=== PATIENT | female | born 1960 | race Caucasian/White ===

== ENCOUNTER 2017-09-03 17:15 | Emergency (ER) | payer MEDICARE, MEDICAID, SELFPAY ==
[2017-09-03 17:19] VITALS: BP 121/80; PULSE 96; RESP 18; TEMP 36.9; O2SAT 95
[2017-09-03 17:44] LABS: Add Manual Diff / Slide Review NO; Basophils Percent Auto 0.2 % (0-2); Eosinophils Percent Auto 3.9 % (2-4); Hematocrit 37.2 % (36-46); Hemoglobin 12.1 g/dL (12.0-16.0); Lymphocytes Percent Auto 27.5 % (25-40); Mean Corpuscular HGB Conc 32.6 % (30-36); Mean Corpuscular Hemoglobin 29.3 PG (26-34); Monocytes Percent Auto 6.1 % (3-14); Neutrophils Absolute Auto 9100 /uL (3000-5900); Neutrophils Percent Auto 62.3 % (50-75); Platelet Count 328 X10^3/uL (150-400); Red Blood Cell Count 4.13 X10^6/uL (4.0-5.2); White Blood Cell Count 14.6 X10^3/uL (4.5-11.0)
[2017-09-03 17:59] LABS: BUN Creatinine Ratio 19.1 (6-22); Bilirubin Total 0.5 mg/dL (0.2-1.3); Blood Urea Nitrogen 21 mg/dL (7-17); Calcium 9.2 mg/dL (8.4-10.2); Carbon Dioxide 27 mmol/L (22-32); Chloride 102 mmol/L (98-107); Estimated Glomerular Filt Rate 50.8 mL/min (>60); Glucose 92 mg/dL (70-100); HEMOLYSIS < 15 (0-50); Potassium 4.2 mmol/L (3.4-5.1); Sodium 138 mmol/L (137-145)
[2017-09-03 18:14] LABS: Procalcitonin < 0.05 ng/mL (<0.5)
--- NOTE | 2017-09-03 19:26 | ED.EXTPRO ---
HPI - Extremity Problem General Chief complaint: Extremity Problem,Nontraumatic Stated complaint: legs are swelling Time Seen by Provider: 09/03/17 19:25 Source: patient Mode of arrival: ambulatory Limitations: no limitations History of Present Illness HPI Narrative: 57-year-old female here for bilateral lower extremity swelling and redness. Patient states that for the past several days/week her lower extremities have become more swollen and more red. She states that is very similar to the past where she was diagnosed with lower extremity cellulitis and was placed on vancomycin and had to have a PICC line placed to receive vancomycin for an extended period of time. She denies any new trauma. Denies any fevers. States that her legs are somewhat tender. She is still able to ambulate although with some tenderness. She states that the swelling does improve when she puts her legs up. Denies any fevers. States that her legs are ?weeping ?she does have Lasix at home but has been told in the past. Because her kidney functions were not very good. Related Data Home Medications Medication Instructions Recorded Confirmed furosemide 40 mg PO QDAY #0 12/19/16 levothyroxine 100 mcg PO QAM #0 12/19/16 Previous Rx's Medication Instructions Recorded potassium chloride [K-Tab] 10 meq PO Q DAY 10 Days #0 09/07/16 ciprofloxacin HCl [Cipro] 500 mg PO BID #20 tab 12/22/16 vancomycin 1 gm IV QDAY #10 ea 12/22/16 hydrocodone-acetaminophen 0 tab PO Q4HP PRN #60 12/23/16 cephalexin 500 mg PO QID 10 Days #40 cap 09/03/17 Allergies Allergy/AdvReac Type Severity Reaction Status Date / Time No Known Drug Allergies Allergy Verified 09/03/17 17:23 Review of Systems Constitutional Denies chills, Denies fever(s) and Denies lethargy Cardiovascular Denies chest pain, Denies irregular heart rhythm, Denies lightheadedness, Denies palpitations, Denies dyspnea, Denies dyspnea on exertion and Denies orthopnea Respiratory Denies cough, Denies dyspnea, Denies dyspnea on exertion and Denies wheezing Gastrointestinal Gastrointestinal: Denies abdominal pain, Denies change in bowel habits, Denies diarrhea, Denies nausea and Denies vomiting Musculoskeletal Comments: Bilateral lower extremity swelling Integumentary/Breasts Comments: Bilateral lower extremity redness and weeping and warmth Neurologic Comments: No tingling to bilateral lower extremities Endocrine Denies palpitations Hematologic/Lymphatic Denies easy bruising Allergic/Immunologic Denies wheezing [facility] Social History Smoking Status: Current every day smoker Exam Initial Vital Signs Initial Vital Signs: Vital Signs Temperature 98.5 F 09/03/17 17:19 Pulse Rate 96 H 09/03/17 17:19 Respiratory Rate 18 09/03/17 17:19 Blood Pressure 121/80 H 09/03/17 17:19 Pulse Oximetry 95 09/03/17 17:19 Const General: cooperative, comfortable and No acute distress Orientation: alert, awake and oriented x3 HENMT Head: normal to inspection and normocephalic Resp Effort & Inspection: normal respiratory effort Cardio Pulses: dorsalis pedis present bilaterally Back/Spine/Pelvis Back: No CVA tenderness Skin Other: Patient with bilateral redness consistent with chronic venous stasis changes from the toes to just distal to the knees. Does have areas of what appear to be ulcerations and weeping of clear fluid. No intact vesicles seen. Skin is warm to the touch. Neuro Other: Sensation intact bilateral lower extremities Extrem Other: Bilateral lower extremities 2+ pitting edema from the toes to the knees. Course Orders Ordered: ED Orders 09/03/17 18:43 Blood Culture Stat Discontinued Medications Cephalexin HCl (Keflex) 500 mg PO NOW ONE Stop: 09/03/17 19:46 Last Admin: 09/03/17 19:53 Dose: 500 mg Vital Signs - 8 hr 09/03/17 17:19 Temperature 98.5 F Pulse Rate 96 H Respiratory Rate 18 Blood Pressure 121/80 H Pulse Oximetry 95 MDM - Extremity (Nontraumatic) Lab Data Result diagrams: 09/03/17 17:34 09/03/17 17:34 Lab Results 09/03/17 09/03/17 09/03/17 Range/Units 17:34 17:34 17:34 WBC 14.6 H (4.5-11.0) X10^3/uL RBC 4.13 (4.0-5.2) X10^6/uL Hgb 12.1 (12.0-16.0) g/dL Hct 37.2 (36-46) % MCV 90.0 (80-100) fL MCH 29.3 (26-34) PG MCHC 32.6 (30-36) % RDW 14.0 (11.6-14.8) % Plt Count 328 (150-400) X10^3/uL Neut % (Auto) 62.3 (50-75) % Lymph % (Auto) 27.5 (25-40) % [place] % (Auto) 6.1 (3-14) % Eos % (Auto) 3.9 (2-4) % Baso % (Auto) 0.2 (0-2) % Neut # (Auto) 9100 H (0094-2214) /uL Sodium 138 (137-145) mmol/L Potassium 4.2 (3.4-5.1) mmol/L Chloride 102 (98-107) mmol/L Carbon Dioxide 27 (22-32) mmol/L BUN 21 H (7-17) mg/dL Creatinine 1.10 H (0.52-1.04) mg/dL Estimated GFR 50.8 L (>60) mL/min BUN/Creatinine Ratio 19.1 (6-22) Glucose 92 (70-100) mg/dL Lactate (0.7-2.1) mmol/L Calcium 9.2 (8.4-10.2) mg/dL Total Bilirubin 0.5 (0.2-1.3) mg/dL Procalcitonin < 0.05 (<0.5) ng/mL 09/03/17 Range/Units 17:34 WBC (4.5-11.0) X10^3/uL RBC (4.0-5.2) X10^6/uL Hgb (12.0-16.0) g/dL Hct (36-46) % MCV (80-100) fL MCH (26-34) PG MCHC (30-36) % RDW (11.6-14.8) % Plt Count (150-400) X10^3/uL Neut % (Auto) (50-75) % Lymph % (Auto) (25-40) % [place] % (Auto) (3-14) % Eos % (Auto) (2-4) % Baso % (Auto) (0-2) % Neut # (Auto) (4205-1474) /uL Sodium (137-145) mmol/L Potassium (3.4-5.1) mmol/L Chloride (98-107) mmol/L Carbon Dioxide (22-32) mmol/L BUN (7-17) mg/dL Creatinine (0.52-1.04) mg/dL Estimated GFR (>60) mL/min BUN/Creatinine Ratio (6-22) Glucose (70-100) mg/dL Lactate 1.0 (0.7-2.1) mmol/L Calcium (8.4-10.2) mg/dL Total Bilirubin (0.2-1.3) mg/dL Procalcitonin (<0.5) ng/mL MDM Narrative Medical decision making narrative: Patient with physical exam that is consistent with bilateral chronic edema. Does have redness and warmth and weeping wounds to bilateral lower extremities. Considered chronic venous stasis changes as the source of her symptoms however with a prior history of bilateral cellulitis regarding long-term treatment with vancomycin through a PICC line in her elevated white blood cell count I felt that it would be prudent to start her on a course of antibiotics. We did discuss other treatments to include elevation and compression stockings. She does have compression stockings at home. She does have a follow up with her primary doctor on Sunday of this week. Her creatinine today is 1.1. We did discuss starting Lasix on a daily basis to help with the swelling. She was given return precautions. Feel that she does not need admitted to the hospital today. She is afebrile. Is nontoxic appearing. Has a normal lactate. She expressed understanding and agreement with plan Discharge Plan Departure Patient Disposition: Home, Self-Care Clinical Impression: Cellulitis, Dependent edema Discharge Date/Time: 09/03/17 20:07 Interventions: ED Discharge Assessment Last Done: 09/03/17 20:06 Instructions: DI for Edema Due to Venous Stasis, DI for Dependent Edema, DI for Peripheral Edema -- Bilateral Activity Restrictions/Additional Instructions: Take all of the medications as directed. I would recommend that you take 1x 20 mg Lasix pill that you have at home a day. Recommend that you keep her legs elevated like we discussed. Recommend that you stay as mobile as possible like we discussed. Keep your follow-up with her primary doctor on Sunday. Return to the emergency department for any new or worsening symptoms Prescriptions: New cephalexin 500 mg capsule 500 mg PO QID 10 Days Qty: 40 RF: 0 No Action potassium chloride [K-Tab] 10 MEQ tablet extended release 10 meq PO Q DAY 10 Days Qty: 0 RF: 0 levothyroxine 100 MCG tablet 100 mcg PO QAM Qty: 0 RF: 0 furosemide 40 MG tablet 40 mg PO QDAY Qty: 0 RF: 0 ciprofloxacin HCl [Cipro] 500 MG tablet 500 mg PO BID Qty: 20 RF: 1 vancomycin 1 GM recon soln 1 gm IV QDAY Qty: 10 RF: 0 hydrocodone-acetaminophen 5 MG/325 MG tablet PO Q4HP PRNQty: 60 RF: 0
[2017-09-03 19:29] VITALS: BP 145/81; PULSE 82; RESP 18; TEMP 36.6; O2SAT 99
[2017-09-03 19:30] VITALS: BP 133/89; PULSE 83; O2SAT 97
[2017-09-03] MEDS: cephALEXin 250 MG CAPSULE 500 MG PO (19:53)
== END 2017-09-03 20:07 | disposition home or self-care (01) ==
PROVIDERS: Emergency Medicine; Emergency Provider Emergency Medicine; PCP Family Medicine
DX: L03.116 Cellulitis of left lower limb (principal); L03.115 Cellulitis of right lower limb
CPT/HCPCS: 36415; 36591; 80048; 82247; 83605; 84145; 85025; 87040; 99282; 99283

== ENCOUNTER 2018-03-22 00:20 | Emergency (ER) | payer MEDICARE, MEDICAID, SELFPAY ==
[2018-03-22 00:29] VITALS: BP 165/87; PULSE 82; RESP 17; TEMP 36.6; O2SAT 100; BMI 38.0
--- NOTE | 2018-03-22 00:42 | ED.EXTPRO ---
HPI - Extremity Problem General Chief complaint: Extremity Problem,Nontraumatic Stated complaint: RIGHT LEG INFECTION Time Seen by Provider: 03/22/18 00:28 Source: patient Mode of arrival: ambulatory Limitations: no limitations History of Present Illness HPI Narrative: Patient is 58-year-old female who presents bilateral leg swelling. She says that she has some erythema and infection on her right thigh. She says the redness has gotten worse over the last 3 days. She says it is warm to touch. She previously had bilateral lower extremity cellulitis thought to be due to our fluid overload at that time she was placed on Lasix. Her doctor took her off Lasix she says. His she feels like her legs are more swollen again. She also says she has put on 60 lb over the last year does not feel like that is right. She feels like she might be retaining water. She does have some shortness of breath no fever no cough no chest pain. She does take thyroid medication MD Complaint: extremity pain and extremity swelling Related Data Home Medications Medication Instructions Recorded Confirmed levothyroxine 100 mcg PO QAM #0 12/19/16 03/22/18 methadone 65 mg PO DAILY 03/22/18 03/22/18 Previous Rx's Medication Instructions Recorded cephalexin [Keflex] 500 mg PO TID #21 cap 03/22/18 furosemide [Lasix] 20 mg PO DAILY #5 tab 03/22/18 Allergies Allergy/AdvReac Type Severity Reaction Status Date / Time No Known Drug Allergies Allergy Verified 03/22/18 00:29 Review of Systems Review of Systems All systems reviewed & are unremarkable except as noted in HPI and below Constitutional Denies chills, Denies fever(s), Denies lethargy and Denies weakness Cardiovascular Denies chest pain, Denies irregular heart rhythm, Reports leg edema, Denies lightheadedness, Denies palpitations, Denies dyspnea, Reports dyspnea on exertion and Denies orthopnea Respiratory Denies pain with cough, Denies dyspnea, Reports dyspnea on exertion and Denies wheezing Gastrointestinal Gastrointestinal: Denies abdominal pain, Denies change in bowel habits, Denies diarrhea, Denies nausea and Denies vomiting Genitourinary Denies hematuria, Denies flank pain, Denies urinary incontinence and Denies urinary urgency Musculoskeletal Denies back pain, Denies muscle weakness, Denies numbness and Denies tingling Integumentary/Breasts Denies pruritus, Denies erythema, Denies rash and Denies wounds Neurologic Denies numbness, Denies tingling and Denies weakness Endocrine Denies palpitations Allergic/Immunologic Denies wheezing PFSH Medical History Kidney stones (Chronic) Social History Smoking Status: Current every day smoker Exam Initial Vital Signs Initial Vital Signs: Vital Signs Temperature 97.8 F 03/22/18 00:29 Pulse Rate 82 03/22/18 00:29 Respiratory Rate 17 03/22/18 00:29 Blood Pressure 165/87 H 03/22/18 00:29 Pulse Oximetry 100 03/22/18 00:29 GENERAL: Overweight female HEENT: Head atraumatic,EOMI, pupils reactive, face symmetric CARDIOVASCULAR: Regular rate and rhythm without murmurs, rubs or gallops. RESPIRATORY: Breath sounds equal bilaterally, no wheezes rales or rhonchi. ABDOMEN: Soft, nontender. Normoactive bowel sounds all 4 quadrants. No guarding or rebound. EXTREMITIES: Normal range of motion, no clubbing or edema. Neurovascularly intact NEUROLOGICAL: Alert and oriented x4.Normal gait and speech. Cranial nerves II through XII grossly intact. SKIN: Chronic venous stasis noted in bilateral lower extremities. She does have an area of the right lateral thigh which is erythematous blanchable Course Orders Ordered: ED Orders 03/22/18 00:44 XR chest 1V Stat 03/22/18 00:45 EKG-12 Lead Stat 03/22/18 01:10 B Type Natriuretic Peptide Stat Complete Blood Count AUTO DIFF Stat Comprehensive Metabolic Panel Stat Procalcitonin Stat Thyroid Stimulating Hormone Stat Troponin & CK Cardiac Panel Stat Discontinued Medications Cefazolin Sodium (Keflex) 1 bottle MISC SEEINSTR ONE Stop: 03/22/18 02:21 Last Admin: 03/22/18 02:24 Dose: 500 mg Cephalexin HCl (Keflex) 1 bottle MISC SEEINSTR ONE Stop: 03/22/18 02:17 Last Admin: 03/22/18 02:25 Dose: Not Given Furosemide (Lasix) 20 mg IV NOW ONE Stop: 03/22/18 02:17 Last Admin: 03/22/18 02:24 Dose: 20 mg Vital Signs - 8 hr 03/22/18 00:29 03/22/18 02:42 Temperature 97.8 F Pulse Rate 82 71 Respiratory Rate 17 16 Blood Pressure 165/87 H 151/64 H Pulse Oximetry 100 97 MDM - Extremity (Nontraumatic) Lab Data Result diagrams: 03/22/18 01:10 03/22/18 01:10 Lab Results 03/22/18 03/22/18 03/22/18 Range/Units 01:10 01:10 01:10 WBC 12.0 H (4.5-11.0) X10^3/uL RBC 3.69 L (4.0-5.2) X10^6/uL Hgb 10.9 L (12.0-16.0) g/dL Hct 33.8 L (36-46) % MCV 91.5 (80-100) fL MCH 29.5 (26-34) PG MCHC 32.2 (30-36) % RDW 14.1 (11.6-14.8) % Plt Count 249 (150-400) X10^3/uL Neut % (Auto) 63.6 (50-75) % Lymph % (Auto) 22.8 L (25-40) % [place] % (Auto) 9.4 (3-14) % Eos % (Auto) 3.2 (2-4) % Baso % (Auto) 1.0 (0-2) % Neut # (Auto) 7700 H (7138-7787) /uL Sodium 140 (137-145) mmol/L Potassium 4.2 (3.4-5.1) mmol/L Chloride 103 (98-107) mmol/L Carbon Dioxide 27 (22-32) mmol/L BUN 22 H (7-17) mg/dL Creatinine 1.70 H (0.52-1.04) mg/dL Estimated GFR 30.7 L (>60) mL/min BUN/Creatinine Ratio 12.9 (6-22) Glucose 111 H (80-110) mg/dL Calcium 8.9 (8.4-10.2) mg/dL Total Bilirubin 0.2 (0.2-1.3) mg/dL AST 16 (14-36) IU/L ALT 16 (9-52) IU/L Alkaline Phosphatase 92 (38-126) U/L Total Creatine Kinase (30-135) U/L CK-MB (CK-2) CK-MB (CK-2) Rel Index Troponin I (0.01-0.034) ng/mL B-Natriuretic Peptide < 100 (<100) Total Protein 7.9 (6.3-8.2) g/dL Albumin 3.8 (3.5-5.0) g/dL Globulin 4.1 (1.7-4.1) g/dL Albumin/Globulin Ratio 0.9 L (1.0-2.8) Procalcitonin < 0.05 (<0.5) ng/mL TSH (0.47-4.68) uIU/mL 03/22/18 03/22/18 Range/Units 01:10 01:10 WBC (4.5-11.0) X10^3/uL RBC (4.0-5.2) X10^6/uL Hgb (12.0-16.0) g/dL Hct (36-46) % MCV (80-100) fL MCH (26-34) PG MCHC (30-36) % RDW (11.6-14.8) % Plt Count (150-400) X10^3/uL Neut % (Auto) (50-75) % Lymph % (Auto) (25-40) % [place] % (Auto) (3-14) % Eos % (Auto) (2-4) % Baso % (Auto) (0-2) % Neut # (Auto) (5229-2141) /uL Sodium (137-145) mmol/L Potassium (3.4-5.1) mmol/L Chloride (98-107) mmol/L Carbon Dioxide (22-32) mmol/L BUN (7-17) mg/dL Creatinine (0.52-1.04) mg/dL Estimated GFR (>60) mL/min BUN/Creatinine Ratio (6-22) Glucose (80-110) mg/dL Calcium (8.4-10.2) mg/dL Total Bilirubin (0.2-1.3) mg/dL AST (14-36) IU/L ALT (9-52) IU/L Alkaline Phosphatase (38-126) U/L Total Creatine Kinase 61 (30-135) U/L CK-MB (CK-2) TNP CK-MB (CK-2) Rel Index TNP Troponin I < 0.012 (0.01-0.034) ng/mL B-Natriuretic Peptide (<100) Total Protein (6.3-8.2) g/dL Albumin (3.5-5.0) g/dL Globulin (1.7-4.1) g/dL Albumin/Globulin Ratio (1.0-2.8) Procalcitonin (<0.5) ng/mL TSH 4.52 (0.47-4.68) uIU/mL Imaging Data Chest x-ray: Attestation: I personally reviewed and interpreted this imaging study as follows: My impression: No acute cardiopulmonary process ECG Data Attestation EKG: I personally reviewed and interpreted this ECG as follows: Prior ECG tracings: available for review Interpretation: Normal sinus rhythm rate 61 appear interval [address] changes or T-wave inversions MDM Narrative Medical decision making narrative: Patient is no sign of sepsis. Slightly elevated leukocytosis. Erythema may be from edema. She was previously on a Lasix. Will give her a few days of Lasix and antibiotics. A TSH is slightly elevated not causing her year long weight gain. I discussed all findings with the patient, Education has been performed regarding treatment plan, diagnosis, warning signs and symptoms and all concerns have been addressed. Verbally agree with and understood all of the above. Discharge Plan Departure Patient Disposition: Home Clinical Impression: Cellulitis Discharge Date/Time: 03/22/18 02:43 Interventions: ED Discharge Assessment Last Done: 03/22/18 02:42 Instructions: DI for Cellulitis -- Adult Activity Restrictions/Additional Instructions: *You have been diagnosed with cellulitis right leg *What to do: Talk to your primary care provider about your thyroid, TSH today is 4.52 *Continue to take medications as directed Keflex 500 mg is 3 times a day for 7 days Lasix 20 mg once a day for 5 days *Follow up with your primary care provider in 2-3 days *Return to ER if you should have increasing redness, difficulty breathing, chest or any new, worsening or concerning symptoms Prescriptions: New cephalexin [Keflex] 500 mg capsule 500 mg PO TID Qty: 21 RF: 0 furosemide [Lasix] 20 mg tablet 20 mg PO DAILY Qty: 5 RF: 0 No Action levothyroxine 100 MCG tablet 100 mcg PO QAM Qty: 0 RF: 0 methadone 40 mg Tablet,Soluble 65 mg PO DAILY RF: 0 Referrals: Alva Bauer MD [Primary Care Provider] -
--- NOTE | 2018-03-22 00:44 | DI.RAD.S_ITS ---
PROCEDURE: XR CHEST 1V INDICATIONS: short of breath TECHNIQUE: One view of the chest was acquired. COMPARISON: [facility], CHEST FOR PICC PLACEMENT, 12/21/2016, 15:48. [facility], CHEST 1 VIEW, 09/07/2016, 15:13. FINDINGS: Surgical changes and devices: None. Lungs and pleura: No pleural effusions or pneumothorax. Lungs are clear except for mild chronic interstitial prominence. Mediastinum: Mediastinal contours appear normal. Heart size is normal. Bones and chest wall: No suspicious bony lesions. Overlying soft tissues appear unremarkable. IMPRESSION: Chronic mild interstitial prominence, no acute disease. Dictated by: Britton Clemente M.D. on 03/22/2018 at 8:58 Approved by: Britton Clemente M.D. on 03/22/2018 at 8:59
[2018-03-22 01:22] LABS: Add Manual Diff / Slide Review NO; Eosinophils Percent Auto 3.2 % (2-4); Hematocrit 33.8 % (36-46); Hemoglobin 10.9 g/dL (12.0-16.0); Lymphocytes Percent Auto 22.8 % (25-40); Mean Corpuscular HGB Conc 32.2 % (30-36); Mean Corpuscular Hemoglobin 29.5 PG (26-34); Mean Corpuscular Volume 91.5 fL (80-100); Monocytes Percent Auto 9.4 % (3-14); Neutrophils Absolute Auto 7700 /uL (1500-7000); Neutrophils Percent Auto 63.6 % (50-75); Platelet Count 249 X10^3/uL (150-400); Red Blood Cell Count 3.69 X10^6/uL (4.0-5.2); Red Cell Distribution Width 14.1 % (11.6-14.8)
[2018-03-22 01:35] LABS: Alanine Aminotransferase 16 IU/L (9-52); Albumin 3.8 g/dL (3.5-5.0); Albumin Globulin Ratio 0.9 (1.0-2.8); Alkaline Phosphatase 92 U/L (38-126); Aspartate Aminotransferase 16 IU/L (14-36); BUN Creatinine Ratio 12.9 (6-22); Bilirubin Total 0.2 mg/dL (0.2-1.3); Blood Urea Nitrogen 22 mg/dL (7-17); Calcium 8.9 mg/dL (8.4-10.2); Carbon Dioxide 27 mmol/L (22-32); Chloride 103 mmol/L (98-107); Estimated Glomerular Filt Rate 30.7 mL/min (>60); Globulin 4.1 g/dL (1.7-4.1); Glucose 111 mg/dL (80-110); HEMOLYSIS < 15 (0-50); Potassium 4.2 mmol/L (3.4-5.1); Sodium 140 mmol/L (137-145); Total Protein 7.9 g/dL (6.3-8.2)
[2018-03-22 01:49] LABS: Creatine Kinase 61 U/L (30-135)
[2018-03-22 01:53] LABS: Procalcitonin < 0.05 ng/mL (<0.5)
[2018-03-22 02:04] LABS: Troponin I < 0.012 ng/mL (0.01-0.034)
[2018-03-22 02:09] LABS: B Type Natriuretic Peptide < 100 (<100)
[2018-03-22 02:11] LABS: Thyroid Stimulating Hormone 4.52 uIU/mL (0.47-4.68)
[2018-03-22] MEDS: FUROSEMIDE 20 MG/2 ML VIAL IV (02:24)
[2018-03-22] MEDS: cephALEXin 250 MG PREPACK 1 BOTTLE MISC (02:24)
[2018-03-22 02:42] VITALS: BP 151/64; PULSE 71; RESP 16; O2SAT 97
== END 2018-03-22 02:43 | disposition home or self-care (01) ==
PROVIDERS: Emergency Provider Emergency Medicine; PCP Family Medicine
DX: L03.115 Cellulitis of right lower limb (principal)
CPT/HCPCS: 36591; 71045; 80053; 82550; 83880; 84145; 84443; 84484; 85025; 93005; 96374; 99282; 99285; J1940

== ENCOUNTER 2018-04-29 01:34 | Emergency (ER) | payer MEDICARE, MEDICAID, SELFPAY ==
[2018-04-29 01:48] VITALS: BP 176/91; PULSE 81; RESP 16; TEMP 36.8; O2SAT 97; BMI 32.8
--- NOTE | 2018-04-29 01:56 | ED.EXTPRO ---
HPI - Extremity Problem General Chief complaint: Extremity Problem,Nontraumatic Stated complaint: LEGS ARE SWELLING Time Seen by Provider: 04/29/18 01:39 Source: patient and family Mode of arrival: ambulatory Limitations: no limitations History of Present Illness HPI Narrative: 58 year old smoker with history of B/L LE and venous stasis presents with B/L LE swelling over the past month or so. Yesterday she developed some redness on the dorsum of her R foot in the absence of pain. She has had no fever or chills. She denies CP, SOB, or other problems. She's been without her meds for the past 6 months or so. She has a vague mild headache MD Complaint: extremity pain and extremity swelling Onset (ago): week(s) Location: left, right and lower extremity Quality: aching Radiation: none Relieving factors: nothing Exacerbating factors: nothing Related Data Home Medications Medication Instructions Recorded Confirmed levothyroxine 100 mcg PO QAM #0 12/19/16 03/22/18 methadone 65 mg PO DAILY 03/22/18 03/22/18 Previous Rx's Medication Instructions Recorded cephalexin [Keflex] 500 mg PO TID #21 cap 03/22/18 furosemide [Lasix] 20 mg PO DAILY #5 tab 03/22/18 doxycycline hyclate 100 mg PO BID #20 tab 04/29/18 furosemide [Lasix] 40 mg PO DAILY #7 tab 04/29/18 levothyroxine 75 mcg PO DAILY #30 tab 04/29/18 Allergies Allergy/AdvReac Type Severity Reaction Status Date / Time No Known Drug Allergies Allergy Verified 04/29/18 01:53 Review of Systems Constitutional Denies chills, Denies fever(s), Denies lethargy and Denies weakness Eyes Denies change in vision, Denies eye discharge, Denies irritation and Denies loss of vision ENT Ears, Nose, Mouth, and Throat: Denies change in voice, Denies neck pain and Denies sore throat Cardiovascular Denies chest pain, Reports pedal edema, Reports edema, Denies irregular heart rhythm, Denies lightheadedness, Denies palpitations, Denies dyspnea, Denies dyspnea on exertion and Denies orthopnea Respiratory Denies cough, Denies dyspnea, Denies dyspnea on exertion and Denies wheezing Gastrointestinal Gastrointestinal: Denies abdominal pain, Denies change in bowel habits, Denies diarrhea, Denies nausea and Denies vomiting Genitourinary Denies hematuria, Denies flank pain, Denies urinary incontinence and Denies urinary urgency Musculoskeletal Denies neck pain Integumentary/Breasts Denies pruritus, Reports erythema, Denies rash and Denies wounds Neurologic Denies confusion, Denies loss of vision and Denies weakness Psychiatric Denies anxiety, Denies confusion, Denies depression, Denies homicidal ideation and Denies suicidal ideation Endocrine Denies palpitations Hematologic/Lymphatic Denies easy bruising Allergic/Immunologic Denies wheezing PFSH Medical History Kidney stones (Chronic) Social History Smoking Status: Current every day smoker Social History Smoking Status: Current every day smoker Exam Narrative Exam Narrative: GENERAL: 58 year old female, appears older than stated age, a bit unkempt HEAD: Atraumatic. Normocephalic. No temporal or scalp tenderness. EYES: Pupils equal round and reactive. Extraocular motions intact. No scleral icterus. No injection or drainage. ENT: Nose without bleeding, purulent drainage or septal hematoma. Throat without erythema, tonsillar hypertrophy or exudate. Uvula midline. Airway patent. NECK: Trachea midline. No JVD or lymphadenopathy. Supple, nontender, no meningeal signs. CARDIOVASCULAR: Regular rate and rhythm without murmurs, gallops, or rubs. RESPIRATORY: decreased breath sounds, expiratory wheeze GASTROINTESTINAL: Abdomen soft, non-tender, nondistended. No hepato-splenomegaly, or palpable masses. No guarding. EXTREMITIES: B/L LE edema, 2+, tense, with chronic venous stasis. Mild erythema on dorsum of R foot from toes to midfoot. No drainage or fluctuance. BACK: Nontender without deformity or crepitance. No flank tenderness. NEURO: AOx3. SKIN: No rash or erythema. Initial Vital Signs Initial Vital Signs: Vital Signs Temperature 98.2 F 04/29/18 01:48 Pulse Rate 81 04/29/18 01:48 Respiratory Rate 16 04/29/18 01:48 Blood Pressure 176/91 H 04/29/18 01:48 Pulse Oximetry 97 02/04/19 01:48 Course Orders Ordered: ED Orders 04/29/18 02:11 Basic Metabolic Panel Stat Complete Blood Count AUTO DIFF Stat Free T4 Free Thyroxine Stat Procalcitonin Stat Thyroid Stimulating Hormone Stat Discontinued Medications Furosemide (Lasix) 40 mg IV NOW ONE Stop: 04/29/18 01:56 Last Admin: 04/29/18 02:13 Dose: 40 mg Ceftriaxone Sodium/Dextrose (Rocephin) 1 gm in 50 mls @ 100 mls/hr IV NOW ONE Stop: 04/29/18 02:24 Last Infusion: 04/29/18 02:49 Dose: 0 mls/hr Admin: 04/29/18 02:13 Dose: 100 mls/hr Vital Signs - 8 hr 04/29/18 01:48 04/29/18 02:40 04/29/18 03:35 Temperature 98.2 F Pulse Rate 81 76 72 Respiratory Rate 16 16 16 Blood Pressure 176/91 H Blood Pressure [Left Arm] 121/66 119/65 Pulse Oximetry 97 94 96 MDM - Extremity (Nontraumatic) Lab Data Result diagrams: 04/29/18 02:11 04/29/18 02:11 Lab Results 04/29/18 04/29/18 04/29/18 Range/Units 02:11 02:11 02:11 WBC 16.2 H (4.5-11.0) X10^3/uL RBC 3.97 L (4.0-5.2) X10^6/uL Hgb 11.7 L (12.0-16.0) g/dL Hct 36.2 (36-46) % MCV 91.2 (80-100) fL MCH 29.4 (26-34) PG MCHC 32.3 (30-36) % RDW 14.7 (11.6-14.8) % Plt Count 221 (150-400) X10^3/uL Neut % (Auto) Not Reportable Lymph % (Auto) Not Reportable [place] % (Auto) Not Reportable Eos % (Auto) Not Reportable Baso % (Auto) Not Reportable Lymph # (Auto) Not Reportable [place] # (Auto) Not Reportable Baso # (Auto) Not Reportable Seg Neutrophils % 72.0 H (38-70) % Lymphocytes % (Manual) 17.0 L (25-45) % Monocytes % (Manual) 8.0 (2-11) % Eosinophils % (Manual) 3.0 (2-4) % Differential Comment Normal morphology RBC Morphology Normal morphology Sodium 137 (137-145) mmol/L Potassium 3.6 (3.4-5.1) mmol/L Chloride 101 (98-107) mmol/L Carbon Dioxide 26 (22-32) mmol/L BUN 28 H (7-17) mg/dL Creatinine 1.40 H (0.52-1.04) mg/dL Estimated GFR 38.4 L (>60) mL/min BUN/Creatinine Ratio 20.0 (6-22) Glucose 110 (80-110) mg/dL Calcium 8.5 (8.4-10.2) mg/dL Procalcitonin 0.25 (<0.5) ng/mL TSH (0.47-4.68) uIU/mL Free T4 (0.78-2.19) ng/dL 04/29/18 Range/Units 02:11 WBC (4.5-11.0) X10^3/uL RBC (4.0-5.2) X10^6/uL Hgb (12.0-16.0) g/dL Hct (36-46) % MCV (80-100) fL MCH (26-34) PG MCHC (30-36) % RDW (11.6-14.8) % Plt Count (150-400) X10^3/uL Neut % (Auto) Lymph % (Auto) [place] % (Auto) Eos % (Auto) Baso % (Auto) Lymph # (Auto) [place] # (Auto) Baso # (Auto) Seg Neutrophils % (38-70) % Lymphocytes % (Manual) (25-45) % Monocytes % (Manual) (2-11) % Eosinophils % (Manual) (2-4) % Differential Comment RBC Morphology Sodium (137-145) mmol/L Potassium (3.4-5.1) mmol/L Chloride (98-107) mmol/L Carbon Dioxide (22-32) mmol/L BUN (7-17) mg/dL Creatinine (0.52-1.04) mg/dL Estimated GFR (>60) mL/min BUN/Creatinine Ratio (6-22) Glucose (80-110) mg/dL Calcium (8.4-10.2) mg/dL Procalcitonin (<0.5) ng/mL TSH 5.95 H (0.47-4.68) uIU/mL Free T4 1.46 (0.78-2.19) ng/dL Discharge Plan Departure Patient Disposition: Home Clinical Impression: Cellulitis, Bilateral leg edema Discharge Date/Time: 04/29/18 03:40 Interventions: ED Discharge Assessment Last Done: 04/29/18 03:36 Instructions: DI for Cellulitis -- Adult Activity Restrictions/Additional Instructions: *You have been diagnosed with [ acute bilateral lower extremity edema, right foot cellulitis ] *What to do: *Take medications as directed *Follow up with your primary care provider in 2-3 days, call for an appointment. Let them know you were seen in the Emergency Department and that we ask that you be seen in follow up *Return to ER if you should have any new, worsening or concerning symptoms, such as [ ] Prescriptions: New doxycycline hyclate 100 mg tablet 100 mg PO BID Qty: 20 RF: 0 furosemide [Lasix] 40 mg tablet 40 mg PO DAILY Qty: 7 RF: 0 levothyroxine 75 mcg tablet 75 mcg PO DAILY Qty: 30 RF: 0 No Action levothyroxine 100 MCG tablet 100 mcg PO QAM Qty: 0 RF: 0 methadone 40 mg Tablet,Soluble 65 mg PO DAILY RF: 0 cephalexin [Keflex] 500 mg capsule 500 mg PO TID Qty: 21 RF: 0 furosemide [Lasix] 20 mg tablet 20 mg PO DAILY Qty: 5 RF: 0 Referrals: Alva Bauer MD [Primary Care Provider] -
[2018-04-29] MEDS: CEFTRIAXONE 1 GM/50 ML FROZ.PIGGY IV (02:13)
[2018-04-29] MEDS: FUROSEMIDE 40 MG/4 ML VIAL IV (02:13)
[2018-04-29 02:27] LABS: Hematocrit 36.2 % (36-46); Hemoglobin 11.7 g/dL (12.0-16.0); Mean Corpuscular HGB Conc 32.3 % (30-36); Mean Corpuscular Hemoglobin 29.4 PG (26-34); Mean Corpuscular Volume 91.2 fL (80-100); Platelet Count 221 X10^3/uL (150-400); Red Blood Cell Count 3.97 X10^6/uL (4.0-5.2); Red Cell Distribution Width 14.7 % (11.6-14.8); White Blood Cell Count 16.2 X10^3/uL (4.5-11.0)
[2018-04-29 02:28] LABS: Add Manual Diff / Slide Review YES
[2018-04-29 02:35] LABS: HEMOLYSIS 40 (0-50); Potassium 3.6 mmol/L (3.4-5.1)
[2018-04-29 02:39] LABS: Blood Urea Nitrogen 28 mg/dL (7-17); Calcium 8.5 mg/dL (8.4-10.2); Carbon Dioxide 26 mmol/L (22-32); Chloride 101 mmol/L (98-107); Estimated Glomerular Filt Rate 38.4 mL/min (>60); Glucose 110 mg/dL (80-110); Sodium 137 mmol/L (137-145)
[2018-04-29 02:40] VITALS: BP 121/66; PULSE 76; RESP 16; O2SAT 94
[2018-04-29 02:46] LABS: Procalcitonin 0.25 ng/mL (<0.5)
[2018-04-29 03:01] LABS: Morphology Comment Normal Morphology
[2018-04-29 03:06] LABS: Free T4, Direct Thyroxine 1.46 ng/dL (0.78-2.19)
[2018-04-29 03:20] LABS: Thyroid Stimulating Hormone 5.95 uIU/mL (0.47-4.68)
[2018-04-29 03:35] VITALS: BP 119/65; PULSE 72; RESP 16; O2SAT 96
[2018-04-29 04:14] LABS: RBC Morphology Normal Morphology
--- NOTE | 2018-05-10 15:36 | PC.NURSE ---
Pt friend called stating that patient did not fill her prescriptions from 2/4 visit and has lost them. Is continuing to have concerns w/ lower extremities. Requesting we re-issue scripts. As it has been 11 days, provider declined. Encouraged to return for further evaluation or f/u w/ pcp. Friend verbalized understanding of those instructions.
== END 2018-04-29 03:40 | disposition home or self-care (01) ==
PROVIDERS: Emergency Provider Emergency Medicine; PCP Family Medicine
DX: R60.0 Localized edema (principal)
CPT/HCPCS: 36591; 80048; 84145; 84439; 84443; 85025; 96365; 96375; 99283; 99284; J1940

== ENCOUNTER 2018-10-09 02:26 | Emergency (ER) | payer MEDICARE, MEDICAID, SELFPAY ==
[2018-10-09 02:30] VITALS: BP 134/72; PULSE 97; RESP 20; TEMP 36.6; O2SAT 96; BMI 42.3
[2018-10-09 02:38] VITALS: PULSE 90; RESP 16; O2SAT 99
--- NOTE | 2018-10-09 02:48 | ED.EXTPRO ---
HPI - Extremity Problem General Chief complaint: Extremity Problem,Nontraumatic Stated complaint: states infection both legs Time Seen by Provider: 10/09/18 02:45 Source: patient Mode of arrival: ambulatory Limitations: no limitations History of Present Illness HPI Narrative: This is a 58-year-old female comes to the emergency department with complaint of swelling in her lower extremities and shortness of breath. Patient states that the swelling has been increasingly moving up her legs she states they are also has been more skin breakdown and weeping from her lower extremities. She states that she increasing redness move well. Patient denies any fevers. She has felt more short of breath. She has of low move cough but no productive. She does smoke about a pack per day. She states she has hypertension, hypothyroidism and does take Lasix daily. Patient states her [place] care [place] Dr[place] Coffey. She states she has had hysterectomy. She has been admitted for cellulitis on her lower extremities in the past. Denies any alcohol or illicit. Related Data Home Medications Medication Instructions Recorded Confirmed levothyroxine 100 mcg PO QAM #0 12/19/16 03/22/18 methadone 65 mg PO DAILY 03/22/18 03/22/18 Previous Rx's Medication Instructions Recorded cephalexin [Keflex] 500 mg PO TID #21 cap 03/22/18 furosemide [Lasix] 20 mg PO DAILY #5 tab 03/22/18 doxycycline hyclate 100 mg PO BID #20 tab 04/29/18 furosemide [Lasix] 40 mg PO DAILY #7 tab 04/29/18 levothyroxine 75 mcg PO DAILY #30 tab 04/29/18 cephalexin [Keflex] 500 mg PO QID #40 cap 10/09/18 furosemide [Lasix] 20 mg PO DAILY #5 tab 10/09/18 Allergies Allergy/AdvReac Type Severity Reaction Status Date / Time No Known Drug Allergies Allergy Verified 04/29/18 01:53 Review of Systems Review of Systems ROS Unobtainable: All systems reviewed & are unremarkable except as noted in HPI and below Constitutional Denies chills, Denies fever(s), Denies lethargy and Denies weakness Cardiovascular Denies chest pain, Denies diaphoresis, Denies syncope, Reports edema, Denies lightheadedness, Reports dyspnea and Reports dyspnea on exertion Respiratory Denies change in phlegm color, Denies chest congestion, Reports cough, Denies hemoptysis, Denies excessive phlegm production, Reports dyspnea, Reports dyspnea on exertion and Reports wheezing Gastrointestinal Gastrointestinal: Denies abdominal pain, Denies change in bowel habits, Denies diarrhea, Denies nausea and Denies vomiting Genitourinary Denies hematuria, Denies dysuria, Denies flank pain and Denies urinary urgency Musculoskeletal Reports as per HPI and Reports other (pain in legs.) Integumentary/Breasts Reports erythema, Reports skin swelling and Reports wounds Neurologic Denies syncope and Denies weakness Allergic/Immunologic Reports wheezing [facility] Medical History (Updated 10/09/18 @ 04:23 by Maria T Duron DO) Hypertension (Chronic) Hypothyroid (Chronic) Kidney stones (Chronic) Social History Smoking Status: Current every day smoker Social History (Updated 10/09/18 @ 03:03 by Maria T Duron DO) Smoking Status: Current every day smoker alcohol intake: never substance use type: does not use Exam Narrative Exam Narrative: GENERAL: Alert and oriented x three, morbidly obese female in mild distress. HEENT: Head normocephalic, atraumatic, EOMI, pupils reactive, face symmetric, moist mucous membranes NECK: Supple, full range of motion CARDIOVASCULAR: Regular rate and rhythm without murmurs, rubs or gallops. RESPIRATORY: Breath sounds equal bilaterally, skin wheeze, no rhonchi. Mild rales bilaterally. Patient does not any tachypnea. Speaks in full sentences. ABDOMEN: Soft, nontender. Normoactive bowel sounds all 4 quadrants. No guarding or rebound, rigidity, no mass : No CVA tenderness EXTREMITIES: Normal range of motion. Patient has 2+ edema bilateral lower extremities, she has some weeping from her lower extremities with several open areas of ulceration. The largest is about 10 cm in size. Patient has erythema from the lower half of the legs is standing into the toes. Neurovascularly intact NEUROLOGICAL: Cranial nerves II through XII grossly intact. Moving all extremities SKIN: Warm, dry, no petechiae, no rashes or lesions. Initial Vital Signs Initial Vital Signs: Vital Signs Temperature 97.8 F 10/09/18 02:30 Pulse Rate 97 H 10/09/18 02:30 Respiratory Rate 20 10/09/18 02:30 Blood Pressure 134/72 10/09/18 02:30 Pulse Oximetry 96 10/09/18 02:30 Course Orders Ordered: ED Orders 10/09/18 02:58 Consult to Respiratory Therapy Evaluate & Treat EKG-12 Lead Stat 10/09/18 02:59 XR chest 1V Stat 10/09/18 03:29 B Type Natriuretic Peptide Stat Complete Blood Count AUTO DIFF Stat Comprehensive Metabolic Panel Stat Partial Thromboplastin Time Stat Procalcitonin Stat Prothrombin Time INR Stat Troponin & CK Cardiac Panel Stat 10/09/18 06:30 Troponin & CK Cardiac Panel Stat Discontinued Medications Furosemide (Lasix) 40 mg IV NOW ONE Stop: 10/09/18 02:59 Last Admin: 10/09/18 03:33 Dose: 40 mg Ceftriaxone Sodium/Dextrose (Rocephin) 1 gm in 50 mls @ 100 mls/hr IV NOW ONE Stop: 10/09/18 04:38 Last Infusion: 10/09/18 05:24 Dose: 0 mls/hr Admin: 10/09/18 04:20 Dose: 100 mls/hr Vital Signs - 8 hr 10/09/18 02:30 10/09/18 02:38 10/09/18 03:50 Temperature 97.8 F Pulse Rate 97 H 90 85 Respiratory Rate 20 16 24 Blood Pressure 134/72 Blood Pressure [Left Arm] 126/74 Pulse Oximetry 96 99 95 10/09/18 05:00 Temperature Pulse Rate 84 Respiratory Rate 20 Blood Pressure Blood Pressure [Left Arm] 142/73 H Pulse Oximetry 98 MDM - Extremity (Nontraumatic) Lab Data Attestation: I reviewed the patient's lab results. Result diagrams: 10/09/18 03:29 10/09/18 03:29 Lab Results 10/09/18 10/09/18 10/09/18 Range/Units 03:29 03:29 03:29 WBC 13.2 H (4.5-11.0) X10^3/uL RBC 4.19 (4.0-5.2) X10^6/uL Hgb 12.2 (12.0-16.0) g/dL Hct 38.9 (36-46) % MCV 92.7 (80-100) fL MCH 29.1 (26-34) PG MCHC 31.4 (30-36) % RDW 14.6 (11.6-14.8) % Plt Count 378 (150-400) X10^3/uL Neut % (Auto) 72.1 (50-75) % Lymph % (Auto) 16.1 L (25-40) % [place] % (Auto) 8.8 (3-14) % Eos % (Auto) 2.7 (2-4) % Baso % (Auto) 0.3 (0-2) % Neut # (Auto) 9500 H (4148-0301) /uL Lymph # (Auto) 2100 (2408-3798) /uL [place] # (Auto) 1200 H (0-900) /uL Eos # (Auto) 400 (0-450) /uL Baso # (Auto) 0 (0-100) /uL PT 11.6 (10.1-12.7) SECONDS INR 1.0 (0.9-1.3) APTT 33 (26.4-36.2) SECONDS Sodium (137-145) mmol/L Potassium (3.4-5.1) mmol/L Chloride (98-107) mmol/L Carbon Dioxide (22-32) mmol/L BUN (7-17) mg/dL Creatinine (0.52-1.04) mg/dL Estimated GFR (>60) mL/min BUN/Creatinine Ratio (6-22) Glucose (80-110) mg/dL Calcium (8.4-10.2) mg/dL Total Bilirubin (0.2-1.3) mg/dL AST (14-36) IU/L ALT (9-52) IU/L Alkaline Phosphatase (38-126) U/L Total Creatine Kinase 49 (30-135) U/L CK-MB (CK-2) TNP CK-MB (CK-2) Rel Index TNP Troponin I < 0.012 (0.01-0.034) ng/mL B-Natriuretic Peptide < 100 (<100) Total Protein (6.3-8.2) g/dL Albumin (3.5-5.0) g/dL Globulin (1.7-4.1) g/dL Albumin/Globulin Ratio (1.0-2.8) Procalcitonin (<0.5) ng/mL 10/09/18 10/09/18 Range/Units 03:29 03:29 WBC (4.5-11.0) X10^3/uL RBC (4.0-5.2) X10^6/uL Hgb (12.0-16.0) g/dL Hct (36-46) % MCV (80-100) fL MCH (26-34) PG MCHC (30-36) % RDW (11.6-14.8) % Plt Count (150-400) X10^3/uL Neut % (Auto) (50-75) % Lymph % (Auto) (25-40) % [place] % (Auto) (3-14) % Eos % (Auto) (2-4) % Baso % (Auto) (0-2) % Neut # (Auto) (4932-9260) /uL Lymph # (Auto) (9140-7331) /uL [place] # (Auto) (0-900) /uL Eos # (Auto) (0-450) /uL Baso # (Auto) (0-100) /uL PT (10.1-12.7) SECONDS INR (0.9-1.3) APTT (26.4-36.2) SECONDS Sodium 140 (137-145) mmol/L Potassium 4.2 (3.4-5.1) mmol/L Chloride 104 (98-107) mmol/L Carbon Dioxide 28 (22-32) mmol/L BUN 19 H (7-17) mg/dL Creatinine 1.40 H (0.52-1.04) mg/dL Estimated GFR 38.4 L (>60) mL/min BUN/Creatinine Ratio 13.6 (6-22) Glucose 138 H (80-110) mg/dL Calcium 9.0 (8.4-10.2) mg/dL Total Bilirubin 0.4 (0.2-1.3) mg/dL AST 17 (14-36) IU/L ALT 11 (9-52) IU/L Alkaline Phosphatase 112 (38-126) U/L Total Creatine Kinase (30-135) U/L CK-MB (CK-2) CK-MB (CK-2) Rel Index Troponin I (0.01-0.034) ng/mL B-Natriuretic Peptide (<100) Total Protein 7.8 (6.3-8.2) g/dL Albumin 3.5 (3.5-5.0) g/dL Globulin 4.3 H (1.7-4.1) g/dL Albumin/Globulin Ratio 0.8 L (1.0-2.8) Procalcitonin < 0.05 (<0.5) ng/mL Imaging Data Chest x-ray: My impression: infiltrate vs opacification, bilateral chest. Cardiomegaly, normal mediastinum. ECG Data Attestation EKG: I personally reviewed and interpreted this ECG as follows: Prior ECG tracings: available for review Interpretation: Sinus rhythm rate 83 P are 135 QRS is 78 QTC of 396. No ST elevation depression appreciated. Similar to prior EKGs. MDM Narrative Medical decision making narrative: Discussed with patient her lab work shows her renal function is stable. No other acute findings. Procalcitonin is negative, trop and bnp are negative. CXR does not show clear changes. Patient does have white count elevated at 13. Patient and I discussed my concern for cellulitis No signs of sepsis. She prefers to return home. Will give a dose of Rocephin, she has responded well to Keflex in the past and will give a short course of furosemide. Patient also give referall to wound care. Discharge Plan Departure Patient Disposition: Home Clinical Impression: Bilateral edema of lower extremity Cellulitis Qualifiers: Site of cellulitis: extremity Site of cellulitis of extremity: lower extremity Laterality: unspecified laterality Qualified Code(s): L03.119 - Cellulitis of unspecified part of limb Instructions: DI for Cellulitis -- Adult Activity Restrictions/Additional Instructions: Follow-up with primary care in the next 24-48 hours for recheck. Also call to set up follow-up with wound care for your lower extremities. Take antibiotics until gone. Take Lasix once daily x5 days. Return to the emergency department with fevers greater than 100.4 F, worsening redness, swelling of her extremities, worsening signs of infection, new shortness of breath, chest pain or pressure, persistent vomiting or other new or concerning symptoms. Prescriptions: New cephalexin [Keflex] 500 mg capsule 500 mg PO QID Qty: 40 RF: 0 furosemide [Lasix] 20 mg tablet 20 mg PO DAILY Qty: 5 RF: 0 No Action levothyroxine 100 MCG tablet 100 mcg PO QAM Qty: 0 RF: 0 doxycycline hyclate 100 mg tablet 100 mg PO BID Qty: 20 RF: 0 furosemide [Lasix] 40 mg tablet 40 mg PO DAILY Qty: 7 RF: 0 levothyroxine 75 mcg tablet 75 mcg PO DAILY Qty: 30 RF: 0 methadone 40 mg Tablet,Soluble 65 mg PO DAILY RF: 0 cephalexin [Keflex] 500 mg capsule 500 mg PO TID Qty: 21 RF: 0 furosemide [Lasix] 20 mg tablet 20 mg PO DAILY Qty: 5 RF: 0 Referrals: Shivam Malone MD [Physician] - Alva Bauer MD [Primary Care Provider] -
--- NOTE | 2018-10-09 02:59 | DI.RAD.S_ITS ---
PROCEDURE: XR CHEST 1V INDICATIONS: Shortness of breath, swelling in legs. TECHNIQUE: One view of the chest was acquired. COMPARISON: [facility], CR, XR CHEST 1V, 03/22/2018, 1:08. FINDINGS: Surgical changes and devices: None. Lungs and pleura: Lungs are clear. No pleural effusions or pneumothorax. Mediastinum: Mediastinal contours appear normal. Heart size is normal. Bones and chest wall: No suspicious bony lesions. Overlying soft tissues appear unremarkable. IMPRESSION: No acute cardiopulmonary findings. Dictated by: Brigitte Hunt M.D. on 10/09/2018 at 8:35 Approved by: Brigitte Hunt M.D. on 10/09/2018 at 8:40
[2018-10-09] MEDS: FUROSEMIDE 40 MG/4 ML VIAL IV (03:33)
[2018-10-09 03:37] LABS: Add Manual Diff / Slide Review NO; Basophils Absolute Auto 0 /uL (0-100); Basophils Percent Auto 0.3 % (0-2); Eosinophils Absolute Auto 400 /uL (0-450); Eosinophils Percent Auto 2.7 % (2-4); Hematocrit 38.9 % (36-46); Hemoglobin 12.2 g/dL (12.0-16.0); Lymphocytes Absolute Auto 2100 /uL (1100-4500); Lymphocytes Percent Auto 16.1 % (25-40); Mean Corpuscular HGB Conc 31.4 % (30-36); Mean Corpuscular Hemoglobin 29.1 PG (26-34); Mean Corpuscular Volume 92.7 fL (80-100); Monocytes Absolute Auto 1200 /uL (0-900); Monocytes Percent Auto 8.8 % (3-14); Neutrophils Absolute Auto 9500 /uL (1500-7000); Neutrophils Percent Auto 72.1 % (50-75); Platelet Count 378 X10^3/uL (150-400); Red Blood Cell Count 4.19 X10^6/uL (4.0-5.2); Red Cell Distribution Width 14.6 % (11.6-14.8); White Blood Cell Count 13.2 X10^3/uL (4.5-11.0)
[2018-10-09 03:43] LABS: Prothrombin Time 11.6 SECONDS (10.1-12.7)
[2018-10-09 03:45] LABS: PTT Partial Thromboplastin Tim 33 SECONDS (26.4-36.2)
[2018-10-09 03:48] LABS: Alanine Aminotransferase 11 IU/L (9-52); Albumin 3.5 g/dL (3.5-5.0); Albumin Globulin Ratio 0.8 (1.0-2.8); Alkaline Phosphatase 112 U/L (38-126); Aspartate Aminotransferase 17 IU/L (14-36); BUN Creatinine Ratio 13.6 (6-22); Bilirubin Total 0.4 mg/dL (0.2-1.3); Blood Urea Nitrogen 19 mg/dL (7-17); Carbon Dioxide 28 mmol/L (22-32); Chloride 104 mmol/L (98-107); Estimated Glomerular Filt Rate 38.4 mL/min (>60); Globulin 4.3 g/dL (1.7-4.1); Glucose 138 mg/dL (80-110); HEMOLYSIS < 15 (0-50); Potassium 4.2 mmol/L (3.4-5.1); Sodium 140 mmol/L (137-145); Total Protein 7.8 g/dL (6.3-8.2)
[2018-10-09 03:49] LABS: Creatine Kinase 49 U/L (30-135)
[2018-10-09 03:50] VITALS: BP 126/74; PULSE 85; RESP 24; O2SAT 95
[2018-10-09 03:58] LABS: B Type Natriuretic Peptide < 100 (<100)
[2018-10-09 04:00] LABS: Troponin I < 0.012 ng/mL (0.01-0.034)
[2018-10-09 04:03] LABS: Procalcitonin < 0.05 ng/mL (<0.5)
[2018-10-09] MEDS: CEFTRIAXONE 1 GM/50 ML FROZ.PIGGY IV (04:20)
[2018-10-09 05:00] VITALS: BP 142/73; PULSE 84; RESP 20; O2SAT 98
== END 2018-10-09 05:30 | disposition home or self-care (01) ==
PROVIDERS: Emergency Provider Emergency Medicine; PCP Family Medicine
DX: R06.00 Dyspnea, unspecified (principal); L03.119 Cellulitis of unspecified part of limb; R06.02 Shortness of breath
CPT/HCPCS: 36591; 71045; 80053; 82550; 83880; 84145; 84484; 85025; 85610; 85730; 93005; 96365; 96375; 99283; 99285; J1940

== ENCOUNTER → 2018-11-12 09:37 | Outpatient (CLI) | payer MEDICARE, MEDICAID, SELFPAY | PROVIDERS: PCP Family Medicine; Visit Provider Family Medicine | DX: I89.0 Lymphedema, not elsewhere classified (principal); I87.313 Chronic venous hypertension (idiopathic) with ulcer of bilateral lower extremity; L97.821 Non-pressure chronic ulcer of other part of left lower leg limited to breakdown of skin; L97.811 Non-pressure chronic ulcer of other part of right lower leg limited to breakdown of skin; M79.661 Pain in right lower leg; M79.662 Pain in left lower leg | CPT/HCPCS: 11042; 87070; 87077; 87186; 87205; 99214 ==

== ENCOUNTER → 2018-12-11 11:17 | Outpatient (CLI) | payer MEDICARE, MEDICAID, SELFPAY | PROVIDERS: PCP Family Medicine; Visit Provider Family Medicine | DX: I87.2 Venous insufficiency (chronic) (peripheral) (principal); L97.828 Non-pressure chronic ulcer of other part of left lower leg with other specified severity; L97.818 Non-pressure chronic ulcer of other part of right lower leg with other specified severity; I89.0 Lymphedema, not elsewhere classified | CPT/HCPCS: 11042; 87070; 87077; 87186; 87205; 99213 ==

== ENCOUNTER → 2018-12-18 11:02 | Outpatient (CLI) | payer MEDICARE, MEDICAID, SELFPAY | PROVIDERS: PCP Family Medicine; Visit Provider Family Medicine | DX: I87.2 Venous insufficiency (chronic) (peripheral) (principal); L97.821 Non-pressure chronic ulcer of other part of left lower leg limited to breakdown of skin; L97.811 Non-pressure chronic ulcer of other part of right lower leg limited to breakdown of skin | CPT/HCPCS: 99215 ==

== ENCOUNTER 2019-01-01 08:43 | Emergency (ER) | payer MEDICARE, MEDICAID, SELFPAY ==
[2019-01-01 09:12] VITALS: BP 127/60; TEMP 36.7
--- NOTE | 2019-01-01 09:28 | ED.RECABL ---
HPI - Recheck/Abnormal Lab/Rx General Chief Complaint: Recheck/Abnormal Lab/Rx Stated Complaint: kidneys/was told to come to er by Dr. Gaytan Time Seen by Provider: 01/01/19 08:45 Source: patient Mode of arrival: Ambulatory Limitations: no limitations History of Present Illness HPI narrative: 58F daily smoker with history of kidney stones and renal colic presents at the request of her primary care provider for ?her kidneys ?. She did have outpatient labs done yesterday but is unaware of the results. In the interim her labs have been faxed to us and her creatinine has bumped from her baseline 1.4-2.6, additionally her potassium is high at 6.5 and sodium low at 126. She went to see her primary care provider because she had been feeling a bit weak. She denies any dizziness or lightheadedness she has had some nausea and vomiting. She denies any fever or chills. She has chronic venous stasis and has been seeing a wound care for quite some time. She takes 3200 mg of Motrin daily and has been for quite some time to help control the pain in her feet Related Data Home Medications Medication Instructions Recorded Confirmed methadone 65 mg PO DAILY 03/22/18 03/22/18 acetaminophen [Tylenol] 325 mg PO TID 01/01/19 01/01/19 clindamycin HCl 300 mg PO QID 01/01/19 01/01/19 furosemide 80 mg PO DAILY 01/01/19 01/01/19 naproxen sodium 220 mg PO BID 01/01/19 01/01/19 ondansetron HCl 4 mg PO TID PRN 01/01/19 01/01/19 potassium chloride 20 meq PO DAILY 01/01/19 01/01/19 silver sulfadiazine [SSD] 1 applic TOPICAL BID 01/01/19 01/01/19 Previous Rx's Medication Instructions Recorded levothyroxine 75 mcg PO DAILY #30 tab 04/29/18 Allergies Allergy/AdvReac Type Severity Reaction Status Date / Time No Known Drug Allergies Allergy Verified 04/29/18 01:53 Review of Systems Review of Systems ROS Unobtainable: All systems reviewed & are unremarkable except as noted in HPI and below PFSH Medical History Hypertension (Chronic) Hypothyroid (Chronic) Kidney stones (Chronic) Social History (Updated 10/09/18 @ 03:03 by Maria T Duron DO) Smoking Status: Current every day smoker alcohol intake: never substance use type: does not use Social History Smoking Status: Current every day smoker alcohol intake: never substance use type: does not use Exam Narrative Exam Narrative: GENERAL: [58] year old patient appears older than stated age. Well-nourished, well-developed patient, in mild distress. HEAD: Atraumatic. Normocephalic. EYES: Pupils equal round and reactive. Extraocular motions intact. No scleral icterus. No injection or drainage. ENT: Poor dentition throughout, moist mucous membranes Nose without bleeding, purulent drainage. Throat without erythema, tonsillar hypertrophy or exudate. Airway patent. NECK: Trachea midline. Non tender CARDIOVASCULAR: Regular rate and rhythm without murmurs, gallops, or rubs. RESPIRATORY: Clear to auscultation. Breath sounds equal bilaterally. No wheezes, rales, or rhonchi. GASTROINTESTINAL: Abdomen soft, non-tender, nondistended. EXTREMITIES: No edema or joint tenderness. BACK: Nontender without deformity or crepitance. No flank tenderness. NEURO: AOx3. SKIN: Chronic venous stasis changes of bilateral lower extremities with poorly healing ulcers, chronic per patient Initial Vital Signs Initial Vital Signs: Vital Signs Temperature 98.1 F 01/01/19 09:12 Blood Pressure 127/60 01/01/19 09:12 Course Orders Ordered: ED Orders 01/01/19 09:15 Urinalysis and Microscopic Stat Discontinued Medications Sodium Chloride (Normal Saline 0.9%) 500 mls @ 1,000 mls/hr IV BOLUS ONE Stop: 01/01/19 09:35 Vital Signs Vital signs: Vital Signs - 8 hr 01/01/19 09:12 Temperature 98.1 F Blood Pressure 127/60 MDM - Recheck/Abnormal Lab/Rx Lab Data Labs: Lab Results 01/01/19 Range/Units 09:15 Urine Color Yellow Urine Appearance Sl cloudy Urine pH 5.5 (4.5-8.0) Ur Specific Golva 1.015 (1.000-1.035) Urine Protein 1+ H (Negative) Urine Glucose (UA) Negative (Negative) g/dL Urine Ketones Negative (NEGATIVE) Urine Occult Blood 1+ H (Negative) Urine Nitrate Negative (Negative) Urine Bilirubin Negative (NEGATIVE) Urine Urobilinogen 0.2 (0.2) E.U./dL Ur Leukocyte Esterase Negative (NEGATIVE) Urine RBC 5-10/hpf H (0-5/HPF) Urine WBC 0-1/hpf (0-5/HPF) Ur Squamous Epith Cells 5-10 /hpf H (0-5/HPF) Urine Bacteria None seen (None) WBC Casts 1-5/lpf H (None) Ur Culture Indicated? Cult not indicated MDM Narrative Medical decision making narrative: Despite extensive discussion with the patient and her as well as nursing staff at the bedside patient refuses to stay and insists upon leaving. Discussion includes concern about severe underlying illness contributing to her acute renal failure and hyperkalemia. Possible outcomes include permanent disability and even . The patient verbalizes her understanding as does her . She has the capacity to make this decision. She is ready and willing to sign Against Medical Advice, she understands she may return immediately she changes her mind and we will gladly continue our workup Discharge Plan Departure Patient Disposition: Left Against Medical Advice Clinical Impression: Left against medical advice Discharge Date/Time: 01/01/19 10:00 Prescriptions: No Action levothyroxine 75 mcg tablet 75 mcg PO DAILY Qty: 30 RF: 0 silver sulfadiazine [SSD] 1 % cream 1 applic TOPICAL BID RF: 0 acetaminophen [Tylenol] 325 mg tablet 325 mg PO TID RF: 0 clindamycin HCl 300 mg capsule 300 mg PO QID RF: 0 ondansetron HCl 4 mg tablet 4 mg PO TID PRN (Reason: Nausea) RF: 0 furosemide 80 mg tablet 80 mg PO DAILY RF: 0 naproxen sodium 220 mg tablet 220 mg PO BID RF: 0 potassium chloride 20 mEq tablet extended release 20 meq PO DAILY RF: 0 methadone 40 mg Tablet,Soluble 65 mg PO DAILY RF: 0 Stand Alone Forms: Against Medical Advice
[2019-01-01 09:29] VITALS: PULSE 67; O2SAT 94
[2019-01-01 09:33] LABS: Bacteria Urine None Seen
[2019-01-01 09:37] LABS: Appearance Urine UA SL CLOUDY; Bilirubin Urine UA NEGATIVE (NEGATIVE); Color Urine UA YELLOW; Glucose Urine UA NEGATIVE (Negative); Ketones Urine UA NEGATIVE (NEGATIVE); Leukocyte Esterase Urine UA NEGATIVE (NEGATIVE); Nitrite Urine UA NEGATIVE (Negative); Occult Blood Urine UA 1+ (Negative); Protein Urine UA 1+ (Negative); Specific Gravity Urine UA 1.015 (1.000-1.035); Urobilinogen Urine UA 0.2 E.U./dL (0.2)
[2019-01-01 09:38] LABS: pH Urine UA 5.5 (4.5-8.0)
[2019-01-01 09:45] VITALS: PULSE 70; O2SAT 98
[2019-01-01 09:46] LABS: Culture Indicated Urine Cult Not Indicated; RBC Urine 5-10/HPF (0-5/HPF); Squamous Epithelial Cell Urine 5-10 /HPF (0-5/HPF); WBC Urine 0-1/HPF (0-5/HPF); White Blood Cell Casts Urine 1-5/LPF
--- NOTE | 2019-01-01 09:55 | PC.NURSE ---
pt requesting to go home. States that she doesnt want to stay and be poked and prodded. She wants to go home and eat food and relax. DR heath at bedside.
== END 2019-01-01 10:00 | disposition left against medical advice (07) ==
PROVIDERS: Emergency Provider Emergency Medicine; PCP Family Medicine
DX: R79.89 Other specified abnormal findings of blood chemistry (principal); Z53.29 Procedure and treatment not carried out because of patient's decision for other reasons
CPT/HCPCS: 81001; 99282

== ENCOUNTER 2019-01-22 11:11 | Inpatient (IN) | payer MEDICARE, MEDICAID, SELFPAY ==
[2019-01-22] VITALS (11 sets, daily range): BP systolic 77–112; BP diastolic 55–74; PULSE 81–94; RESP 17–21; TEMP 34.4–36.7; O2SAT 97–100; BMI 36.3
[2019-01-22 11:43] LABS: Add Manual Diff / Slide Review NO; Basophils Absolute Auto 100 /uL (0-100); Basophils Percent Auto 0.6 % (0-2); Eosinophils Absolute Auto 200 /uL (0-450); Eosinophils Percent Auto 0.9 % (2-4); Hemoglobin 10.2 g/dL (12.0-16.0); Lymphocytes Absolute Auto 1900 /uL (1100-4500); Lymphocytes Percent Auto 10.9 % (25-40); Mean Corpuscular HGB Conc 31.9 % (30-36); Mean Corpuscular Hemoglobin 28.4 PG (26-34); Mean Corpuscular Volume 88.9 fL (80-100); Monocytes Absolute Auto 1300 /uL (0-900); Monocytes Percent Auto 7.4 % (3-14); Neutrophils Absolute Auto 14100 /uL (1500-7000); Neutrophils Percent Auto 80.2 % (50-75); Platelet Count 435 X10^3/uL (150-400); White Blood Cell Count 17.5 X10^3/uL (4.5-11.0)
[2019-01-22] MEDS: SODIUM CHLORIDE 0.9% 1,000 ML 1000 ML IV (11:46)
[2019-01-22 11:56] LABS: Alanine Aminotransferase 24 IU/L (9-52); Albumin 3.2 g/dL (3.5-5.0); Albumin Globulin Ratio 0.8 (1.0-2.8); Alkaline Phosphatase 99 U/L (38-126); Aspartate Aminotransferase 27 IU/L (14-36); BUN Creatinine Ratio 18.2 (6-22); Bilirubin Total 0.3 mg/dL (0.2-1.3); Blood Urea Nitrogen 51 mg/dL (7-17); Calcium 9.2 mg/dL (8.4-10.2); Carbon Dioxide 17 mmol/L (22-32); Chloride 102 mmol/L (98-107); Estimated Glomerular Filt Rate 17.2 mL/min (>60); Globulin 4.1 g/dL (1.7-4.1); Glucose 179 mg/dL (80-110); HEMOLYSIS < 15 (0-50); Potassium 5.1 mmol/L (3.4-5.1); Sodium 131 mmol/L (137-145); Total Protein 7.3 g/dL (6.3-8.2)
[2019-01-22 12:19] LABS: Free T3, Triiodothyronine Free 2.92 pg/mL (2.77-5.27); Free T4, Direct Thyroxine 1.52 ng/dL (0.78-2.19)
--- NOTE | 2019-01-22 12:20 | ED_ITS ---
HPI - Recheck/Abnormal Lab/Rx General Chief Complaint: Recheck/Abnormal Lab/Rx Stated Complaint: sick two days ago not sure whats wrong barely walk Time Seen by Provider: 01/22/19 11:23 Source: patient Mode of arrival: Wheelchair Limitations: no limitations History of Present Illness HPI narrative: Patient comes emergency department stating that her son made her come in to get her labs rechecked. She states that she was seen here about 2 and half weeks ago after being found to have hyperkalemia and worsening renal insufficiency on labs drawn at her doctor's office. Patient states that she opted not to be admitted at that time, and left against medical advice, because she felt that she could take care of herself at home and get things turn around. She states she had been on a potassium supplement, and that her doctor was worried that this had caused her hyperkalemia. Patient states she also ran out of her Synthroid about a week ago, and has not been taking this. Patient states she is actually feeling quite well. She denies nausea vomiting. No abdominal pain or chest pain. No shortness breath or cough. No fevers. Patient denies dysuria. No diarrhea. No blood in stools. She states that she has chronic wounds on her lower legs, which she has been managing at home and seemed to be doing better. The son privately confides that he is concerned about the patient's home situation and feels that the people who were staying with her are most likely using drugs. He is also concerned that the patient lives in [place] but has been driving all the way to [place] for her primary care. He states that the patient has been resistant to any change in her home situation, but that he would like to talk to social work about options for the patient. Related Data Home Medications Medication Instructions Recorded Confirmed methadone 65 mg PO DAILY 03/22/18 01/22/19 acetaminophen [Tylenol] 325 mg PO TID PRN 01/01/19 01/22/19 clindamycin HCl 300 mg PO QID 01/01/19 01/22/19 furosemide 80 mg PO DAILY 01/01/19 01/22/19 naproxen sodium 220 mg PO BID 01/01/19 01/22/19 ondansetron HCl 4 mg PO TID PRN 01/01/19 01/22/19 potassium chloride 20 meq PO DAILY 01/01/19 01/22/19 silver sulfadiazine [SSD] 1 applic TOPICAL BID 01/01/19 01/22/19 Previous Rx's Medication Instructions Recorded levothyroxine 75 mcg PO DAILY #30 tab 04/29/18 Allergies Allergy/AdvReac Type Severity Reaction Status Date / Time No Known Drug Allergies Allergy Verified 04/29/18 01:53 Review of Systems Constitutional Constitutional: Denies chills, Denies fatigue, Denies fever(s), Denies frequent falls, Denies lethargy and Denies weakness Eyes Eyes: Denies change in vision, Denies eye discharge, Denies irritation and Denies loss of vision ENT Ears, Nose, Mouth, and Throat: Denies change in voice, Denies dizziness, Denies neck pain, Denies sore throat and Denies throat swelling Cardiovascular Cardiovascular: Denies chest pain, Denies irregular heart rhythm, Denies lightheadedness, Denies palpitations, Denies dyspnea, Denies dyspnea on exertion and Denies orthopnea Respiratory Respiratory: Denies cough, Denies dyspnea, Denies dyspnea on exertion and Denies wheezing Gastrointestinal Gastrointestinal: Denies abdominal pain, Denies change in bowel habits, Denies diarrhea, Denies nausea and Denies vomiting Genitourinary Genitourinary: Denies hematuria, Denies flank pain, Denies urinary incontinence and Denies urinary urgency Musculoskeletal Musculoskeletal: Denies back pain, Denies muscle weakness, Denies neck pain, Denies numbness and Denies tingling Integumentary/Breasts Skin/Breast: Denies pruritus, Denies erythema, Denies rash and Denies wounds Neurologic Neurologic: Denies behavioral changes, Denies confusion, Denies dizziness, Denies frequent falls, Denies loss of vision, Denies numbness, Denies tingling and Denies weakness Psychiatric Psychiatric: Denies anxiety, Denies behavioral changes, Denies confusion, Denies depression, Denies homicidal ideation and Denies suicidal ideation Endocrine Endocrine: Denies fatigue, Denies flushing and Denies palpitations Hematologic/Lymphatic Hematologic/Lymphatic: Denies easy bruising Allergic/Immunologic Allergic/Immunologic: Denies urticaria, Denies throat swelling and Denies wheezing Patient History Medical History Hypertension (Chronic) Hypothyroid (Chronic) Kidney stones (Chronic) Social History household members: significant other and friend(s) Smoking Status: Current every day smoker alcohol intake: never substance use type: does not use alcohol intake frequency: 0-2 drinks per day Substance Use Type: does not use Exam Initial Vital Signs Initial Vital Signs: Vital Signs Temperature 94 F L 01/22/19 11:23 Pulse Rate 94 H 01/22/19 11:23 Respiratory Rate 18 01/22/19 11:23 Blood Pressure 104/69 01/22/19 11:23 Const General: cooperative and well developed Nutritional Appearance: well nourished Orientation: alert, awake, oriented x3 and not confused HENMT Head: normocephalic and atraumatic Ears: external ears normal Nose: external nose normal and No nasal discharge Face and sinus: face symmetric and No dry mucous membranes Mouth: oral mucosae normal and moist mucous membranes Teeth and gingiva: dentition normal Eyes General: appearance normal, both eyes and all related structures Eyelids: eyelids normal Conjunctivae: conjunctivae normal Sclera: sclerae normal Pupils: PERRL EOM: EOM intact bilaterally Neck Neck: normal visual inspection, trachea midline, No lymphadenopathy, No midline deformity and No JVD Lymphatic: No lymphedema Chest Chest: normal inspection of the chest Resp Effort & Inspection: normal respiratory effort, able to speak in complete sentences, no respiratory distress and no use of accessory muscles Auscultation: clear to auscultation bilaterally, no rales, no rhonchi and no wheezes Cardio Rate: regular rate Rhythm: regular rhythm Heart Sounds: no click, no gallops, no murmurs and no rubs Pulses: normal peripheral pulses GI Inspection: non-distended Palpation: soft, no hepatosplenomegaly, No guarding, No pulsatile mass and No tender Back/Spine/Pelvis Back: No CVA tenderness Cervical Spine: cervical ROM normal and No pain with cervical ROM Thoracic/Lumbar Spine: thoracic and lumbar spine normal to inspection Skin General: No jaundice and No petechiae Other: Patient has chronic skin breakdown and edema in her bilateral lower extremities. Multiple crusted lesions are noted with dressings in place. Neuro General: alert, oriented x3, gait normal and no focal motor deficits Speech: speech normal Extrem General: no calf tenderness Other: Marked edema of bilateral lower extremities. Psych Appearance: well kempt Mental Status: mental status grossly normal Attitude: cooperative Thought Content: normal and suicidality Judgment: judgment good Course Course Course Narrative: Patient was worked up with repeat labs and given IV fluids in the emergency department. Her potassium had normalized and EKG was normal. Patient's GFR was found to be 17 which was significantly worse than her last labs in our system, done in September. Patient's chest x-ray showed a right-sided pneumonia. I discussed with the patient that it is most ideal for her to stay in the hospital for observation and hydration, as well as antibiotics. The patient initially was resistant to the idea but after some discussion, did agree to stay. I spoke with hospitalist Dr. Call, who agreed to admit the patient to his service. Orders Ordered: ED Orders 01/22/19 11:35 CBC Auto Diff [Complete Blood Count AUTO DIFF] Stat Comprehensive Metabolic Panel Stat 01/22/19 11:39 EKG-12 Lead Stat 01/22/19 12:19 Consult to Care Management Stat 01/22/19 12:20 Consult to [employer] - Critical Care Physician Stat 01/22/19 12:27 XR chest 1V Stat 01/22/19 13:46 Lactate (Lactic Acid) Stat 01/22/19 14:00 Urinalysis and Microscopic Stat Urine Drug Screen, Rapid Stat Acetaminophen (Tylenol) 650 mg PO Q6HR PRN PRN Reason: As Needed for Fever/Mild Pain Heparin Sodium (Porcine) (Heparin) 5,000 unit SUBCUT BID [facility] Influenza Virus Vaccine (Flu Vaccine) 0.5 ml IM .ONCE ONE Stop: 01/23/19 09:01 Levothyroxine Sodium (Synthroid) 75 mcg PO DAILY [facility] Nicotine (Nicoderm) 7 mg TOP DAILY [facility] Nf - Herbal Sleep Pm (1 Tab) 1 tab PO BEDTIME [facility] Silver Sulfadiazine (Silvadene) 1 applic TOP BID [facility] Discontinued Medications Hydromorphone HCl (Dilaudid) 2 mg PO Q6HR PRN PRN Reason: Pain, Severe (7-10) Last Admin: 01/22/19 18:08 Dose: 2 mg Documented by: FÉLIX Hydromorphone HCl (Dilaudid) 2 mg PO NOW ONE Stop: 01/22/19 18:54 Hydromorphone HCl (Dilaudid) 0.5 mg IV NOW ONE Stop: 01/22/19 18:56 Sodium Chloride (Normal Saline 0.9%) 1,000 mls @ 1,000 mls/hr IV BOLUS ONE Stop: 01/22/19 12:41 Last Infusion: 01/22/19 13:48 Dose: 0 mls/hr Documented by: Admin: 01/22/19 11:46 Dose: 1,000 mls/hr Documented by: BOONE Azithromycin 500 mg/ Dextrose 250 mls @ 250 mls/hr IV NOW ONE Stop: 01/22/19 13:30 Last Infusion: 01/22/19 15:04 Dose: 0 mls/hr Documented by: Admin: 01/22/19 14:21 Dose: 250 mls/hr Documented by: GREGORIO Ceftriaxone Sodium/Dextrose (Rocephin) 2 gm in 50 mls @ 100 mls/hr IV NOW ONE Stop: 01/22/19 14:14 Last Infusion: 01/22/19 14:22 Dose: 0 mls/hr Documented by: Admin: 01/22/19 13:46 Dose: 100 mls/hr Documented by: GREGORIO Vital Signs Vital signs: Vital Signs - 8 hr 01/22/19 11:23 01/22/19 11:28 01/22/19 11:41 Temperature 94 F L 98.1 F Pulse Rate 94 H 85 Respiratory Rate 18 21 Blood Pressure 104/69 Blood Pressure [Right Arm] 85/56 L Pulse Oximetry 99 01/22/19 11:45 01/22/19 12:15 01/22/19 13:00 Temperature Pulse Rate 91 H 84 86 Respiratory Rate 20 18 18 Blood Pressure Blood Pressure [Right Arm] 87/67 L 112/74 77/58 L Pulse Oximetry 97 01/22/19 13:30 Temperature Pulse Rate 86 Respiratory Rate 18 Blood Pressure Blood Pressure [Right Arm] 88/69 L Pulse Oximetry 98 MDM - Recheck/Abnormal Lab/Rx Medical Records Attestation: I reviewed the patient's medical records. Lab Data Attestation: I reviewed the patient's lab results. Result diagrams: 01/22/19 11:35 01/22/19 11:35 Labs: Lab Results 01/22/19 01/22/19 01/22/19 Range/Units 11:35 11:35 11:35 WBC 17.5 H (4.5-11.0) X10^3/uL RBC 3.60 L (4.0-5.2) X10^6/uL Hgb 10.2 L (12.0-16.0) g/dL Hct 32.0 L (36-46) % MCV 88.9 (80-100) fL MCH 28.4 (26-34) PG MCHC 31.9 (30-36) % RDW 15.0 H (11.6-14.8) % Plt Count 435 H (150-400) X10^3/uL Neut % (Auto) 80.2 H (50-75) % Lymph % (Auto) 10.9 L (25-40) % Kaufman % (Auto) 7.4 (3-14) % Eos % (Auto) 0.9 L (2-4) % Baso % (Auto) 0.6 (0-2) % Neut # (Auto) 73134 H (7806-4804) /uL Lymph # (Auto) 1900 (5930-9138) /uL Kaufman # (Auto) 1300 H (0-900) /uL Eos # (Auto) 200 (0-450) /uL Baso # (Auto) 100 (0-100) /uL Sodium 131 L (137-145) mmol/L Potassium 5.1 (3.4-5.1) mmol/L Chloride 102 (98-107) mmol/L Carbon Dioxide 17 L (22-32) mmol/L BUN 51 H (7-17) mg/dL Creatinine 2.80 H (0.52-1.04) mg/dL Estimated GFR 17.2 L (>60) mL/min BUN/Creatinine Ratio 18.2 (6-22) Glucose 179 H (80-110) mg/dL Lactate (0.7-2.1) mmol/L Calcium 9.2 (8.4-10.2) mg/dL Total Bilirubin 0.3 (0.2-1.3) mg/dL AST 27 (14-36) IU/L ALT 24 (9-52) IU/L Alkaline Phosphatase 99 (38-126) U/L Total Protein 7.3 (6.3-8.2) g/dL Albumin 3.2 L (3.5-5.0) g/dL Globulin 4.1 (1.7-4.1) g/dL Albumin/Globulin Ratio 0.8 L (1.0-2.8) Procalcitonin (<0.5) ng/mL TSH 5.31 H (0.47-4.68) uIU/mL Free T4 1.52 (0.78-2.19) ng/dL Free T3 2.92 (2.77-5.27) pg/mL 01/22/19 01/22/19 Range/Units 11:35 13:46 WBC (4.5-11.0) X10^3/uL RBC (4.0-5.2) X10^6/uL Hgb (12.0-16.0) g/dL Hct (36-46) % MCV (80-100) fL MCH (26-34) PG MCHC (30-36) % RDW (11.6-14.8) % Plt Count (150-400) X10^3/uL Neut % (Auto) (50-75) % Lymph % (Auto) (25-40) % Kaufman % (Auto) (3-14) % Eos % (Auto) (2-4) % Baso % (Auto) (0-2) % Neut # (Auto) (9000-7743) /uL Lymph # (Auto) (1528-8505) /uL Kaufman # (Auto) (0-900) /uL Eos # (Auto) (0-450) /uL Baso # (Auto) (0-100) /uL Sodium (137-145) mmol/L Potassium (3.4-5.1) mmol/L Chloride (98-107) mmol/L Carbon Dioxide (22-32) mmol/L BUN (7-17) mg/dL Creatinine (0.52-1.04) mg/dL Estimated GFR (>60) mL/min BUN/Creatinine Ratio (6-22) Glucose (80-110) mg/dL Lactate 1.1 (0.7-2.1) mmol/L Calcium (8.4-10.2) mg/dL Total Bilirubin (0.2-1.3) mg/dL AST (14-36) IU/L ALT (9-52) IU/L Alkaline Phosphatase (38-126) U/L Total Protein (6.3-8.2) g/dL Albumin (3.5-5.0) g/dL Globulin (1.7-4.1) g/dL Albumin/Globulin Ratio (1.0-2.8) Procalcitonin 0.37 (<0.5) ng/mL TSH (0.47-4.68) uIU/mL Free T4 (0.78-2.19) ng/dL Free T3 (2.77-5.27) pg/mL Imaging Data Chest x-ray: Radiologist's impression: [address] [address] XRay Report Signed Patient: Faustino Valdez LMR#: [id number] : 8Acct:[id number] Age/Sex: 58 / FDate of Service: 01/22/19 Loc: ED Accession Number: [id number] Procedure: XR chest 1V Ordering Provider: Rena Burgos MD PROCEDURE: XR CHEST 1V INDICATIONS: leukocytosis, hypotension TECHNIQUE: One view of the chest was acquired. COMPARISON: [facility], , XR CHEST 1V, 10/09/2018, 3:37. FINDINGS: Surgical changes and devices: None. Lungs and pleura: Some increased density is identified within the right infrahilar region. No large area of pulmonary consolidation is evident. There is no pneumothorax. No pleural effusion. Mediastinum: Mediastinal contours appear normal. Heart size is normal. Bones and chest wall: No suspicious bony lesions. Overlying soft tissues appear unremarkable. IMPRESSION: Right infrahilar airspace disease may represent atelectasis, pneumonia, or aspiration. Dictated by: Gary Yang M.D. on 01/22/2019 at 11:52 Approved by: Gary Yang M.D. on 01/22/2019 at 11:56 ECG Data Attestation: I personally reviewed and interpreted this ECG as follows: (See below) Interpretation: Twelve lead EKG performed January 22, 2019 at 11:48 a.m. as follows: Regular ventricular rhythm with a rate of 84 beats per minute KS interval 136 millisecond QRS duration 77 millisecond QTC is 377 millisecond No ectopy No significant ST T wave changes Interpretation: Normal sinus rhythm; no signs acute ischemia; normal EKG as interpreted by ED MD. Discharge Plan Departure Patient Disposition: Admitted as Observation Clinical Impression: Pneumonia Qualifiers: Pneumonia type: due to unspecified organism Laterality: right Lung location: lower lobe of lung Qualified Code(s): J18.1 - Lobar pneumonia, unspecified organism Renal failure (ARF), acute on chronic Qualifiers: Acute renal failure type: unspecified Chronic kidney disease stage: unspecified stage Qualified Code(s): N17.9 - Acute kidney failure, unspecified Discharge Date/Time: 01/22/19 15:06 Admit Date/Time: 01/22/19 13:58 Admit Provider: Mason Call
--- NOTE | 2019-01-22 12:27 | DI.RAD.S_ITS ---
PROCEDURE: XR CHEST 1V INDICATIONS: leukocytosis, hypotension TECHNIQUE: One view of the chest was acquired. COMPARISON: [facility], CR, XR CHEST 1V, 10/09/2018, 3:37. FINDINGS: Surgical changes and devices: None. Lungs and pleura: Some increased density is identified within the right infrahilar region. No large area of pulmonary consolidation is evident. There is no pneumothorax. No pleural effusion. Mediastinum: Mediastinal contours appear normal. Heart size is normal. Bones and chest wall: No suspicious bony lesions. Overlying soft tissues appear unremarkable. IMPRESSION: Right infrahilar airspace disease may represent atelectasis, pneumonia, or aspiration. Dictated by: Gary Yang M.D. on 01/22/2019 at 11:52 Approved by: Gary Yang M.D. on 01/22/2019 at 11:56
[2019-01-22 12:33] LABS: Thyroid Stimulating Hormone 5.31 uIU/mL (0.47-4.68)
[2019-01-22] MEDS: CEFTRIAXONE 2 GM/50 ML FROZ.PIGGY IV (13:46)
--- NOTE | 2019-01-22 13:47 | PC.NURSE ---
Pt states she is refusing to be admitted. Will not sign consent form for admin.
[2019-01-22 14:08] LABS: Lactate (Lactic Acid) 1.1 mmol/L (0.7-2.1)
[2019-01-22 14:15] LABS: WBC Urine None Seen (0-5/HPF)
[2019-01-22 14:20] LABS: Appearance Urine UA CLEAR; Bilirubin Urine UA NEGATIVE (NEGATIVE); Color Urine UA YELLOW; Glucose Urine UA NEGATIVE (Negative); Ketones Urine UA NEGATIVE (NEGATIVE); Leukocyte Esterase Urine UA NEGATIVE (NEGATIVE); Nitrite Urine UA NEGATIVE (Negative); Occult Blood Urine UA TRACE-LYSED (Negative); Protein Urine UA NEGATIVE (Negative); Specific Gravity Urine UA <=1.005 (1.000-1.035); Urobilinogen Urine UA 0.2 E.U./dL (0.2)
[2019-01-22] MEDS: AZITHROMYCIN 500 MG in DEXTROSE 5% IN WATER 250 ML IV (14:21)
[2019-01-22 14:22] LABS: pH Urine UA 5.5 (4.5-8.0)
[2019-01-22 14:23] LABS: UR Morphine/Opiate cutoff 300 Positive (Negative); Ur Creatinine Normal (Normal); Ur Specific Gravity Normal (Normal); Urine Amphetamines Negative (Negative); Urine Barbiturates Negative (Negative); Urine Benzodiazepines Negative (Negative); Urine Cocaine Negative (Negative); Urine MDMA Negative (Negative); Urine Methadone Negative (Negative); Urine Methamphetamines Positive (Negative); Urine Oxycodone Negative (Negative); Urine Phencyclidine Negative (Negative); Urine Tetrahydrocannabinol Negative (Negative); Urine Tricyclic Antidepressant Negative (Negative); Urine pH Normal (Normal)
[2019-01-22 14:27] LABS: Bacteria Urine Moderate (10-30); Culture Indicated Urine Cult Not Indicated; RBC Urine 1-5/HPF (0-5/HPF); Squamous Epithelial Cell Urine 5-10 /HPF (0-5/HPF)
[2019-01-22 15:07] LABS: Creatinine Urine Random 47.2 mg/dL; Protein (Total) Urine Random 37 mg/dL (0-12); Protein Creatinine Ratio Urine 0.78 GRAM/24H
--- NOTE | 2019-01-22 16:37 | DI.US.S_ITS ---
PROCEDURE: US RENAL COMPLETE INDICATIONS: RIZWAN TECHNIQUE: Real-time scanning was performed of the kidneys and bladder, with image documentation. COMPARISON: [facility], US, RENAL COMPLETE, 01/24/2017, 13:29. FINDINGS: Kidneys: Kidneys are normal in size. Right kidney measures 10.6 cm long; left kidney measures 10.4 cm long. Right renal cortical thickness is 2.1 cm; left renal cortical thickness is 1.4 cm. Renal cortical echotexture is normal. No hydronephrosis or nephrolithiasis. No suspicious solid mass lesions. At the inferior pole of the left kidney, there is a 2.2 cm simple cyst is seen. Bladder: Only a small amount of urine can be seen within the bladder. Evaluation of the bladder is highly limited. Miscellaneous: No free pelvic fluid. IMPRESSION: No significant abnormality is seen. No hydronephrosis. Dictated by: Emory Morrison M.D. on 01/23/2019 at 10:41 Approved by: Emory Morrison M.D. on 01/23/2019 at 10:42
[2019-01-22 17:21] LABS: Procalcitonin 0.37 ng/mL (<0.5)
--- NOTE | 2019-01-22 18:03 | P.HP_ITS ---
History of Present Illness History of Present Illness Date Patient Seen: 01/22/19 Time Patient Seen: 18:03 Chief complaint: sick two days ago not sure whats wrong barely walk Narrative: Ms. 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 She was seen here about 2 and half weeks ago after her primary care provider noted worsening renal insufficiency and hyperkalemia. At that time her potassium was 6 and her creatinine was 2.6 according to the ED provider note at that time. Her baseline creatinine is about 1.4. The son recommended that she come in today because she feels her situation is unsafe at home and she has not been getting adequate medical care for her lower extremity wounds. She admits to feeling slightly worse with productive cough over the past 5 days. The cough is productive of green sputum and she has some new dyspnea on exertion. She admits to intermittent fevers and chills, but these have not changed recently over the past 5 days. She denies any nausea, vomiting, abdominal pain, dysuria, urinary frequency, chest pain, palpitations. Her lower extremity wounds she states are actually somewhat improved. She usually does the dressing changes at home every few days. She has been taking about 3600 mg of ibuprofen daily to cope with the pain of her lower extremities. She has not used any other pain medications and she has tried Tylenol but has been ineffective. She has also been using Lasix as an outpatient likely for the edema. In the ED her vitals were notable for mild hypotension, but otherwise unremarkable. She was given a fluid bolus. Her x-ray showed a possible right- sided infiltrate and she was given ceftriaxone and azithromycin. Her labs were notable for a WBC count of 17.5 (this appears to be chronically elevated), hemoglobin of 10.2, platelet count of 435. Her sodium is 131, potassium 5.1 and creatinine 2.8. Her BUN is 51. She has a mildly elevated globulin gap at 4.1. Her procalcitonin was 0.37. TSH was 5.31 but she has not taken her medications in the past week. UA was negative for infection, urine drug screen was positive for methamphetamines, UPC was 0.78. Patient History Medical History Hypertension (Chronic) Hypothyroid (Chronic) Kidney stones (Chronic) Family & Social History Social History: household members significant other,friend(s) Prior Living Arrangements Mobile home Safety & Behavioral: Feels Safe in Current Yes Environment Been Physically Hurt or No Threatened By a Person Suicidal Ideation Description None Suicide Plan Description No Plan Tobacco & Substance use: Tobacco type cigarettes Smoking Status Current every day smoker Smoking packs per day 0.5 alcohol intake never alcohol intake frequency 0-2 drinks per day Substance Use Type does not use Meds Home Medications and Allergies Home Medications Medication Instructions Recorded Confirmed Type methadone 65 mg PO DAILY 03/22/18 01/22/19 History levothyroxine 75 mcg PO DAILY #30 tab 04/29/18 01/22/19 Rx acetaminophen [Tylenol] 325 mg PO TID PRN 01/01/19 01/22/19 History clindamycin HCl 300 mg PO QID 01/01/19 01/22/19 History furosemide 80 mg PO DAILY 01/01/19 01/22/19 History naproxen sodium 220 mg PO BID 01/01/19 01/22/19 History ondansetron HCl 4 mg PO TID PRN 01/01/19 01/22/19 History potassium chloride 20 meq PO DAILY 01/01/19 01/22/19 History silver sulfadiazine [SSD] 1 applic TOPICAL BID 01/01/19 01/22/19 History Allergies Allergy/AdvReac Type Severity Reaction Status Date / Time No Known Drug Allergies Allergy Verified 04/29/18 01:53 Review of Systems Review of Systems Narrative: All other systems reviewed with the patient and are negative unless otherwise stated. Exam Vital Signs (past 8 hours): - 01/22/19 11:23 01/22/19 11:28 01/22/19 11:41 Temperature 94 F L 98.1 F Pulse Rate 94 H 85 Respiratory Rate 18 21 Blood Pressure 104/69 Blood Pressure [Right Arm] 85/56 L Pulse Oximetry 99 01/22/19 11:45 01/22/19 12:15 01/22/19 13:00 Temperature Pulse Rate 91 H 84 86 Respiratory Rate 20 18 18 Blood Pressure Blood Pressure [Right Arm] 87/67 L 112/74 77/58 L Pulse Oximetry 97 01/22/19 13:30 01/22/19 14:00 01/22/19 14:59 Temperature Pulse Rate 86 94 H 87 Respiratory Rate 18 19 17 Blood Pressure Blood Pressure [Right Arm] 88/69 L 103/69 91/62 Pulse Oximetry 98 100 97 01/22/19 15:10 Temperature 98.1 F Pulse Rate 81 Respiratory Rate 18 Blood Pressure 82/57 L Blood Pressure [Right Arm] Pulse Oximetry 99 Oxygen Delivery Method Room Air Oxygen Flow Rate 0 Narrative Exam Narrative: GENERAL APPEARANCE: Obese female, resting in bed appears mildly uncomfortable. SKIN: Inspection of the skin reveals no rashes, ulcerations or petechiae. HEENT: The sclerae were anicteric and conjunctivae were pink and moist. Extraocular movements were intact and pupils were equal, round with normal accommodation. External inspection of the ears and nose showed no scars, lesions, or masses. Lips, teeth, and gums showed normal mucosa. The oral mucosa, hard and soft palate, tongue and posterior pharynx were unremarkable. NECK: Supple and symmetric. There was no thyroid enlargement, and no tenderness, or masses were felt. CHEST: Normal AP diameter and normal contour without any kyphoscoliosis. LUNGS: Auscultation of the lungs revealed no wheezes, rhonchi, or rales. CARDIOVASCULAR: There was a regular rate and rhythm without any murmurs, gallops, rubs. Peripheral pulses were 2+ and symmetric. ABDOMEN: Soft and nontender with normal bowel sounds. No ascites was noted. MUSCULOSKELETAL: There was tenderness of her bilateral lower extremities which is chronic. No skeletal deformities. EXTREMITIES: Extensive bilateral venous stasis disease with circumferential erythema and skin thickening. This appears chronic. She has some open wounds bilaterally which are covered and Silvadene ointment. This area is tender, but not warm. NEUROLOGIC: Alert and oriented x 3. Normal affect. Strength is +5/5 in the Upper Extremities and Lower Extremities Bilaterally. Sensation to touch was normal. Objective Labs Result Diagrams: 01/22/19 11:35 01/22/19 11:35 Labs: Laboratory Results - last 24 hr 01/22/19 01/22/19 01/22/19 11:35 11:35 11:35 WBC 17.5 H RBC 3.60 L Hgb 10.2 L Hct 32.0 L MCV 88.9 MCH 28.4 MCHC 31.9 RDW 15.0 H Plt Count 435 H Neut % (Auto) 80.2 H Lymph % (Auto) 10.9 L [place] % (Auto) 7.4 Eos % (Auto) 0.9 L Baso % (Auto) 0.6 Neut # (Auto) 89271 H Lymph # (Auto) 1900 [place] # (Auto) 1300 H Eos # (Auto) 200 Baso # (Auto) 100 Sodium 131 L Potassium 5.1 Chloride 102 Carbon Dioxide 17 L BUN 51 H Creatinine 2.80 H Estimated GFR 17.2 L BUN/Creatinine Ratio 18.2 Glucose 179 H Lactate Calcium 9.2 Total Bilirubin 0.3 AST 27 ALT 24 Alkaline Phosphatase 99 Total Protein 7.3 Albumin 3.2 L Globulin 4.1 Albumin/Globulin Ratio 0.8 L Procalcitonin TSH 5.31 H Free T4 1.52 Free T3 2.92 Urine Color Urine Appearance Urine pH Ur Specific [place] Urine Protein Urine Glucose (UA) Urine Ketones Urine Occult Blood Urine Nitrate Urine Bilirubin Urine Urobilinogen Ur Leukocyte Esterase Urine RBC Urine WBC Ur Squamous Epith Cells Urine Bacteria Ur Culture Indicated? U Random Total Protein Urine Creatinine Protein/Creatinin Ratio U Morph 300 ng/mL cutoff Ur Oxycodone Screen Urine Methadone Screen Ur Barbiturates Screen U Tricyclic Antidepress Ur Phencyclidine Scrn Ur Amphetamines Screen U Methamphetamines Scrn Ur MDMA Scrn (Ecstasy) U Benzodiazepines Scrn Urine Cocaine Screen U Marijuana (THC) Screen 01/22/19 01/22/19 01/22/19 11:35 13:46 14:00 WBC RBC Hgb Hct MCV MCH MCHC RDW Plt Count Neut % (Auto) Lymph % (Auto) [place] % (Auto) Eos % (Auto) Baso % (Auto) Neut # (Auto) Lymph # (Auto) [place] # (Auto) Eos # (Auto) Baso # (Auto) Sodium Potassium Chloride Carbon Dioxide BUN Creatinine Estimated GFR BUN/Creatinine Ratio Glucose Lactate 1.1 Calcium Total Bilirubin AST ALT Alkaline Phosphatase Total Protein Albumin Globulin Albumin/Globulin Ratio Procalcitonin 0.37 TSH Free T4 Free T3 Urine Color Urine Appearance Urine pH Ur Specific [place] Urine Protein Urine Glucose (UA) Urine Ketones Urine Occult Blood Urine Nitrate Urine Bilirubin Urine Urobilinogen Ur Leukocyte Esterase Urine RBC Urine WBC Ur Squamous Epith Cells Urine Bacteria Ur Culture Indicated? U Random Total Protein Urine Creatinine Protein/Creatinin Ratio U Morph 300 ng/mL cutoff Positive H Ur Oxycodone Screen Negative Urine Methadone Screen Negative Ur Barbiturates Screen Negative U Tricyclic Antidepress Negative Ur Phencyclidine Scrn Negative Ur Amphetamines Screen Negative U Methamphetamines Scrn Positive H Ur MDMA Scrn (Ecstasy) Negative U Benzodiazepines Scrn Negative Urine Cocaine Screen Negative U Marijuana (THC) Screen Negative 01/22/19 01/22/19 14:00 14:00 WBC RBC Hgb Hct MCV MCH MCHC RDW Plt Count Neut % (Auto) Lymph % (Auto) [place] % (Auto) Eos % (Auto) Baso % (Auto) Neut # (Auto) Lymph # (Auto) [place] # (Auto) Eos # (Auto) Baso # (Auto) Sodium Potassium Chloride Carbon Dioxide BUN Creatinine Estimated GFR BUN/Creatinine Ratio Glucose Lactate Calcium Total Bilirubin AST ALT Alkaline Phosphatase Total Protein Albumin Globulin Albumin/Globulin Ratio Procalcitonin TSH Free T4 Free T3 Urine Color Yellow Urine Appearance Clear Urine pH 5.5 Ur Specific [place] <=1.005 Urine Protein Negative Urine Glucose (UA) Negative Urine Ketones Negative Urine Occult Blood Trace-lysed Urine Nitrate Negative Urine Bilirubin Negative Urine Urobilinogen 0.2 Ur Leukocyte Esterase Negative Urine RBC 1-5/hpf Urine WBC None seen Ur Squamous Epith Cells 5-10 /hpf H Urine Bacteria Moderate (10-30) H Ur Culture Indicated? Cult not indicated U Random Total Protein 37 H Urine Creatinine 47.2 Protein/Creatinin Ratio 0.78 U Morph 300 ng/mL cutoff Ur Oxycodone Screen Urine Methadone Screen Ur Barbiturates Screen U Tricyclic Antidepress Ur Phencyclidine Scrn Ur Amphetamines Screen U Methamphetamines Scrn Ur MDMA Scrn (Ecstasy) U Benzodiazepines Scrn Urine Cocaine Screen U Marijuana (THC) Screen Assessment & Plan Assessment & Plan narrative: Ms. 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 She was previously noted to have a similar creatinine 2 and half weeks ago and at that point she had hyperkalemia which is now improved. She is admitted under observation status for acute renal failure. 1. Acute on chronic renal failure, baseline creatinine around 1.4 per prior documentation by the ED provider on her visit approximately 2 weeks ago. Two weeks ago her creatinine was 2.6 and today it is 2.8. She has been taking a lot of ibuprofen, however for the past week that she has held off on this. Suspect this is related to NSAID use, and appears stable over the past 2 weeks. Her UPC is 0.78 which is not consistent with nephrotic proteinuria. She does have an elevated globulin gap which may be indicative of underlying malignancy. Per the son, she also has not been taking good care of herself so there may be an element of dehydration as well and she has been on Lasix for her lower extremity wounds. - continue IVF, continue to follow cr. - likely outpatient follow up - SPEP/UPEP ordered, UPC 0.78, UA 1-5 RBC, no WBC. - abdominal US limited ( renal) ordered -avoid nephrotoxic medications, will hold Lasix as well. -patient reports she has been tested for hepatitis and HIV recently which were negative. 2. Community-acquired pneumonia, acute, present on admission -patient presented with new shortness of breath and new right infiltrate compared to prior imaging. She also has productive cough and mild leukocytosis however this appears more chronic based on prior lab results. Procalcitonin 0.37. She reports fevers but no documented fever here. Her BUN is elevated but this is likely chronic. -continue ceftriaxone and azithromycin -follow-up respiratory panel -follow-up urine Legionella -continue to follow procalcitonin -CURB65 of 1 (BUN) 3. Hyponatremia, mild, present on admission - improved from previous documentation in ED provider note where Na was 126. This is likely secondary to renal disease as noted above. - continue to follow BMP. 4. Chronic lower extremity wounds, present on admission -there is mild erythema but this appears chronic in nature. She has open wounds on her legs which are chronic as well. She follows with Dr. Malone in [facility] here. She was last seen a couple of weeks ago per the patient. -would obtain collateral information from Dr. Malone regarding antibiotics. For now she is being adequately covered with CAP treatment as noted above. - continue Silvadene dressing changes -consider wound care consult, however more likely outpatient follow-up -will hold Lasix given renal failure - dressing change tonight, dilaudid 1x dose tonight prior to dressing change. Continue PO dilaudid given renal failure for future dressing changes while inpatient. Avoid narcotic use as much as possible given patient's drug abuse history and her UDS was positive for methamphetamines. 5. Hypothyroidism, chronic, present on admission -patient has not been taking her levothyroxine for the past week. TSH is mildly elevated with normal thyroid hormones. -resume prior dose of levothyroxine Code: Full Dispo: Patient is currently admitted under observation status. She has complex social issues and social work will need to be involved. DVT: HSQ Quality VTE Deep Vein Thrombosis/Pulmonary Embolism Present on Admission: No
[2019-01-22] MEDS: HYDROMORPHONE 2 MG TABLET PO ×2 (18:08→20:37)
--- NOTE | 2019-01-22 18:41 | PC.NURSE ---
Addendum entered by Hilaria Marquez R.N. 01/22/19 22:32: Med w/dilaudid prior to applying dsg. Silvidine, telfa and kerlix., Pt resting the remainer of evening. Call light w/in reach, bed alarm on for pt safety. Continue w/plan of care. Addendum entered by Hilaria Marquez R.N. 01/22/19 19:06: Tele shows NSR per ICU staff. Original Note: Pt awake, watching TV. Med at 1810 w/ po dilaudid w/fair relief. Bilateral lower legs present w/various wounds. Both red, swollen and very tender to air and touch. Some areas around knee appear to be sloughing off, Pt is seen by the wound clinic. Some residual silvadine cream in place. Pulses ++ Pt able to ambulate to BR w/1PA. HL RAC intact/patent. Call light w/in reach, pt calls appropriately for needs.
[2019-01-22] MEDS: HYDROMORPHONE 0.5 MG INJ IV (19:42)
[2019-01-22] MEDS: SILVER SULFADIAZINE 1% CREAM 25 GM 1 APPLIC TOP (20:37)
[2019-01-23] VITALS (9 sets, daily range): BP systolic 75–93; BP diastolic 48–55; PULSE 80–87; RESP 15–18; TEMP 36.4–37.2; O2SAT 92–97
--- NOTE | 2019-01-23 01:25 | PC.NURSE ---
Addendum entered by Haley Mcgee R.N. 01/23/19 05:18: During pericare after incontinent void, CLIENT DEVELOPMENT CONSULTANT turned pt and found multiple areas of skin ulceration, all with erythema and slough, estimated to be stage 2-3. Updated nursing assessment to reflect these findings. Original Note: Shift note: Received pt from evening shift. Pt very drowsy during assessment, fell asleep quickly during questions, difficult to assess neurological status. Will reassess when pt more awake. Took respiratory panel swab, attempted to educate pt on need for swab, pt was minimally cooperative, pulled swab out of nose during sampling. Pt denied having pain but would cry out when sheets were moved to assess lower extremity dressings which were CDI. Various wounds and erythema to feet. Lung sounds were coarse with expiratory wheezing in upper and lower lobes, pt has an intermittent wet cough. Pt is on tele with NSR, pt hypotensive with BP 81/53, pt has consistently been low. Notified EXTRACTOR LOADER AND UNLOADER of low bp, new orders to be placed. Pt is a high fall risk at this time d/t mentation, pain in legs. Bed alarm on and functioning, call light in reach, education given to son who is rooming in, he acknowledges. Will continue to monitor.
[2019-01-23] MEDS: SODIUM CHLORIDE 0.9% 250 ML 500 ML IV (02:04)
[2019-01-23 02:09] LABS: Adenovirus Not Detected (Not Detect); Bordetella pertussis Not Detected (Not Detect); Chlamydophila pneumoniae Not Detected (Not Detect); Coronavirus 229E Not Detected (Not Detect); Coronavirus HKU1 Not Detected (Not Detect); Coronavirus NL 63 Not Detected (Not Detect); Coronavirus OC43 Not Detected (Not Detect); Human Metapneumovirus Not Detected (Not Detect); Human Rhinovirus/Enterovirus Not Detected (Not Detect); Influenza A Not Detected (Not Detect); Influenza B Not Detected (Not Detect); Mycoplasma pneumoniae Not Detected (Not Detect); Parainfluenza Virus 1 Not Detected (Not Detect); Parainfluenza Virus 2 Not Detected (Not Detect); Parainfluenza Virus 3 Not Detected (Not Detect); Parainfluenza Virus 4 Not Detected (Not Detect); Respiratory Syncytial Virus Not Detected (Not Detect)
[2019-01-23 06:06] LABS: Add Manual Diff / Slide Review NO; Basophils Absolute Auto 100 /uL (0-100); Basophils Percent Auto 1.1 % (0-2); Eosinophils Absolute Auto 300 /uL (0-450); Eosinophils Percent Auto 2.3 % (2-4); Hematocrit 28.8 % (36-46); Hemoglobin 9.1 g/dL (12.0-16.0); Lymphocytes Absolute Auto 2100 /uL (1100-4500); Lymphocytes Percent Auto 15.7 % (25-40); Mean Corpuscular HGB Conc 31.7 % (30-36); Mean Corpuscular Hemoglobin 28.5 PG (26-34); Mean Corpuscular Volume 89.7 fL (80-100); Monocytes Absolute Auto 1200 /uL (0-900); Monocytes Percent Auto 8.9 % (3-14); Neutrophils Absolute Auto 9500 /uL (1500-7000); Platelet Count 382 X10^3/uL (150-400); Red Blood Cell Count 3.22 X10^6/uL (4.0-5.2); Red Cell Distribution Width 15.3 % (11.6-14.8); White Blood Cell Count 13.2 X10^3/uL (4.5-11.0)
[2019-01-23 06:18] LABS: Blood Urea Nitrogen 42 mg/dL (7-17); Calcium 8.5 mg/dL (8.4-10.2); Carbon Dioxide 18 mmol/L (22-32); Chloride 111 mmol/L (98-107); Glucose 93 mg/dL (80-110); HEMOLYSIS < 15 (0-50); Magnesium 1.9 mg/dL (1.6-2.3); Phosphorous 4.8 mg/dL (2.8-4.1); Potassium 4.3 mmol/L (3.4-5.1); Sodium 135 mmol/L (137-145)
[2019-01-23 06:21] LABS: Hemoglobin A1C% w Est Avg Glu 6.7 % (4.0-6.0)
[2019-01-23 06:34] LABS: Procalcitonin 0.23 ng/mL (<0.5)
[2019-01-23] MEDS: HEPARIN 5,000 UNIT/ML VIAL 5000 UNIT SUBCUT ×2 (08:26→22:01)
[2019-01-23] MEDS: NICOTINE 7 MG PATCH TOP (08:26)
[2019-01-23] MEDS: LEVOTHYROXINE 75 MCG TABLET PO (08:27)
[2019-01-23] MEDS: ACETAMINOPHEN 325 MG TABLET 650 MG PO (08:28)
--- NOTE | 2019-01-23 12:10 | PM.PN.1 ---
Subjective Subjective Date Patient Seen: 01/23/19 Interval history: Faustino Valdez is a 58-year-old female with a past medical history significant for hypertension, hypothyroidism, nephrolithiasis, chronic lower extremity wounds, history of polysubstance use previously on methadone who returned to the ED for concern for her previously diagnosed renal disease. The patient is resting in bed comfortably. She is very resistant to care and reports that she is going to leave Against Medical Advice by this evening. Discussed the patient's care in detail with her and her boyfriend and son. Her son became very upset due to the patient's noncompliance with overall care and care plan and he left. The patient endorses pain in her lower extremities. She reports her cough has improved significantly. She has no other complaints and denies headache, shortness of breath, chest pain, abdominal pain, nausea, vomiting, fever, chills, dysuria, diarrhea or constipation. She is voiding and eliminating without difficulty. She is up minimally ambulating with assistance. Exam Vital Signs (past 8 hours): - 01/23/19 12:00 01/23/19 16:20 Temperature 99 F 98.1 F Pulse Rate 86 82 Respiratory Rate 16 17 Blood Pressure 90/54 L 86/54 L Pulse Oximetry 96 97 Oxygen Delivery Method Room Air Oxygen Flow Rate 0 Narrative Exam Narrative: General: Older female lying in bed in no acute distress, appears chronically ill, well-developed, well-nourished, very resistant to care plan and anxious to leave the hospital but otherwise appropriately interactive. HEENT: Normocephalic, atraumatic. External ears without defect. Pupils equal, round, and reactive to light. Anicteric sclerae, moist conjunctivae, and no lid lag. Poor dentition. Neck: Supple with full range of motion. No jugular venous distension. No bruits. No lymphadenopathy or thyromegaly. Cardiovascular: Regular rate and rhythm without murmurs, rubs, or gallops appreciated Pulmonary: Clear to auscultation bilaterally without occasional scattered rhonchi. No crackles or wheezes. Normal respiratory effort with no use of accessory muscles. Abdomen: Soft, bowel sounds present, nontender, nondistended. No hepatosplenomegaly or masses appreciated. Extremities: No clubbing or cyanosis. Chronic lower extremity venous stasis with lymphedema and numerous wounds which appear to be infected. Skin: Normal temperature, turgor, and texture; no rash or subcutaneous nodules appreciated. Neurological: Cranial nerves grossly intact. Psychiatric: Anxious mood and normal affect. Alert and oriented to person, place, and time. Objective Labs Result Diagrams: 01/24/19 05:25 01/24/19 05:25 Labs: Laboratory Results - last 24 hr 01/22/19 01/23/19 01/23/19 13:09 00:44 05:35 WBC 13.2 H RBC 3.22 L Hgb 9.1 L Hct 28.8 L MCV 89.7 MCH 28.5 MCHC 31.7 RDW 15.3 H Plt Count 382 Neut % (Auto) 72.0 Lymph % (Auto) 15.7 L [place] % (Auto) 8.9 Eos % (Auto) 2.3 Baso % (Auto) 1.1 Neut # (Auto) 9500 H Lymph # (Auto) 2100 [place] # (Auto) 1200 H Eos # (Auto) 300 Baso # (Auto) 100 Sodium Potassium Chloride Carbon Dioxide BUN Creatinine Estimated GFR BUN/Creatinine Ratio Glucose Hemoglobin A1c Calcium Phosphorus Magnesium Procalcitonin Chlamy pneumoniae PCR Not detected Adenovirus (PCR) Not detected B.parapertussis DNA PCR Not detected Coronavirus OC43 (PCR) Not detected Coronavirus HKU1 (PCR) Not detected Coronavirus 229E (PCR) Not detected Coronavirus NL63 (PCR) Not detected HIV 1&2 Ab/P24 Ag 4thGn Negative Human Metapneumovir PCR Not detected Influenza Type A (PCR) Not detected Influenza Type B (PCR) Not detected M. pneumoniae (PCR) Not detected Parainfluenza 1 (PCR) Not detected Parainfluenza 2 (PCR) Not detected Parainfluenza 3 (PCR) Not detected Parainfluenza 4 (PCR) Not detected RSV (PCR) Not detected Entero/Rhino (PCR) Not detected 01/23/19 01/23/19 01/23/19 05:35 05:35 05:35 WBC RBC Hgb Hct MCV MCH MCHC RDW Plt Count Neut % (Auto) Lymph % (Auto) [place] % (Auto) Eos % (Auto) Baso % (Auto) Neut # (Auto) Lymph # (Auto) [place] # (Auto) Eos # (Auto) Baso # (Auto) Sodium 135 L Potassium 4.3 Chloride 111 H Carbon Dioxide 18 L BUN 42 H Creatinine 2.10 H Estimated GFR 24.0 L BUN/Creatinine Ratio 20.0 Glucose 93 Hemoglobin A1c 6.7 H Calcium 8.5 Phosphorus 4.8 H Magnesium 1.9 Procalcitonin 0.23 Chlamy pneumoniae PCR Adenovirus (PCR) B.parapertussis DNA PCR Coronavirus OC43 (PCR) Coronavirus HKU1 (PCR) Coronavirus 229E (PCR) Coronavirus NL63 (PCR) HIV 1&2 Ab/P24 Ag 4thGn Human Metapneumovir PCR Influenza Type A (PCR) Influenza Type B (PCR) M. pneumoniae (PCR) Parainfluenza 1 (PCR) Parainfluenza 2 (PCR) Parainfluenza 3 (PCR) Parainfluenza 4 (PCR) RSV (PCR) Entero/Rhino (PCR) Assessment & Plan Assessment & Plan narrative: Faustino Valdez is a 58-year-old female with a past medical history significant for hypertension, hypothyroidism, nephrolithiasis, chronic lower extremity wounds, history of polysubstance use previously on methadone who returned to the ED for concern for her previously diagnosed renal disease. 1. Acute kidney injury on chronic kidney disease, present on admission. Active. -likely multifactorial secondary to overuse of NSAIDs, furosemide, and methamphetamine use. Patient is taking upward of 3 g of ibuprofen daily but reports for the last week she has discontinued use. -Baseline creatinine around 1.4. Initial creatinine 2.8. Patient previously seen in ED 2 weeks ago and found to have RIZWAN but left AMA without further work-up or treatment. -UPC is 0.78 which is not consistent with nephrotic range proteinuria. -Patient has an elevated globulin gap which may be indicative of underlying malignancy. Ordered SPEP and UPEP, pending. -Renal ultrasound demonstrated Renal cortical echotexture is normal. No hydronephrosis or nephrolithiasis. No suspicious solid mass lesions. No significant abnormality. -Avoid nephrotoxic medications. Held furosemide. -Received 1 L NS in ED and another 500 cc bolus on arrival to floor. Continue normal saline at 125 mL/hr x 1 bag today. -Patient reports she has been tested for hepatitis and HIV recently which were negative. Ordered repeat HIV and hep C Ab, pending. 2. Acute bacterial community-acquired pneumonia, present on admission. Resolving. -Patient presented with new shortness of breath, productive cough, mild leukocytosis and new right infiltrate compared to prior imaging. Patient does appear to have chronic mild elevation of WBC. -Initial WBC 17.5 and procalcitonin 0.37. Continue to trend both WBC and procalcitonin daily. -Ordered complete pneumonia workup including: Respiratory viral PCR negative. Strep pneumoniae and legionella urine antigens, pending. Blood cultures x2 have no growth to date. -Received ceftriaxone and azithromycin in ED. Antibiotics were inadvertently not continued by previous provider. Discussed antibiotic coverage with wound Care Clinic physician, Dr. Malone, and collaboratively decided to start patient on clindamycin 600 mg IV every 8 hours and levofloxacin renally dosed 500 mg IV daily which will cover typical and atypical organisms for pneumonia. 3. Acute on chronic infected lower extremity wounds, present on admission. Active. -Patient has open wounds on her legs which are chronic but do appear infected. -Previously grew Serratia marcescens sensitive to fluoroquinolones per Dr. Malone in the Wound Care Clinic. The patient is rather noncompliant with care, does not follow up at wound Care Clinic as instructed, and has threatened to leave Against Medical Advice several times since admission. -Consulted wound care, Dr. Malone, and we appreciate his time and care of the patient. Continue wound management and dressing changes as recommended/performed by Wound Care Clinic with Silvadene, Telfa and gauze wrap. Received one time dilaudid dose for dressing change. Plan to avoid narcotic use if possible given patient's drug abuse history and her UDS was positive for methamphetamines. -Discussed antibiotic regimen with Dr. Malone and collaboratively decided to start patient on clindamycin 600 mg IV every 8 hours and levofloxacin renally dosed 500 mg IV daily (which will cover community-acquired pneumonia as above). 4. Acute hyponatremia, present on admission. Resolving. -Likely due to pneumonia and dehydration with furosemide use. -Initial sodium 131. Trending up and now 135 with IV fluid hydration. -Continue to monitor sodium level. 5. Hypothyroidism, chronic, present on admission. Stable. -Patient has not been taking her levothyroxine for the past week. TSH is mildly elevated at 5.31. Free T4 normal at 1.52. -Continue levothyroxine 75 mcg daily. Code: Full DVT: HSQ Disposition: Patient likely to discharge home tomorrow with close follow-up with wound care for lower extremity wound infections and nephrology consultation. Quality VTE Deep Vein Thrombosis/Pulmonary Embolism Present on Admission: No
--- NOTE | 2019-01-23 12:19 | CM.DANOTE ---
Addendum entered by FAINA Benito 01/23/19 15:30: ADD: SW received a msg from pt's [employer]a ([phone]) to f/u on d/c plans for the pt and SW called back and left detailed msg about the medical concerns and recommendations and pt's statements of likely leaving AMA and declining SNF. BF Addendum entered by FAINA Benito 01/23/19 14:33: ADD: Per , met bedside with pt and son and pt refusing SNF and son became upset and left the room. discussed medical concerns with lack of SNF level of care and pt states she plans to leave AMA today. MD able to encourage pt to stay for more IV fluids and for Dr. Nassar bedside consult with wounds to confirm no I&D needed and pt so far agreeable to stay until Dr. Nassar rounds on her. Plan: SW to follow after Dr. Nassar Consult to determine if pt plans to leave AMA and go home or willing to stay at least overnight and consider SNF recommendation. FAINA Benito Original Note: Patient is a 58 year old female who was admitted on 01/22/19 for Renal Failure and Pneumonia. Pt has [facility] and [facility] for insurance and her PCP is Dr. Alberto Gaytan. EMR was reviewed. Per MD, pt has wound care at baseline and sees Dr. Nassar outpt with a hx of drug abuse and currently prescribed Methadone. Pt's UDS positive for methamphetamine. SATISH met with pt's son Remington ([phone]) and explained role and son states pt lives in a mobile home on her boyfriend Juan's property near his house and has another female friend that stays with her that is using drugs. Son states that pt is historically very stubborn and is now at the point that she is not caring appropriately for herself and wounds and that she needs a higher level of senior living care. SATISH provided the Senior Resource Guidebook and earmarked pages for caregivers in the home and LTC of Adult family homes and assisted living. Pt receives about $700 a month for social security and does not currently have in home support but states she feels that it's time for her to get assistance. SATISH discussed the need to call places to determine if they have an opening for Medicaid bed and the typical process of assessing pt bedside. Son states he plans to call the places on the list and will be available bedside all day. SW discussed APS report due to son's concerns and pictures that he took from pt's living situation and encouraged him to make a report and he is very amenable to calling APS. SW discussed the need to confirm pt's status of OBS vs Inpt to determine Medicare coverage for SNF rehab. Pt has historically declined SNF but in 2017 discharged home with [facility] for completion of IV-Abx. SW confirmed that pt is now Inpt Status as of time of admit and went to meet bedside with pt and son but pt having bedside procedure currently. Plan: SW to follow closely for bedside discussion with pt and son regarding d/c planning options and concerns. FAINA Benito Discharge Planning/Care Management CM Discharge Assessment Start: 01/23/19 12:05 Freq: Status: Active Protocol: Document 01/23/19 12:05 (Rec: 01/23/19 12:19 [id number]) Discharge Planning Assessment Assigned Jde Developer FAINA Bhagat DPOA/Assigned Designee Name alexandro Martinez Advance Directives? No Advance Directives on File No History Provided By Patient,Family Member,Medical Record Has Patient been admitted in last 30 No days? Prior Living Arrangements Mobile home Household Members significant other,friend(s) Type of transporation used prior to Relies on Others admit Independent with ADL's No Is patient alert and oriented? Yes: mostly Needs Assistance With Grooming,Managing Medications, Home Chores / Shopping Caregiver for Another No Community Services used prior to Wound Care admission: Patient/Family Preference Jail Facility Barriers to Discharge Yes Comment Patient has been historically wanting to be independent and has declined resources and care in the past. Discharge Plan Jail Facility Community Services Physical Therapy Transportation Arrangement pending d/c needs and plan. Son vs SNF for transport Additional Comment Waiting for PT eval and further discussion with pt and son Whiteboard Updated in Patient Room with Yes name and ext. # of Jde Developer Review Status In Process Please Provide Date Initial DC 01/23/19 Assessment Was Performed Next Review Type Continued Stay Review
--- NOTE | 2019-01-23 13:53 | DIET.PN ---
Dietary Note Assessment: Ms. Valdez is a 58 yoF referred for weight loss and low appetite. In assessing Ms. Valdez she was unable to report any recent weight loss, however through EMR she has lost a significant amount. She reports decreased appetite greater than 1 week, but is improving. She indicates she does not follow any dietary restrictions. Son is at bedside during assessment. He states she lives with a friend who is her caregiver and provides meals in a mildly sarcastic tone. Records indicate drug use in the home. Pt reports she is on minimal income and rely's on foodstamps for grocery needs. She has a hx of HTN and hypothyroid with worsening renal insufficiency, hyperkalemia and hyponatremia. She has LE edema w/ wounds. There is a HX of substance abuse. She is currently taking 3600 mg Ibuprofen for pain management. DX: Acute on Chronic Renal Failure; Pneumonia HT: 160 cm WT: 92.3 UBW: 108 (10/11) BMI: 36 (obese class 3) percent change: 14.5 Labs: Na: 135 BUN: 42 Cr: 2.1 eGFR: 24 Phosp: 4.8 A1c: 6.7 MNA: 6 (malnourished) Babak: 20 Nutrition Diagnosis: Acute severe PCM r/t lack of or limited access to food and physiological causes increasing nutrient needs due to illness aeb energy intake <50% EER > 5 days, weight loss > 7.5% in 3 mo, skin ulceration stage 2-3 per nurse. Interventions: 1. Discussed Renal + Diabetes MNT with patient. Discussed limiting sodium, protein, and amount of Carbohydrates needed. Provided handouts to son on exact protein, dairy, potassium containing fruits/veg/grains, and sodium amounts needed. 2. Discussed the importance of good hydration for kidney fxn with patient. 3. Provided information/resources on how to get fresh produce at reduced costs. Diet Order: Renal EER: Kcal: 1600 @30 reyna/kg IBW Pro: 68g @ 1.3 g/kg IBW Monitoring/Evaluations: weight, PO's, labs
[2019-01-23] MEDS: SODIUM CHLORIDE 0.9% 1,000 ML 1000 ML IV (14:21)
--- NOTE | 2019-01-23 15:30 | PC.NURSE ---
Skin: Pt requesting pain meds, made aware. Pt wouldn't allow dressing change due to pain. MD aware of this as well. Decreased bp this am and pt reports she always runs low. At times pt is animated, moves fast and talks fast, other times she wants to be left alone, is sleepy acting, will refuse care or won't turn. Reviewed off loading pressure with her. Still wanted to be left alone. Later seen by Dr. charles and Wound care. Hopefully will begin to feel better. Cont w/poc.
[2019-01-23 16:35] LABS: HIV 1 & 2 Ab/Ag 4th Gen Combo NEGATIVE (NEGATIVE)
[2019-01-23] MEDS: levoFLOXacin 500 MG/100 ML PIGGYBACK 100 MG IV (19:14)
[2019-01-23 19:37] LABS: Hep C Virus Ab w/Reflex Quant NEGATIVE s/c (NEGATIVE)
[2019-01-23] MEDS: CLINDAMYCIN 600 MG/50 ML PIGGYBACK 50 MG IV (21:55)
[2019-01-23] MEDS: LACTOBACILLUS ACIDOPHILUS TABLET 1 EACH PO (21:57)
[2019-01-23] MEDS: SILVER SULFADIAZINE 1% CREAM 25 GM 1 APPLIC TOP (22:04)
[2019-01-24 00:10] VITALS: BP 94/54; PULSE 86; RESP 18; TEMP 36.8; O2SAT 94
[2019-01-24] MEDS: CLINDAMYCIN 600 MG/50 ML PIGGYBACK 50 MG IV ×2 (00:55→09:11)
[2019-01-24 04:49] VITALS: BP 115/70; PULSE 82; RESP 18; TEMP 37.3; O2SAT 94
[2019-01-24 05:54] LABS: Add Manual Diff / Slide Review NO; Basophils Absolute Auto 200 /uL (0-100); Basophils Percent Auto 1.3 % (0-2); Eosinophils Absolute Auto 300 /uL (0-450); Eosinophils Percent Auto 2.6 % (2-4); Hematocrit 26.8 % (36-46); Hemoglobin 8.5 g/dL (12.0-16.0); Lymphocytes Absolute Auto 2200 /uL (1100-4500); Mean Corpuscular HGB Conc 31.6 % (30-36); Mean Corpuscular Hemoglobin 28.4 PG (26-34); Monocytes Absolute Auto 1200 /uL (0-900); Neutrophils Absolute Auto 7800 /uL (1500-7000); Neutrophils Percent Auto 67.1 % (50-75); Platelet Count 414 X10^3/uL (150-400); Red Blood Cell Count 2.98 X10^6/uL (4.0-5.2); White Blood Cell Count 11.6 X10^3/uL (4.5-11.0)
[2019-01-24 06:07] LABS: Blood Urea Nitrogen 34 mg/dL (7-17); Calcium 8.3 mg/dL (8.4-10.2); Carbon Dioxide 19 mmol/L (22-32); Chloride 112 mmol/L (98-107); Estimated Glomerular Filt Rate 30.7 mL/min (>60); Glucose 96 mg/dL (80-110); HEMOLYSIS < 15 (0-50); Magnesium 1.7 mg/dL (1.6-2.3); Potassium 4.2 mmol/L (3.4-5.1); Sodium 138 mmol/L (137-145)
[2019-01-24 07:40] VITALS: O2SAT 95
[2019-01-24 08:05] VITALS: BP 115/62; PULSE 80; RESP 17; TEMP 36.5; O2SAT 96
--- NOTE | 2019-01-24 08:44 | P.DS_ITS ---
History of Present Illness History of Present Illness Date Patient Seen: 01/22/19 Chief complaint: sick two days ago not sure whats wrong barely walk Narrative: Written by Dr. Call: Ms. 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 She was seen here about 2 and half weeks ago after her primary care provider noted worsening renal insufficiency and hyperkalemia. At that time her potassium was 6 and her creatinine was 2.6 according to the ED provider note at that time. Her baseline creatinine is about 1.4. The son recommended that she come in today because she feels her situation is unsafe at home and she has not been getting adequate medical care for her lower extremity wounds. She admits to feeling slightly worse with productive cough over the past 5 days. The cough is productive of green sputum and she has some new dyspnea on exertion. She admits to intermittent fevers and chills, but these have not changed recently over the past 5 days. She denies any nausea, vomiting, abdominal pain, dysuria, urinary frequency, chest pain, palpitations. Her lower extremity wounds she states are actually somewhat improved. She usually does the dressing changes at home every few days. She has been taking about 3600 mg of ibuprofen daily to cope with the pain of her lower extremities. She has not used any other pain medications and she has tried Tylenol but has been ineffective. She has also been using Lasix as an outpatient likely for the edema. In the ED her vitals were notable for mild hypotension, but otherwise unremarkable. She was given a fluid bolus. Her x-ray showed a possible right- sided infiltrate and she was given ceftriaxone and azithromycin. Her labs were notable for a WBC count of 17.5 (this appears to be chronically elevated), hemoglobin of 10.2, platelet count of 435. Her sodium is 131, potassium 5.1 and creatinine 2.8. Her BUN is 51. She has a mildly elevated globulin gap at 4.1. Her procalcitonin was 0.37. TSH was 5.31 but she has not taken her medications in the past week. UA was negative for infection, urine drug screen was positive for methamphetamines, UPC was 0.78. Discharge Providers Provider Date of admission: 01/22/19 13:58 Discharge Date: 01/24/19 Primary care physician: Alberto Gaytan MD Consults: 01/22/19 12:19 Consult to Care Management Stat Comment: 01/22/19 12:20 Consult to AUTO POLISHER - Credit Risk Manager Stat Comment: 01/22/19 16:57 Consult to Dietitian, Adult Routine Comment: Reason For Exam: recent wt loss and decreased appetite Discharge provider: Ciarra Longoria DO Summary Hospital Course Discharge Diagnosis: 1. Acute kidney injury on chronic kidney disease, present on admission. Resolving. 2. Acute bacterial community-acquired pneumonia, present on admission. Resolved. 3. Acute on chronic infected lower extremity wounds, present on admission. Improving. 4. Newly diagnosed diabetes mellitus type 2, present on admission. Active. 5. Acute hyponatremia, present on admission. Resolved. 6. Hypothyroidism, chronic, present on admission. Stable. Hospital Course: Faustino Valdez is a 58-year-old female with a past medical history significant f or hypertension, hypothyroidism, nephrolithiasis, chronic lower extremity wounds, history of polysubstance use previously on methadone who returned to the ED for concern for her previously diagnosed renal disease. 1. Acute kidney injury on chronic kidney disease, present on admission. Resolving. -Likely multifactorial secondary to overuse of NSAIDs, furosemide, and methamphetamine use. Patient is taking upward of 3 g of ibuprofen daily but reports for the last week she has discontinued use. -Baseline creatinine around 1.4. Initial creatinine 2.8. Patient previously seen in ED 2 weeks ago and found to have RIZWAN but left AMA without further work- up or treatment. Creatinine down to 1.7. -UPC is 0.78 which is not consistent with nephrotic range proteinuria. -Patient has an elevated globulin gap which may be indicative of underlying malignancy. Ordered SPEP and UPEP, pending and will need to be followed up by patient's PCP. -Renal ultrasound demonstrated renal cortical echotexture is normal, no hydronephrosis or nephrolithiasis, no suspicious solid mass lesions, and no significant abnormality. -Avoided nephrotoxic medications. Discontinued furosemide. -Received 1 L NS in ED. Continue IV fluids until adequately hydrated then discontinued. Received approximately 3.5 L total. -Patient reports she has been tested for hepatitis and HIV recently which were negative. Repeat HIV and hep C Ab both negative. -Recommended outpatient referral to Nephrology. 2. Acute bacterial community-acquired pneumonia, present on admission. Resolved. -Patient presented with new shortness of breath, productive cough, mild leukocytosis and new right infiltrate compared to prior imaging. Patient does appear to have chronic mild elevation of WBC. -Initial WBC 17.5 and procalcitonin 0.37. Continued to trend both WBC and procalcitonin daily. -Ordered complete pneumonia workup including: Respiratory viral PCR negative. Strep pneumoniae and legionella urine antigens, pending. Blood cultures x2 have no growth to date. -Received ceftriaxone and azithromycin in ED. Antibiotics were inadvertently not continued by previous provider. Discussed antibiotic coverage with [facility] Care [facility] physician, Dr. Malone, and collaboratively decided to start and continue clindamycin 600 mg IV every 8 hours and levofloxacin renally dosed 500 mg IV daily which will cover typical and atypical organisms for pneumonia and leg wounds as below. Discharged on clindamycin 300 mg 4 times daily and lev ofloxacin 500 mg daily for 9 additional days to complete 10 day course of antibiotics. 3. Acute on chronic infected lower extremity wounds, present on admission. Improving. -Patient has open wounds on her legs which are chronic but do appear infected. -Previously grew Serratia marcescens sensitive to fluoroquinolones per Dr. Malone in the [facility]. The patient is rather noncompliant with care, does not follow up at [facility] Care Clinic as instructed, and has threatened to leave Against Medical Advice several times since admission. -Consulted wound care, Dr. Malone, and we appreciate his time and care of the patient. Continue wound management and dressing changes as recommended/perfo rmed by [facility] Care [facility] with Silvadene, Telfa and gauze wrap. Received one time dilaudid dose for dressing change. Plan to avoid narcotic use if possible given patient's drug abuse history and her UDS was positive for methamphetamines. -Discussed antibiotic regimen with Dr. Malone and collaboratively decided to start patient on clindamycin 600 mg IV every 8 hours and levofloxacin renally dosed 500 mg IV daily (which will cover community-acquired pneumonia as above). Discharged on clindamycin 300 mg 4 times daily and levofloxacin 500 mg daily for 9 additional days to complete 10 day course of antibiotics. 4. Newly diagnosed diabetes mellitus type 2, present on admission. Active. -Hemoglobin A1c 6.7%. -Discussed diabetes with patient and recommended diet control and discuss oral antihyperglycemics with PCP. 5. Acute hyponatremia, present on admission. Resolved. -Likely due to pneumonia and dehydration with furosemide use. -Initial sodium 131. Trended up and normalized at 138 with IV fluid hydration. -Continued to monitor sodium level. 6. Hypothyroidism, chronic, present on admission. Stable. -Patient has not been taking her levothyroxine for the past week. TSH is mildly elevated at 5.31. Free T4 normal at 1.52. -Continued levothyroxine 75 mcg daily. Exam Vital Signs (past 8 hours): - 01/24/19 04:49 Temperature 99.1 F Pulse Rate 82 Respiratory Rate 18 Blood Pressure 115/70 Pulse Oximetry 94 Oxygen Delivery Method Room Air Oxygen Flow Rate 0 Narrative Exam Narrative: General: Older female lying in bed in no acute distress, appears chronically ill, well-developed, well-nourished, very resistant to care plan and anxious to leave the hospital but otherwise appropriately interactive. HEENT: Normocephalic, atraumatic. External ears without defect. Pupils equal, round, and reactive to light. Anicteric sclerae, moist conjunctivae, and no lid lag. Poor dentition. Neck: Supple with full range of motion. No jugular venous distension. No lymphadenopathy or thyromegaly. Cardiovascular: Regular rate and rhythm without murmurs, rubs, or gallops appreciated. Pulmonary: Clear to auscultation bilaterally without occasional scattered rhonchi. No crackles or wheezes. Normal respiratory effort with no use of accessory muscles. Abdomen: Soft, bowel sounds present, nontender, nondistended. No hepatosplenomegaly or masses appreciated. Extremities: No clubbing or cyanosis. Chronic lower extremity venous stasis with lymphedema and numerous wounds which appear to be infected and covered with dressing but appear to be improving. Skin: Normal temperature, turgor, and texture; no rash or subcutaneous nodules appreciated. Neurological: Cranial nerves grossly intact. Psychiatric: Poor insight. Anxious mood and normal affect. Alert and oriented to person, place, and time. Objective Labs Result Diagrams: 01/24/19 05:25 01/24/19 05:25 Labs: Laboratory Results - last 24 hr 01/22/19 01/23/19 01/24/19 13:09 13:09 05:25 WBC 11.6 H RBC 2.98 L Hgb 8.5 L Hct 26.8 L MCV 90.0 MCH 28.4 MCHC 31.6 RDW 15.0 H Plt Count 414 H Neut % (Auto) 67.1 Lymph % (Auto) 19.0 L [place]uther[place] % (Auto) 10.0 Eos % (Auto) 2.6 Baso % (Auto) 1.3 Neut # (Auto) 7800 H Lymph # (Auto) 2200 [place] # (Auto) 1200 H Eos # (Auto) 300 Baso # (Auto) 200 H Sodium Potassium Chloride Carbon Dioxide BUN Creatinine Estimated GFR BUN/Creatinine Ratio Glucose Calcium Magnesium Hepatitis C Antibody Negative HIV 1&2 Ab/P24 Ag 4thGn Negative 01/24/19 05:25 WBC RBC Hgb Hct MCV MCH MCHC RDW Plt Count Neut % (Auto) Lymph % (Auto) [place] % (Auto) Eos % (Auto) Baso % (Auto) Neut # (Auto) Lymph # (Auto) [place] # (Auto) Eos # (Auto) Baso # (Auto) Sodium 138 Potassium 4.2 Chloride 112 H Carbon Dioxide 19 L BUN 34 H Creatinine 1.70 H Estimated GFR 30.7 L BUN/Creatinine Ratio 20.0 Glucose 96 Calcium 8.3 L Magnesium 1.7 Hepatitis C Antibody HIV 1&2 Ab/P24 Ag 4thGn Discharge Plan Discharge Plan Patient Disposition: Home Discharge comment: You're being discharged home. You have been prescribed levofloxacin 500 mg daily and clindamycin 300 mg every 4 times a day for 9 more days. Please take these medications as prescribed and finish them completely. Please continue to follow up at wound Care Clinic weekly at your scheduled appointment. Please follow-up with your primary care provider, Dr. Gaytan, regarding your hospitalization, your new diagnosis of diabetes and further treatment and recommend he refer you to a kidney specialist. You are diabetic and recommend a low-carbohydrate diet and discuss medications to help control your diabetes with your PCP. Your furosemide and potassium have been discontinued for now and you may discuss whether not these may be restarted in the future with your primary care physician and/or kidney specialist. Please avoid NSAIDs including ibuprofen (Motrin or Advil), naproxen (Aleve), indomethacin, meloxicam, ect. as these are harmful to your kidneys. Discharge Med Rec/Prescriptions Prescriptions: New Bacid 1 billion cell- 250 mg Tablet 1 ea PO TIDWM Qty: 30 RF: 0 clindamycin HCl 300 mg capsule 300 mg PO QID Qty: 36 RF: 0 levofloxacin 500 mg tablet 500 mg PO DAILY Qty: 9 RF: 0 Continued levothyroxine 75 mcg tablet 75 mcg PO DAILY Qty: 30 RF: 0 silver sulfadiazine [SSD] 1 % cream 1 applic TOPICAL BID RF: 0 acetaminophen [Tylenol] 325 mg tablet 325 mg PO TID PRN (Reason: pain) RF: 0 ondansetron HCl 4 mg tablet 4 mg PO TID PRN (Reason: Nausea) RF: 0 Discontinued clindamycin HCl 300 mg capsule 300 mg PO QID RF: 0 furosemide 80 mg tablet 80 mg PO DAILY RF: 0 naproxen sodium 220 mg tablet 220 mg PO BID RF: 0 potassium chloride 20 mEq tablet extended release 20 meq PO DAILY RF: 0 methadone 40 mg Tablet,Soluble 65 mg PO DAILY RF: 0 Follow up/Referrals: Alberto Gaytan MD [Primary Care Provider] - 01/27/19 10:00 am Shivam Malone MD [Physician] - 01/30/19 9:30 am Provider Discharge Instructions Diet: Carb-consistent/Diabetic, Low-fat, Low-sodium, Low-cholesterol and Low- protein/Renal Skin/Wound/Dressing Care Other wound treatment: Clean affected areas of bilateral lower extremities and feet with normal saline and pat dry. Apply Silvadene cream (1%) to both legs and feet to 1 to 2 mm thick. Cover open areas with non-adherent pads such as Telfa. Gently wrap bilateral feet and legs with rolled gauze. Secure with tape. Repeat daily and as needed. Visit Report/Discharge Packet Instructions: DI for Kidney Failure, DI for Pneumonia -- Adult, DI for Diabetes Type 2, How To Perform RICE (Rest, Ice, Compress, Elevate), How to Prevent Falls, DI for Wound Infection, How to Avoid Taking NSAID-Containing Products Discharge Data Primary Care Provider: Alberto Gaytan Discharges patient from system. Discharge Date/Time: 01/24/19 15:40 Quality VTE Deep Vein Thrombosis/Pulmonary Embolism Present on Admission: No
[2019-01-24] MEDS: HEPARIN 5,000 UNIT/ML VIAL 5000 UNIT SUBCUT (09:06)
[2019-01-24] MEDS: NICOTINE 7 MG PATCH TOP (09:07)
[2019-01-24] MEDS: ACETAMINOPHEN 325 MG TABLET 650 MG PO (09:07)
[2019-01-24] MEDS: LEVOTHYROXINE 75 MCG TABLET PO (09:08)
[2019-01-24] MEDS: SODIUM CHLORIDE 0.9% 1,000 ML 1000 ML IV (09:30)
[2019-01-24] MEDS: LACTOBACILLUS ACIDOPHILUS TABLET 1 EACH PO ×2 (09:36→13:15)
[2019-01-24 11:57] VITALS: BP 154/70; PULSE 63; RESP 16; TEMP 37.1; O2SAT 97
[2019-01-24] MEDS: levoFLOXacin 500 MG/100 ML PIGGYBACK 100 MG IV (13:15)
--- NOTE | 2019-01-24 14:20 | PT.IIE ---
Current Diagnoses Acute kidney failure, unspecified (01/22/19) Medical History (Last Reviewed 01/22/19 @ 12:23 by Rena Burgos MD) Hypertension (Chronic) Hypothyroid (Chronic) Kidney stones (Chronic) Physical Therapy Inpatient Evaluation/Re-Eval M1 PT/OT-IP Prior Functional Status Start: 01/24/19 16:34 Freq: NEEDED Status: Active Protocol: Document 01/24/19 14:20 AB (Rec: 01/24/19 16:41 AB [email or web address]) Medical Review Prior Functional Status Medical History Reviewed Yes Communication able to make needs known Mobility and Gait pt stated that she is modified independent with all mobilities and ambulation using FWW Social History Household Members significant other,friend(s) Living Arrangements Mobile home Number of Floors (Floors) One Floor Number of Stairs To Enter/Railing? ramp to enter Home Environment Standard Height Toilet,Tub/ Shower,Ramp Home Equipment Front Wheel Walker,Shower Seat without Backrest,Hand Held Shower,Grab Bars In Shower M2 PT-IP Current Condition Start: 01/24/19 16:34 Freq: NEEDED Status: Active Protocol: Document 01/24/19 14:20 AB (Rec: 01/24/19 16:41 AB [email or web address]) Physical Therapy Current Condition Current Condition Evaluation Date 01/24/19 Treatment Diagnosis PNA; acute renal failure; difficulty in walking Onset Date 01/22/19 M3 PT-IP Subjective Start: 01/24/19 16:34 Freq: NEEDED Status: Active Protocol: Document 01/24/19 14:20 AB (Rec: 01/24/19 16:41 AB [email or web address]) Subjective Physical Therapy Visit Type Type Initial Evaluation Visit Start Time 14:20 Visit Stop Time 14:38 Total Visit Minutes 18 Number of ACCOUNTANT AUDITOR Visits 0 Physical Therapy Visit Comments Patient Comments pt agreeable to do PT Therapy Pain Assessment Pain Present Pain Present Denied Pain M4 PT-IP Mobility and Gait Start: 01/24/19 16:34 Freq: NEEDED Status: Active Protocol: Document 01/24/19 14:20 AB (Rec: 01/24/19 16:41 AB [email or web address]) PT-Bed Mobility Assessment Supine to Sit Supine to Sit Standby Assistance Sit to Supine Sit to Supine Standby Assistance Scooting Scooting to Edge of Bed Standby Assistance PT-Transfer Assessment Sit to and From Stand Sit to and from Stand Standby Assistance Equipment Transfer Assistive Device Gait Belt,Front Wheeled Walker Orthotic/Prosthetic Devices or Brace: No Transfers Transfer Destination Toilet Transfer Technique pt ambulated using FWW Transfer Ability Level of Assist Standby Assistance,1 Person Assistance Comments Mobility Comments pt requested to go to the toilet and completed supine to sit SBA. ambulated using FWW to the toilet SBA and cues. pt can be impulsive and cued to slow down for safety. pt completed toileting SBA and ambulated towards the sink using FWW SBA. pt was able to maintain standing leaning against the counter SBA while completing handwashing. pt agreed to do further PT but requested to sit and rest first. O2 sat checked : 97% Gait Assessment Gait Gait Assistance Required: Standby Assistance Distance (Feet) 75 Able to Maintain Weight Bearing Status Yes During Gait Assistive Devices Assistive Device Gait Belt,Front Wheeled Walker Orthotic/Prosthetic Devices or Brace: No Gait Deviations General Gait Pattern Decreased Stride Length, Decreased Feet Clearance Factors Limiting Gait Function Factors Limiting Gait Function Decreased Activity Tolerance, Decreased Strength,Poor Balance,Poor Safety Awareness, Respiratory Distress PT-Balance Assessment Sitting Balance and Reactions Static Sitting Balance Ability Good Dynamic Sitting Balance Ability Good Standing Balance and Reactions Static Standing Balance Ability Fair Dynamic Standing Balance Ability Fair Device Used FWW M5 PT-IP Objective Assessments Start: 01/24/19 16:34 Freq: NEEDED Status: Active Protocol: Document 01/24/19 14:20 AB (Rec: 01/24/19 16:41 AB [email or web address]) Orientation Orientation/Cognition Level of Alertness Alert Orientation Name,Place,Situation Language Function Ability No Deficits Noted Safety Awareness Decreased Safety Awareness Gross Range of Motion Lower Extremity ROM Assessment Within Functional Limits Strength Lower Extremity Strength Assessment Within Functional Limits Coordination Assessment Gross Coordination Gross Coordination WNL Sensation Assessment Sensation Gross Sensation WNL Muscle Tone Muscle Tone WNL Yes M6 PT-IP Treatment Start: 01/24/19 16:34 Freq: NEEDED Status: Active Protocol: Document 01/24/19 14:20 AB (Rec: 01/24/19 16:41 AB [email or web address]) Physical Therapy Treatment Education Education Provided Safety M7 PT-IP Assessment and Plan Start: 01/24/19 16:34 Freq: NEEDED Status: Active Protocol: Document 11/01/19 14:20 AB (Rec: 01/24/19 16:41 AB [email or web address]) PT Summary Assessment and Plan Potential Rehabilitation Potential Good Status of Condition at Evaluation Stable Summary Impairments Pain,ROM,Strength,Balance, Coordination,Sensation,Tone, Cognition,Bed Mobility, Transfers,Gait,Activity Tolerance Assessment Summary pt requiring SBA with mobility and will have her friend and significant other to assist her at home. pt may go home when medically stable. Goals Bed Mobility Goal Independent Transfer Goal Independent,Front Wheeled Walker Gait Goal Independent,Front Wheel Walker Gait Distance 150 Days to Meet Goals 3 Frequency of Treatment Frequency Of Treatment Once a Day Treatment Plan Physical Therapy Treatment Plan Bed Mobility Training,Transfer Training,Gait Training, Therapeutic Exercise,Balance Retraining,Discharge Planning, Hot or Cold Pack,Neuromuscular Re-ed,Coordination Retraining ,Manual Therapy Recommendations To Nursing Amount of Assist Needed 1 Person Assist Discharge Recommendations PT Discharge Recommendations Home with Assistance
--- NOTE | 2019-01-24 15:03 | PC.NURSE ---
Pt willing to stay for antibiotics and more IVF, will be d/c home after same. Levo is infusing at this time. Has a friend here to take her home.
[2019-01-24 16:35] LABS: Thyroid Peroxidase Antibodies 1 IU/mL (< 9)
[2019-01-25 18:08] LABS: Triiodothyronine T3 Total 71 ng/dL (76-181)
[2019-01-27 14:25] LABS: Abnormal Protein Band 1 4 mg/dL (NONE DETECTED); Albumin 4 %; Protein/ Creatinine Ratio 842 mg/g creat (21-161); Total Urine Protein 41 mg/dL (5-24); Urine Creatinine, Random 49 mg/dL (20-275)
[2019-01-28 22:21] LABS: Albumin 1.6 g/dL (3.8-4.8); Alpha 1 Globulin 0.6 g/dL (0.2-0.3); Beta 1 Globulin 0.4 g/dL (0.4-0.6); Gamma Globulin 1.2 g/dL (0.8-1.7); Protein, Total 5.4 g/dL (6.1-8.1)
== END 2019-01-24 15:40 | disposition home or self-care (01) | DRG 193 ==
LOC: ED 13:32 → AC 14:05
PROVIDERS: Internal Medicine; Admitting Provider Internal Medicine; Emergency Provider Emergency Medicine; PCP Family Medicine; Visit Provider Internal Medicine
DX: J15.9 Unspecified bacterial pneumonia (principal); E43 Unspecified severe protein-calorie malnutrition; N17.9 Acute kidney failure, unspecified; E87.1 Hypo-osmolality and hyponatremia; L97.921 Non-pressure chronic ulcer of unspecified part of left lower leg limited to breakdown of skin; L97.911 Non-pressure chronic ulcer of unspecified part of right lower leg limited to breakdown of skin; I12.9 Hypertensive chronic kidney disease with stage 1 through stage 4 chronic kidney disease, or unspecified chronic kidney disease; I87.2 Venous insufficiency (chronic) (peripheral); E11.22 Type 2 diabetes mellitus with diabetic chronic kidney disease; N18.9 Chronic kidney disease, unspecified; E66.9 Obesity, unspecified; Z68.36 Body mass index [BMI] 36.0-36.9, adult; E87.5 Hyperkalemia; I87.8 Other specified disorders of veins; F15.90 Other stimulant use, unspecified, uncomplicated; E03.9 Hypothyroidism, unspecified; Z91.19 Patient's noncompliance with other medical treatment and regimen
CPT/HCPCS: 36415; 71045; 76770; 80048; 80053; 80305; 81001; 82570; 83036; 83605; 83735; 84100; 84145; 84155; 84156; 84165; 84166; 84439; 84443; 84480; 84481; 85025; 86376; 86803; 87389; 87449; 87633; 90471; 90656; 93005; 93010; 96361; 96365; 96367; 97161; 99284; 99285; 99406; J0696; J1170; J1644; J1956; Q2038

== ENCOUNTER → 2019-02-06 15:02 | Outpatient (CLI) | payer MEDICARE, MEDICAID, SELFPAY ==
[2019-01-22 14:47] VITALS: BMI 36.3
== END ==
PROVIDERS: PCP Family Medicine; Visit Provider Family Medicine
DX: I89.0 Lymphedema, not elsewhere classified (principal); L97.521 Non-pressure chronic ulcer of other part of left foot limited to breakdown of skin; L03.116 Cellulitis of left lower limb; E43 Unspecified severe protein-calorie malnutrition; F15.20 Other stimulant dependence, uncomplicated; Z91.19 Patient's noncompliance with other medical treatment and regimen
CPT/HCPCS: 11042; 99213; 99214

== ENCOUNTER → 2019-02-13 13:37 | Outpatient (CLI) | payer MEDICARE, MEDICAID, SELFPAY ==
[2019-01-22 14:47] VITALS: BMI 36.3
== END ==
PROVIDERS: PCP Family Medicine; Visit Provider Family Medicine
DX: I87.2 Venous insufficiency (chronic) (peripheral) (principal); E11.621 Type 2 diabetes mellitus with foot ulcer; I89.0 Lymphedema, not elsewhere classified; L97.521 Non-pressure chronic ulcer of other part of left foot limited to breakdown of skin; I10 Essential (primary) hypertension
CPT/HCPCS: 11042

== ENCOUNTER 2019-12-31 02:39 | Emergency (ER) | payer MEDICARE, MEDICAID, SELFPAY ==
[2019-01-22 14:47] VITALS: BMI 36.3
[2019-12-31 02:45] VITALS: BP 153/69; PULSE 89; RESP 22; TEMP 36.8; O2SAT 96; BMI 32.8
--- NOTE | 2019-12-31 03:02 | DI.RAD.S_ITS ---
PROCEDURE: XR FINGER LT MIN 2V INDICATIONS: pain/swelling/injury TECHNIQUE: AP hand, 2 views of the left 3rd finger(s) acquired. COMPARISON: None. FINDINGS: Bones: Comminuted fracture of the 3rd middle phalanges. Erosive changes noted in the 3rd middle and distal phalanges which could be secondary to infection, inflammatory arthritis or less likely neoplastic process.. Soft tissues: No suspicious soft tissue calcifications. IMPRESSION: 1. 3rd middle phalangeal fracture. 2. Nonspecific erosive changes involving 3rd middle and 3rd distal phalanges. Osteomyelitis cannot be excluded. Dictated by: Tanvi Morrissey MD, PhD on 12/31/2019 at 8:45 Approved by: Tanvi Morrissey MD, PhD on 12/31/2019 at 8:48
--- NOTE | 2019-12-31 03:03 | ED_ITS ---
HPI - Extremity Injury (Upper) General Chief Complaint: Extremity Injury, Upper Stated Complaint: left middle finger swollen and purple Time Seen by Provider: 12/31/19 02:44 Source: patient Mode of arrival: Ambulatory Limitations: no limitations History of Present Illness HPI narrative: Patient complains of left middle finger pain and injury and swelling. No fever chills. Patient states had chronic small lesions/cyst at the the DIP joint that popped about 3 weeks ago without any complications. However 2 weeks ago she had trip and fall into a stove and injured the same finger. Since then has had swelling and resolved discharge from the joint area. Pain is improved. No fever chills. No longer has drainage. Now has swelling at the PIP joint. Able to flex and extend finger. Related Data Home Medications Medication Instructions Recorded Confirmed acetaminophen [Tylenol] 325 mg PO TID PRN 01/01/19 01/22/19 ondansetron HCl 4 mg PO TID PRN 01/01/19 01/22/19 silver sulfadiazine [SSD] 1 applic TOPICAL BID 01/01/19 01/22/19 Previous Rx's Medication Instructions Recorded levothyroxine 75 mcg PO DAILY #30 tab 04/29/18 L.acidoph-L.bulg-B.bif-S.therm 1 ea PO TIDWM #30 tab 01/24/19 [Bacid] clindamycin HCl 300 mg PO QID #36 cap 01/24/19 levofloxacin 500 mg PO DAILY #9 tab 01/24/19 cephalexin 500 mg PO QID #20 cap 12/31/19 Allergies Allergy/AdvReac Type Severity Reaction Status Date / Time No Known Drug Allergies Allergy Verified 04/29/18 01:53 Review of Systems Review of Systems Narrative: GENERAL: Denies chills, fatigue, malaise, fever, sweats. HEENT: Denies sinus pain, ear pain, sore throat, difficulty swallowing, dizziness. RESPIRATORY: Denies dyspnea, cough, wheezing, hemoptysis, sputum. CARDIOVASCULAR: Denies chest pain, palpitations, orthopnea, edema, GASTROINTESTINAL: Denies nausea, vomiting, abdominal pain, diarrhea, constipation, melena. : Denies dysuria, frequency, incontinence, hematuria, urinary retention. MUSCULOSKELETAL: denies weakness, complains of joint pain, or bony pain SKIN: Denies rash, skin lesions NEUROLOGIC: Denies weakness, headache, numbness, change in speech, confusion, seizures, incoordination. PSYCHIATRIC: No concerning psychosocial issues. ROS Unobtainable: All systems reviewed & are unremarkable except as noted in HPI and below Patient History Medical History Hypertension (Chronic) Hypothyroid (Chronic) Kidney stones (Chronic) Social History household members: significant other and friend(s) Smoking Status: Current every day smoker alcohol intake: never substance use type: does not use Smoking Status: Current every day smoker alcohol intake frequency: 0-2 drinks per day Substance Use Type: does not use Exam Narrative Exam Narrative: GENERAL: patient appears stated age. Well-nourished, well- developed patient, in no distress, not toxic HEAD: Atraumatic. Normocephalic. EXTREMITIES: Examination left hand. At the 3rd/middle finger there is erythema edema at the PIP joint. Limited range of motion at this joint due to swelling. Nontender on palpation. No fluctuance. No active drainage. No necrotic tissue. Ecchymotic at the joint area. Light touch intact to finger and finger tip. No finger nail injury. No lymphangitis or red streaking NEURO: AOx4. SKIN: No rash or erythema of visible areas PSYCH: Not anxious, is cooperative Initial Vital Signs Initial Vital Signs: Vital Signs Temperature 98.2 F 12/31/19 02:45 Pulse Rate 89 12/31/19 02:45 Respiratory Rate 22 12/31/19 02:45 Blood Pressure 153/69 H 12/31/19 02:45 Pulse Oximetry 96 12/31/19 02:45 Procedures Orthopedic Splinting/Casting Injury #1: Side: left Upper Extremity Injury Location: finger Upper Extremity Immobilizer: aluminum form splint Post splinting neuro exam: intact Post splinting vascular exam: intact Placed by: Nursing Course Orders Ordered: ED Orders 12/31/19 03:02 XR finger LT min 2V Stat Discontinued Medications Cefazolin Sodium (Keflex 250 Mg Prepack) 1 bottle MISC SEEINSTR ONE Stop: 12/31/19 03:39 Last Admin: 12/31/19 03:45 Dose: 500 mg Documented by: ANGELO Cephalexin HCl (Keflex) 500 mg PO NOW ONE Stop: 12/31/19 03:33 Last Admin: 12/31/19 03:48 Dose: Not Given Documented by: ANGELO Trimethoprim/Sulfamethoxazole (Bactrim Ds) 1 tab PO NOW ONE Stop: 12/31/19 03:30 Last Admin: 12/31/19 03:36 Dose: Not Given Documented by: GINO Reevaluation(s) Reevaluation #1: Reviewed images with patient. She agrees with follow-up with Orthopedics. Time: 03:37 Vital Signs Vital signs: Vital Signs - 8 hr 12/31/19 02:45 12/31/19 03:50 Temperature 98.2 F Pulse Rate 89 85 Respiratory Rate 22 20 Blood Pressure 153/69 H 103/56 L Pulse Oximetry 96 95 MDM - Extremity Injury (Upper) Differential Diagnosis Differential diagnosis: Likely dislocation of finger and other (Finger fracture/ruptured ganglion cyst) Imaging Data Extremity x-ray #1: Attestation: I personally reviewed and interpreted this imaging study as follows: My Impression: X-ray left middle finger, intra-articular fracture at the D IP joint [facility] Narrative Medical decision making narrative: No labs indicated this time. Onset 3 weeks ago. No fever chills. Skin intact. However will treat for possible early cellulitis. Appropriate for discharge home and follow-up with orthopedics. Discharge Plan Departure Patient Disposition: Home Clinical Impression: Fracture of finger of left hand Qualifiers: Encounter type: initial encounter Finger: middle finger Fracture type: closed Phalanx: distal Fracture alignment: nondisplaced Qualified Code(s): S62.663A - Nondisplaced fracture of distal phalanx of left middle finger, initial encounter for closed fracture Discharge Date/Time: 12/31/19 03:51 Instructions: DI for Finger Fracture Activity Restrictions/Additional Instructions: Remove finger splint twice day to clean skin with warm soap and water. Prescription has been sent to your pharmacy. Call provided orthopedic office in the morning for office recheck this week. Return if worse or if any questions or concerns. Prescriptions: New cephalexin 500 mg capsule 500 mg PO QID Qty: 20 RF: 0 No Action levothyroxine 75 mcg tablet 75 mcg PO DAILY Qty: 30 RF: 0 silver sulfadiazine [SSD] 1 % cream 1 applic TOPICAL BID RF: 0 acetaminophen [Tylenol] 325 mg tablet 325 mg PO TID PRN (Reason: pain) RF: 0 ondansetron HCl 4 mg tablet 4 mg PO TID PRN (Reason: Nausea) RF: 0 Bacid 1 billion cell- 250 mg Tablet 1 ea PO TIDWM Qty: 30 RF: 0 clindamycin HCl 300 mg capsule 300 mg PO QID Qty: 36 RF: 0 levofloxacin 500 mg tablet 500 mg PO DAILY Qty: 9 RF: 0 Referrals: Alberto Gaytan MD [Primary Care Provider] - Ilir Oleary MD [Physician] -
--- NOTE | 2019-12-31 03:37 | PC.NURSE ---
Elissaafoam splint applied to L 3rd finger. approved splint. Pt educated how to care for and adjust splint
[2019-12-31] MEDS: cephALEXin 250 MG PREPACK 1 BOTTLE MISC (03:45)
[2019-12-31 03:50] VITALS: BP 103/56; PULSE 85; RESP 20; O2SAT 95
== END 2019-12-31 03:51 | disposition home or self-care (01) ==
PROVIDERS: Emergency Provider Emergency Medicine; PCP Family Medicine
DX: S62.663A Nondisplaced fracture of distal phalanx of left middle finger, initial encounter for closed fracture (principal); W19.XXXA Unspecified fall, initial encounter
CPT/HCPCS: 73140; 99281; 99283

== ENCOUNTER 2021-08-16 12:04 | Emergency (ER) | payer OTHER, MEDICAID, SELFPAY ==
[2019-01-22 14:47] VITALS: BMI 36.3
[2021-08-16] VITALS (103 sets, daily range): BP systolic 75–179; BP diastolic 42–98; PULSE 68–91; RESP 18–35; TEMP 35.7–36.2; O2SAT 84–100
--- NOTE | 2021-08-16 12:15 | DI.RAD.S_ITS ---
5PROCEDURE: XR CHEST 1V INDICATIONS: suspected sepsis TECHNIQUE: One view of the chest was acquired. COMPARISON: [facility], CR, XR CHEST 1V, 01/22/2019, 12:33. FINDINGS: Surgical changes and devices: An endotracheal tube is seen, with the tip 3 cm above the amy. The tip of the gastric tube can be seen overlying the mid stomach. The side hole is clearly seen below the level of the diaphragm. There is a right-sided central line seen, with the tip overlying the inferior aspect of the superior vena cava, 1 cm above the cavoatrial junction. Lungs and pleura: Right mid lung consolidation is seen. On this supine examination, no large pneumothorax or large pleural effusions are seen. Low lung volumes are noted. This causes a crowded appearance to the lung markings and limits evaluation. Mediastinum: Mediastinal contours appear normal. Heart size is normal. Bones and chest wall: No suspicious bony lesions. Overlying soft tissues appear unremarkable. IMPRESSION: Right mid lung consolidation can be seen. Low lung volumes. Tip of the endotracheal tube is seen 3 cm above the amy. The tip of the right-sided central line is seen overlying the inferior aspect of the superior vena cava. Tip the gastric tube is seen overlying the mid stomach. Dictated by: Emory Morrison M.D. on 08/16/2021 at 12:30 Approved by: Emory Morrison M.D. on 08/16/2021 at 12:31
--- NOTE | 2021-08-16 12:28 | ED.GENADULT ---
HPI - General Adult <Danielle Arriaza MD - Last Filed: 08/23/21 06:29> General Chief complaint: Shortness of Breath/Dyspnea Stated complaint: Hallucination & SOB Time Seen by Provider: 08/16/21 12:22 History of Present Illness HPI narrative: 61-year-old woman presents in via medics in acute respiratory distress able to answer limited questions with yes or no, unable to speak, significantly mottled.? Unable to obtain additional review of systems.? She is intubated shortly after arrival in the emergency department because of her acute respiratory failure. Initially able to answer yes or no questions.? Yes I do want to be intubated.? Yes I do want to be fully resuscitated.? Yes I do use heroin.? Yes I will go into narcotic withdrawal you.? Yes I do use methamphetamine.? Yes I have had a productive cough (unable to tell how long).? She was hospitalized in 2019 and when asked if she seen a doctor since then she replied no.?? Related Data Home Medications Medication Instructions Recorded Confirmed acetaminophen 325 mg tablet 325 mg PO TID PRN 01/01/19 01/22/19 (Tylenol) ondansetron HCl 4 mg tablet 4 mg PO TID PRN 01/01/19 01/22/19 silver sulfadiazine 1 % topical 1 applic TOPICAL BID 01/01/19 01/22/19 cream (SSD) Previous Rx's Medication Instructions Recorded levothyroxine 75 mcg tablet 75 mcg PO DAILY #30 tab 04/29/18 L.acidophilus-L.bulgar-B.bifid-S.thermoph 1 ea PO TIDWM #30 tab 01/24/19 1 billion cell-250 mg tablet (Bacid) clindamycin HCl 300 mg capsule 300 mg PO QID #36 cap 01/24/19 levofloxacin 500 mg tablet 500 mg PO DAILY #9 tab 01/24/19 cephalexin 500 mg capsule 500 mg PO QID #20 cap 12/31/19 Allergies Allergy/AdvReac Type Severity Reaction Status Date / Time No Known Drug Allergies Allergy Verified 04/29/18 01:53 Review of Systems <Danielle Arriaza MD - Last Filed: 08/23/21 06:29> Review of Systems ROS Unobtainable: Unobtainable due to medical condition Patient History <Danielle Arriaza MD - Last Filed: 08/23/21 06:29> Medical History (Updated 08/16/21 @ 16:46 by Danielle Arriaza MD) Hypertension Hypothyroid Kidney stones Social History household members: significant other and friend(s) Smoking Status: Current every day smoker alcohol intake: never substance use type: does not use Smoking Status: Current every day smoker alcohol intake frequency: 0-2 drinks per day Substance Use Type: does not use Exam <Danielle Arriaza MD - Last Filed: 08/23/21 06:29> Initial Vital Signs Initial Vital Signs: Vital Signs Pulse Rate 79 08/16/21 12:34 Respiratory Rate 35 H 08/16/21 12:34 Blood Pressure 135/86 08/16/21 12:34 Pulse Oximetry 97 08/16/21 12:34 General: Chronically ill-appearing, in significant respiratory distress, unable to speak in full sentences, significant mottling from mid thighs down with poor perfusion to hands and bluish discolored lips. Slightly confused HEENT: Dry mucous membranes, normal sclera with reactive pupils, Neck: No JVD, Respiratory: Lungs with significant rhonchi right greater than left, diffuse wheeze wheezing, no accessory muscle use moderate air movement bilaterally only. Cardiac: Tachycardic, unable to hear murmurs due to overriding pulmonary no is Abdomen: Soft, diffusely tender to palpation Skin: Chronic venous stasis changes with chronic lymphedema and significant chronic skin breakdown but no obvious cellulitis abscess or drainage in the lower extremities. Developing decubitus over the buttock with mild skin breakdown but not into the muscle no drainage. Neurologic: Confused, moving all extremities but globally weak Extremities: For perfusion with mottling to mid thighs. Chronic lymphedema with skin breakdown from mid calves through the feet. Second toes bilaterally with increasing violaceous coloration. Significant onychomycosis. Nonpalpable pulses. Psych: Intubated <Michael Escobedo DO - Last Filed: 08/17/21 17:08> Initial Vital Signs Initial Vital Signs: Vital Signs Pulse Rate 79 08/16/21 12:34 Respiratory Rate 35 H 08/16/21 12:34 Blood Pressure 135/86 08/16/21 12:34 Pulse Oximetry 97 08/16/21 12:34 Procedures <Danielle Arriaza MD - Last Filed: 08/23/21 06:29> Central Line Placement Right IJ: Time of procedure: 13:14 Time Out Performed: Yes Patient Placed on Monitor/Pulse Ox: Yes Prep: mask, gown and gloves Central Line Prep: Chlorhexidine scrub Ultrasound Used for Placement: Yes Central Line Lumen Inserted: triple Post Procedure: sutured in place, good blood return, all ports aspirated, flushed, capped and sterile dressing applied Post Procedure X-Ray: tip of catheter in good position and no pneumothorax seen Patient Tolerated Procedure: Well Complications: none Intubation Time of Intubation: 13:14 Time out performed: Yes sedative: Ketamine Mg Given: 100 paralytic: Rocuronium Mg Given: 100 Laryngoscope: fiber optic video scope ET Tube Size: 7.5 Tube Secured Depth (cm): 24 Tube Secured Location: lips Tube Placement Confirmation: Visualized tube passing through cords and Chest Xray Patient Tolerated Procedure: Well Intubation Complications: other Additional Comments: Post intubation with placement of the OG tube patient's sats dropped. Re-evaluation bagging started. Decreased breath sounds on the left. Presumed mainstem intubation. Tube was pulled back 2 cm chest x-ray taking confirms 1 cm above amy breath sounds equal and oxygen saturations coming up nicely Course <Danielle Arriaza MD - Last Filed: 08/23/21 06:29> Orders Ordered: Discontinued Medications Albuterol (Albuterol 2.5 Mg/3 Ml Neb (Adult)) 2.5 mg INH NOW ONE Stop: 08/16/21 16:25 Last Admin: 08/16/21 16:31 Dose: 2.5 mg Documented by: FATIMAH Sodium Chloride (Normal Saline 0.9%) 1,000 mls @ 1,000 mls/hr IV BOLUS ONE Stop: 08/16/21 13:14 Last Infusion: 08/16/21 16:09 Dose: 0 mls/hr Documented by: Admin: 08/16/21 12:58 Dose: 1,000 mls/hr Documented by: REGAN Propofol (Propofol) 1,000 mg in 100 mls @ 2.585 mls/hr IV TITRATE [facility]IA; Protocol Last Titration: 08/16/21 20:45 Dose: 0 mcg/kg/min, 0 mls/hr Documented by: Titration: 08/16/21 19:11 Dose: 10 mcg/kg/min, 5.171 mls/hr Documented by: Titration: 08/16/21 17:37 Dose: 15 mcg/kg/min, 7.756 mls/hr Documented by: Titration: 08/16/21 16:39 Dose: 10 mcg/kg/min, 5.171 mls/hr Documented by: Admin: 08/16/21 13:24 Dose: 5 mcg/kg/min, 2.585 mls/hr Documented by: REGAN NOREPINEPHRINE BITARTRATE/D5W (Levophed) 4 mg in 250 mls @ 30 mls/hr IV TITRATE [facility]; Protocol Last Titration: 08/16/21 20:54 Dose: 0 mcg/min, 0 mls/hr Documented by: Titration: 08/16/21 15:15 Dose: 0 mcg/min, 0 mls/hr Documented by: Titration: 08/16/21 15:00 Dose: 2 mcg/min, 7.5 mls/hr Documented by: Titration: 08/16/21 14:58 Dose: 3 mcg/min, 11.25 mls/hr Documented by: Titration: 08/16/21 14:45 Dose: 4 mcg/min, 15 mls/hr Documented by: Titration: 08/16/21 14:38 Dose: 0 mcg/min, 0 mls/hr Documented by: Titration: 08/16/21 13:43 Dose: 4 mcg/min, 15 mls/hr Documented by: Titration: 08/16/21 13:05 Dose: 5 mcg/min, 18.75 mls/hr Documented by: Admin: 08/16/21 12:56 Dose: 8 mcg/min, 30 mls/hr Documented by: REGAN Piperacillin Sod/Tazobactam (Sod 4.5 gm/ Sodium Chloride) 100 mls @ 200 mls/hr IV NOW ONE Stop: 08/16/21 13:14 Last Infusion: 08/16/21 15:15 Dose: 0 mls/hr Documented by: Admin: 08/16/21 14:38 Dose: 200 mls/hr Documented by: REGAN Fentanyl 1,000 mcg/ Dextrose 250 mls @ 15.082 mls/hr IV TITRATE [place]; Protocol Last Titration: 08/16/21 20:45 Dose: 0 mcg/kg/hr, 0 mls/hr Documented by: Admin: 08/16/21 14:44 Dose: 0.7 mcg/kg/hr, 15.082 mls/hr Documented by: REGAN Vancomycin HCl/Dextrose (Vancomycin) 1,500 mg in 300 mls @ 200 mls/hr IV NOW ONE Stop: 08/16/21 15:19 Last Infusion: 08/16/21 16:50 Dose: 0 mls/hr Documented by: Admin: 08/16/21 15:14 Dose: 200 mls/hr Documented by: REGAN Sodium Chloride (Normal Saline 0.9%) 1,000 mls @ 2,000 mls/hr IV BOLUS ONE Stop: 08/16/21 16:01 Last Infusion: 08/16/21 17:29 Dose: 0 mls/hr Documented by: Admin: 08/16/21 16:02 Dose: 2,000 mls/hr Documented by: JACKSON Sodium Chloride (Normal Saline 0.9%) 1,000 mls @ 150 mls/hr IV CONT ESTEPHANIA Last Infusion: 08/16/21 20:45 Dose: 0 mls/hr Documented by: Infusion: 08/16/21 17:29 Dose: 150 mls/hr Documented by: Infusion: 08/16/21 17:00 Dose: 0 mls/hr Documented by: Admin: 08/16/21 16:59 Dose: 150 mls/hr Documented by: REGAN Rocuronium Arden (Rocuronium 100 Mg/10 Ml Vial) 100 mg IV NOW ONE Stop: 08/16/21 12:46 Last Admin: 08/16/21 12:45 Dose: 100 mg Documented by: REGAN Vancomycin HCl (Vancomycin Per Pharmacy) 1 request MISC NOW ONE Stop: 08/16/21 13:14 Last Admin: 08/16/21 16:01 Dose: Not Given Documented by: JACKSON Vital Signs Vital signs: Vital Signs - 8 hr 08/16/21 13:06 08/16/21 13:08 08/16/21 13:10 Temperature Pulse Rate 89 89 86 Respiratory Rate 18 18 18 Blood Pressure 144/72 H 140/67 134/66 Pulse Oximetry 97 97 95 08/16/21 13:12 08/16/21 13:14 08/16/21 13:16 Temperature Pulse Rate 86 86 83 Respiratory Rate 18 18 18 Blood Pressure 134/66 134/62 130/63 Pulse Oximetry 92 93 84 L 08/16/21 13:18 08/16/21 13:20 08/16/21 15:22 Temperature 96.4 F L Pulse Rate 86 85 71 Respiratory Rate 18 19 18 Blood Pressure 153/79 H 142/68 H 133/66 Pulse Oximetry 96 99 97 08/16/21 15:24 08/16/21 15:26 08/16/21 15:29 Temperature 96.4 F L 96.4 F L 96.4 F L Pulse Rate 71 73 78 Respiratory Rate 18 18 18 Blood Pressure 130/69 123/67 128/84 Pulse Oximetry 97 97 93 08/16/21 15:30 08/16/21 15:32 08/16/21 15:34 Temperature 96.4 F L 96.4 F L 96.4 F L Pulse Rate 79 81 82 Respiratory Rate 18 18 30 H Blood Pressure 131/70 144/72 H 134/65 Pulse Oximetry 94 95 97 08/16/21 15:36 08/16/21 15:39 08/16/21 15:40 Temperature 96.4 F L 96.4 F L 96.4 F L Pulse Rate 83 81 83 Respiratory Rate 34 H 19 18 Blood Pressure 147/71 H 179/98 H 166/77 H Pulse Oximetry 96 88 L 90 L 08/16/21 15:44 08/16/21 15:46 08/16/21 15:48 Temperature 96.4 F L 96.4 F L 96.4 F L Pulse Rate 82 79 79 Respiratory Rate 18 18 Blood Pressure 124/59 L 127/60 136/62 Pulse Oximetry 97 90 L 90 L 08/16/21 15:50 08/16/21 15:52 08/16/21 15:54 Temperature 96.4 F L 96.4 F L 96.4 F L Pulse Rate 78 75 72 Respiratory Rate 19 18 18 Blood Pressure 125/61 116/57 L 122/59 L Pulse Oximetry 92 91 91 08/16/21 15:56 08/16/21 15:58 08/16/21 16:00 Temperature 96.4 F L 96.4 F L 96.4 F L Pulse Rate 73 71 71 Respiratory Rate 18 18 18 Blood Pressure 108/53 L 115/58 L 115/59 L Pulse Oximetry 91 91 91 08/16/21 16:02 08/16/21 16:04 08/16/21 16:06 Temperature 96.3 F L 96.3 F L 96.3 F L Pulse Rate 70 75 75 Respiratory Rate 18 18 18 Blood Pressure 117/55 L 120/60 128/60 Pulse Oximetry 91 92 91 08/16/21 16:08 08/16/21 16:10 08/16/21 16:12 Temperature 96.3 F L 96.3 F L 96.3 F L Pulse Rate 75 76 78 Respiratory Rate 18 18 18 Blood Pressure 125/60 128/63 125/61 Pulse Oximetry 91 91 92 08/16/21 16:26 08/16/21 16:28 08/16/21 16:30 Temperature 96.3 F L 96.3 F L 96.3 F L Pulse Rate 69 70 68 Respiratory Rate 21 18 18 Blood Pressure 136/66 141/69 H 139/69 Pulse Oximetry 92 93 94 08/16/21 16:32 08/16/21 16:34 08/16/21 16:36 Temperature 96.3 F L 96.3 F L 96.3 F L Pulse Rate 77 73 74 Respiratory Rate 19 19 18 Blood Pressure 146/70 H 141/70 H 136/63 Pulse Oximetry 94 94 96 08/16/21 16:38 08/16/21 16:40 08/16/21 16:42 Temperature 96.3 F L 96.3 F L 96.3 F L Pulse Rate 76 78 76 Respiratory Rate 18 18 18 Blood Pressure 163/77 H 149/66 H 155/71 H Pulse Oximetry 98 98 97 08/16/21 16:44 08/16/21 16:46 08/16/21 16:48 Temperature 96.3 F L 96.3 F L 96.3 F L Pulse Rate 75 73 72 Respiratory Rate 18 19 18 Blood Pressure 159/72 H 153/60 H 155/67 H Pulse Oximetry 97 97 96 08/16/21 16:50 08/16/21 16:52 08/16/21 16:54 Temperature 96.3 F L 96.3 F L 96.3 F L Pulse Rate 71 70 70 Respiratory Rate 18 20 18 Blood Pressure 143/65 H 144/65 H 150/69 H Pulse Oximetry 96 96 97 08/16/21 16:56 08/16/21 16:58 08/16/21 17:00 Temperature 96.3 F L 96.3 F L 96.3 F L Pulse Rate 70 69 70 Respiratory Rate 18 18 20 Blood Pressure 144/66 H 143/66 H 154/72 H Pulse Oximetry 97 97 97 08/16/21 17:02 08/16/21 17:04 08/16/21 17:05 Temperature 96.3 F L 96.3 F L 96.3 F L Pulse Rate 70 69 71 Respiratory Rate 18 18 18 Blood Pressure 147/66 H 143/67 H 140/69 Pulse Oximetry 96 97 96 08/16/21 17:10 08/16/21 17:15 08/16/21 17:20 Temperature 96.3 F L 96.3 F L 96.3 F L Pulse Rate 70 69 70 Respiratory Rate 18 18 20 Blood Pressure 152/72 H 148/70 H 140/68 Pulse Oximetry 96 96 96 08/16/21 17:25 08/16/21 17:30 08/16/21 17:35 Temperature 96.3 F L 96.3 F L 96.3 F L Pulse Rate 69 69 68 Respiratory Rate 19 19 19 Blood Pressure 150/71 H 150/69 H 144/67 H Pulse Oximetry 95 95 96 08/16/21 17:40 08/16/21 17:50 08/16/21 17:55 Temperature 96.4 F L 96.4 F L 96.4 F L Pulse Rate 70 68 69 Respiratory Rate 20 18 20 Blood Pressure 131/63 135/63 138/66 Pulse Oximetry 98 97 96 08/16/21 18:00 08/16/21 18:05 08/16/21 18:10 Temperature 96.4 F L 96.4 F L 96.6 F L Pulse Rate 69 70 69 Respiratory Rate 18 19 18 Blood Pressure 137/67 137/66 131/59 L Pulse Oximetry 95 95 94 08/16/21 18:16 08/16/21 18:20 08/16/21 18:25 Temperature 96.6 F L 96.6 F L 96.6 F L Pulse Rate 70 70 71 Respiratory Rate 18 18 19 Blood Pressure 126/83 135/66 132/65 Pulse Oximetry 95 94 94 08/16/21 18:30 08/16/21 18:35 08/16/21 18:40 Temperature 96.6 F L 96.8 F L 96.8 F L Pulse Rate 71 71 71 Respiratory Rate 18 18 18 Blood Pressure 129/65 122/61 129/62 Pulse Oximetry 94 94 92 08/16/21 18:45 08/16/21 18:50 08/16/21 18:55 Temperature 96.8 F L 97.0 F L 97.0 F L Pulse Rate 73 71 73 Respiratory Rate 19 18 18 Blood Pressure 121/59 L 116/55 L 123/59 L Pulse Oximetry 91 89 L 88 L 08/16/21 19:00 08/16/21 19:05 08/16/21 19:10 Temperature 97.0 F L 97.0 F L 97.0 F L Pulse Rate 73 69 73 Respiratory Rate 20 18 19 Blood Pressure 105/53 L 97/50 L 103/53 L Pulse Oximetry 93 89 L 91 08/16/21 19:15 08/16/21 19:20 08/16/21 19:25 Temperature 97.2 F L 97.2 F L 97.2 F L Pulse Rate 71 72 71 Respiratory Rate 18 19 18 Blood Pressure 109/58 L 116/55 L 115/57 L Pulse Oximetry 96 96 97 08/16/21 19:30 08/16/21 19:35 08/16/21 19:40 Temperature 97.2 F L 97.2 F L 97.2 F L Pulse Rate 71 72 72 Respiratory Rate 19 18 18 Blood Pressure 115/58 L 118/55 L 115/56 L Pulse Oximetry 97 97 97 08/16/21 19:45 08/16/21 19:50 08/16/21 19:55 Temperature 97.2 F L 97.2 F L 97.2 F L Pulse Rate 72 73 73 Respiratory Rate 18 18 18 Blood Pressure 115/55 L 112/58 L 116/59 L Pulse Oximetry 97 96 96 08/16/21 20:00 08/16/21 20:05 08/16/21 20:10 Temperature 97.2 F L 97.2 F L 97.2 F L Pulse Rate 72 72 72 Respiratory Rate 18 19 19 Blood Pressure 109/53 L 106/52 L 105/54 L Pulse Oximetry 96 95 94 08/16/21 20:15 Temperature 97.2 F L Pulse Rate 72 Respiratory Rate 20 Blood Pressure 101/52 L Pulse Oximetry 94 <Michael Escobedo, - Last Filed: 08/17/21 17:08> Orders Ordered: Discontinued Medications Albuterol (Albuterol 2.5 Mg/3 Ml Neb (Adult)) 2.5 mg INH NOW ONE Stop: 08/16/21 16:25 Last Admin: 08/16/21 16:31 Dose: 2.5 mg Documented by: FATIMAH Sodium Chloride (Normal Saline 0.9%) 1,000 mls @ 1,000 mls/hr IV BOLUS ONE Stop: 08/16/21 13:14 Last Infusion: 08/16/21 16:09 Dose: 0 mls/hr Documented by: Admin: 08/16/21 12:58 Dose: 1,000 mls/hr Documented by: REGAN Propofol (Propofol) 1,000 mg in 100 mls @ 2.585 mls/hr IV TITRATE [facility]; Protocol Last Titration: 08/16/21 20:45 Dose: 0 mcg/kg/min, 0 mls/hr Documented by: Titration: 08/16/21 19:11 Dose: 10 mcg/kg/min, 5.171 mls/hr Documented by: Titration: 08/16/21 17:37 Dose: 15 mcg/kg/min, 7.756 mls/hr Documented by: Titration: 08/16/21 16:39 Dose: 10 mcg/kg/min, 5.171 mls/hr Documented by: Admin: 08/16/21 13:24 Dose: 5 mcg/kg/min, 2.585 mls/hr Documented by: REGAN NOREPINEPHRINE BITARTRATE/D5W (Levophed) 4 mg in 250 mls @ 30 mls/hr IV TITRATE [place]; Protocol Last Titration: 08/16/21 20:54 Dose: 0 mcg/min, 0 mls/hr Documented by: Titration: 08/16/21 15:15 Dose: 0 mcg/min, 0 mls/hr Documented by: Titration: 08/16/21 15:00 Dose: 2 mcg/min, 7.5 mls/hr Documented by: Titration: 08/16/21 14:58 Dose: 3 mcg/min, 11.25 mls/hr Documented by: Titration: 08/16/21 14:45 Dose: 4 mcg/min, 15 mls/hr Documented by: Titration: 08/16/21 14:38 Dose: 0 mcg/min, 0 mls/hr Documented by: Titration: 08/16/21 13:43 Dose: 4 mcg/min, 15 mls/hr Documented by: Titration: 08/16/21 13:05 Dose: 5 mcg/min, 18.75 mls/hr Documented by: Admin: 08/16/21 12:56 Dose: 8 mcg/min, 30 mls/hr Documented by: REGAN Piperacillin Sod/Tazobactam (Sod 4.5 gm/ Sodium Chloride) 100 mls @ 200 mls/hr IV NOW ONE Stop: 08/16/21 13:14 Last Infusion: 08/16/21 15:15 Dose: 0 mls/hr Documented by: Admin: 08/16/21 14:38 Dose: 200 mls/hr Documented by: REGAN Fentanyl 1,000 mcg/ Dextrose 250 mls @ 15.082 mls/hr IV TITRATE [facility]; Protocol Last Titration: 08/16/21 20:45 Dose: 0 mcg/kg/hr, 0 mls/hr Documented by: Admin: 08/16/21 14:44 Dose: 0.7 mcg/kg/hr, 15.082 mls/hr Documented by: REGAN Vancomycin HCl/Dextrose (Vancomycin) 1,500 mg in 300 mls @ 200 mls/hr IV NOW ONE Stop: 08/16/21 15:19 Last Infusion: 08/16/21 16:50 Dose: 0 mls/hr Documented by: Admin: 08/16/21 15:14 Dose: 200 mls/hr Documented by: REGAN Sodium Chloride (Normal Saline 0.9%) 1,000 mls @ 2,000 mls/hr IV BOLUS ONE Stop: 08/16/21 16:01 Last Infusion: 08/16/21 17:29 Dose: 0 mls/hr Documented by: Admin: 08/16/21 16:02 Dose: 2,000 mls/hr Documented by: JACKSON Sodium Chloride (Normal Saline 0.9%) 1,000 mls @ 150 mls/hr IV CONT ESTEPHANIA Last Infusion: 08/16/21 20:45 Dose: 0 mls/hr Documented by: Infusion: 08/16/21 17:29 Dose: 150 mls/hr Documented by: Infusion: 08/16/21 17:00 Dose: 0 mls/hr Documented by: Admin: 08/16/21 16:59 Dose: 150 mls/hr Documented by: REGAN Rocuronium Arden (Rocuronium 100 Mg/10 Ml Vial) 100 mg IV NOW ONE Stop: 08/16/21 12:46 Last Admin: 08/16/21 12:45 Dose: 100 mg Documented by: REGAN Vancomycin HCl (Vancomycin Per Pharmacy) 1 request MISC NOW ONE Stop: 08/16/21 13:14 Last Admin: 08/16/21 16:01 Dose: Not Given Documented by: JACKSON Vital Signs Vital signs: Vital Signs - 8 hr 08/16/21 13:06 08/16/21 13:08 08/16/21 13:10 Temperature Pulse Rate 89 89 86 Respiratory Rate 18 18 18 Blood Pressure 144/72 H 140/67 134/66 Pulse Oximetry 97 97 95 08/16/21 13:12 08/16/21 13:14 08/16/21 13:16 Temperature Pulse Rate 86 86 83 Respiratory Rate 18 18 18 Blood Pressure 134/66 134/62 130/63 Pulse Oximetry 92 93 84 L 08/16/21 13:18 08/16/21 13:20 08/16/21 15:22 Temperature 96.4 F L Pulse Rate 86 85 71 Respiratory Rate 18 19 18 Blood Pressure 153/79 H 142/68 H 133/66 Pulse Oximetry 96 99 97 08/16/21 15:24 08/16/21 15:26 08/16/21 15:29 Temperature 96.4 F L 96.4 F L 96.4 F L Pulse Rate 71 73 78 Respiratory Rate 18 18 18 Blood Pressure 130/69 123/67 128/84 Pulse Oximetry 97 97 93 08/16/21 15:30 08/16/21 15:32 08/16/21 15:34 Temperature 96.4 F L 96.4 F L 96.4 F L Pulse Rate 79 81 82 Respiratory Rate 18 18 30 H Blood Pressure 131/70 144/72 H 134/65 Pulse Oximetry 94 95 97 08/16/21 15:36 08/16/21 15:39 08/16/21 15:40 Temperature 96.4 F L 96.4 F L 96.4 F L Pulse Rate 83 81 83 Respiratory Rate 34 H 19 18 Blood Pressure 147/71 H 179/98 H 166/77 H Pulse Oximetry 96 88 L 90 L 08/16/21 15:44 08/16/21 15:46 08/16/21 15:48 Temperature 96.4 F L 96.4 F L 96.4 F L Pulse Rate 82 79 79 Respiratory Rate 18 18 Blood Pressure 124/59 L 127/60 136/62 Pulse Oximetry 97 90 L 90 L 08/16/21 15:50 08/16/21 15:52 08/16/21 15:54 Temperature 96.4 F L 96.4 F L 96.4 F L Pulse Rate 78 75 72 Respiratory Rate 19 18 18 Blood Pressure 125/61 116/57 L 122/59 L Pulse Oximetry 92 91 91 08/16/21 15:56 08/16/21 15:58 08/16/21 16:00 Temperature 96.4 F L 96.4 F L 96.4 F L Pulse Rate 73 71 71 Respiratory Rate 18 18 18 Blood Pressure 108/53 L 115/58 L 115/59 L Pulse Oximetry 91 91 91 08/16/21 16:02 08/16/21 16:04 08/16/21 16:06 Temperature 96.3 F L 96.3 F L 96.3 F L Pulse Rate 70 75 75 Respiratory Rate 18 18 18 Blood Pressure 117/55 L 120/60 128/60 Pulse Oximetry 91 92 91 08/16/21 16:08 08/16/21 16:10 08/16/21 16:12 Temperature 96.3 F L 96.3 F L 96.3 F L Pulse Rate 75 76 78 Respiratory Rate 18 18 18 Blood Pressure 125/60 128/63 125/61 Pulse Oximetry 91 91 92 08/16/21 16:26 08/16/21 16:28 08/16/21 16:30 Temperature 96.3 F L 96.3 F L 96.3 F L Pulse Rate 69 70 68 Respiratory Rate 21 18 18 Blood Pressure 136/66 141/69 H 139/69 Pulse Oximetry 92 93 94 08/16/21 16:32 08/16/21 16:34 08/16/21 16:36 Temperature 96.3 F L 96.3 F L 96.3 F L Pulse Rate 77 73 74 Respiratory Rate 19 19 18 Blood Pressure 146/70 H 141/70 H 136/63 Pulse Oximetry 94 94 96 08/16/21 16:38 08/16/21 16:40 08/16/21 16:42 Temperature 96.3 F L 96.3 F L 96.3 F L Pulse Rate 76 78 76 Respiratory Rate 18 18 18 Blood Pressure 163/77 H 149/66 H 155/71 H Pulse Oximetry 98 98 97 08/16/21 16:44 08/16/21 16:46 08/16/21 16:48 Temperature 96.3 F L 96.3 F L 96.3 F L Pulse Rate 75 73 72 Respiratory Rate 18 19 18 Blood Pressure 159/72 H 153/60 H 155/67 H Pulse Oximetry 97 97 96 08/16/21 16:50 08/16/21 16:52 08/16/21 16:54 Temperature 96.3 F L 96.3 F L 96.3 F L Pulse Rate 71 70 70 Respiratory Rate 18 20 18 Blood Pressure 143/65 H 144/65 H 150/69 H Pulse Oximetry 96 96 97 08/16/21 16:56 08/16/21 16:58 08/16/21 17:00 Temperature 96.3 F L 96.3 F L 96.3 F L Pulse Rate 70 69 70 Respiratory Rate 18 18 20 Blood Pressure 144/66 H 143/66 H 154/72 H Pulse Oximetry 97 97 97 08/16/21 17:02 08/16/21 17:04 08/16/21 17:05 Temperature 96.3 F L 96.3 F L 96.3 F L Pulse Rate 70 69 71 Respiratory Rate 18 18 18 Blood Pressure 147/66 H 143/67 H 140/69 Pulse Oximetry 96 97 96 08/16/21 17:10 08/16/21 17:15 08/16/21 17:20 Temperature 96.3 F L 96.3 F L 96.3 F L Pulse Rate 70 69 70 Respiratory Rate 18 18 20 Blood Pressure 152/72 H 148/70 H 140/68 Pulse Oximetry 96 96 96 08/16/21 17:25 08/16/21 17:30 08/16/21 17:35 Temperature 96.3 F L 96.3 F L 96.3 F L Pulse Rate 69 69 68 Respiratory Rate 19 19 19 Blood Pressure 150/71 H 150/69 H 144/67 H Pulse Oximetry 95 95 96 08/16/21 17:40 08/16/21 17:50 08/16/21 17:55 Temperature 96.4 F L 96.4 F L 96.4 F L Pulse Rate 70 68 69 Respiratory Rate 20 18 20 Blood Pressure 131/63 135/63 138/66 Pulse Oximetry 98 97 96 08/16/21 18:00 08/16/21 18:05 08/16/21 18:10 Temperature 96.4 F L 96.4 F L 96.6 F L Pulse Rate 69 70 69 Respiratory Rate 18 19 18 Blood Pressure 137/67 137/66 131/59 L Pulse Oximetry 95 95 94 08/16/21 18:16 08/16/21 18:20 08/16/21 18:25 Temperature 96.6 F L 96.6 F L 96.6 F L Pulse Rate 70 70 71 Respiratory Rate 18 18 19 Blood Pressure 126/83 135/66 132/65 Pulse Oximetry 95 94 94 08/16/21 18:30 08/16/21 18:35 08/16/21 18:40 Temperature 96.6 F L 96.8 F L 96.8 F L Pulse Rate 71 71 71 Respiratory Rate 18 18 18 Blood Pressure 129/65 122/61 129/62 Pulse Oximetry 94 94 92 08/16/21 18:45 08/16/21 18:50 08/16/21 18:55 Temperature 96.8 F L 97.0 F L 97.0 F L Pulse Rate 73 71 73 Respiratory Rate 19 18 18 Blood Pressure 121/59 L 116/55 L 123/59 L Pulse Oximetry 91 89 L 88 L 08/16/21 19:00 08/16/21 19:05 08/16/21 19:10 Temperature 97.0 F L 97.0 F L 97.0 F L Pulse Rate 73 69 73 Respiratory Rate 20 18 19 Blood Pressure 105/53 L 97/50 L 103/53 L Pulse Oximetry 93 89 L 91 08/16/21 19:15 08/16/21 19:20 08/16/21 19:25 Temperature 97.2 F L 97.2 F L 97.2 F L Pulse Rate 71 72 71 Respiratory Rate 18 19 18 Blood Pressure 109/58 L 116/55 L 115/57 L Pulse Oximetry 96 96 97 08/16/21 19:30 08/16/21 19:35 08/16/21 19:40 Temperature 97.2 F L 97.2 F L 97.2 F L Pulse Rate 71 72 72 Respiratory Rate 19 18 18 Blood Pressure 115/58 L 118/55 L 115/56 L Pulse Oximetry 97 97 97 08/16/21 19:45 08/16/21 19:50 08/16/21 19:55 Temperature 97.2 F L 97.2 F L 97.2 F L Pulse Rate 72 73 73 Respiratory Rate 18 18 18 Blood Pressure 115/55 L 112/58 L 116/59 L Pulse Oximetry 97 96 96 08/16/21 20:00 08/16/21 20:05 08/16/21 20:10 Temperature 97.2 F L 97.2 F L 97.2 F L Pulse Rate 72 72 72 Respiratory Rate 18 19 19 Blood Pressure 109/53 L 106/52 L 105/54 L Pulse Oximetry 96 95 94 08/16/21 20:15 Temperature 97.2 F L Pulse Rate 72 Respiratory Rate 20 Blood Pressure 101/52 L Pulse Oximetry 94 Medical Decision Making <Danielle Arriaza MD - Last Filed: 08/23/21 06:29> Lab Data Result diagrams: 08/16/21 19:42 08/16/21 19:42 Labs: Lab Results 08/16/21 08/16/21 08/16/21 Range/Units 12:09 12:15 12:30 WBC 46.7 H* (4.5-11.0) X10^3/uL RBC 4.47 (4.0-5.2) X10^6/uL Hgb 12.3 (12.0-16.0) g/dL Hct 38.9 (36-46) % MCV 86.9 (80-100) fL MCH 27.5 (26-34) PG MCHC 31.6 (30-36) % RDW 15.9 H (11.6-14.8) % Plt Count 382 (150-400) X10^3/uL Neut % (Auto) Not Reportable Lymph % (Auto) Not Reportable [place] % (Auto) Not Reportable Eos % (Auto) Not Reportable Baso % (Auto) Not Reportable Lymph # (Auto) Not Reportable [place] # (Auto) Not Reportable Baso # (Auto) Not Reportable Total Counted 100 Seg Neutrophils % 80.0 H (38-70) % Band Neutrophils % (3-7) % Lymphocytes % (Manual) 4.0 L (25-45) % Monocytes % (Manual) 15.0 H (2-11) % Eosinophils % (Manual) 1.0 L (2-4) % Metamyelocytes % (-0) % Myelocytes % (-0) % Neutrophils # (Manual) 12440 H (0903-1434) /uL Smudge Cells 1+ H RBC Morphology See below Hypochromasia 1+ H Anisocytosis 1+ H PT (10.1-12.7) SECONDS INR (0.9-1.3) ABG pH (7.35-7.45) ABG pCO2 (35-45) mmHg ABG pO2 (80-100) mmHg ABG HCO3 (22-26) mmol/L ABG Total CO2 (21-31) mmol/L ABG O2 Saturation (95-100) % ABG Base Excess (-2-2) mmol/L FiO2 Sodium (137-145) mmol/L Potassium (3.4-5.1) mmol/L Chloride (98-107) mmol/L Carbon Dioxide (22-32) mmol/L BUN (7-17) mg/dL Creatinine (0.52-1.04) mg/dL Estimated GFR (>60) mL/min BUN/Creatinine Ratio (6-22) Glucose (80-110) mg/dL Serum Osmolality (280-301) mOsmol/kg Lactate (0.7-2.1) mmol/L Calcium (8.4-10.2) mg/dL Total Bilirubin (0.2-1.3) mg/dL AST (14-36) IU/L ALT (<35) IU/L Alkaline Phosphatase (38-126) U/L Total Creatine Kinase (30-135) U/L CK-MB (CK-2) (<2.37) ng/mL CK-MB (CK-2) Rel Index (1.5-5.0) % Troponin I (0.01-0.034) ng/mL NT-Pro-B Natriuret Pep (<125) pg/mL Total Protein (6.3-8.2) g/dL Albumin (3.5-5.0) g/dL Globulin (1.7-4.1) g/dL Albumin/Globulin Ratio (1.0-2.8) Lipase (23-300) U/L Procalcitonin (<0.5) ng/mL TSH (0.47-4.68) uIU/mL Urine Color Urine Appearance Urine pH (4.5-8.0) Ur Specific Noble (1.000-1.035) Urine Protein (Negative) Urine Glucose (UA) (Negative) g/dL Urine Ketones (NEGATIVE) Urine Occult Blood (Negative) Urine Nitrate (Negative) Urine Bilirubin (NEGATIVE) Ur Bilirubin Confirm (Negative) Urine Urobilinogen (0.2) E.U./dL Ur Leukocyte Esterase (NEGATIVE) Urine RBC (0-5/HPF) Urine WBC (0-5/HPF) Ur Renal Epithelial Cell (0-1/HPF) Amorphous Sediment Urine Bacteria (None) Ur Culture Indicated? Ur Random Sodium (30-90) mmol/L Urine Creatinine mg/dL Salicylates (<20) mg/dL Acetaminophen (10-30) ug/mL Ethyl Alcohol ( - 10) mg/dL A. baumannii (PCR) (Not Detect) Chlamy pneumoniae PCR Not detected (Not Detect) Adenovirus (PCR) Not detected (Not Detect) B. pertussis DNA (PCR) Not detected (Not Detecte) B.parapertussis DNA PCR Not detected (Not Detecte) Jeannie albicans (PCR) (Not Detect) C. glabrata (PCR) (Not Detect) C. krusei (PCR) (Not Detect) C. parapsilosis (PCR) (Not Detect) C. tropicalis (PCR) (Not Detect) Coronavirus OC43 (PCR) Detected H (Not Detect) Coronavirus HKU1 (PCR) Not detected (Not Detect) Coronavirus 229E (PCR) Not detected (Not Detect) SARS-CoV-2 (PCR) Cancelled Not detected Coronavirus NL63 (PCR) Not detected (Not Detect) Enterobacteriac sp PCR (Not Detect) E. cloacae complex PCR (Not Detect) Enterococcus sp PCR (Not Detect) E. coli (PCR) (Not Detect) H. influenzae (PCR) (Not Detect) Human Metapneumovir PCR Not detected (Not Detect) Influenza Type A (PCR) Not detected (Not Detect) Influenza Type B (PCR) Not detected (Not Detect) Klebsiella oxytoca PCR (Not Detect) Klebsiella pneumoniae (Not Detect) List. monocytogenes PCR (Not Detect) M. pneumoniae (PCR) Not detected (Not Detect) N. meningitidis (PCR) (Not Detect) Parainfluenza 1 (PCR) Not detected (Not Detect) Parainfluenza 2 (PCR) Not detected (Not Detect) Parainfluenza 3 (PCR) Not detected (Not Detect) Parainfluenza 4 (PCR) Not detected (Not Detect) Proteus species (PCR) (Not Detect) RSV (PCR) Not detected (Not Detect) Entero/Rhino (PCR) Not detected (Not Detect) Serratia marcescens PCR (Not Detect) Staphylococcus sp PCR (Not Detect) Staph aureus (PCR) (Not Detect) mecA-Methicil Res Gene Streptococcus sp PCR (Not Detect) Group A Strep (PCR) (Not Detect) Strep agalactiae (PCR) (Not Detect) Strep pneumoniae (PCR) (Not Detect) P. aeruginosa (PCR) (Not Detect) Alexis/B-Vanco Res Genes KPC-Carbap Res Gene PCR (Not Detect) Blood Type Antibody Screen 08/16/21 08/16/21 08/16/21 Range/Units 12:30 12:30 12:30 WBC (4.5-11.0) X10^3/uL RBC (4.0-5.2) X10^6/uL Hgb (12.0-16.0) g/dL Hct (36-46) % MCV (80-100) fL MCH (26-34) PG MCHC (30-36) % RDW (11.6-14.8) % Plt Count (150-400) X10^3/uL Neut % (Auto) Lymph % (Auto) [place] % (Auto) Eos % (Auto) Baso % (Auto) Lymph # (Auto) [place] # (Auto) Baso # (Auto) Total Counted Seg Neutrophils % (38-70) % Band Neutrophils % (3-7) % Lymphocytes % (Manual) (25-45) % Monocytes % (Manual) (2-11) % Eosinophils % (Manual) (2-4) % Metamyelocytes % (-0) % Myelocytes % (-0) % Neutrophils # (Manual) (8616-5711) /uL Smudge Cells RBC Morphology Hypochromasia Anisocytosis PT 19.5 H (10.1-12.7) SECONDS INR 1.7 H (0.9-1.3) ABG pH (7.35-7.45) ABG pCO2 (35-45) mmHg ABG pO2 (80-100) mmHg ABG HCO3 (22-26) mmol/L ABG Total CO2 (21-31) mmol/L ABG O2 Saturation (95-100) % ABG Base Excess (-2-2) mmol/L FiO2 Sodium 126 L (137-145) mmol/L Potassium 5.1 (3.4-5.1) mmol/L Chloride 91 L (98-107) mmol/L Carbon Dioxide 15 L (22-32) mmol/L BUN 130 H* (7-17) mg/dL Creatinine 7.10 H (0.52-1.04) mg/dL Estimated GFR 6 L (>60) mL/min BUN/Creatinine Ratio 18.3 (6-22) Glucose 160 H (80-110) mg/dL Serum Osmolality (280-301) mOsmol/kg Lactate 2.5 H (0.7-2.1) mmol/L Calcium 6.6 L (8.4-10.2) mg/dL Total Bilirubin 2.2 H (0.2-1.3) mg/dL AST 1456 H (14-36) IU/L ALT 715 H (<35) IU/L Alkaline Phosphatase 236 H (38-126) U/L Total Creatine Kinase (30-135) U/L CK-MB (CK-2) (<2.37) ng/mL CK-MB (CK-2) Rel Index (1.5-5.0) % Troponin I (0.01-0.034) ng/mL NT-Pro-B Natriuret Pep (<125) pg/mL Total Protein 8.3 H (6.3-8.2) g/dL Albumin 3.4 L (3.5-5.0) g/dL Globulin 4.9 H (1.7-4.1) g/dL Albumin/Globulin Ratio 0.7 L (1.0-2.8) Lipase 704 H (23-300) U/L Procalcitonin 39.7 H (<0.5) ng/mL TSH (0.47-4.68) uIU/mL Urine Color Urine Appearance Urine pH (4.5-8.0) Ur Specific Noble (1.000-1.035) Urine Protein (Negative) Urine Glucose (UA) (Negative) g/dL Urine Ketones (NEGATIVE) Urine Occult Blood (Negative) Urine Nitrate (Negative) Urine Bilirubin (NEGATIVE) Ur Bilirubin Confirm (Negative) Urine Urobilinogen (0.2) E.U./dL Ur Leukocyte Esterase (NEGATIVE) Urine RBC (0-5/HPF) Urine WBC (0-5/HPF) Ur Renal Epithelial Cell (0-1/HPF) Amorphous Sediment Urine Bacteria (None) Ur Culture Indicated? Ur Random Sodium (30-90) mmol/L Urine Creatinine mg/dL Salicylates (<20) mg/dL Acetaminophen (10-30) ug/mL Ethyl Alcohol ( - 10) mg/dL A. baumannii (PCR) (Not Detect) Chlamy pneumoniae PCR (Not Detect) Adenovirus (PCR) (Not Detect) B. pertussis DNA (PCR) (Not Detecte) B.parapertussis DNA PCR (Not Detecte) Jeannie albicans (PCR) (Not Detect) C. glabrata (PCR) (Not Detect) C. krusei (PCR) (Not Detect) C. parapsilosis (PCR) (Not Detect) C. tropicalis (PCR) (Not Detect) Coronavirus OC43 (PCR) (Not Detect) Coronavirus HKU1 (PCR) (Not Detect) Coronavirus 229E (PCR) (Not Detect) SARS-CoV-2 (PCR) Coronavirus NL63 (PCR) (Not Detect) Enterobacteriac sp PCR (Not Detect) E. cloacae complex PCR (Not Detect) Enterococcus sp PCR (Not Detect) E. coli (PCR) (Not Detect) H. influenzae (PCR) (Not Detect) Human Metapneumovir PCR (Not Detect) Influenza Type A (PCR) (Not Detect) Influenza Type B (PCR) (Not Detect) Klebsiella oxytoca PCR (Not Detect) Klebsiella pneumoniae (Not Detect) List. monocytogenes PCR (Not Detect) M. pneumoniae (PCR) (Not Detect) N. meningitidis (PCR) (Not Detect) Parainfluenza 1 (PCR) (Not Detect) Parainfluenza 2 (PCR) (Not Detect) Parainfluenza 3 (PCR) (Not Detect) Parainfluenza 4 (PCR) (Not Detect) Proteus species (PCR) (Not Detect) RSV (PCR) (Not Detect) Entero/Rhino (PCR) (Not Detect) Serratia marcescens PCR (Not Detect) Staphylococcus sp PCR (Not Detect) Staph aureus (PCR) (Not Detect) mecA-Methicil Res Gene Streptococcus sp PCR (Not Detect) Group A Strep (PCR) (Not Detect) Strep agalactiae (PCR) (Not Detect) Strep pneumoniae (PCR) (Not Detect) P. aeruginosa (PCR) (Not Detect) Alexis/B-Vanco Res Genes KPC-Carbap Res Gene PCR (Not Detect) Blood Type Antibody Screen 08/16/21 08/16/21 08/16/21 Range/Units 12:30 12:30 12:30 WBC (4.5-11.0) X10^3/uL RBC (4.0-5.2) X10^6/uL Hgb (12.0-16.0) g/dL Hct (36-46) % MCV (80-100) fL MCH (26-34) PG MCHC (30-36) % RDW (11.6-14.8) % Plt Count (150-400) X10^3/uL Neut % (Auto) Lymph % (Auto) [place] % (Auto) Eos % (Auto) Baso % (Auto) Lymph # (Auto) [place] # (Auto) Baso # (Auto) Total Counted Seg Neutrophils % (38-70) % Band Neutrophils % (3-7) % Lymphocytes % (Manual) (25-45) % Monocytes % (Manual) (2-11) % Eosinophils % (Manual) (2-4) % Metamyelocytes % (-0) % Myelocytes % (-0) % Neutrophils # (Manual) (5948-5708) /uL Smudge Cells RBC Morphology Hypochromasia Anisocytosis PT (10.1-12.7) SECONDS INR (0.9-1.3) ABG pH (7.35-7.45) ABG pCO2 (35-45) mmHg ABG pO2 (80-100) mmHg ABG HCO3 (22-26) mmol/L ABG Total CO2 (21-31) mmol/L ABG O2 Saturation (95-100) % ABG Base Excess (-2-2) mmol/L FiO2 Sodium (137-145) mmol/L Potassium (3.4-5.1) mmol/L Chloride (98-107) mmol/L Carbon Dioxide (22-32) mmol/L BUN (7-17) mg/dL Creatinine (0.52-1.04) mg/dL Estimated GFR (>60) mL/min BUN/Creatinine Ratio (6-22) Glucose (80-110) mg/dL Serum Osmolality (280-301) mOsmol/kg Lactate (0.7-2.1) mmol/L Calcium (8.4-10.2) mg/dL Total Bilirubin (0.2-1.3) mg/dL AST (14-36) IU/L ALT (<35) IU/L Alkaline Phosphatase (38-126) U/L Total Creatine Kinase 3030 H (30-135) U/L CK-MB (CK-2) 24.60 H (<2.37) ng/mL CK-MB (CK-2) Rel Index 0.8 L (1.5-5.0) % Troponin I 0.094 H (0.01-0.034) ng/mL NT-Pro-B Natriuret Pep 04654 H (<125) pg/mL Total Protein (6.3-8.2) g/dL Albumin (3.5-5.0) g/dL Globulin (1.7-4.1) g/dL Albumin/Globulin Ratio (1.0-2.8) Lipase (23-300) U/L Procalcitonin (<0.5) ng/mL TSH (0.47-4.68) uIU/mL Urine Color Urine Appearance Urine pH (4.5-8.0) Ur Specific [place] (1.000-1.035) Urine Protein (Negative) Urine Glucose (UA) (Negative) g/dL Urine Ketones (NEGATIVE) Urine Occult Blood (Negative) Urine Nitrate (Negative) Urine Bilirubin (NEGATIVE) Ur Bilirubin Confirm (Negative) Urine Urobilinogen (0.2) E.U./dL Ur Leukocyte Esterase (NEGATIVE) Urine RBC (0-5/HPF) Urine WBC (0-5/HPF) Ur Renal Epithelial Cell (0-1/HPF) Amorphous Sediment Urine Bacteria (None) Ur Culture Indicated? Ur Random Sodium (30-90) mmol/L Urine Creatinine mg/dL Salicylates (<20) mg/dL Acetaminophen (10-30) ug/mL Ethyl Alcohol ( - 10) mg/dL A. baumannii (PCR) Not detected (Not Detect) Chlamy pneumoniae PCR (Not Detect) Adenovirus (PCR) (Not Detect) B. pertussis DNA (PCR) (Not Detecte) B.parapertussis DNA PCR (Not Detecte) Jeannie albicans (PCR) Not detected (Not Detect) C. glabrata (PCR) Not detected (Not Detect) C. krusei (PCR) Not detected (Not Detect) C. parapsilosis (PCR) Not detected (Not Detect) C. tropicalis (PCR) Not detected (Not Detect) Coronavirus OC43 (PCR) (Not Detect) Coronavirus HKU1 (PCR) (Not Detect) Coronavirus 229E (PCR) (Not Detect) SARS-CoV-2 (PCR) Coronavirus NL63 (PCR) (Not Detect) Enterobacteriac sp PCR Detected H (Not Detect) E. cloacae complex PCR Not detected (Not Detect) Enterococcus sp PCR Not detected (Not Detect) E. coli (PCR) Not detected (Not Detect) H. influenzae (PCR) Not detected (Not Detect) Human Metapneumovir PCR (Not Detect) Influenza Type A (PCR) (Not Detect) Influenza Type B (PCR) (Not Detect) Klebsiella oxytoca PCR Not detected (Not Detect) Klebsiella pneumoniae Not detected (Not Detect) List. monocytogenes PCR Not detected (Not Detect) M. pneumoniae (PCR) (Not Detect) N. meningitidis (PCR) Not detected (Not Detect) Parainfluenza 1 (PCR) (Not Detect) Parainfluenza 2 (PCR) (Not Detect) Parainfluenza 3 (PCR) (Not Detect) Parainfluenza 4 (PCR) (Not Detect) Proteus species (PCR) Detected H (Not Detect) RSV (PCR) (Not Detect) Entero/Rhino (PCR) (Not Detect) Serratia marcescens PCR Not detected (Not Detect) Staphylococcus sp PCR Not detected (Not Detect) Staph aureus (PCR) Not detected (Not Detect) mecA-Methicil Res Gene Not Reportable Streptococcus sp PCR Not detected (Not Detect) Group A Strep (PCR) Not detected (Not Detect) Strep agalactiae (PCR) Not detected (Not Detect) Strep pneumoniae (PCR) Not detected (Not Detect) P. aeruginosa (PCR) Not detected (Not Detect) Alexis/B-Vanco Res Genes Not Reportable KPC-Carbap Res Gene PCR Not detected (Not Detect) Blood Type Antibody Screen 08/16/21 08/16/21 08/16/21 Range/Units 13:36 13:36 13:53 WBC (4.5-11.0) X10^3/uL RBC (4.0-5.2) X10^6/uL Hgb (12.0-16.0) g/dL Hct (36-46) % MCV (80-100) fL MCH (26-34) PG MCHC (30-36) % RDW (11.6-14.8) % Plt Count (150-400) X10^3/uL Neut % (Auto) Lymph % (Auto) [place] % (Auto) Eos % (Auto) Baso % (Auto) Lymph # (Auto) [place] # (Auto) Baso # (Auto) Total Counted Seg Neutrophils % (38-70) % Band Neutrophils % (3-7) % Lymphocytes % (Manual) (25-45) % Monocytes % (Manual) (2-11) % Eosinophils % (Manual) (2-4) % Metamyelocytes % (-0) % Myelocytes % (-0) % Neutrophils # (Manual) (7601-2720) /uL Smudge Cells RBC Morphology Hypochromasia Anisocytosis PT (10.1-12.7) SECONDS INR (0.9-1.3) ABG pH 7.20 L* (7.35-7.45) ABG pCO2 44.6 (35-45) mmHg ABG pO2 177 H (80-100) mmHg ABG HCO3 18 L (22-26) mmol/L ABG Total CO2 19 L (21-31) mmol/L ABG O2 Saturation 99 (95-100) % ABG Base Excess -10.0 L (-2-2) mmol/L FiO2 100 Sodium (137-145) mmol/L Potassium (3.4-5.1) mmol/L Chloride (98-107) mmol/L Carbon Dioxide (22-32) mmol/L BUN (7-17) mg/dL Creatinine (0.52-1.04) mg/dL Estimated GFR (>60) mL/min BUN/Creatinine Ratio (6-22) Glucose (80-110) mg/dL Serum Osmolality (280-301) mOsmol/kg Lactate (0.7-2.1) mmol/L Calcium (8.4-10.2) mg/dL Total Bilirubin (0.2-1.3) mg/dL AST (14-36) IU/L ALT (<35) IU/L Alkaline Phosphatase (38-126) U/L Total Creatine Kinase (30-135) U/L CK-MB (CK-2) (<2.37) ng/mL CK-MB (CK-2) Rel Index (1.5-5.0) % Troponin I (0.01-0.034) ng/mL NT-Pro-B Natriuret Pep (<125) pg/mL Total Protein (6.3-8.2) g/dL Albumin (3.5-5.0) g/dL Globulin (1.7-4.1) g/dL Albumin/Globulin Ratio (1.0-2.8) Lipase (23-300) U/L Procalcitonin (<0.5) ng/mL TSH (0.47-4.68) uIU/mL Urine Color Brown Urine Appearance Sl cloudy Urine pH 5.0 (4.5-8.0) Ur Specific [place] >=1.030 H (1.000-1.035) Urine Protein 2+ H (Negative) Urine Glucose (UA) Trace H (Negative) g/dL Urine Ketones Trace H (NEGATIVE) Urine Occult Blood 2+ H (Negative) Urine Nitrate Negative (Negative) Urine Bilirubin 1+ H (NEGATIVE) Ur Bilirubin Confirm Positive H (Negative) Urine Urobilinogen 1.0 (0.2) E.U./dL Ur Leukocyte Esterase Trace H (NEGATIVE) Urine RBC 1-5/hpf (0-5/HPF) Urine WBC 5-10/hpf H (0-5/HPF) Ur Renal Epithelial Cell 1-5/hpf H (0-1/HPF) Amorphous Sediment 3+ Urine Bacteria Many (>30) H (None) Ur Culture Indicated? Specimen cultured Ur Random Sodium 9 L (30-90) mmol/L Urine Creatinine 251.5 mg/dL Salicylates (<20) mg/dL Acetaminophen (10-30) ug/mL Ethyl Alcohol ( - 10) mg/dL A. baumannii (PCR) (Not Detect) Chlamy pneumoniae PCR (Not Detect) Adenovirus (PCR) (Not Detect) B. pertussis DNA (PCR) (Not Detecte) B.parapertussis DNA PCR (Not Detecte) Jeannie albicans (PCR) (Not Detect) C. glabrata (PCR) (Not Detect) C. krusei (PCR) (Not Detect) C. parapsilosis (PCR) (Not Detect) C. tropicalis (PCR) (Not Detect) Coronavirus OC43 (PCR) (Not Detect) Coronavirus HKU1 (PCR) (Not Detect) Coronavirus 229E (PCR) (Not Detect) SARS-CoV-2 (PCR) Coronavirus NL63 (PCR) (Not Detect) Enterobacteriac sp PCR (Not Detect) E. cloacae complex PCR (Not Detect) Enterococcus sp PCR (Not Detect) E. coli (PCR) (Not Detect) H. influenzae (PCR) (Not Detect) Human Metapneumovir PCR (Not Detect) Influenza Type A (PCR) (Not Detect) Influenza Type B (PCR) (Not Detect) Klebsiella oxytoca PCR (Not Detect) Klebsiella pneumoniae (Not Detect) List. monocytogenes PCR (Not Detect) M. pneumoniae (PCR) (Not Detect) N. meningitidis (PCR) (Not Detect) Parainfluenza 1 (PCR) (Not Detect) Parainfluenza 2 (PCR) (Not Detect) Parainfluenza 3 (PCR) (Not Detect) Parainfluenza 4 (PCR) (Not Detect) Proteus species (PCR) (Not Detect) RSV (PCR) (Not Detect) Entero/Rhino (PCR) (Not Detect) Serratia marcescens PCR (Not Detect) Staphylococcus sp PCR (Not Detect) Staph aureus (PCR) (Not Detect) mecA-Methicil Res Gene Streptococcus sp PCR (Not Detect) Group A Strep (PCR) (Not Detect) Strep agalactiae (PCR) (Not Detect) Strep pneumoniae (PCR) (Not Detect) P. aeruginosa (PCR) (Not Detect) Alexis/B-Vanco Res Genes KPC-Carbap Res Gene PCR (Not Detect) Blood Type Antibody Screen 08/16/21 08/16/21 08/16/21 Range/Units 14:06 14:52 14:52 WBC (4.5-11.0) X10^3/uL RBC (4.0-5.2) X10^6/uL Hgb (12.0-16.0) g/dL Hct (36-46) % MCV (80-100) fL MCH (26-34) PG MCHC (30-36) % RDW (11.6-14.8) % Plt Count (150-400) X10^3/uL Neut % (Auto) Lymph % (Auto) [place] % (Auto) Eos % (Auto) Baso % (Auto) Lymph # (Auto) [place] # (Auto) Baso # (Auto) Total Counted Seg Neutrophils % (38-70) % Band Neutrophils % (3-7) % Lymphocytes % (Manual) (25-45) % Monocytes % (Manual) (2-11) % Eosinophils % (Manual) (2-4) % Metamyelocytes % (-0) % Myelocytes % (-0) % Neutrophils # (Manual) (2779-5508) /uL Smudge Cells RBC Morphology Hypochromasia Anisocytosis PT (10.1-12.7) SECONDS INR (0.9-1.3) ABG pH (7.35-7.45) ABG pCO2 (35-45) mmHg ABG pO2 (80-100) mmHg ABG HCO3 (22-26) mmol/L ABG Total CO2 (21-31) mmol/L ABG O2 Saturation (95-100) % ABG Base Excess (-2-2) mmol/L FiO2 Sodium (137-145) mmol/L Potassium (3.4-5.1) mmol/L Chloride (98-107) mmol/L Carbon Dioxide (22-32) mmol/L BUN (7-17) mg/dL Creatinine (0.52-1.04) mg/dL Estimated GFR (>60) mL/min BUN/Creatinine Ratio (6-22) Glucose (80-110) mg/dL Serum Osmolality 317 H (280-301) mOsmol/kg Lactate (0.7-2.1) mmol/L Calcium (8.4-10.2) mg/dL Total Bilirubin (0.2-1.3) mg/dL AST (14-36) IU/L ALT (<35) IU/L Alkaline Phosphatase (38-126) U/L Total Creatine Kinase (30-135) U/L CK-MB (CK-2) (<2.37) ng/mL CK-MB (CK-2) Rel Index (1.5-5.0) % Troponin I (0.01-0.034) ng/mL NT-Pro-B Natriuret Pep (<125) pg/mL Total Protein (6.3-8.2) g/dL Albumin (3.5-5.0) g/dL Globulin (1.7-4.1) g/dL Albumin/Globulin Ratio (1.0-2.8) Lipase (23-300) U/L Procalcitonin (<0.5) ng/mL TSH (0.47-4.68) uIU/mL Urine Color Urine Appearance Urine pH (4.5-8.0) Ur Specific Noble (1.000-1.035) Urine Protein (Negative) Urine Glucose (UA) (Negative) g/dL Urine Ketones (NEGATIVE) Urine Occult Blood (Negative) Urine Nitrate (Negative) Urine Bilirubin (NEGATIVE) Ur Bilirubin Confirm (Negative) Urine Urobilinogen (0.2) E.U./dL Ur Leukocyte Esterase (NEGATIVE) Urine RBC (0-5/HPF) Urine WBC (0-5/HPF) Ur Renal Epithelial Cell (0-1/HPF) Amorphous Sediment Urine Bacteria (None) Ur Culture Indicated? Ur Random Sodium (30-90) mmol/L Urine Creatinine mg/dL Salicylates < 1.0 (<20) mg/dL Acetaminophen < 10 (10-30) ug/mL Ethyl Alcohol < 10 ( - 10) mg/dL A. baumannii (PCR) (Not Detect) Chlamy pneumoniae PCR (Not Detect) Adenovirus (PCR) (Not Detect) B. pertussis DNA (PCR) (Not Detecte) B.parapertussis DNA PCR (Not Detecte) Jeannie albicans (PCR) (Not Detect) C. glabrata (PCR) (Not Detect) C. krusei (PCR) (Not Detect) C. parapsilosis (PCR) (Not Detect) C. tropicalis (PCR) (Not Detect) Coronavirus OC43 (PCR) (Not Detect) Coronavirus HKU1 (PCR) (Not Detect) Coronavirus 229E (PCR) (Not Detect) SARS-CoV-2 (PCR) Coronavirus NL63 (PCR) (Not Detect) Enterobacteriac sp PCR (Not Detect) E. cloacae complex PCR (Not Detect) Enterococcus sp PCR (Not Detect) E. coli (PCR) (Not Detect) H. influenzae (PCR) (Not Detect) Human Metapneumovir PCR (Not Detect) Influenza Type A (PCR) (Not Detect) Influenza Type B (PCR) (Not Detect) Klebsiella oxytoca PCR (Not Detect) Klebsiella pneumoniae (Not Detect) List. monocytogenes PCR (Not Detect) M. pneumoniae (PCR) (Not Detect) N. meningitidis (PCR) (Not Detect) Parainfluenza 1 (PCR) (Not Detect) Parainfluenza 2 (PCR) (Not Detect) Parainfluenza 3 (PCR) (Not Detect) Parainfluenza 4 (PCR) (Not Detect) Proteus species (PCR) (Not Detect) RSV (PCR) (Not Detect) Entero/Rhino (PCR) (Not Detect) Serratia marcescens PCR (Not Detect) Staphylococcus sp PCR (Not Detect) Staph aureus (PCR) (Not Detect) mecA-Methicil Res Gene Streptococcus sp PCR (Not Detect) Group A Strep (PCR) (Not Detect) Strep agalactiae (PCR) (Not Detect) Strep pneumoniae (PCR) (Not Detect) P. aeruginosa (PCR) (Not Detect) Alexis/B-Vanco Res Genes KPC-Carbap Res Gene PCR (Not Detect) Blood Type A Positive Antibody Screen Negative 08/16/21 08/16/21 08/16/21 Range/Units 14:52 14:52 16:11 WBC (4.5-11.0) X10^3/uL RBC (4.0-5.2) X10^6/uL Hgb (12.0-16.0) g/dL Hct (36-46) % MCV (80-100) fL MCH (26-34) PG MCHC (30-36) % RDW (11.6-14.8) % Plt Count (150-400) X10^3/uL Neut % (Auto) Lymph % (Auto) [place] % (Auto) Eos % (Auto) Baso % (Auto) Lymph # (Auto) [place] # (Auto) Baso # (Auto) Total Counted Seg Neutrophils % (38-70) % Band Neutrophils % (3-7) % Lymphocytes % (Manual) (25-45) % Monocytes % (Manual) (2-11) % Eosinophils % (Manual) (2-4) % Metamyelocytes % (-0) % Myelocytes % (-0) % Neutrophils # (Manual) (4226-5446) /uL Smudge Cells RBC Morphology Hypochromasia Anisocytosis PT (10.1-12.7) SECONDS INR (0.9-1.3) ABG pH 7.22 L* (7.35-7.45) ABG pCO2 40.2 (35-45) mmHg ABG pO2 104 H (80-100) mmHg ABG HCO3 16 L (22-26) mmol/L ABG Total CO2 18 L (21-31) mmol/L ABG O2 Saturation 97 (95-100) % ABG Base Excess -11.0 L (-2-2) mmol/L FiO2 75 Sodium (137-145) mmol/L Potassium (3.4-5.1) mmol/L Chloride (98-107) mmol/L Carbon Dioxide (22-32) mmol/L BUN (7-17) mg/dL Creatinine (0.52-1.04) mg/dL Estimated GFR (>60) mL/min BUN/Creatinine Ratio (6-22) Glucose (80-110) mg/dL Serum Osmolality (280-301) mOsmol/kg Lactate 1.4 (0.7-2.1) mmol/L Calcium (8.4-10.2) mg/dL Total Bilirubin (0.2-1.3) mg/dL AST (14-36) IU/L ALT (<35) IU/L Alkaline Phosphatase (38-126) U/L Total Creatine Kinase (30-135) U/L CK-MB (CK-2) (<2.37) ng/mL CK-MB (CK-2) Rel Index (1.5-5.0) % Troponin I (0.01-0.034) ng/mL NT-Pro-B Natriuret Pep (<125) pg/mL Total Protein (6.3-8.2) g/dL Albumin (3.5-5.0) g/dL Globulin (1.7-4.1) g/dL Albumin/Globulin Ratio (1.0-2.8) Lipase (23-300) U/L Procalcitonin (<0.5) ng/mL TSH 2.69 (0.47-4.68) uIU/mL Urine Color Urine Appearance Urine pH (4.5-8.0) Ur Specific Noble (1.000-1.035) Urine Protein (Negative) Urine Glucose (UA) (Negative) g/dL Urine Ketones (NEGATIVE) Urine Occult Blood (Negative) Urine Nitrate (Negative) Urine Bilirubin (NEGATIVE) Ur Bilirubin Confirm (Negative) Urine Urobilinogen (0.2) E.U./dL Ur Leukocyte Esterase (NEGATIVE) Urine RBC (0-5/HPF) Urine WBC (0-5/HPF) Ur Renal Epithelial Cell (0-1/HPF) Amorphous Sediment Urine Bacteria (None) Ur Culture Indicated? Ur Random Sodium (30-90) mmol/L Urine Creatinine mg/dL Salicylates (<20) mg/dL Acetaminophen (10-30) ug/mL Ethyl Alcohol ( - 10) mg/dL A. baumannii (PCR) (Not Detect) Chlamy pneumoniae PCR (Not Detect) Adenovirus (PCR) (Not Detect) B. pertussis DNA (PCR) (Not Detecte) B.parapertussis DNA PCR (Not Detecte) Jeannie albicans (PCR) (Not Detect) C. glabrata (PCR) (Not Detect) C. krusei (PCR) (Not Detect) C. parapsilosis (PCR) (Not Detect) C. tropicalis (PCR) (Not Detect) Coronavirus OC43 (PCR) (Not Detect) Coronavirus HKU1 (PCR) (Not Detect) Coronavirus 229E (PCR) (Not Detect) SARS-CoV-2 (PCR) Coronavirus NL63 (PCR) (Not Detect) Enterobacteriac sp PCR (Not Detect) E. cloacae complex PCR (Not Detect) Enterococcus sp PCR (Not Detect) E. coli (PCR) (Not Detect) H. influenzae (PCR) (Not Detect) Human Metapneumovir PCR (Not Detect) Influenza Type A (PCR) (Not Detect) Influenza Type B (PCR) (Not Detect) Klebsiella oxytoca PCR (Not Detect) Klebsiella pneumoniae (Not Detect) List. monocytogenes PCR (Not Detect) M. pneumoniae (PCR) (Not Detect) N. meningitidis (PCR) (Not Detect) Parainfluenza 1 (PCR) (Not Detect) Parainfluenza 2 (PCR) (Not Detect) Parainfluenza 3 (PCR) (Not Detect) Parainfluenza 4 (PCR) (Not Detect) Proteus species (PCR) (Not Detect) RSV (PCR) (Not Detect) Entero/Rhino (PCR) (Not Detect) Serratia marcescens PCR (Not Detect) Staphylococcus sp PCR (Not Detect) Staph aureus (PCR) (Not Detect) mecA-Methicil Res Gene Streptococcus sp PCR (Not Detect) Group A Strep (PCR) (Not Detect) Strep agalactiae (PCR) (Not Detect) Strep pneumoniae (PCR) (Not Detect) P. aeruginosa (PCR) (Not Detect) Alexis/B-Vanco Res Genes KPC-Carbap Res Gene PCR (Not Detect) Blood Type Antibody Screen 08/16/21 08/16/21 Range/Units 19:42 19:42 WBC 40.8 H* (4.5-11.0) X10^3/uL RBC 3.90 L (4.0-5.2) X10^6/uL Hgb 10.7 L (12.0-16.0) g/dL Hct 33.8 L (36-46) % MCV 86.6 (80-100) fL MCH 27.4 (26-34) PG MCHC 31.7 (30-36) % RDW 16.1 H (11.6-14.8) % Plt Count 301 (150-400) X10^3/uL Neut % (Auto) Not Reportable Lymph % (Auto) Not Reportable [place] % (Auto) Not Reportable Eos % (Auto) Not Reportable Baso % (Auto) Not Reportable Lymph # (Auto) Not Reportable [place] # (Auto) Not Reportable Baso # (Auto) Not Reportable Total Counted 100 Seg Neutrophils % 80.0 H (38-70) % Band Neutrophils % 9.0 H (3-7) % Lymphocytes % (Manual) 3.0 L (25-45) % Monocytes % (Manual) 4.0 (2-11) % Eosinophils % (Manual) (2-4) % Metamyelocytes % 3.0 H (-0) % Myelocytes % 1.0 H (-0) % Neutrophils # (Manual) 56581 H (0751-0464) /uL Smudge Cells RBC Morphology Normal morphology Hypochromasia Anisocytosis PT (10.1-12.7) SECONDS INR (0.9-1.3) ABG pH (7.35-7.45) ABG pCO2 (35-45) mmHg ABG pO2 (80-100) mmHg ABG HCO3 (22-26) mmol/L ABG Total CO2 (21-31) mmol/L ABG O2 Saturation (95-100) % ABG Base Excess (-2-2) mmol/L FiO2 Sodium 128 L (137-145) mmol/L Potassium 4.4 (3.4-5.1) mmol/L Chloride 96 L (98-107) mmol/L Carbon Dioxide 13 L (22-32) mmol/L BUN 129 H* (7-17) mg/dL Creatinine 6.27 H (0.52-1.04) mg/dL Estimated GFR 7 L (>60) mL/min BUN/Creatinine Ratio 20.6 (6-22) Glucose 148 H (80-110) mg/dL Serum Osmolality (280-301) mOsmol/kg Lactate (0.7-2.1) mmol/L Calcium 6.2 L* (8.4-10.2) mg/dL Total Bilirubin (0.2-1.3) mg/dL AST (14-36) IU/L ALT (<35) IU/L Alkaline Phosphatase (38-126) U/L Total Creatine Kinase 5359 H D (30-135) U/L CK-MB (CK-2) 23.20 H (<2.37) ng/mL CK-MB (CK-2) Rel Index 0.4 L (1.5-5.0) % Troponin I 0.084 H (0.01-0.034) ng/mL NT-Pro-B Natriuret Pep (<125) pg/mL Total Protein (6.3-8.2) g/dL Albumin (3.5-5.0) g/dL Globulin (1.7-4.1) g/dL Albumin/Globulin Ratio (1.0-2.8) Lipase (23-300) U/L Procalcitonin (<0.5) ng/mL TSH (0.47-4.68) uIU/mL Urine Color Urine Appearance Urine pH (4.5-8.0) Ur Specific Noble (1.000-1.035) Urine Protein (Negative) Urine Glucose (UA) (Negative) g/dL Urine Ketones (NEGATIVE) Urine Occult Blood (Negative) Urine Nitrate (Negative) Urine Bilirubin (NEGATIVE) Ur Bilirubin Confirm (Negative) Urine Urobilinogen (0.2) E.U./dL Ur Leukocyte Esterase (NEGATIVE) Urine RBC (0-5/HPF) Urine WBC (0-5/HPF) Ur Renal Epithelial Cell (0-1/HPF) Amorphous Sediment Urine Bacteria (None) Ur Culture Indicated? Ur Random Sodium (30-90) mmol/L Urine Creatinine mg/dL Salicylates (<20) mg/dL Acetaminophen (10-30) ug/mL Ethyl Alcohol ( - 10) mg/dL A. baumannii (PCR) (Not Detect) Chlamy pneumoniae PCR (Not Detect) Adenovirus (PCR) (Not Detect) B. pertussis DNA (PCR) (Not Detecte) B.parapertussis DNA PCR (Not Detecte) Jeannie albicans (PCR) (Not Detect) C. glabrata (PCR) (Not Detect) C. krusei (PCR) (Not Detect) C. parapsilosis (PCR) (Not Detect) C. tropicalis (PCR) (Not Detect) Coronavirus OC43 (PCR) (Not Detect) Coronavirus HKU1 (PCR) (Not Detect) Coronavirus 229E (PCR) (Not Detect) SARS-CoV-2 (PCR) Coronavirus NL63 (PCR) (Not Detect) Enterobacteriac sp PCR (Not Detect) E. cloacae complex PCR (Not Detect) Enterococcus sp PCR (Not Detect) E. coli (PCR) (Not Detect) H. influenzae (PCR) (Not Detect) Human Metapneumovir PCR (Not Detect) Influenza Type A (PCR) (Not Detect) Influenza Type B (PCR) (Not Detect) Klebsiella oxytoca PCR (Not Detect) Klebsiella pneumoniae (Not Detect) List. monocytogenes PCR (Not Detect) M. pneumoniae (PCR) (Not Detect) N. meningitidis (PCR) (Not Detect) Parainfluenza 1 (PCR) (Not Detect) Parainfluenza 2 (PCR) (Not Detect) Parainfluenza 3 (PCR) (Not Detect) Parainfluenza 4 (PCR) (Not Detect) Proteus species (PCR) (Not Detect) RSV (PCR) (Not Detect) Entero/Rhino (PCR) (Not Detect) Serratia marcescens PCR (Not Detect) Staphylococcus sp PCR (Not Detect) Staph aureus (PCR) (Not Detect) mecA-Methicil Res Gene Streptococcus sp PCR (Not Detect) Group A Strep (PCR) (Not Detect) Strep agalactiae (PCR) (Not Detect) Strep pneumoniae (PCR) (Not Detect) P. aeruginosa (PCR) (Not Detect) Alexis/B-Vanco Res Genes KPC-Carbap Res Gene PCR (Not Detect) Blood Type Antibody Screen Imaging Data Chest x-ray: Radiologist's Impression: FINDINGS:? ? Surgical changes and devices:? An endotracheal tube is seen, with the tip 3 cm above the amy.? The tip of the gastric tube can be seen overlying the mid stomach.? The side hole is clearly seen below the level of the diaphragm. There is a right-sided central line seen, with the tip overlying the inferior aspect of the superior vena cava, 1 cm above the cavoatrial junction.? ? ? Lungs and pleura:? Right mid lung consolidation is seen.? On this supine examination, no large pneumothorax or large pleural effusions are seen. Low lung volumes are noted. This causes a crowded appearance to the lung markings and limits evaluation.? ? Mediastinum:? Mediastinal contours appear normal.? Heart size is normal.? ? Bones and chest wall:? No suspicious bony lesions.? Overlying soft tissues appear unremarkable.? ? ? IMPRESSION:? Right mid lung consolidation can be seen.? Low lung volumes. ? Tip of the endotracheal tube is seen 3 cm above the amy.? ? The tip of the right-sided central line is seen overlying the inferior aspect of the superior vena cava. ? Tip the gastric tube is seen overlying the mid stomach. ? ? Dictated by: Emory Morrison M.D. on 08/16/2021 at 12:30? ?? CT chest abd pelvis: Radiologist's Impression: FINDINGS:? Image quality:? Excellent.? ? CHEST:? Lungs and pleura:? There is superior segment right lower lobe consolidation.? Nodules or nodular infiltrates are seen in the right upper lobe.? The largest nodule measures 2 cm in diameter.? Mild nodular infiltrates in the left lower lobe.? No pleural effusions or pneumothorax.? Central and peripheral airways are patent are normal in caliber.? ? Mediastinum:? There is an endotracheal tube above amy.? A nasogastric tube is in the esophagus with the tip within the stomach.? Right IJ central line is seen with the tip at the atrial caval junction. ? There is a 2.1 x 2.7 cm mass in the prevascular space, likely an enlarged lymph node. ? Heart size is normal.? No pericardial effusion.? No mediastinal adenopathy by CT size criteria.? Thoracic aorta and central pulmonary arteries are normal in size.? Esophagus is normal in caliber.? No hiatal hernia.? ? Chest wall:? No axillary or supraclavicular adenopathy by size criteria.? Thyroid gland is unremarkable.? ? ? ABDOMEN:? Solid organs:? Liver is normal in size.? Nodular contour liver suggesting cirrhosis.? Gallbladder is distended.? There may be gallbladder sludge or small gallstones.? Pancreas is normal in contours.? Spleen is normal in size.? Bilateral adrenal thickening and nodularity.? The left kidney is moderately decreased in size.? No hydronephrosis.? ? Peritoneum and bowel:? Small and large bowel loops are normal in caliber and wall thickness.? No free fluid or air.? ? Nodes and vessels:? No retroperitoneal or mesenteric adenopathy by size criteria.? Aorta and inferior vena cava are normal in size.? Moderate atherosclerotic calcifications. ? Miscellaneous:? No ventral hernias.? ? ? PELVIS:? Genitourinary:? There is a Carter catheter within the bladder.? Bladder lumen appears thickened.? Uterus is absent.? Ovaries are not visualized.? ? Miscellaneous:? No inguinal adenopathy.? There is a small fat containing left inguinal hernia ? Bones:? No suspicious bony lesions.? No vertebral body compression fractures.? ? IMPRESSION:? ? 1. There is consolidation in the superior segment of the right lower lobe.? Nodules or nodular infiltrates are seen in the right upper lobe.? There is mild infiltrate in the left lower lobe.? The findings are most likely infectious or inflammatory etiology.? Recommend clinical correlation and follow-up to resolution. 2. A 2.1 x 2.7 cm mass in the prevascular space, most likely an enlarged lymph node.? Etiology is indeterminate. 3. Endotracheal tube, nasogastric tube and right IJ central line as described. 4. Moderate left renal atrophy. 5. Hydropic gallbladder with possible gallbladder sludge or small gallstones.? If clinically indicated, ultrasound may be helpful. 6. Nodular contour of liver suggesting cirrhosis. 7. Bladder wall thickening suggesting cystitis.? A Carter catheter is seen within the bladder.? ? ? Dictated by: Kristina Cummings M.D. on 08/16/2021 at 14:56? ?? ECG Data Interpretation: Sinus rhythm at a rate of 76 Nonspecific T-wave abnormality Normal interval, normal axis No acute ischemic changes MDM Narrative Medical decision making narrative: Problems by system Acute respiratory failure with mottling, altered mental status and appearing acutely ill. Initially able to answer yes or no questions.? Yes I do want to be intubated.? Yes I do want to be fully resuscitated.? Yes I do use heroin.? Yes I will go into narcotic withdrawal you.? Yes I do use methamphetamine.? Yes I have had a productive cough (unable to tell how long).? She was hospitalized in 2019 and when asked if she seen a doctor since then she replied no.? Resp: ?Acute hypoxic respiratory failure.? Intubated with ketamine.? Responded nicely to initial neb prior to arrival.? sHe will need another as she is becoming increasingly wheezy.? Initial AB.2/44.6/177/18 on 100% Sedation currently with low doses of propofol and low doses of fentanyl. Vent settings: AC TV 470, Rate 18, Peep 5, 75% ? Cardiac:? EKG shows no acute ischemic changes however she does have nonspecific ST T wave changes.? Possibility of endocarditis in the global setting of her overall illness is entertained.? To complete that the blood cultures are ordered.? Still unable to completely auscultate cardiac sounds due to overeating pulmonary noise Elevated troponin at 0.094 presumed secondary to decreased clearance secondary to acute renal failure rather than and STEMI.? Significant elevated BNP at 25,000.? Unclear how to fully interpret this in light of the acute renal failure Renal: ?Acute renal failure with creatinine at 7.1 BUN 130 and potassium at 5.1.? Comparison creatinine is from 2019 and is 1.7.? She has had minimal urine output since Carter catheter has been placed.? She does appear to have a concurrent urinary tract infection Electrolyte: ?Hyponatremia at 126.? Serum Osm are ordered and a send out for this hospital. Skin: ?Lymphedema with chronic wounds that do not appear to be dramatically super infected or have any developed abscesses.? Developing decubitus ulcer over her sacrum and buttocks. GI: ?NG tube is in place with black fluid returning that does appear to be bloody.? H&H currently is stable with hemoglobin at 12.3 and hematocrit 38.9.? Cirrhosis with significantly elevated bili, AST, ALT and alkaline phosphatase. ?Elevated lipase without concurrent pancreatitis appreciated on CT scan. Infectious disease: ?White blood cell count of 46.7, 80% neutrophils and procalcitonin significantly elevated at 39.7.? Presumed right middle lobe consolidation and antibiotics in the form of Zosyn and vancomycin are initiated.? Respiratory panel shows coronavirus that is not COVID-19.? Urine appears to be infected as well and will be covered by Zosyn.? CT scan notes hydropic gallbladder possibility of acute cholecystitis is entertained. ?Initial lactate level was 2.5 and with initial resuscitation is down 1.4.? Acute UTI noted Endocrine: TSH 2.69? Toxicology:? Alcohol, salicylic acid and Tylenol levels are all normal.?? + Morphine and Methamphetamine in urine Call to multiple facilities.? [facility] off may have ICU bed available.? Talked with Dr. Gifford, ICU attending.?? 2:25pm 5pm bed available, Dr Gifford is updated and transport arranged. Hospital discharge from 2019 (only available medical records), as well as all imaging studies will be included with transfer records 5:15 apparently there was a code blue called and the ICU bed at [facility] is no longer available. Transportation plans are canceled. Will try [facility] and see if they still have an ICU bed available. Care is turned over to Dr Escobedo at change of shift <Michael Escobedo, DO - Last Filed: 08/17/21 17:08> Lab Data Labs: Lab Results 08/16/21 08/16/21 08/16/21 Range/Units 12:09 12:15 12:30 WBC 46.7 H* (4.5-11.0) X10^3/uL RBC 4.47 (4.0-5.2) X10^6/uL Hgb 12.3 (12.0-16.0) g/dL Hct 38.9 (36-46) % MCV 86.9 (80-100) fL MCH 27.5 (26-34) PG MCHC 31.6 (30-36) % RDW 15.9 H (11.6-14.8) % Plt Count 382 (150-400) X10^3/uL Neut % (Auto) Not Reportable Lymph % (Auto) Not Reportable [place] % (Auto) Not Reportable Eos % (Auto) Not Reportable Baso % (Auto) Not Reportable Lymph # (Auto) Not Reportable [place] # (Auto) Not Reportable Baso # (Auto) Not Reportable Total Counted 100 Seg Neutrophils % 80.0 H (38-70) % Band Neutrophils % (3-7) % Lymphocytes % (Manual) 4.0 L (25-45) % Monocytes % (Manual) 15.0 H (2-11) % Eosinophils % (Manual) 1.0 L (2-4) % Metamyelocytes % (-0) % Myelocytes % (-0) % Neutrophils # (Manual) 37459 H (1629-7558) /uL Smudge Cells 1+ H RBC Morphology See below Hypochromasia 1+ H Anisocytosis 1+ H PT (10.1-12.7) SECONDS INR (0.9-1.3) ABG pH (7.35-7.45) ABG pCO2 (35-45) mmHg ABG pO2 (80-100) mmHg ABG HCO3 (22-26) mmol/L ABG Total CO2 (21-31) mmol/L ABG O2 Saturation (95-100) % ABG Base Excess (-2-2) mmol/L FiO2 Sodium (137-145) mmol/L Potassium (3.4-5.1) mmol/L Chloride (98-107) mmol/L Carbon Dioxide (22-32) mmol/L BUN (7-17) mg/dL Creatinine (0.52-1.04) mg/dL Estimated GFR (>60) mL/min BUN/Creatinine Ratio (6-22) Glucose (80-110) mg/dL Serum Osmolality (280-301) mOsmol/kg Lactate (0.7-2.1) mmol/L Calcium (8.4-10.2) mg/dL Total Bilirubin (0.2-1.3) mg/dL AST (14-36) IU/L ALT (<35) IU/L Alkaline Phosphatase (38-126) U/L Total Creatine Kinase (30-135) U/L CK-MB (CK-2) (<2.37) ng/mL CK-MB (CK-2) Rel Index (1.5-5.0) % Troponin I (0.01-0.034) ng/mL NT-Pro-B Natriuret Pep (<125) pg/mL Total Protein (6.3-8.2) g/dL Albumin (3.5-5.0) g/dL Globulin (1.7-4.1) g/dL Albumin/Globulin Ratio (1.0-2.8) Lipase (23-300) U/L Procalcitonin (<0.5) ng/mL TSH (0.47-4.68) uIU/mL Urine Color Urine Appearance Urine pH (4.5-8.0) Ur Specific Noble (1.000-1.035) Urine Protein (Negative) Urine Glucose (UA) (Negative) g/dL Urine Ketones (NEGATIVE) Urine Occult Blood (Negative) Urine Nitrate (Negative) Urine Bilirubin (NEGATIVE) Ur Bilirubin Confirm (Negative) Urine Urobilinogen (0.2) E.U./dL Ur Leukocyte Esterase (NEGATIVE) Urine RBC (0-5/HPF) Urine WBC (0-5/HPF) Ur Renal Epithelial Cell (0-1/HPF) Amorphous Sediment Urine Bacteria (None) Ur Culture Indicated? Ur Random Sodium (30-90) mmol/L Urine Creatinine mg/dL Salicylates (<20) mg/dL Acetaminophen (10-30) ug/mL Ethyl Alcohol ( - 10) mg/dL A. baumannii (PCR) (Not Detect) Chlamy pneumoniae PCR Not detected (Not Detect) Adenovirus (PCR) Not detected (Not Detect) B. pertussis DNA (PCR) Not detected (Not Detecte) B.parapertussis DNA PCR Not detected (Not Detecte) Jeannie albicans (PCR) (Not Detect) C. glabrata (PCR) (Not Detect) C. krusei (PCR) (Not Detect) C. parapsilosis (PCR) (Not Detect) C. tropicalis (PCR) (Not Detect) Coronavirus OC43 (PCR) Detected H (Not Detect) Coronavirus HKU1 (PCR) Not detected (Not Detect) Coronavirus 229E (PCR) Not detected (Not Detect) SARS-CoV-2 (PCR) Cancelled Not detected Coronavirus NL63 (PCR) Not detected (Not Detect) Enterobacteriac sp PCR (Not Detect) E. cloacae complex PCR (Not Detect) Enterococcus sp PCR (Not Detect) E. coli (PCR) (Not Detect) H. influenzae (PCR) (Not Detect) Human Metapneumovir PCR Not detected (Not Detect) Influenza Type A (PCR) Not detected (Not Detect) Influenza Type B (PCR) Not detected (Not Detect) Klebsiella oxytoca PCR (Not Detect) Klebsiella pneumoniae (Not Detect) List. monocytogenes PCR (Not Detect) M. pneumoniae (PCR) Not detected (Not Detect) N. meningitidis (PCR) (Not Detect) Parainfluenza 1 (PCR) Not detected (Not Detect) Parainfluenza 2 (PCR) Not detected (Not Detect) Parainfluenza 3 (PCR) Not detected (Not Detect) Parainfluenza 4 (PCR) Not detected (Not Detect) Proteus species (PCR) (Not Detect) RSV (PCR) Not detected (Not Detect) Entero/Rhino (PCR) Not detected (Not Detect) Serratia marcescens PCR (Not Detect) Staphylococcus sp PCR (Not Detect) Staph aureus (PCR) (Not Detect) mecA-Methicil Res Gene Streptococcus sp PCR (Not Detect) Group A Strep (PCR) (Not Detect) Strep agalactiae (PCR) (Not Detect) Strep pneumoniae (PCR) (Not Detect) P. aeruginosa (PCR) (Not Detect) Alexis/B-Vanco Res Genes KPC-Carbap Res Gene PCR (Not Detect) Blood Type Antibody Screen 08/16/21 08/16/21 08/16/21 Range/Units 12:30 12:30 12:30 WBC (4.5-11.0) X10^3/uL RBC (4.0-5.2) X10^6/uL Hgb (12.0-16.0) g/dL Hct (36-46) % MCV (80-100) fL MCH (26-34) PG MCHC (30-36) % RDW (11.6-14.8) % Plt Count (150-400) X10^3/uL Neut % (Auto) Lymph % (Auto) [place] % (Auto) Eos % (Auto) Baso % (Auto) Lymph # (Auto) [place] # (Auto) Baso # (Auto) Total Counted Seg Neutrophils % (38-70) % Band Neutrophils % (3-7) % Lymphocytes % (Manual) (25-45) % Monocytes % (Manual) (2-11) % Eosinophils % (Manual) (2-4) % Metamyelocytes % (-0) % Myelocytes % (-0) % Neutrophils # (Manual) (0348-5278) /uL Smudge Cells RBC Morphology Hypochromasia Anisocytosis PT 19.5 H (10.1-12.7) SECONDS INR 1.7 H (0.9-1.3) ABG pH (7.35-7.45) ABG pCO2 (35-45) mmHg ABG pO2 (80-100) mmHg ABG HCO3 (22-26) mmol/L ABG Total CO2 (21-31) mmol/L ABG O2 Saturation (95-100) % ABG Base Excess (-2-2) mmol/L FiO2 Sodium 126 L (137-145) mmol/L Potassium 5.1 (3.4-5.1) mmol/L Chloride 91 L (98-107) mmol/L Carbon Dioxide 15 L (22-32) mmol/L BUN 130 H* (7-17) mg/dL Creatinine 7.10 H (0.52-1.04) mg/dL Estimated GFR 6 L (>60) mL/min BUN/Creatinine Ratio 18.3 (6-22) Glucose 160 H (80-110) mg/dL Serum Osmolality (280-301) mOsmol/kg Lactate 2.5 H (0.7-2.1) mmol/L Calcium 6.6 L (8.4-10.2) mg/dL Total Bilirubin 2.2 H (0.2-1.3) mg/dL AST 1456 H (14-36) IU/L ALT 715 H (<35) IU/L Alkaline Phosphatase 236 H (38-126) U/L Total Creatine Kinase (30-135) U/L CK-MB (CK-2) (<2.37) ng/mL CK-MB (CK-2) Rel Index (1.5-5.0) % Troponin I (0.01-0.034) ng/mL NT-Pro-B Natriuret Pep (<125) pg/mL Total Protein 8.3 H (6.3-8.2) g/dL Albumin 3.4 L (3.5-5.0) g/dL Globulin 4.9 H (1.7-4.1) g/dL Albumin/Globulin Ratio 0.7 L (1.0-2.8) Lipase 704 H (23-300) U/L Procalcitonin 39.7 H (<0.5) ng/mL TSH (0.47-4.68) uIU/mL Urine Color Urine Appearance Urine pH (4.5-8.0) Ur Specific Noble (1.000-1.035) Urine Protein (Negative) Urine Glucose (UA) (Negative) g/dL Urine Ketones (NEGATIVE) Urine Occult Blood (Negative) Urine Nitrate (Negative) Urine Bilirubin (NEGATIVE) Ur Bilirubin Confirm (Negative) Urine Urobilinogen (0.2) E.U./dL Ur Leukocyte Esterase (NEGATIVE) Urine RBC (0-5/HPF) Urine WBC (0-5/HPF) Ur Renal Epithelial Cell (0-1/HPF) Amorphous Sediment Urine Bacteria (None) Ur Culture Indicated? Ur Random Sodium (30-90) mmol/L Urine Creatinine mg/dL Salicylates (<20) mg/dL Acetaminophen (10-30) ug/mL Ethyl Alcohol ( - 10) mg/dL A. baumannii (PCR) (Not Detect) Chlamy pneumoniae PCR (Not Detect) Adenovirus (PCR) (Not Detect) B. pertussis DNA (PCR) (Not Detecte) B.parapertussis DNA PCR (Not Detecte) Jeannie albicans (PCR) (Not Detect) C. glabrata (PCR) (Not Detect) C. krusei (PCR) (Not Detect) C. parapsilosis (PCR) (Not Detect) C. tropicalis (PCR) (Not Detect) Coronavirus OC43 (PCR) (Not Detect) Coronavirus HKU1 (PCR) (Not Detect) Coronavirus 229E (PCR) (Not Detect) SARS-CoV-2 (PCR) Coronavirus NL63 (PCR) (Not Detect) Enterobacteriac sp PCR (Not Detect) E. cloacae complex PCR (Not Detect) Enterococcus sp PCR (Not Detect) E. coli (PCR) (Not Detect) H. influenzae (PCR) (Not Detect) Human Metapneumovir PCR (Not Detect) Influenza Type A (PCR) (Not Detect) Influenza Type B (PCR) (Not Detect) Klebsiella oxytoca PCR (Not Detect) Klebsiella pneumoniae (Not Detect) List. monocytogenes PCR (Not Detect) M. pneumoniae (PCR) (Not Detect) N. meningitidis (PCR) (Not Detect) Parainfluenza 1 (PCR) (Not Detect) Parainfluenza 2 (PCR) (Not Detect) Parainfluenza 3 (PCR) (Not Detect) Parainfluenza 4 (PCR) (Not Detect) Proteus species (PCR) (Not Detect) RSV (PCR) (Not Detect) Entero/Rhino (PCR) (Not Detect) Serratia marcescens PCR (Not Detect) Staphylococcus sp PCR (Not Detect) Staph aureus (PCR) (Not Detect) mecA-Methicil Res Gene Streptococcus sp PCR (Not Detect) Group A Strep (PCR) (Not Detect) Strep agalactiae (PCR) (Not Detect) Strep pneumoniae (PCR) (Not Detect) P. aeruginosa (PCR) (Not Detect) Alexis/B-Vanco Res Genes KPC-Carbap Res Gene PCR (Not Detect) Blood Type Antibody Screen 08/16/21 08/16/21 08/16/21 Range/Units 12:30 12:30 12:30 WBC (4.5-11.0) X10^3/uL RBC (4.0-5.2) X10^6/uL Hgb (12.0-16.0) g/dL Hct (36-46) % MCV (80-100) fL MCH (26-34) PG MCHC (30-36) % RDW (11.6-14.8) % Plt Count (150-400) X10^3/uL Neut % (Auto) Lymph % (Auto) [place] % (Auto) Eos % (Auto) Baso % (Auto) Lymph # (Auto) [place] # (Auto) Baso # (Auto) Total Counted Seg Neutrophils % (38-70) % Band Neutrophils % (3-7) % Lymphocytes % (Manual) (25-45) % Monocytes % (Manual) (2-11) % Eosinophils % (Manual) (2-4) % Metamyelocytes % (-0) % Myelocytes % (-0) % Neutrophils # (Manual) (5420-7808) /uL Smudge Cells RBC Morphology Hypochromasia Anisocytosis PT (10.1-12.7) SECONDS INR (0.9-1.3) ABG pH (7.35-7.45) ABG pCO2 (35-45) mmHg ABG pO2 (80-100) mmHg ABG HCO3 (22-26) mmol/L ABG Total CO2 (21-31) mmol/L ABG O2 Saturation (95-100) % ABG Base Excess (-2-2) mmol/L FiO2 Sodium (137-145) mmol/L Potassium (3.4-5.1) mmol/L Chloride (98-107) mmol/L Carbon Dioxide (22-32) mmol/L BUN (7-17) mg/dL Creatinine (0.52-1.04) mg/dL Estimated GFR (>60) mL/min BUN/Creatinine Ratio (6-22) Glucose (80-110) mg/dL Serum Osmolality (280-301) mOsmol/kg Lactate (0.7-2.1) mmol/L Calcium (8.4-10.2) mg/dL Total Bilirubin (0.2-1.3) mg/dL AST (14-36) IU/L ALT (<35) IU/L Alkaline Phosphatase (38-126) U/L Total Creatine Kinase 3030 H (30-135) U/L CK-MB (CK-2) 24.60 H (<2.37) ng/mL CK-MB (CK-2) Rel Index 0.8 L (1.5-5.0) % Troponin I 0.094 H (0.01-0.034) ng/mL NT-Pro-B Natriuret Pep 10971 H (<125) pg/mL Total Protein (6.3-8.2) g/dL Albumin (3.5-5.0) g/dL Globulin (1.7-4.1) g/dL Albumin/Globulin Ratio (1.0-2.8) Lipase (23-300) U/L Procalcitonin (<0.5) ng/mL TSH (0.47-4.68) uIU/mL Urine Color Urine Appearance Urine pH (4.5-8.0) Ur Specific Noble (1.000-1.035) Urine Protein (Negative) Urine Glucose (UA) (Negative) g/dL Urine Ketones (NEGATIVE) Urine Occult Blood (Negative) Urine Nitrate (Negative) Urine Bilirubin (NEGATIVE) Ur Bilirubin Confirm (Negative) Urine Urobilinogen (0.2) E.U./dL Ur Leukocyte Esterase (NEGATIVE) Urine RBC (0-5/HPF) Urine WBC (0-5/HPF) Ur Renal Epithelial Cell (0-1/HPF) Amorphous Sediment Urine Bacteria (None) Ur Culture Indicated? Ur Random Sodium (30-90) mmol/L Urine Creatinine mg/dL Salicylates (<20) mg/dL Acetaminophen (10-30) ug/mL Ethyl Alcohol ( - 10) mg/dL A. baumannii (PCR) Not detected (Not Detect) Chlamy pneumoniae PCR (Not Detect) Adenovirus (PCR) (Not Detect) B. pertussis DNA (PCR) (Not Detecte) B.parapertussis DNA PCR (Not Detecte) Jeannie albicans (PCR) Not detected (Not Detect) C. glabrata (PCR) Not detected (Not Detect) C. krusei (PCR) Not detected (Not Detect) C. parapsilosis (PCR) Not detected (Not Detect) C. tropicalis (PCR) Not detected (Not Detect) Coronavirus OC43 (PCR) (Not Detect) Coronavirus HKU1 (PCR) (Not Detect) Coronavirus 229E (PCR) (Not Detect) SARS-CoV-2 (PCR) Coronavirus NL63 (PCR) (Not Detect) Enterobacteriac sp PCR Detected H (Not Detect) E. cloacae complex PCR Not detected (Not Detect) Enterococcus sp PCR Not detected (Not Detect) E. coli (PCR) Not detected (Not Detect) H. influenzae (PCR) Not detected (Not Detect) Human Metapneumovir PCR (Not Detect) Influenza Type A (PCR) (Not Detect) Influenza Type B (PCR) (Not Detect) Klebsiella oxytoca PCR Not detected (Not Detect) Klebsiella pneumoniae Not detected (Not Detect) List. monocytogenes PCR Not detected (Not Detect) M. pneumoniae (PCR) (Not Detect) N. meningitidis (PCR) Not detected (Not Detect) Parainfluenza 1 (PCR) (Not Detect) Parainfluenza 2 (PCR) (Not Detect) Parainfluenza 3 (PCR) (Not Detect) Parainfluenza 4 (PCR) (Not Detect) Proteus species (PCR) Detected H (Not Detect) RSV (PCR) (Not Detect) Entero/Rhino (PCR) (Not Detect) Serratia marcescens PCR Not detected (Not Detect) Staphylococcus sp PCR Not detected (Not Detect) Staph aureus (PCR) Not detected (Not Detect) mecA-Methicil Res Gene Not Reportable Streptococcus sp PCR Not detected (Not Detect) Group A Strep (PCR) Not detected (Not Detect) Strep agalactiae (PCR) Not detected (Not Detect) Strep pneumoniae (PCR) Not detected (Not Detect) P. aeruginosa (PCR) Not detected (Not Detect) Alexis/B-Vanco Res Genes Not Reportable KPC-Carbap Res Gene PCR Not detected (Not Detect) Blood Type Antibody Screen 08/16/21 08/16/21 08/16/21 Range/Units 13:36 13:36 13:53 WBC (4.5-11.0) X10^3/uL RBC (4.0-5.2) X10^6/uL Hgb (12.0-16.0) g/dL Hct (36-46) % MCV (80-100) fL MCH (26-34) PG MCHC (30-36) % RDW (11.6-14.8) % Plt Count (150-400) X10^3/uL Neut % (Auto) Lymph % (Auto) [place] % (Auto) Eos % (Auto) Baso % (Auto) Lymph # (Auto) [place] # (Auto) Baso # (Auto) Total Counted Seg Neutrophils % (38-70) % Band Neutrophils % (3-7) % Lymphocytes % (Manual) (25-45) % Monocytes % (Manual) (2-11) % Eosinophils % (Manual) (2-4) % Metamyelocytes % (-0) % Myelocytes % (-0) % Neutrophils # (Manual) (7671-1639) /uL Smudge Cells RBC Morphology Hypochromasia Anisocytosis PT (10.1-12.7) SECONDS INR (0.9-1.3) ABG pH 7.20 L* (7.35-7.45) ABG pCO2 44.6 (35-45) mmHg ABG pO2 177 H (80-100) mmHg ABG HCO3 18 L (22-26) mmol/L ABG Total CO2 19 L (21-31) mmol/L ABG O2 Saturation 99 (95-100) % ABG Base Excess -10.0 L (-2-2) mmol/L FiO2 100 Sodium (137-145) mmol/L Potassium (3.4-5.1) mmol/L Chloride (98-107) mmol/L Carbon Dioxide (22-32) mmol/L BUN (7-17) mg/dL Creatinine (0.52-1.04) mg/dL Estimated GFR (>60) mL/min BUN/Creatinine Ratio (6-22) Glucose (80-110) mg/dL Serum Osmolality (280-301) mOsmol/kg Lactate (0.7-2.1) mmol/L Calcium (8.4-10.2) mg/dL Total Bilirubin (0.2-1.3) mg/dL AST (14-36) IU/L ALT (<35) IU/L Alkaline Phosphatase (38-126) U/L Total Creatine Kinase (30-135) U/L CK-MB (CK-2) (<2.37) ng/mL CK-MB (CK-2) Rel Index (1.5-5.0) % Troponin I (0.01-0.034) ng/mL NT-Pro-B Natriuret Pep (<125) pg/mL Total Protein (6.3-8.2) g/dL Albumin (3.5-5.0) g/dL Globulin (1.7-4.1) g/dL Albumin/Globulin Ratio (1.0-2.8) Lipase (23-300) U/L Procalcitonin (<0.5) ng/mL TSH (0.47-4.68) uIU/mL Urine Color Brown Urine Appearance Sl cloudy Urine pH 5.0 (4.5-8.0) Ur Specific Noble >=1.030 H (1.000-1.035) Urine Protein 2+ H (Negative) Urine Glucose (UA) Trace H (Negative) g/dL Urine Ketones Trace H (NEGATIVE) Urine Occult Blood 2+ H (Negative) Urine Nitrate Negative (Negative) Urine Bilirubin 1+ H (NEGATIVE) Ur Bilirubin Confirm Positive H (Negative) Urine Urobilinogen 1.0 (0.2) E.U./dL Ur Leukocyte Esterase Trace H (NEGATIVE) Urine RBC 1-5/hpf (0-5/HPF) Urine WBC 5-10/hpf H (0-5/HPF) Ur Renal Epithelial Cell 1-5/hpf H (0-1/HPF) Amorphous Sediment 3+ Urine Bacteria Many (>30) H (None) Ur Culture Indicated? Specimen cultured Ur Random Sodium 9 L (30-90) mmol/L Urine Creatinine 251.5 mg/dL Salicylates (<20) mg/dL Acetaminophen (10-30) ug/mL Ethyl Alcohol ( - 10) mg/dL A. baumannii (PCR) (Not Detect) Chlamy pneumoniae PCR (Not Detect) Adenovirus (PCR) (Not Detect) B. pertussis DNA (PCR) (Not Detecte) B.parapertussis DNA PCR (Not Detecte) Jeannie albicans (PCR) (Not Detect) C. glabrata (PCR) (Not Detect) C. krusei (PCR) (Not Detect) C. parapsilosis (PCR) (Not Detect) C. tropicalis (PCR) (Not Detect) Coronavirus OC43 (PCR) (Not Detect) Coronavirus HKU1 (PCR) (Not Detect) Coronavirus 229E (PCR) (Not Detect) SARS-CoV-2 (PCR) Coronavirus NL63 (PCR) (Not Detect) Enterobacteriac sp PCR (Not Detect) E. cloacae complex PCR (Not Detect) Enterococcus sp PCR (Not Detect) E. coli (PCR) (Not Detect) H. influenzae (PCR) (Not Detect) Human Metapneumovir PCR (Not Detect) Influenza Type A (PCR) (Not Detect) Influenza Type B (PCR) (Not Detect) Klebsiella oxytoca PCR (Not Detect) Klebsiella pneumoniae (Not Detect) List. monocytogenes PCR (Not Detect) M. pneumoniae (PCR) (Not Detect) N. meningitidis (PCR) (Not Detect) Parainfluenza 1 (PCR) (Not Detect) Parainfluenza 2 (PCR) (Not Detect) Parainfluenza 3 (PCR) (Not Detect) Parainfluenza 4 (PCR) (Not Detect) Proteus species (PCR) (Not Detect) RSV (PCR) (Not Detect) Entero/Rhino (PCR) (Not Detect) Serratia marcescens PCR (Not Detect) Staphylococcus sp PCR (Not Detect) Staph aureus (PCR) (Not Detect) mecA-Methicil Res Gene Streptococcus sp PCR (Not Detect) Group A Strep (PCR) (Not Detect) Strep agalactiae (PCR) (Not Detect) Strep pneumoniae (PCR) (Not Detect) P. aeruginosa (PCR) (Not Detect) Alexis/B-Vanco Res Genes KPC-Carbap Res Gene PCR (Not Detect) Blood Type Antibody Screen 08/16/21 08/16/21 08/16/21 Range/Units 14:06 14:52 14:52 WBC (4.5-11.0) X10^3/uL RBC (4.0-5.2) X10^6/uL Hgb (12.0-16.0) g/dL Hct (36-46) % MCV (80-100) fL MCH (26-34) PG MCHC (30-36) % RDW (11.6-14.8) % Plt Count (150-400) X10^3/uL Neut % (Auto) Lymph % (Auto) [place] % (Auto) Eos % (Auto) Baso % (Auto) Lymph # (Auto) [place] # (Auto) Baso # (Auto) Total Counted Seg Neutrophils % (38-70) % Band Neutrophils % (3-7) % Lymphocytes % (Manual) (25-45) % Monocytes % (Manual) (2-11) % Eosinophils % (Manual) (2-4) % Metamyelocytes % (-0) % Myelocytes % (-0) % Neutrophils # (Manual) (1846-4907) /uL Smudge Cells RBC Morphology Hypochromasia Anisocytosis PT (10.1-12.7) SECONDS INR (0.9-1.3) ABG pH (7.35-7.45) ABG pCO2 (35-45) mmHg ABG pO2 (80-100) mmHg ABG HCO3 (22-26) mmol/L ABG Total CO2 (21-31) mmol/L ABG O2 Saturation (95-100) % ABG Base Excess (-2-2) mmol/L FiO2 Sodium (137-145) mmol/L Potassium (3.4-5.1) mmol/L Chloride (98-107) mmol/L Carbon Dioxide (22-32) mmol/L BUN (7-17) mg/dL Creatinine (0.52-1.04) mg/dL Estimated GFR (>60) mL/min BUN/Creatinine Ratio (6-22) Glucose (80-110) mg/dL Serum Osmolality 317 H (280-301) mOsmol/kg Lactate (0.7-2.1) mmol/L Calcium (8.4-10.2) mg/dL Total Bilirubin (0.2-1.3) mg/dL AST (14-36) IU/L ALT (<35) IU/L Alkaline Phosphatase (38-126) U/L Total Creatine Kinase (30-135) U/L CK-MB (CK-2) (<2.37) ng/mL CK-MB (CK-2) Rel Index (1.5-5.0) % Troponin I (0.01-0.034) ng/mL NT-Pro-B Natriuret Pep (<125) pg/mL Total Protein (6.3-8.2) g/dL Albumin (3.5-5.0) g/dL Globulin (1.7-4.1) g/dL Albumin/Globulin Ratio (1.0-2.8) Lipase (23-300) U/L Procalcitonin (<0.5) ng/mL TSH (0.47-4.68) uIU/mL Urine Color Urine Appearance Urine pH (4.5-8.0) Ur Specific Noble (1.000-1.035) Urine Protein (Negative) Urine Glucose (UA) (Negative) g/dL Urine Ketones (NEGATIVE) Urine Occult Blood (Negative) Urine Nitrate (Negative) Urine Bilirubin (NEGATIVE) Ur Bilirubin Confirm (Negative) Urine Urobilinogen (0.2) E.U./dL Ur Leukocyte Esterase (NEGATIVE) Urine RBC (0-5/HPF) Urine WBC (0-5/HPF) Ur Renal Epithelial Cell (0-1/HPF) Amorphous Sediment Urine Bacteria (None) Ur Culture Indicated? Ur Random Sodium (30-90) mmol/L Urine Creatinine mg/dL Salicylates < 1.0 (<20) mg/dL Acetaminophen < 10 (10-30) ug/mL Ethyl Alcohol < 10 ( - 10) mg/dL A. baumannii (PCR) (Not Detect) Chlamy pneumoniae PCR (Not Detect) Adenovirus (PCR) (Not Detect) B. pertussis DNA (PCR) (Not Detecte) B.parapertussis DNA PCR (Not Detecte) Jeannie albicans (PCR) (Not Detect) C. glabrata (PCR) (Not Detect) C. krusei (PCR) (Not Detect) C. parapsilosis (PCR) (Not Detect) C. tropicalis (PCR) (Not Detect) Coronavirus OC43 (PCR) (Not Detect) Coronavirus HKU1 (PCR) (Not Detect) Coronavirus 229E (PCR) (Not Detect) SARS-CoV-2 (PCR) Coronavirus NL63 (PCR) (Not Detect) Enterobacteriac sp PCR (Not Detect) E. cloacae complex PCR (Not Detect) Enterococcus sp PCR (Not Detect) E. coli (PCR) (Not Detect) H. influenzae (PCR) (Not Detect) Human Metapneumovir PCR (Not Detect) Influenza Type A (PCR) (Not Detect) Influenza Type B (PCR) (Not Detect) Klebsiella oxytoca PCR (Not Detect) Klebsiella pneumoniae (Not Detect) List. monocytogenes PCR (Not Detect) M. pneumoniae (PCR) (Not Detect) N. meningitidis (PCR) (Not Detect) Parainfluenza 1 (PCR) (Not Detect) Parainfluenza 2 (PCR) (Not Detect) Parainfluenza 3 (PCR) (Not Detect) Parainfluenza 4 (PCR) (Not Detect) Proteus species (PCR) (Not Detect) RSV (PCR) (Not Detect) Entero/Rhino (PCR) (Not Detect) Serratia marcescens PCR (Not Detect) Staphylococcus sp PCR (Not Detect) Staph aureus (PCR) (Not Detect) mecA-Methicil Res Gene Streptococcus sp PCR (Not Detect) Group A Strep (PCR) (Not Detect) Strep agalactiae (PCR) (Not Detect) Strep pneumoniae (PCR) (Not Detect) P. aeruginosa (PCR) (Not Detect) Alexis/B-Vanco Res Genes KPC-Carbap Res Gene PCR (Not Detect) Blood Type A Positive Antibody Screen Negative 08/16/21 08/16/21 08/16/21 Range/Units 14:52 14:52 16:11 WBC (4.5-11.0) X10^3/uL RBC (4.0-5.2) X10^6/uL Hgb (12.0-16.0) g/dL Hct (36-46) % MCV (80-100) fL MCH (26-34) PG MCHC (30-36) % RDW (11.6-14.8) % Plt Count (150-400) X10^3/uL Neut % (Auto) Lymph % (Auto) [place] % (Auto) Eos % (Auto) Baso % (Auto) Lymph # (Auto) [place] # (Auto) Baso # (Auto) Total Counted Seg Neutrophils % (38-70) % Band Neutrophils % (3-7) % Lymphocytes % (Manual) (25-45) % Monocytes % (Manual) (2-11) % Eosinophils % (Manual) (2-4) % Metamyelocytes % (-0) % Myelocytes % (-0) % Neutrophils # (Manual) (8658-4403) /uL Smudge Cells RBC Morphology Hypochromasia Anisocytosis PT (10.1-12.7) SECONDS INR (0.9-1.3) ABG pH 7.22 L* (7.35-7.45) ABG pCO2 40.2 (35-45) mmHg ABG pO2 104 H (80-100) mmHg ABG HCO3 16 L (22-26) mmol/L ABG Total CO2 18 L (21-31) mmol/L ABG O2 Saturation 97 (95-100) % ABG Base Excess -11.0 L (-2-2) mmol/L FiO2 75 Sodium (137-145) mmol/L Potassium (3.4-5.1) mmol/L Chloride (98-107) mmol/L Carbon Dioxide (22-32) mmol/L BUN (7-17) mg/dL Creatinine (0.52-1.04) mg/dL Estimated GFR (>60) mL/min BUN/Creatinine Ratio (6-22) Glucose (80-110) mg/dL Serum Osmolality (280-301) mOsmol/kg Lactate 1.4 (0.7-2.1) mmol/L Calcium (8.4-10.2) mg/dL Total Bilirubin (0.2-1.3) mg/dL AST (14-36) IU/L ALT (<35) IU/L Alkaline Phosphatase (38-126) U/L Total Creatine Kinase (30-135) U/L CK-MB (CK-2) (<2.37) ng/mL CK-MB (CK-2) Rel Index (1.5-5.0) % Troponin I (0.01-0.034) ng/mL NT-Pro-B Natriuret Pep (<125) pg/mL Total Protein (6.3-8.2) g/dL Albumin (3.5-5.0) g/dL Globulin (1.7-4.1) g/dL Albumin/Globulin Ratio (1.0-2.8) Lipase (23-300) U/L Procalcitonin (<0.5) ng/mL TSH 2.69 (0.47-4.68) uIU/mL Urine Color Urine Appearance Urine pH (4.5-8.0) Ur Specific Noble (1.000-1.035) Urine Protein (Negative) Urine Glucose (UA) (Negative) g/dL Urine Ketones (NEGATIVE) Urine Occult Blood (Negative) Urine Nitrate (Negative) Urine Bilirubin (NEGATIVE) Ur Bilirubin Confirm (Negative) Urine Urobilinogen (0.2) E.U./dL Ur Leukocyte Esterase (NEGATIVE) Urine RBC (0-5/HPF) Urine WBC (0-5/HPF) Ur Renal Epithelial Cell (0-1/HPF) Amorphous Sediment Urine Bacteria (None) Ur Culture Indicated? Ur Random Sodium (30-90) mmol/L Urine Creatinine mg/dL Salicylates (<20) mg/dL Acetaminophen (10-30) ug/mL Ethyl Alcohol ( - 10) mg/dL A. baumannii (PCR) (Not Detect) Chlamy pneumoniae PCR (Not Detect) Adenovirus (PCR) (Not Detect) B. pertussis DNA (PCR) (Not Detecte) B.parapertussis DNA PCR (Not Detecte) Jeannie albicans (PCR) (Not Detect) C. glabrata (PCR) (Not Detect) C. krusei (PCR) (Not Detect) C. parapsilosis (PCR) (Not Detect) C. tropicalis (PCR) (Not Detect) Coronavirus OC43 (PCR) (Not Detect) Coronavirus HKU1 (PCR) (Not Detect) Coronavirus 229E (PCR) (Not Detect) SARS-CoV-2 (PCR) Coronavirus NL63 (PCR) (Not Detect) Enterobacteriac sp PCR (Not Detect) E. cloacae complex PCR (Not Detect) Enterococcus sp PCR (Not Detect) E. coli (PCR) (Not Detect) H. influenzae (PCR) (Not Detect) Human Metapneumovir PCR (Not Detect) Influenza Type A (PCR) (Not Detect) Influenza Type B (PCR) (Not Detect) Klebsiella oxytoca PCR (Not Detect) Klebsiella pneumoniae (Not Detect) List. monocytogenes PCR (Not Detect) M. pneumoniae (PCR) (Not Detect) N. meningitidis (PCR) (Not Detect) Parainfluenza 1 (PCR) (Not Detect) Parainfluenza 2 (PCR) (Not Detect) Parainfluenza 3 (PCR) (Not Detect) Parainfluenza 4 (PCR) (Not Detect) Proteus species (PCR) (Not Detect) RSV (PCR) (Not Detect) Entero/Rhino (PCR) (Not Detect) Serratia marcescens PCR (Not Detect) Staphylococcus sp PCR (Not Detect) Staph aureus (PCR) (Not Detect) mecA-Methicil Res Gene Streptococcus sp PCR (Not Detect) Group A Strep (PCR) (Not Detect) Strep agalactiae (PCR) (Not Detect) Strep pneumoniae (PCR) (Not Detect) P. aeruginosa (PCR) (Not Detect) Alexis/B-Vanco Res Genes KPC-Carbap Res Gene PCR (Not Detect) Blood Type Antibody Screen 08/16/21 08/16/21 Range/Units 19:42 19:42 WBC 40.8 H* (4.5-11.0) X10^3/uL RBC 3.90 L (4.0-5.2) X10^6/uL Hgb 10.7 L (12.0-16.0) g/dL Hct 33.8 L (36-46) % MCV 86.6 (80-100) fL MCH 27.4 (26-34) PG MCHC 31.7 (30-36) % RDW 16.1 H (11.6-14.8) % Plt Count 301 (150-400) X10^3/uL Neut % (Auto) Not Reportable Lymph % (Auto) Not Reportable [place] % (Auto) Not Reportable Eos % (Auto) Not Reportable Baso % (Auto) Not Reportable Lymph # (Auto) Not Reportable [place] # (Auto) Not Reportable Baso # (Auto) Not Reportable Total Counted 100 Seg Neutrophils % 80.0 H (38-70) % Band Neutrophils % 9.0 H (3-7) % Lymphocytes % (Manual) 3.0 L (25-45) % Monocytes % (Manual) 4.0 (2-11) % Eosinophils % (Manual) (2-4) % Metamyelocytes % 3.0 H (-0) % Myelocytes % 1.0 H (-0) % Neutrophils # (Manual) 00267 H (0532-3191) /uL Smudge Cells RBC Morphology Normal morphology Hypochromasia Anisocytosis PT (10.1-12.7) SECONDS INR (0.9-1.3) ABG pH (7.35-7.45) ABG pCO2 (35-45) mmHg ABG pO2 (80-100) mmHg ABG HCO3 (22-26) mmol/L ABG Total CO2 (21-31) mmol/L ABG O2 Saturation (95-100) % ABG Base Excess (-2-2) mmol/L FiO2 Sodium 128 L (137-145) mmol/L Potassium 4.4 (3.4-5.1) mmol/L Chloride 96 L (98-107) mmol/L Carbon Dioxide 13 L (22-32) mmol/L BUN 129 H* (7-17) mg/dL Creatinine 6.27 H (0.52-1.04) mg/dL Estimated GFR 7 L (>60) mL/min BUN/Creatinine Ratio 20.6 (6-22) Glucose 148 H (80-110) mg/dL Serum Osmolality (280-301) mOsmol/kg Lactate (0.7-2.1) mmol/L Calcium 6.2 L* (8.4-10.2) mg/dL Total Bilirubin (0.2-1.3) mg/dL AST (14-36) IU/L ALT (<35) IU/L Alkaline Phosphatase (38-126) U/L Total Creatine Kinase 5359 H D (30-135) U/L CK-MB (CK-2) 23.20 H (<2.37) ng/mL CK-MB (CK-2) Rel Index 0.4 L (1.5-5.0) % Troponin I 0.084 H (0.01-0.034) ng/mL NT-Pro-B Natriuret Pep (<125) pg/mL Total Protein (6.3-8.2) g/dL Albumin (3.5-5.0) g/dL Globulin (1.7-4.1) g/dL Albumin/Globulin Ratio (1.0-2.8) Lipase (23-300) U/L Procalcitonin (<0.5) ng/mL TSH (0.47-4.68) uIU/mL Urine Color Urine Appearance Urine pH (4.5-8.0) Ur Specific Noble (1.000-1.035) Urine Protein (Negative) Urine Glucose (UA) (Negative) g/dL Urine Ketones (NEGATIVE) Urine Occult Blood (Negative) Urine Nitrate (Negative) Urine Bilirubin (NEGATIVE) Ur Bilirubin Confirm (Negative) Urine Urobilinogen (0.2) E.U./dL Ur Leukocyte Esterase (NEGATIVE) Urine RBC (0-5/HPF) Urine WBC (0-5/HPF) Ur Renal Epithelial Cell (0-1/HPF) Amorphous Sediment Urine Bacteria (None) Ur Culture Indicated? Ur Random Sodium (30-90) mmol/L Urine Creatinine mg/dL Salicylates (<20) mg/dL Acetaminophen (10-30) ug/mL Ethyl Alcohol ( - 10) mg/dL A. baumannii (PCR) (Not Detect) Chlamy pneumoniae PCR (Not Detect) Adenovirus (PCR) (Not Detect) B. pertussis DNA (PCR) (Not Detecte) B.parapertussis DNA PCR (Not Detecte) Jeannie albicans (PCR) (Not Detect) C. glabrata (PCR) (Not Detect) C. krusei (PCR) (Not Detect) C. parapsilosis (PCR) (Not Detect) C. tropicalis (PCR) (Not Detect) Coronavirus OC43 (PCR) (Not Detect) Coronavirus HKU1 (PCR) (Not Detect) Coronavirus 229E (PCR) (Not Detect) SARS-CoV-2 (PCR) Coronavirus NL63 (PCR) (Not Detect) Enterobacteriac sp PCR (Not Detect) E. cloacae complex PCR (Not Detect) Enterococcus sp PCR (Not Detect) E. coli (PCR) (Not Detect) H. influenzae (PCR) (Not Detect) Human Metapneumovir PCR (Not Detect) Influenza Type A (PCR) (Not Detect) Influenza Type B (PCR) (Not Detect) Klebsiella oxytoca PCR (Not Detect) Klebsiella pneumoniae (Not Detect) List. monocytogenes PCR (Not Detect) M. pneumoniae (PCR) (Not Detect) N. meningitidis (PCR) (Not Detect) Parainfluenza 1 (PCR) (Not Detect) Parainfluenza 2 (PCR) (Not Detect) Parainfluenza 3 (PCR) (Not Detect) Parainfluenza 4 (PCR) (Not Detect) Proteus species (PCR) (Not Detect) RSV (PCR) (Not Detect) Entero/Rhino (PCR) (Not Detect) Serratia marcescens PCR (Not Detect) Staphylococcus sp PCR (Not Detect) Staph aureus (PCR) (Not Detect) mecA-Methicil Res Gene Streptococcus sp PCR (Not Detect) Group A Strep (PCR) (Not Detect) Strep agalactiae (PCR) (Not Detect) Strep pneumoniae (PCR) (Not Detect) P. aeruginosa (PCR) (Not Detect) Alexis/B-Vanco Res Genes KPC-Carbap Res Gene PCR (Not Detect) Blood Type Antibody Screen MDM Narrative Medical decision making narrative: Problems by system Acute respiratory failure with mottling, altered mental status and appearing acutely ill. Initially able to answer yes or no questions.? Yes I do want to be intubated.? Yes I do want to be fully resuscitated.? Yes I do use heroin.? Yes I will go into narcotic withdrawal you.? Yes I do use methamphetamine.? Yes I have had a productive cough (unable to tell how long).? She was hospitalized in 2019 and when asked if she seen a doctor since then she replied no.? Resp: ?Acute hypoxic respiratory failure.? Intubated with ketamine.? Responded nicely to initial neb prior to arrival.? sHe will need another as she is becoming increasingly wheezy.? Initial AB.2/44.6/177/18 on 100% Sedation currently with low doses of propofol and low doses of fentanyl. Vent settings: AC TV 470, Rate 18, Peep 5, 75% ? Cardiac:? EKG shows no acute ischemic changes however she does have nonspecific ST T wave changes.? Possibility of endocarditis in the global setting of her overall illness is entertained.? To complete that the blood cultures are ordered.? Still unable to completely auscultate cardiac sounds due to overeating pulmonary noise Elevated troponin at 0.094 presumed secondary to decreased clearance secondary to acute renal failure rather than and STEMI.? Significant elevated BNP at 25,000.? Unclear how to fully interpret this in light of the acute renal failure Renal: ?Acute renal failure with creatinine at 7.1 BUN 130 and potassium at 5.1.? Comparison creatinine is from 2019 and is 1.7.? She has had minimal urine output since Carter catheter has been placed.? She does appear to have a concurrent urinary tract infection Electrolyte: ?Hyponatremia at 126.? Serum Osm are ordered and a send out for this hospital. Skin: ?Lymphedema with chronic wounds that do not appear to be dramatically super infected or have any developed abscesses.? Developing decubitus ulcer over her sacrum and buttocks. GI: ?NG tube is in place with black fluid returning that does appear to be bloody.? H&H currently is stable with hemoglobin at 12.3 and hematocrit 38.9.? Cirrhosis with significantly elevated bili, AST, ALT and alkaline phosphatase. ?Elevated lipase without concurrent pancreatitis appreciated on CT scan. Infectious disease: ?White blood cell count of 46.7, 80% neutrophils and procalcitonin significantly elevated at 39.7.? Presumed right middle lobe consolidation and antibiotics in the form of Zosyn and vancomycin are initiated.? Respiratory panel shows coronavirus that is not COVID-19.? Urine appears to be infected as well and will be covered by Zosyn.? CT scan notes hydropic gallbladder possibility of acute cholecystitis is entertained. ?Initial lactate level was 2.5 and with initial resuscitation is down 1.4.? Acute UTI noted Endocrine: TSH 2.69? Toxicology:? Alcohol, salicylic acid and Tylenol levels are all normal.?? + Morphine and Methamphetamine in urine Call to multiple facilities.? [facility] off may have ICU bed available.? Talked with Dr. Gifford, ICU attending.?? 2:25pm 5pm bed available, Dr Gifford is updated and transport arranged. Hospital discharge from 2019 (only available medical records), as well as all imaging studies will be included with transfer records 5:15 apparently there was a code blue called and the ICU bed at [facility] is no longer available. Transportation plans are canceled. [facility] try [facility] and see if they still have an ICU bed available. Care is turned over to Dr Escobedo at change of shift 1820 - [facility] to discuss case, however still no beds available. [1824] (Gregg) Patient received in sign out from [Sofiya]. I have reviewed the clinical course and performed an independent physical exam. 1919 - [facility] has called back, bed now available again. Dr. Gifford to accept. ALS transport contacted Critical Care Time <Danielle Arriaza MD - Last Filed: 08/23/21 06:29> Critical Care Time Critical Care Time: Yes Total Critical Care Time: 53 Attestation: Critical care time is separate from other billable procedures. There is a high probability of a significant, sudden or life-threatening deterioration that requires my full and direct attention, intervention and personal management. This critical care time includes consultation with family and other consulting doctors, review of records, and interpretation of data from labs, EKGs and imaging as well as managements of multi organ system failure Discharge Plan Departure Patient Disposition: [facility] Clinical Impression: Acute respiratory failure with hypoxia, Bacterial lobar pneumonia, Viral infection, Acute renal failure, UTI (urinary tract infection), Sepsis, Sacral decubitus ulcer, Opioid use disorder, Methamphetamine use, Lymphedema, Acute hyponatremia, Acute upper gastrointestinal bleeding Prescriptions: No Action levothyroxine 75 mcg tablet 75 mcg PO DAILY Qty: 30 0RF silver sulfadiazine [SSD] 1 % cream 1 applic TOPICAL BID 0RF Label Comments: APPLY TO LOWER EXTREMITY EDEMA/EXCORIATIONS TWICE A DAY acetaminophen [Tylenol] 325 mg tablet 325 mg PO TID PRN (Reason: pain) 0RF Label Comments: take 1 tablet by mouth three times a day if needed ondansetron HCl 4 mg tablet 4 mg PO TID PRN (Reason: Nausea) 0RF Label Comments: take 1 tablet by mouth three times a day if needed Bacid 1 billion cell- 250 mg Tablet 1 ea PO TIDWM Qty: 30 0RF clindamycin HCl 300 mg capsule 300 mg PO QID Qty: 36 0RF levofloxacin 500 mg tablet 500 mg PO DAILY Qty: 9 0RF cephalexin 500 mg capsule 500 mg PO QID Qty: 20 0RF Referrals: Alberto Gaytan MD [Primary Care Provider] -
[2021-08-16 12:41] LABS: Hematocrit 38.9 % (36-46); Hemoglobin 12.3 g/dL (12.0-16.0); Mean Corpuscular HGB Conc 31.6 % (30-36); Mean Corpuscular Hemoglobin 27.5 PG (26-34); Mean Corpuscular Volume 86.9 fL (80-100); Platelet Count 382 X10^3/uL (150-400); Red Blood Cell Count 4.47 X10^6/uL (4.0-5.2); Red Cell Distribution Width 15.9 % (11.6-14.8)
[2021-08-16 12:43] LABS: Add Manual Diff / Slide Review YES; White Blood Cell Count 46.7 X10^3/uL (4.5-11.0)
[2021-08-16] MEDS: KETAMINE 500 MG/5 ML INJ (12:44)
[2021-08-16] MEDS: ROCURONIUM 100 MG/10 ML VIAL IV (12:45)
--- NOTE | 2021-08-16 12:46 | PC.NURSE ---
Dr. Arriaza intubated patient with 7.5 ET tube 24 at the teeth.
[2021-08-16 12:51] LABS: Alanine Aminotransferase 715 IU/L (<35); Albumin 3.4 g/dL (3.5-5.0); Albumin Globulin Ratio 0.7 (1.0-2.8); Alkaline Phosphatase 236 U/L (38-126); Bilirubin Total 2.2 mg/dL (0.2-1.3); Calcium 6.6 mg/dL (8.4-10.2); Carbon Dioxide 15 mmol/L (22-32); Chloride 91 mmol/L (98-107); Globulin 4.9 g/dL (1.7-4.1); Glucose 160 mg/dL (80-110); HEMOLYSIS < 15 (0-50); Lipase 704 U/L (23-300); Potassium 5.1 mmol/L (3.4-5.1); Sodium 126 mmol/L (137-145); Total Protein 8.3 g/dL (6.3-8.2)
[2021-08-16 12:52] LABS: Lactate (Lactic Acid) 2.5 mmol/L (0.7-2.1)
[2021-08-16] MEDS: NOREPINEPHRINE BITARTRATE/D5W 4 MG/250 ML PLAST..BAG 30 MG IV (12:56)
[2021-08-16 12:57] LABS: Estimated Glomerular Filt Rate 6 mL/min (>60)
[2021-08-16] MEDS: SODIUM CHLORIDE 0.9% 1,000 ML 1000 ML IV (12:58)
[2021-08-16 13:05] LABS: BUN Creatinine Ratio 18.3 (6-22)
[2021-08-16 13:06] LABS: Aspartate Aminotransferase 1456 IU/L (14-36)
[2021-08-16 13:07] LABS: Blood Urea Nitrogen 130 mg/dL (7-17)
[2021-08-16 13:08] LABS: Procalcitonin 39.7 ng/mL (<0.5)
[2021-08-16 13:09] LABS: INR 1.7 (0.9-1.3); Prothrombin Time 19.5 SECONDS (10.1-12.7)
[2021-08-16 13:21] LABS: Creatine Kinase 3030 U/L (30-135)
--- NOTE | 2021-08-16 13:23 | DI.CT.S_ITS ---
PROCEDURE: CT CHEST ABD PEL WO CON INDICATIONS: abdominal pain, acute renal failure, elevated LFTs TECHNIQUE: After the administration of oral contrast, 5 mm thick sections acquired from the lung apices to the symphysis pubis. 5 mm thick coronal and sagittal reformats acquired, with additional 7 mm coronal MIP reformats through the lungs. For radiation dose reduction, the following was used: automated exposure control, adjustment of mA and/or kV according to patient size. COMPARISON: [facility], CR, XR CHEST 1V, 01/22/2019, 12:33. CT, KIDNEY/ URETER/BLADDER, 03/23/2015, 18:27. [facility], CR, XR CHEST 1V, 08/16/2021, 12:45. FINDINGS: Image quality: Excellent. CHEST: Lungs and pleura: There is superior segment right lower lobe consolidation. Nodules or nodular infiltrates are seen in the right upper lobe. The largest nodule measures 2 cm in diameter. Mild nodular infiltrates in the left lower lobe. No pleural effusions or pneumothorax. Central and peripheral airways are patent are normal in caliber. Mediastinum: There is an endotracheal tube above amy. A nasogastric tube is in the esophagus with the tip within the stomach. Right IJ central line is seen with the tip at the atrial caval junction. There is a 2.1 x 2.7 cm mass in the prevascular space, likely an enlarged lymph node. Heart size is normal. No pericardial effusion. No mediastinal adenopathy by CT size criteria. Thoracic aorta and central pulmonary arteries are normal in size. Esophagus is normal in caliber. No hiatal hernia. Chest wall: No axillary or supraclavicular adenopathy by size criteria. Thyroid gland is unremarkable. ABDOMEN: Solid organs: Liver is normal in size. Nodular contour liver suggesting cirrhosis. Gallbladder is distended. There may be gallbladder sludge or small gallstones. Pancreas is normal in contours. Spleen is normal in size. Bilateral adrenal thickening and nodularity. The left kidney is moderately decreased in size. No hydronephrosis. Peritoneum and bowel: Small and large bowel loops are normal in caliber and wall thickness. No free fluid or air. Nodes and vessels: No retroperitoneal or mesenteric adenopathy by size criteria. Aorta and inferior vena cava are normal in size. Moderate atherosclerotic calcifications. Miscellaneous: No ventral hernias. PELVIS: Genitourinary: There is a Carter catheter within the bladder. Bladder lumen appears thickened. Uterus is absent. Ovaries are not visualized. Miscellaneous: No inguinal adenopathy. There is a small fat containing left inguinal hernia Bones: No suspicious bony lesions. No vertebral body compression fractures. IMPRESSION: 1. There is consolidation in the superior segment of the right lower lobe. Nodules or nodular infiltrates are seen in the right upper lobe. There is mild infiltrate in the left lower lobe. The findings are most likely infectious or inflammatory etiology. Recommend clinical correlation and follow-up to resolution. 2. A 2.1 x 2.7 cm mass in the prevascular space, most likely an enlarged lymph node. Etiology is indeterminate. 3. Endotracheal tube, nasogastric tube and right IJ central line as described. 4. Moderate left renal atrophy. 5. Hydropic gallbladder with possible gallbladder sludge or small gallstones. If clinically indicated, ultrasound may be helpful. 6. Nodular contour of liver suggesting cirrhosis. 7. Bladder wall thickening suggesting cystitis. A Carter catheter is seen within the bladder. Dictated by: Kristina Cummings M.D. on 08/16/2021 at 14:56 Approved by: Kristina Cummings M.D. on 08/16/2021 at 15:08
[2021-08-16 13:24] LABS: Anisocytosis 1+; NT-proBNP (BNP-Adult 18+) 24800 pg/mL (<125); Neutrophils Absolute Manual 37360 /uL (3000-5900); Smudge Cells 1+; Total Cells Counted 100
[2021-08-16] MEDS: propofoL 1,000 MG/100 ML VIAL 2.585 MG IV (13:24)
[2021-08-16 13:25] LABS: Hypochromasia 1+
[2021-08-16 13:28] LABS: Troponin I 0.094 ng/mL (0.01-0.034)
[2021-08-16 13:43] LABS: Adenovirus Not Detected (Not Detect)
[2021-08-16 13:44] LABS: B. parapertussis Not Detected (Not Detecte); Bordetella pertussis Not Detected (Not Detecte); Chlamydophila pneumoniae Not Detected (Not Detect); Coronavirus 229E Not Detected (Not Detect); Coronavirus HKU1 Not Detected (Not Detect); Coronavirus NL 63 Not Detected (Not Detect); Coronavirus OC43 Detected (Not Detect); Human Metapneumovirus Not Detected (Not Detect); Human Rhinovirus/Enterovirus Not Detected (Not Detect); Influenza A Not Detected (Not Detect); Influenza B Not Detected (Not Detect); Mycoplasma pneumoniae Not Detected (Not Detect); Parainfluenza Virus 1 Not Detected (Not Detect); Parainfluenza Virus 2 Not Detected (Not Detect); Parainfluenza Virus 3 Not Detected (Not Detect); Parainfluenza Virus 4 Not Detected (Not Detect); Respiratory Syncytial Virus Not Detected (Not Detect); SARS- CoV-2 Not Detected (Not Detecte)
[2021-08-16 13:51] LABS: CKMB % Relative Index 0.8 % (1.5-5.0)
--- NOTE | 2021-08-16 13:53 | PC.NURSE ---
Provider Dr. Arriaza asked me to place this patient on waitlists to transfer. I called [facility] at 1324 and placed her on the waitlist. I called [facility] at [address] this patient on their waitlist but they informed me they were closed to all outside transfers for any critical care patients. I called [facility] at 1335 and placed this patient on their waitlist. I called [facility] at 1341 and placed this patient on their waitlist. I called [facility] at 1346 and placed this patient on their waitlist. I called [facility] at 1353 and placed this patient on their waitlist. I called [facility] house nurse at 1358 to ask for potential transfer and was informed that they were currently not accepting any patients. I called [facility] at [address] this patient on their list and had to leave a message asking for them to return my call. I called [facility] at [address] this patient on their list. They stated they already have a full list and have no beds to that care level at this time.
[2021-08-16 14:10] LABS: Fractionated Inspired Oxygen 100; HCO3 ABG 18 mmol/L (22-26); PCO2 ABG 44.6 mmHg (35-45); PO2 ABG 177 mmHg (80-100); TCO2 ABG 19 mmol/L (21-31)
[2021-08-16 14:30] LABS: Reflexed Lactate in 2 Hours Y
[2021-08-16] MEDS: PIPERACILLIN/TAZO 4.5 GM in SODIUM CHLORIDE 0.9% 100 ML IV (14:38)
[2021-08-16] MEDS: fentaNYL 1,000 MCG in DEXTROSE 5% IN WATER 230 ML 15.082 MCG IV (14:44)
[2021-08-16 14:58] LABS: Appearance Urine UA SL CLOUDY; Bilirubin Urine UA 1+ (NEGATIVE); Color Urine UA BROWN; Glucose Urine UA TRACE g/dL (Negative); Ketones Urine UA TRACE (NEGATIVE); Leukocyte Esterase Urine UA TRACE (NEGATIVE); Nitrite Urine UA NEGATIVE (Negative); Occult Blood Urine UA 2+ (Negative); Protein Urine UA 2+ (Negative); Specific Gravity Urine UA >=1.030 (1.000-1.035)
[2021-08-16] MEDS: NOREPINEPHRINE BITARTRATE/D5W 4 MG/250 ML PLAST..BAG IV (14:59)
[2021-08-16 15:13] LABS: Ictotest Urine Positive (Negative); RBC Urine 1-5/HPF (0-5/HPF)
[2021-08-16 15:14] LABS: Amorphous Sediment Urine 3+; Bacteria Urine Many (>30); Culture Indicated Urine Specimen Cultured; Renal Epithelial Cells Urine 1-5/HPF (0-1/HPF); WBC Urine 5-10/HPF (0-5/HPF)
[2021-08-16] MEDS: VANCOMYCIN 1,500 MG/300 ML PIGGYBACK 200 MG IV (15:14)
[2021-08-16 15:16] LABS: Acetaminophen < 10 ug/mL (10-30); Ethanol (ETOH) < 10 mg/dL; Lactate 2HR (Lactic Acid Rflx) 1.4 mmol/L (0.7-2.1); Salicylate < 1.0 mg/dL (<20)
[2021-08-16 15:54] LABS: Thyroid Stimulating Hormone 2.69 uIU/mL (0.47-4.68)
[2021-08-16] MEDS: SODIUM CHLORIDE 0.9% 1,000 ML 2000 ML IV (16:02)
[2021-08-16] MEDS: ALBUTEROL 2.5 MG/3 ML NEB (ADULT) INH (16:31)
[2021-08-16 16:46] LABS: HCO3 ABG 16 mmol/L (22-26); PCO2 ABG 40.2 mmHg (35-45); PO2 ABG 104 mmHg (80-100)
[2021-08-16 16:47] LABS: Oxygen Saturation ABG 97 % (95-100); TCO2 ABG 18 mmol/L (21-31)
[2021-08-16] MEDS: SODIUM CHLORIDE 0.9% 1,000 ML 150 ML IV (16:59)
--- NOTE | 2021-08-16 17:28 | PC.NURSE ---
1725 Called [facility] for bed update, no beds at this time Called [facility] for bed update, no beds at this time Called for bed update, no beds at this time Patient still on wait lists, transfer center will call back with bed updates when available.
[2021-08-16 18:52] LABS: Fractionated Inspired Oxygen 75
[2021-08-16 18:53] LABS: Oxygen Saturation ABG 99 % (95-100)
[2021-08-16 20:09] LABS: Carbon Dioxide 13 mmol/L (22-32); Chloride 96 mmol/L (98-107); Glucose 148 mg/dL (80-110); Potassium 4.4 mmol/L (3.4-5.1); Sodium 128 mmol/L (137-145)
[2021-08-16 20:11] LABS: Creatinine Urine Random 251.5 mg/dL; Sodium Urine Random 9 mmol/L (30-90)
[2021-08-16 20:16] LABS: Estimated Glomerular Filt Rate 7 mL/min (>60)
[2021-08-16 20:21] LABS: Troponin I 0.084 ng/mL (0.01-0.034)
[2021-08-16 20:23] LABS: Hematocrit 33.8 % (36-46); Hemoglobin 10.7 g/dL (12.0-16.0); Mean Corpuscular HGB Conc 31.7 % (30-36); Mean Corpuscular Hemoglobin 27.4 PG (26-34); Mean Corpuscular Volume 86.6 fL (80-100); Platelet Count 301 X10^3/uL (150-400); Red Cell Distribution Width 16.1 % (11.6-14.8)
[2021-08-16 20:42] LABS: Add Manual Diff / Slide Review YES; White Blood Cell Count 40.8 X10^3/uL (4.5-11.0)
[2021-08-16 20:44] LABS: Neutrophils Absolute Manual 36312 /uL (3000-5900); RBC Morphology Normal Morphology; Total Cells Counted 100
--- NOTE | 2021-08-16 20:45 | PC.NURSE ---
patient transferred with fentanyl drip and propofol drip via [facility]. provider aware. see MAR for additional information and infusion rates.
[2021-08-16 20:48] LABS: HEMOLYSIS < 15 (0-50)
[2021-08-16 21:09] LABS: Creatine Kinase 5359 U/L (30-135)
[2021-08-16 21:15] LABS: BUN Creatinine Ratio 20.6 (6-22)
[2021-08-16 21:17] LABS: CKMB % Relative Index 0.4 % (1.5-5.0); Calcium 6.2 mg/dL (8.4-10.2)
[2021-08-16 21:18] LABS: Blood Urea Nitrogen 129 mg/dL (7-17)
[2021-08-17 08:54] LABS: Acinetobacter baumannii Not Detected (Not Detect); Candida albicans Not Detected (Not Detect); Candida glabrata Not Detected (Not Detect); Candida krusei Not Detected (Not Detect); Candida parapsilosis Not Detected (Not Detect); Candida tropicalis Not Detected (Not Detect); E. coli Not Detected (Not Detect); Enterobacter cloacae complex Not Detected (Not Detect); Enterobacteriaceae species Detected (Not Detect); Enterococcus species Not Detected (Not Detect); Haemophilus influenzae Not Detected (Not Detect); KPC (carbapenem-resist gene) Not Detected (Not Detect); Listeria monocytogenes Not Detected (Not Detect); Neisseria meningitidis Not Detected (Not Detect); Proteus species Detected (Not Detect); Pseudomonas aeruginosa Not Detected (Not Detect); Serratia marcescens Not Detected (Not Detect); Staphylococcus species Not Detected (Not Detect); Streptococcus agalactiae (Gr B Not Detected (Not Detect); Streptococcus pneumonia Not Detected (Not Detect); Streptococcus pyogenes (Gr A) Not Detected (Not Detect); Streptococcus species Not Detected (Not Detect)
--- NOTE | 2021-08-17 09:41 | PC.NURSE ---
Critical blood culture result faxed to CRICKET Chao at [facility].
[2021-08-17 13:36] LABS: Osmolality, Serum 317 mOsmol/kg (280-301)
--- NOTE | 2021-08-18 00:24 | PC.NURSE ---
[facility] called,spoke with mick on telemetry,he was informed of positive blood culture reports.
[2021-09-12 07:42] LABS: pH ABG 7.22 (7.35-7.45)
== END 2021-08-16 20:45 | disposition short-term general hospital (02) ==
PROVIDERS: Emergency Medicine; Emergency Provider Emergency Medicine; PCP Family Medicine
DX: J96.01 Acute respiratory failure with hypoxia (principal); J15.6 Pneumonia due to other Gram-negative bacteria; N19 Unspecified kidney failure; N39.0 Urinary tract infection, site not specified; A41.9 Sepsis, unspecified organism; L89.309 Pressure ulcer of unspecified buttock, unspecified stage; L89.159 Pressure ulcer of sacral region, unspecified stage; F11.90 Opioid use, unspecified, uncomplicated; F15.10 Other stimulant abuse, uncomplicated; E87.1 Hypo-osmolality and hyponatremia; I89.0 Lymphedema, not elsewhere classified; K92.2 Gastrointestinal hemorrhage, unspecified
CPT/HCPCS: 31500; 36415; 36569; 36600; 51701; 71045; 71250; 74176; 80048; 80053; 80320; 80329; 81001; 82550; 82553; 82570; 82805; 83605; 83690; 83880; 83930; 84145; 84300; 84443; 84484; 85007; 85025; 85610; 86850; 86900; 86901; 87040; 87077; 87086; 87150; 87186; 87633; 93005; 94640; 96365; 96366; 96368; 96375; 99285; 99291; 99292; G0480; J2543; J2704; J3010; J7613

== ENCOUNTER 2022-03-18 19:02 | Inpatient (IN) | payer OTHER, MEDICAID, SELFPAY ==
[2019-01-22 14:47] VITALS: BMI 36.3
[2021-08-16 18:07] VITALS: PULSE 69; RESP 19; O2SAT 96
[2022-03-18] VITALS (27 sets, daily range): BP systolic 129–198; BP diastolic 60–98; PULSE 90–110; RESP 20–43; TEMP 37.4–38.4; O2SAT 88–99
--- NOTE | 2022-03-18 19:22 | ED.GENADULT ---
HPI - General Adult General Chief complaint: Altered Mental Status Stated complaint: Altered mental status Time Seen by Provider: 03/18/22 19:09 Source: patient and EMS Mode of arrival: EMS History of Present Illness HPI narrative: 62-year-old woman who lives in a housing situation with significant according issues with altered mental status, her significant other called 911. Medics found her lying over her knees with her head between her knees saying that her back hurt and unable to respond in any other meaningful way. She has a history of both methamphetamine and opioid use disorder. Records from prior hospitalizations are reviewed for medical history and indicate hypertension, hypothyroidism chronic lower extremity wounds, history of kidney stones. On arrival she is moaning, minimally responsive to questioning but maintaining her airway, quite warm to the touch and finds more comfort in leaning forward with her chest resting on her thighs. Related Data Home Medications Medication Instructions Recorded Confirmed acetaminophen 325 mg tablet 325 mg PO TID PRN pain 01/01/19 01/22/19 (Tylenol) ondansetron HCl 4 mg tablet 4 mg PO TID PRN Nausea 01/01/19 01/22/19 silver sulfadiazine 1 % topical 1 applic topical BID 01/01/19 01/22/19 cream (SSD) Previous Rx's Medication Instructions Recorded levothyroxine 75 mcg tablet 75 mcg PO DAILY #30 tabs 04/29/18 L.acidophilus-L.bulgar-B.bifid-S.thermoph 1 ea PO TIDWM #30 tabs 01/24/19 1 billion cell-250 mg tablet (Bacid) clindamycin HCl 300 mg capsule 300 mg PO QID #36 caps 01/24/19 levofloxacin 500 mg tablet 500 mg PO DAILY #9 tabs 01/24/19 cephalexin 500 mg capsule 500 mg PO QID #20 caps 12/31/19 Allergies Allergy/AdvReac Type Severity Reaction Status Date / Time No Known Drug Allergies Allergy Verified 04/29/18 01:53 Review of Systems Review of Systems ROS Unobtainable: Unobtainable due to medical condition Patient History Medical History (Updated 03/18/22 @ 21:21 by Danielle Arriaza MD) Hypertension Hypothyroid Kidney stones Social History household members: significant other and friend(s) Smoking Status: Current every day smoker alcohol intake: never substance use type: does not use Smoking Status: Current every day smoker alcohol intake frequency: 0-2 drinks per day Substance Use Type: does not use Exam Initial Vital Signs Initial Vital Signs: Vital Signs Temperature 101 F H 03/18/22 19:05 Pulse Rate 106 H 03/18/22 19:05 Respiratory Rate 22 03/18/22 19:05 Blood Pressure 198/98 H 03/18/22 19:05 Pulse Oximetry 91 03/18/22 19:05 Oxygen Delivery Method 03/18/22 19:05 General: Chronically ill-appearing, disheveled, not responding to direct questioning and minimally able to help with positioning and getting into a gown. HEENT: Dry mucous membranes, normal sclera with reactive pupils, Neck: No JVD, supple Respiratory: Lungs with minor scattered rhonchi all lung galvan, no significant wheeze Cardiac: Tachycardic but otherwise Regular rate and rhythm no murmurs no bruits Abdomen: Soft, nontender, good bowel tones, no flank pain Skin: Minimal chronic venous stasis changes. On the posterior right thigh she has a developing cellulitis with crisp borders involving almost the entire posterior thigh with no obvious skin breakdown. She is incontinent of urine with minor skin breakdown over the perineum and groin. On the left lower extremity she has 2 superficial ulcers centered in chronic venous stasis changes with expanding erythema from the ulceration sites. No significant drainage no abscess appreciated Neurologic: Globally weak, moving all extremities. Extremities: No trauma, multiple chronic healed wounds, 1 to 2+ lower extremity edema with decreased blood flow to both feet however both feet are warm to the touch. Onychomycosis of all toes. Psych: Acutely delirious Course Orders Ordered: ED Orders 03/18/22 19:05 Respiratory Panel (Film Array) Stat Urinalysis and Microscopic Stat Urine Culture Stat Urine Drug Screen, Rapid Stat 03/18/22 19:20 Acetaminophen Stat Complete Blood Count AUTO DIFF Stat Comprehensive Metabolic Panel Stat Ethanol (ETOH) Stat Lactate (Lactic Acid) Stat Partial Thromboplastin Time Stat Procalcitonin Stat Prothrombin Time INR Stat Troponin & CK Cardiac Panel Stat 03/18/22 19:22 Blood Culture Stat 03/18/22 19:29 EKG-12 Lead Stat 03/18/22 19:30 XR chest 1V Stat 03/18/22 20:00 Ammonia (NH3) Stat Sodium Chloride (Normal Saline 0.9%) 1,000 mls @ 150 mls/hr IV CONT ESTEPHANIA Last Admin: 03/18/22 20:40 Dose: 150 mls/hr Documented By: KATELYN Discontinued Medications Sodium Chloride (Normal Saline 0.9%) 1,000 mls @ 1,000 mls/hr IV BOLUS ONE Stop: 03/18/22 20:28 Last Infusion: 03/18/22 20:43 Dose: 0 mls/hr Documented By: Admin: 03/18/22 20:07 Dose: 1,000 mls/hr Documented By: KATELYN Piperacillin Sod/Tazobactam (Sod 4.5 gm/ Sodium Chloride) 100 mls @ 200 mls/hr IV NOW ONE Stop: 03/18/22 19:30 Last Infusion: 03/18/22 20:42 Dose: 0 mls/hr Documented By: Infusion: 03/18/22 20:36 Dose: 0 mls/hr Documented By: Admin: 03/18/22 20:05 Dose: 200 mls/hr Documented By: KATELYN Vancomycin HCl/Dextrose (Vancomycin) 1,500 mg in 300 mls @ 200 mls/hr IV NOW ONE Stop: 03/18/22 21:29 Last Admin: 03/18/22 20:06 Dose: 200 mls/hr Documented By: KATELYN Vancomycin HCl (Vancomycin Per Pharmacy) 1 request MISC NOW ONE Stop: 03/18/22 19:30 Last Admin: 03/18/22 20:35 Dose: 1 request Documented By: ERIC Vital Signs Vital signs: Vital Signs - 8 hr 03/18/22 19:05 03/18/22 19:11 03/18/22 19:12 Temperature 101 F H Pulse Rate 106 H 103 H Respiratory Rate 22 27 H Blood Pressure 198/98 H 177/84 H Pulse Oximetry 91 92 Oxygen Delivery Method Room Air Oxygen Flow Rate 03/18/22 19:12 03/18/22 19:15 03/18/22 19:22 Temperature Pulse Rate 99 H 101 H 99 H Respiratory Rate 26 H 27 H 26 H Blood Pressure Pulse Oximetry 88 L 99 98 Oxygen Delivery Method Nasal Cannula Oxygen Flow Rate 2 2 03/18/22 19:22 03/18/22 19:30 03/18/22 19:31 Temperature Pulse Rate 96 H 97 H Respiratory Rate 42 H 43 H Blood Pressure 181/72 H Pulse Oximetry 96 96 Oxygen Delivery Method Nasal Cannula Oxygen Flow Rate 2 2 03/18/22 19:31 Temperature Pulse Rate Respiratory Rate Blood Pressure 176/77 H Pulse Oximetry Oxygen Delivery Method Oxygen Flow Rate Medical Decision Making Lab Data Result diagrams: 03/18/22 19:20 03/18/22 19:20 Labs: Lab Results 03/18/22 03/18/22 03/18/22 Range/Units 19:05 19:05 19:05 WBC (4.5-11.0) X10^3/uL RBC (4.0-5.2) X10^6/uL Hgb (12.0-16.0) g/dL Hct (36-46) % MCV (80-100) fL MCH (26-34) PG MCHC (30-36) % RDW (11.6-14.8) % Plt Count (150-400) X10^3/uL Neut % (Auto) (50-75) % Lymph % (Auto) (25-40) % Piatt % (Auto) (3-14) % Eos % (Auto) (2-4) % Baso % (Auto) (0-2) % Neut # (Auto) (1476-6066) /uL Lymph # (Auto) (7590-6670) /uL Piatt # (Auto) (0-900) /uL Eos # (Auto) (0-450) /uL Baso # (Auto) (0-100) /uL PT (10.1-12.7) SECONDS INR (0.9-1.3) APTT (26-36) SECONDS Sodium (137-145) mmol/L Potassium (3.4-5.1) mmol/L Chloride (98-107) mmol/L Carbon Dioxide (22-32) mmol/L BUN (7-17) mg/dL Creatinine (0.52-1.04) mg/dL Estimated GFR (>60) mL/min BUN/Creatinine Ratio (6-22) Glucose (80-110) mg/dL Lactate (0.7-2.1) mmol/L Calcium (8.4-10.2) mg/dL Total Bilirubin (0.2-1.3) mg/dL AST (14-36) IU/L ALT (<35) IU/L Alkaline Phosphatase (38-126) U/L Ammonia (9-30) umol/L Total Creatine Kinase (30-135) U/L CK-MB (CK-2) CK-MB (CK-2) Rel Index Troponin I (0.01-0.034) ng/mL Total Protein (6.3-8.2) g/dL Albumin (3.5-5.0) g/dL Globulin (1.7-4.1) g/dL Albumin/Globulin Ratio (1.0-2.8) Procalcitonin (<0.5) ng/mL Urine Color Yellow Urine Appearance Clear Urine pH 5.5 (4.5-8.0) Ur Specific [place] 1.015 (1.000-1.035) Urine Protein 2+ H (Negative) Urine Glucose (UA) Negative (Negative) g/dL Urine Ketones Negative (NEGATIVE) Urine Occult Blood 2+ H (Negative) Urine Nitrate Negative (Negative) Urine Bilirubin Negative (NEGATIVE) Urine Urobilinogen 0.2 (0.2) E.U./dL Ur Leukocyte Esterase Negative (NEGATIVE) Urine RBC 1-5/hpf (0-5/HPF) Urine WBC 0-1/hpf (0-5/HPF) Ur Squamous Epith Cells 0-1 /hpf (0-5/HPF) Amorphous Sediment 1+ Urine Bacteria Occasional (0-1) (None) U Opiates 300ng/mL cut Positive H (Negative) Ur Oxycodone Screen Negative (Negative) Urine Methadone Screen Negative (Negative) Acetaminophen (10-30) ug/mL Ur Barbiturates Screen Negative (Negative) U Tricyclic Antidepress Negative (Negative) Ur Phencyclidine Scrn Negative (Negative) Ur Amphetamines Screen Positive H (Negative) U Methamphetamines Scrn Positive H (Negative) Ur MDMA Scrn (Ecstasy) Negative (Negative) U Benzodiazepines Scrn Negative (Negative) Urine Cocaine Screen Negative (Negative) U Marijuana (THC) Screen Negative (Negative) Ethyl Alcohol ( - 10) mg/dL Chlamy pneumoniae PCR Not detected (Not Detect) Adenovirus (PCR) Not detected (Not Detect) B. pertussis DNA (PCR) Not detected (Not Detecte) B.parapertussis DNA PCR Not detected (Not Detecte) Coronavirus OC43 (PCR) Not detected (Not Detect) Coronavirus HKU1 (PCR) Not detected (Not Detect) Coronavirus 229E (PCR) Not detected (Not Detect) SARS-CoV-2 (PCR) Not detected (Not Detecte) Coronavirus NL63 (PCR) Not detected (Not Detect) Human Metapneumovir PCR Not detected (Not Detect) Influenza Type A (PCR) Not detected (Not Detect) Influenza Type B (PCR) Not detected (Not Detect) M. pneumoniae (PCR) Not detected (Not Detect) Parainfluenza 1 (PCR) Not detected (Not Detect) Parainfluenza 2 (PCR) Not detected (Not Detect) Parainfluenza 3 (PCR) Not detected (Not Detect) Parainfluenza 4 (PCR) Not detected (Not Detect) RSV (PCR) Not detected (Not Detect) Entero/Rhino (PCR) Detected H (Not Detect) 03/18/22 03/18/22 03/18/22 Range/Units 19:20 19:20 19:20 WBC 21.3 H (4.5-11.0) X10^3/uL RBC 4.26 (4.0-5.2) X10^6/uL Hgb 11.6 L (12.0-16.0) g/dL Hct 37.1 (36-46) % MCV 87.1 (80-100) fL MCH 27.3 (26-34) PG MCHC 31.3 (30-36) % RDW 16.2 H (11.6-14.8) % Plt Count 310 (150-400) X10^3/uL Neut % (Auto) 89.2 H (50-75) % Lymph % (Auto) 4.5 L (25-40) % Piatt % (Auto) 5.8 (3-14) % Eos % (Auto) 0.1 L (2-4) % Baso % (Auto) 0.4 (0-2) % Neut # (Auto) 40652 H (6858-7315) /uL Lymph # (Auto) 1000 L (1235-5367) /uL Piatt # (Auto) 1200 H (0-900) /uL Eos # (Auto) 0 (0-450) /uL Baso # (Auto) 100 (0-100) /uL PT 13.6 H (10.1-12.7) SECONDS INR 1.2 (0.9-1.3) APTT 31 (26-36) SECONDS Sodium 138 (137-145) mmol/L Potassium 4.3 (3.4-5.1) mmol/L Chloride 103 (98-107) mmol/L Carbon Dioxide 24 (22-32) mmol/L BUN 30 H (7-17) mg/dL Creatinine 1.62 H (0.52-1.04) mg/dL Estimated GFR 35 L (>60) mL/min BUN/Creatinine Ratio 18.5 (6-22) Glucose 114 H (80-110) mg/dL Lactate (0.7-2.1) mmol/L Calcium 9.0 (8.4-10.2) mg/dL Total Bilirubin 0.9 (0.2-1.3) mg/dL AST 24 (14-36) IU/L ALT 19 (<35) IU/L Alkaline Phosphatase 133 H (38-126) U/L Ammonia (9-30) umol/L Total Creatine Kinase 88 (30-135) U/L CK-MB (CK-2) TNP CK-MB (CK-2) Rel Index TNP Troponin I 0.032 (0.01-0.034) ng/mL Total Protein 9.7 H (6.3-8.2) g/dL Albumin 4.1 (3.5-5.0) g/dL Globulin 5.6 H (1.7-4.1) g/dL Albumin/Globulin Ratio 0.7 L (1.0-2.8) Procalcitonin 1.08 H (<0.5) ng/mL Urine Color Urine Appearance Urine pH (4.5-8.0) Ur Specific [place] (1.000-1.035) Urine Protein (Negative) Urine Glucose (UA) (Negative) g/dL Urine Ketones (NEGATIVE) Urine Occult Blood (Negative) Urine Nitrate (Negative) Urine Bilirubin (NEGATIVE) Urine Urobilinogen (0.2) E.U./dL Ur Leukocyte Esterase (NEGATIVE) Urine RBC (0-5/HPF) Urine WBC (0-5/HPF) Ur Squamous Epith Cells (0-5/HPF) Amorphous Sediment Urine Bacteria (None) U Opiates 300ng/mL cut (Negative) Ur Oxycodone Screen (Negative) Urine Methadone Screen (Negative) Acetaminophen < 10 (10-30) ug/mL Ur Barbiturates Screen (Negative) U Tricyclic Antidepress (Negative) Ur Phencyclidine Scrn (Negative) Ur Amphetamines Screen (Negative) U Methamphetamines Scrn (Negative) Ur MDMA Scrn (Ecstasy) (Negative) U Benzodiazepines Scrn (Negative) Urine Cocaine Screen (Negative) U Marijuana (THC) Screen (Negative) Ethyl Alcohol < 10 ( - 10) mg/dL Chlamy pneumoniae PCR (Not Detect) Adenovirus (PCR) (Not Detect) B. pertussis DNA (PCR) (Not Detecte) B.parapertussis DNA PCR (Not Detecte) Coronavirus OC43 (PCR) (Not Detect) Coronavirus HKU1 (PCR) (Not Detect) Coronavirus 229E (PCR) (Not Detect) SARS-CoV-2 (PCR) (Not Detecte) Coronavirus NL63 (PCR) (Not Detect) Human Metapneumovir PCR (Not Detect) Influenza Type A (PCR) (Not Detect) Influenza Type B (PCR) (Not Detect) M. pneumoniae (PCR) (Not Detect) Parainfluenza 1 (PCR) (Not Detect) Parainfluenza 2 (PCR) (Not Detect) Parainfluenza 3 (PCR) (Not Detect) Parainfluenza 4 (PCR) (Not Detect) RSV (PCR) (Not Detect) Entero/Rhino (PCR) (Not Detect) 03/18/22 03/18/22 Range/Units 19:20 20:00 WBC (4.5-11.0) X10^3/uL RBC (4.0-5.2) X10^6/uL Hgb (12.0-16.0) g/dL Hct (36-46) % MCV (80-100) fL MCH (26-34) PG MCHC (30-36) % RDW (11.6-14.8) % Plt Count (150-400) X10^3/uL Neut % (Auto) (50-75) % Lymph % (Auto) (25-40) % Piatt % (Auto) (3-14) % Eos % (Auto) (2-4) % Baso % (Auto) (0-2) % Neut # (Auto) (4975-3685) /uL Lymph # (Auto) (9847-6868) /uL Piatt # (Auto) (0-900) /uL Eos # (Auto) (0-450) /uL Baso # (Auto) (0-100) /uL PT (10.1-12.7) SECONDS INR (0.9-1.3) APTT (26-36) SECONDS Sodium (137-145) mmol/L Potassium (3.4-5.1) mmol/L Chloride (98-107) mmol/L Carbon Dioxide (22-32) mmol/L BUN (7-17) mg/dL Creatinine (0.52-1.04) mg/dL Estimated GFR (>60) mL/min BUN/Creatinine Ratio (6-22) Glucose (80-110) mg/dL Lactate 1.5 (0.7-2.1) mmol/L Calcium (8.4-10.2) mg/dL Total Bilirubin (0.2-1.3) mg/dL AST (14-36) IU/L ALT (<35) IU/L Alkaline Phosphatase (38-126) U/L Ammonia < 9 L (9-30) umol/L Total Creatine Kinase (30-135) U/L CK-MB (CK-2) CK-MB (CK-2) Rel Index Troponin I (0.01-0.034) ng/mL Total Protein (6.3-8.2) g/dL Albumin (3.5-5.0) g/dL Globulin (1.7-4.1) g/dL Albumin/Globulin Ratio (1.0-2.8) Procalcitonin (<0.5) ng/mL Urine Color Urine Appearance Urine pH (4.5-8.0) Ur Specific [place] (1.000-1.035) Urine Protein (Negative) Urine Glucose (UA) (Negative) g/dL Urine Ketones (NEGATIVE) Urine Occult Blood (Negative) Urine Nitrate (Negative) Urine Bilirubin (NEGATIVE) Urine Urobilinogen (0.2) E.U./dL Ur Leukocyte Esterase (NEGATIVE) Urine RBC (0-5/HPF) Urine WBC (0-5/HPF) Ur Squamous Epith Cells (0-5/HPF) Amorphous Sediment Urine Bacteria (None) U Opiates 300ng/mL cut (Negative) Ur Oxycodone Screen (Negative) Urine Methadone Screen (Negative) Acetaminophen (10-30) ug/mL Ur Barbiturates Screen (Negative) U Tricyclic Antidepress (Negative) Ur Phencyclidine Scrn (Negative) Ur Amphetamines Screen (Negative) U Methamphetamines Scrn (Negative) Ur MDMA Scrn (Ecstasy) (Negative) U Benzodiazepines Scrn (Negative) Urine Cocaine Screen (Negative) U Marijuana (THC) Screen (Negative) Ethyl Alcohol ( - 10) mg/dL Chlamy pneumoniae PCR (Not Detect) Adenovirus (PCR) (Not Detect) B. pertussis DNA (PCR) (Not Detecte) B.parapertussis DNA PCR (Not Detecte) Coronavirus OC43 (PCR) (Not Detect) Coronavirus HKU1 (PCR) (Not Detect) Coronavirus 229E (PCR) (Not Detect) SARS-CoV-2 (PCR) (Not Detecte) Coronavirus NL63 (PCR) (Not Detect) Human Metapneumovir PCR (Not Detect) Influenza Type A (PCR) (Not Detect) Influenza Type B (PCR) (Not Detect) M. pneumoniae (PCR) (Not Detect) Parainfluenza 1 (PCR) (Not Detect) Parainfluenza 2 (PCR) (Not Detect) Parainfluenza 3 (PCR) (Not Detect) Parainfluenza 4 (PCR) (Not Detect) RSV (PCR) (Not Detect) Entero/Rhino (PCR) (Not Detect) Imaging Data Chest x-ray: Radiologist's Impression: FINDINGS:? ? Surgical changes and devices:? None.? ? Lungs and pleura:? Diffuse interstitial prominence.? Subtle patchy bibasilar opacities.? No substantial pleural effusion noted.? No pneumothorax. ? Mediastinum:? Mediastinal contours appear stable with mild perihilar prominence which may be related to prominent mediastinal vasculature.? Heart size is normal.? ? Bones and chest wall:? No suspicious bony lesions.? Overlying soft tissues appear unremarkable.? ? IMPRESSION:? Diffuse interstitial prominence with patchy bilateral airspace opacities.? Findings may represent atelectasis and/or concurrent infectious process. ? Recommend follow up chest radiograph 4-6 weeks after treatment to document resolution of findings and/or return to baseline examination. ? ? ? Dictated by: Scott Bah M.D. on 03/18/2022 at 20:05 ? ? ECG Data Interpretation: Interpreted by me Sinus rhythm rate of 91 Normal intervals, normal axis No acute ischemic changes MDM Narrative Medical decision making narrative: 62-year-old woman with increasing weakness and altered mental status presents with fever, expanding cellulitis over the posterior right thigh and secondary cellulitis over the alarcon left side anteriorly. She is not in respiratory distress. He is significant leukocytosis. Vancomycin and Zosyn are initiated. She does not appear to have a urinary tract infection. No suggestion of acidosis, acute coronary syndrome, congestive heart failure. Will need admission for IV antibiotics for her 2 separate areas of cellulitis. Patient also has rhino virus which makes Hemal some of the abnormalities appreciated on chest x-ray. Urine drug screen is positive for opiates and methamphetamine. Patient is somewhat more alert after fluid resuscitation and antibiotics. Still maintaining airway and blood pressure. Do not anticipate need for respiratory support or pressors within the next 12-24 hours. Patient will need be admitted and will discuss with the hospitalist. Additional Information: Severe Sepsis Criteria [ x ] bacterial source of infection suspected and documented [ x ] 2 SIRS Criteria met [x ] HR >90 [ x ] RR >20 [ x ] fever or hypothermia [ x ] leukocytosis/leukopenia/bandemia [ x ] Evidence of at least 1 organ system dysfunction [ ] Lactate > 2 [ ] BP < 90 or MAP <65, >40mm decrease from normal baseline [ ] Creat > 2.0 [ ] T. Bili > 2.0 [ ] platelet count < 100k [ x ] altered mental status [ ] mechanical ventilation [ ] provider documentation of severe sepsis Severe Sepsis Determination. the patient has been screened and [ x ] DOES meet criteria for severe sepsis [ ] DOES NOT meet criteria for severe sepsis Goal directed treatment Within 3 hours [ x ] blood cx drawn prior to abx [ x ] broad spectrum abx started [ x ] lactic acid level checked [ ] lactic redrawn within 6 hours if >2.0 Septic Shock Criteria [ ] lactic > 4 at any time [ ] SBP ,90 or MAP , 65 [ ] documentation of septic shock Time Septic Shock diagnosed: [ ] Septic Shock Determination. the patient has been screened and [ ] DOES meet criteria for septic shock [ x ] DOES NOT meet criteria for septic shock Goal directed therapy within 3 hours of septic shock or initial hypotension [ ] 30ml/kg fluid [ ] ABW used [ ] IBW (33.6) used due to BMI > 30 [ ] patient or advocate declining fluid administration after shared decision making conversation Clinical reason for NOT initiating fluid bolus: Within 6 hours (if continued hypotension after fluids or initial lactate >4) [ ] repeat volume status and tissue perfusion assessment documented after fluid bolus was completed at [Date/Time] Must include vital signs, cardiopulmonary exam, capillary refill, peripheral pulse evaluation, skin exam [ ] Initiate vasopressor therapy if persistent hypotension after adequate fluid bolus Discharge Plan Departure Patient Disposition: Admitted As Inpatient Clinical Impression: Cellulitis of right thigh, Weakness, Hypoxia, Hypertension Cellulitis, leg Qualifiers: Laterality: left Qualified Code(s): L03.116 - Cellulitis of left lower limb Altered mental status Qualifiers: Altered mental status type: unspecified Qualified Code(s): R41.82 - Altered mental status, unspecified Sepsis Qualifiers: Sepsis type: sepsis due to unspecified organism Sepsis acute organ dysfunction status: unspecified Qualified Code(s): A41.9 - Sepsis, unspecified organism
--- NOTE | 2022-03-18 19:30 | DI.RAD.S_ITS ---
PROCEDURE: XR CHEST 1V INDICATIONS: ALTERED MENTAL STATUS TECHNIQUE: One view of the chest was acquired. COMPARISON: [facility], CR, XR CHEST 1V, 08/16/2021, 12:45. FINDINGS: Surgical changes and devices: None. Lungs and pleura: Diffuse interstitial prominence. Subtle patchy bibasilar opacities. No substantial pleural effusion noted. No pneumothorax. Mediastinum: Mediastinal contours appear stable with mild perihilar prominence which may be related to prominent mediastinal vasculature. Heart size is normal. Bones and chest wall: No suspicious bony lesions. Overlying soft tissues appear unremarkable. IMPRESSION: Diffuse interstitial prominence with patchy bilateral airspace opacities. Findings may represent atelectasis and/or concurrent infectious process. Recommend follow up chest radiograph 4-6 weeks after treatment to document resolution of findings and/or return to baseline examination. Dictated by: Scott Bah M.D. on 03/18/2022 at 20:05 Approved by: Scott Bah M.D. on 03/18/2022 at 20:07
[2022-03-18] MEDS: PIPERACILLIN/TAZO 4.5 GM in SODIUM CHLORIDE 0.9% 100 ML IV (20:05)
[2022-03-18] MEDS: VANCOMYCIN 1,500 MG/300 ML PIGGYBACK 200 MG IV (20:06)
[2022-03-18] MEDS: SODIUM CHLORIDE 0.9% 1,000 ML 1000 ML IV (20:07)
[2022-03-18 20:08] LABS: Add Manual Diff / Slide Review NO; Basophils Absolute Auto 100 /uL (0-100); Basophils Percent Auto 0.4 % (0-2); Eosinophils Absolute Auto 0 /uL (0-450); Eosinophils Percent Auto 0.1 % (2-4); Hematocrit 37.1 % (36-46); Hemoglobin 11.6 g/dL (12.0-16.0); Lymphocytes Absolute Auto 1000 /uL (1100-4500); Lymphocytes Percent Auto 4.5 % (25-40); Mean Corpuscular HGB Conc 31.3 % (30-36); Mean Corpuscular Hemoglobin 27.3 PG (26-34); Mean Corpuscular Volume 87.1 fL (80-100); Monocytes Absolute Auto 1200 /uL (0-900); Monocytes Percent Auto 5.8 % (3-14); Neutrophils Absolute Auto 19000 /uL (1500-7000); Neutrophils Percent Auto 89.2 % (50-75); Platelet Count 310 X10^3/uL (150-400); Red Blood Cell Count 4.26 X10^6/uL (4.0-5.2); Red Cell Distribution Width 16.2 % (11.6-14.8); White Blood Cell Count 21.3 X10^3/uL (4.5-11.0)
[2022-03-18 20:09] LABS: INR 1.2 (0.9-1.3); Prothrombin Time 13.6 SECONDS (10.1-12.7)
[2022-03-18 20:11] LABS: PTT Partial Thromboplastin Tim 31 SECONDS (26-36)
[2022-03-18 20:14] LABS: Acetaminophen < 10 ug/mL (10-30); Alanine Aminotransferase 19 IU/L (<35); Albumin 4.1 g/dL (3.5-5.0); Albumin Globulin Ratio 0.7 (1.0-2.8); Alkaline Phosphatase 133 U/L (38-126); Aspartate Aminotransferase 24 IU/L (14-36); BUN Creatinine Ratio 18.5 (6-22); Bilirubin Total 0.9 mg/dL (0.2-1.3); Blood Urea Nitrogen 30 mg/dL (7-17); Carbon Dioxide 24 mmol/L (22-32); Chloride 103 mmol/L (98-107); Creatine Kinase 88 U/L (30-135); Estimated Glomerular Filt Rate 35 mL/min (>60); Ethanol (ETOH) < 10 mg/dL; Globulin 5.6 g/dL (1.7-4.1); Glucose 114 mg/dL (80-110); HEMOLYSIS < 15 (0-50); Lactate (Lactic Acid) 1.5 mmol/L (0.7-2.1); Potassium 4.3 mmol/L (3.4-5.1); Sodium 138 mmol/L (137-145); Total Protein 9.7 g/dL (6.3-8.2)
[2022-03-18 20:26] LABS: Troponin I 0.032 ng/mL (0.01-0.034)
[2022-03-18 20:28] LABS: Ammonia (NH3) < 9 umol/L (9-30)
[2022-03-18 20:30] LABS: Procalcitonin 1.08 ng/mL (<0.5)
[2022-03-18] MEDS: VANCOMYCIN PER PHARMACY 1 REQUEST MISC (20:35)
[2022-03-18] MEDS: SODIUM CHLORIDE 0.9% 1,000 ML 150 ML IV (20:40)
[2022-03-18 20:41] LABS: Appearance Urine UA CLEAR; Bilirubin Urine UA NEGATIVE (NEGATIVE); Color Urine UA YELLOW; Glucose Urine UA NEGATIVE (Negative); Ketones Urine UA NEGATIVE (NEGATIVE); Leukocyte Esterase Urine UA NEGATIVE (NEGATIVE); Nitrite Urine UA NEGATIVE (Negative); Occult Blood Urine UA 2+ (Negative); Protein Urine UA 2+ (Negative); Specific Gravity Urine UA 1.015 (1.000-1.035); Urobilinogen Urine UA 0.2 E.U./dL (0.2)
[2022-03-18 20:44] LABS: pH Urine UA 5.5 (4.5-8.0)
[2022-03-18 20:52] LABS: UR Morphine/Opiate cutoff 300 Positive (Negative); Ur Creatinine Normal (Normal); Ur Specific Gravity Normal (Normal); Urine Amphetamines Positive (Negative); Urine Barbiturates Negative (Negative); Urine Cocaine Negative (Negative); Urine MDMA Negative (Negative); Urine Methamphetamines Positive (Negative); Urine Phencyclidine Negative (Negative); Urine Tetrahydrocannabinol Negative (Negative); Urine pH Normal (Normal)
[2022-03-18 20:53] LABS: Urine Benzodiazepines Negative (Negative); Urine Oxycodone Negative (Negative); Urine Tricyclic Antidepressant Negative (Negative)
[2022-03-18 20:54] LABS: Urine Methadone Negative (Negative)
[2022-03-18 20:56] LABS: Amorphous Sediment Urine 1+; Bacteria Urine Occasional (0-1); RBC Urine 1-5/HPF (0-5/HPF); Squamous Epithelial Cell Urine 0-1 /HPF (0-5/HPF); WBC Urine 0-1/HPF (0-5/HPF)
[2022-03-18 21:36] LABS: Adenovirus Not Detected (Not Detect); Coronavirus 229E Not Detected (Not Detect); Coronavirus HKU1 Not Detected (Not Detect); Coronavirus NL 63 Not Detected (Not Detect); Coronavirus OC43 Not Detected (Not Detect); Human Metapneumovirus Not Detected (Not Detect); Human Rhinovirus/Enterovirus Detected (Not Detect); Influenza A Not Detected (Not Detect); Influenza B Not Detected (Not Detect); Parainfluenza Virus 1 Not Detected (Not Detect); Parainfluenza Virus 2 Not Detected (Not Detect); Parainfluenza Virus 3 Not Detected (Not Detect); SARS- CoV-2 Not Detected (Not Detecte)
[2022-03-18 21:37] LABS: B. parapertussis Not Detected (Not Detecte); Bordetella pertussis Not Detected (Not Detecte); Chlamydophila pneumoniae Not Detected (Not Detect); Mycoplasma pneumoniae Not Detected (Not Detect); Parainfluenza Virus 4 Not Detected (Not Detect); Respiratory Syncytial Virus Not Detected (Not Detect)
[2022-03-18] MEDS: ACETAMINOPHEN 650 MG SUPP PR (23:50)
[2022-03-19] VITALS: BMI 33.3
[2022-03-19 00:22] VITALS: TEMP 37.4
--- NOTE | 2022-03-19 00:39 | PC.WOUNDPHOT ---
right posterior leg right posterior leg/foot left leg left leg left leg coccyx/buttocks
--- NOTE | 2022-03-19 01:07 | PC.ADMIT ---
Addendum entered by Danielle Leong R.N. 03/19/22 05:19: CAD TECHNICIAN reports patient had a 5-6 beat run of v-tach. Patient asleep at the time. Original Note: [id number] [address]T [address] Admission Note: The patient,Faustino Valdez,62 y/o, was given written information regarding hospital policies, unit procedures and contact persons. Patient's smoking status: Current every day smoker. Vital Signs - 8 hr 03/18/22 19:05 03/18/22 19:11 03/18/22 19:12 Temperature 101 F H Pulse Rate 106 H 103 H Respiratory Rate 22 27 H Blood Pressure 198/98 H 177/84 H Pulse Oximetry 91 92 Oxygen Delivery Method Room Air Oxygen Flow Rate 03/18/22 19:12 03/18/22 19:15 03/18/22 19:22 Temperature Pulse Rate 99 H 101 H 99 H Respiratory Rate 26 H 27 H 26 H Blood Pressure Pulse Oximetry 88 L 99 98 Oxygen Delivery Method Nasal Cannula Oxygen Flow Rate 2 2 03/18/22 19:22 03/18/22 19:30 03/18/22 19:31 Temperature Pulse Rate 96 H 97 H Respiratory Rate 42 H 43 H Blood Pressure 181/72 H Pulse Oximetry 96 96 Oxygen Delivery Method Nasal Cannula Oxygen Flow Rate 2 2 03/18/22 19:31 03/18/22 19:45 03/18/22 20:00 Temperature Pulse Rate 96 H 107 H Respiratory Rate 27 H 31 H Blood Pressure 176/77 H Pulse Oximetry 95 94 Oxygen Delivery Method Oxygen Flow Rate 03/18/22 20:01 03/18/22 20:01 03/18/22 20:15 Temperature Pulse Rate 110 H 98 H Respiratory Rate 26 H 27 H Blood Pressure 165/78 H Pulse Oximetry 95 96 Oxygen Delivery Method Oxygen Flow Rate 03/18/22 20:30 03/18/22 20:30 03/18/22 20:45 Temperature Pulse Rate 97 H 96 H Respiratory Rate 23 22 Blood Pressure 154/69 H Pulse Oximetry 97 96 Oxygen Delivery Method Oxygen Flow Rate 03/18/22 21:00 03/18/22 21:00 03/18/22 21:15 Temperature Pulse Rate 94 H 100 H Respiratory Rate 23 22 Blood Pressure 158/69 H Pulse Oximetry 96 92 Oxygen Delivery Method Oxygen Flow Rate 03/18/22 21:30 12/24/22 21:30 03/18/22 21:45 Temperature Pulse Rate 99 H 100 H Respiratory Rate 23 23 Blood Pressure 148/66 H Pulse Oximetry 89 L 94 Oxygen Delivery Method Oxygen Flow Rate 03/18/22 22:00 03/18/22 22:00 03/18/22 22:15 Temperature 101.2 F H Pulse Rate 103 H 100 H Respiratory Rate 26 H 21 Blood Pressure 148/78 H Pulse Oximetry 97 Oxygen Delivery Method Oxygen Flow Rate 03/18/22 22:30 03/18/22 22:30 03/18/22 22:45 Temperature Pulse Rate 97 H 97 H Respiratory Rate 25 H 24 Blood Pressure 129/60 Pulse Oximetry 97 98 Oxygen Delivery Method Oxygen Flow Rate 03/18/22 23:00 03/18/22 23:00 03/18/22 23:15 Temperature Pulse Rate 97 H 96 H Respiratory Rate 27 H 24 Blood Pressure 137/66 Pulse Oximetry 98 Oxygen Delivery Method Oxygen Flow Rate 03/18/22 23:30 03/18/22 23:50 03/18/22 23:40 Temperature 101.2 F H Pulse Rate 97 H Respiratory Rate 21 Blood Pressure Pulse Oximetry 98 91 Oxygen Delivery Method Room Air Oxygen Flow Rate 0 03/18/22 23:40 03/18/22 23:55 03/19/22 00:22 Temperature 99.3 F 101.2 F H 99.3 F Pulse Rate 90 96 H Respiratory Rate 20 22 Blood Pressure 130/68 137/66 Pulse Oximetry 91 97 Oxygen Delivery Method Nasal Cannula Oxygen Flow Rate 0 2 03/19/22 01:03 Temperature Pulse Rate Respiratory Rate Blood Pressure Pulse Oximetry Oxygen Delivery Method Nasal Cannula Oxygen Flow Rate Patient is mostly sedated but does arouse to tactile stimuli, will answer question briefly and then falls right back to sleep. Was oriented to self, birthdate, month, place and states she came to ER due to fever. Breath sounds coarse with inspiratory/expiratory rhonchi and expiratory wheezing. RA sat was 91% so placed on oxygen at 1L/min per NC. HRR w/telemetry reading of SR. BT present and abdomen is soft. Indwelling catheter is patent; urine is clear, yellow. Is able to move herself in bed. Gait not assessed at this time but reports she uses a cane at home to ambulate. Pressure injury, stage 2 on coccyx. Alligator texture skin bilateral LE with multiple skin ulcers due to chronic venous stasis. See wound pictures in chart. According to past records she has history of venous stasis ulcers with cellulitis and has been seen at wound clinic but is not always compliant with appointments/care of wounds. Denies pain. Had fever in ER but is currently 99.3 after receiving Tylenol in ER prior to admission. Patient placed in isolation as is positive for entero/rhino virus. Fall risk score is high and bed alarm is activated. Unable to orient to bed controls or call light due to altered mental status.
--- NOTE | 2022-03-19 01:16 | PM.HP.1 ---
History of Present Illness History of Present Illness Date Patient Seen: 03/18/22 Time Patient Seen: 23:55 Chief complaint: Altered mental status Narrative: Faustino Valdez is 62-year-old woman with a history of hypertension, hypothyroidism, chronic lower extremity wounds, history of kidney stones, and polysubstance abuse who lives in a housing situation with significant hoarding issues with altered mental status per the paramedics who transported her to the Ed after her significant other called 911.? Medics found her lying over her knees with her head between her knees saying that her back hurt and unable to respond in any other meaningful way.? She has a history of both methamphetamine and opioid use disorder.? Records from prior hospitalizations are reviewed for medical history and indicate hypertension, hypothyroidism chronic lower extremity wounds, history of kidney stones.??I am unable to obtain a history as she is very lethargic and keeps falling asleep while speaking and has very garbled speech. Chest xray done in the ED today reported findings concerning for atelectasis and/or concurrent infection. T-max was 101.2, blood pressure 137/66 heart rate 96 respiratory rate 22, oxygen saturation of 97% on 2 L she weighs 85.5 kg with a BMI of 33.3. She does have elevated white count at 21.3 with a left shift of 19,000 creatinine is 1.62 with an EGFR of 35 glucose 114 alk-phos 133 and her procalcitonin was 1.08. UA did not indicate a need for culture, urine toxicology was positive for opiates, amphetamines and methamphetamines, COVID-19 PCR was negative, entero/ rhino virus was detected on PCR. Patient History Medical History History of renal failure Hypertension Hypothyroid Kidney stones Renal failure (ARF), acute on chronic Family & Social History Family history unavailable: Yes Social History: household members significant other,friend(s) Safety & Behavioral: Feels Safe in Current Unwilling to Answer Environment Been Physically Hurt or Unwilling to Answer Threatened By a Person Tobacco & Substance use: Tobacco type cigarettes Smoking Status Current every day smoker Smoking packs per day 0.5 alcohol intake never alcohol intake frequency 0-2 drinks per day Substance Use Type amphetamines,opiates,methamphetamine Meds Home Medications and Allergies Home Medications Medication Instructions Recorded Confirmed Type levothyroxine 75 mcg tablet 75 mcg PO DAILY #30 tabs 04/29/18 01/22/19 Rx acetaminophen 325 mg tablet 325 mg PO TID PRN pain 01/01/19 01/22/19 History (Tylenol) ondansetron HCl 4 mg tablet 4 mg PO TID PRN Nausea 01/01/19 01/22/19 History silver sulfadiazine 1 % topical 1 applic topical BID 01/01/19 01/22/19 History cream (SSD) L.acidophilus-L.bulgar-B.bifid-S.thermoph 1 ea PO TIDWM #30 tabs 01/24/19 Rx 1 billion cell-250 mg tablet (Bacid) clindamycin HCl 300 mg capsule 300 mg PO QID #36 caps 01/24/19 Rx levofloxacin 500 mg tablet 500 mg PO DAILY #9 tabs 01/24/19 Rx cephalexin 500 mg capsule 500 mg PO QID #20 caps 12/31/19 Rx Allergies Allergy/AdvReac Type Severity Reaction Status Date / Time No Known Drug Allergies Allergy Verified 04/29/18 01:53 Review of Systems Review of Systems ROS: Yes unobtainable due to mental status Exam Vital Signs (past 8 hours): - 03/18/22 19:05 03/18/22 19:11 03/18/22 19:12 Temperature 101 F H Pulse Rate 106 H 103 H Respiratory Rate 22 27 H Blood Pressure 198/98 H 177/84 H Pulse Oximetry 91 92 Oxygen Delivery Method Room Air Oxygen Flow Rate 03/18/22 19:12 03/18/22 19:15 03/18/22 19:22 Temperature Pulse Rate 99 H 101 H 99 H Respiratory Rate 26 H 27 H 26 H Blood Pressure Pulse Oximetry 88 L 99 98 Oxygen Delivery Method Nasal Cannula Oxygen Flow Rate 2 2 03/18/22 19:22 03/18/22 19:30 03/18/22 19:31 Temperature Pulse Rate 96 H 97 H Respiratory Rate 42 H 43 H Blood Pressure 181/72 H Pulse Oximetry 96 96 Oxygen Delivery Method Nasal Cannula Oxygen Flow Rate 2 2 03/18/22 19:31 03/18/22 19:45 03/18/22 20:00 Temperature Pulse Rate 96 H 107 H Respiratory Rate 27 H 31 H Blood Pressure 176/77 H Pulse Oximetry 95 94 Oxygen Delivery Method Oxygen Flow Rate 03/18/22 20:01 03/18/22 20:01 03/18/22 20:15 Temperature Pulse Rate 110 H 98 H Respiratory Rate 26 H 27 H Blood Pressure 165/78 H Pulse Oximetry 95 96 Oxygen Delivery Method Oxygen Flow Rate 03/18/22 20:30 03/18/22 20:30 03/18/22 20:45 Temperature Pulse Rate 97 H 96 H Respiratory Rate 23 22 Blood Pressure 154/69 H Pulse Oximetry 97 96 Oxygen Delivery Method Oxygen Flow Rate 03/18/22 21:00 03/18/22 21:00 03/18/22 21:15 Temperature Pulse Rate 94 H 100 H Respiratory Rate 23 22 Blood Pressure 158/69 H Pulse Oximetry 96 92 Oxygen Delivery Method Oxygen Flow Rate 03/18/22 21:30 03/18/22 21:30 03/18/22 21:45 Temperature Pulse Rate 99 H 100 H Respiratory Rate 23 23 Blood Pressure 148/66 H Pulse Oximetry 89 L 94 Oxygen Delivery Method Oxygen Flow Rate 03/18/22 22:00 03/18/22 22:00 03/18/22 22:15 Temperature 101.2 F H Pulse Rate 103 H 100 H Respiratory Rate 26 H 21 Blood Pressure 148/78 H Pulse Oximetry 97 Oxygen Delivery Method Oxygen Flow Rate 03/18/22 22:30 03/18/22 22:30 03/18/22 22:45 Temperature Pulse Rate 97 H 97 H Respiratory Rate 25 H 24 Blood Pressure 129/60 Pulse Oximetry 97 98 Oxygen Delivery Method Oxygen Flow Rate 03/18/22 23:00 03/18/22 23:00 03/18/22 23:15 Temperature Pulse Rate 97 H 96 H Respiratory Rate 27 H 24 Blood Pressure 137/66 Pulse Oximetry 98 Oxygen Delivery Method Oxygen Flow Rate 03/18/22 23:30 03/18/22 23:50 03/18/22 23:40 Temperature 101.2 F H Pulse Rate 97 H Respiratory Rate 21 Blood Pressure Pulse Oximetry 98 91 Oxygen Delivery Method Room Air Oxygen Flow Rate 0 03/18/22 23:40 03/18/22 23:55 03/19/22 00:22 Temperature 99.3 F 101.2 F H 99.3 F Pulse Rate 90 96 H Respiratory Rate 20 22 Blood Pressure 130/68 137/66 Pulse Oximetry 91 97 Oxygen Delivery Method Nasal Cannula Oxygen Flow Rate 0 2 03/19/22 01:03 Temperature Pulse Rate Respiratory Rate Blood Pressure Pulse Oximetry Oxygen Delivery Method Nasal Cannula Oxygen Flow Rate Oxygen Delivery Method Nasal Cannula Oxygen Flow Rate 2 Narrative Exam Narrative: Gen: arousable to pain, obese and very ill appearing 62 y.o. female, very lethargic HEENT: normocephalic, atraumatic, conjunctiva clear, sclera non-icteric, oral mucosa pink and moist Neck: supple, full ROM, no JVD, trachea is midline Resp: Course lung sounds, non-labored breathing CV: RRR, no murmur or rubs Abd: soft, non-tender, normoactive BTs Skin: +3 pitting edema, weeping, tissue sloughing, and excoriated bilateral lower extremities. Neuro: GCS 12, responsive to negative stimuli Extremities: not ambulatory Psyche: normal mood and affect. Objective Labs Result Diagrams: 03/18/22 19:20 03/18/22 19:20 Labs: Laboratory Results - last 24 hr 03/18/22 03/18/22 03/18/22 19:05 19:05 19:05 WBC RBC Hgb Hct MCV MCH MCHC RDW Plt Count Neut % (Auto) Lymph % (Auto) [place] % (Auto) Eos % (Auto) Baso % (Auto) Neut # (Auto) Lymph # (Auto) [place] # (Auto) Eos # (Auto) Baso # (Auto) PT INR APTT Sodium Potassium Chloride Carbon Dioxide BUN Creatinine Estimated GFR BUN/Creatinine Ratio Glucose Lactate Calcium Total Bilirubin AST ALT Alkaline Phosphatase Ammonia Total Creatine Kinase CK-MB (CK-2) CK-MB (CK-2) Rel Index Troponin I Total Protein Albumin Globulin Albumin/Globulin Ratio Procalcitonin Urine Color Yellow Urine Appearance Clear Urine pH 5.5 Ur Specific [place] 1.015 Urine Protein 2+ H Urine Glucose (UA) Negative Urine Ketones Negative Urine Occult Blood 2+ H Urine Nitrate Negative Urine Bilirubin Negative Urine Urobilinogen 0.2 Ur Leukocyte Esterase Negative Urine RBC 1-5/hpf Urine WBC 0-1/hpf Ur Squamous Epith Cells 0-1 /hpf Amorphous Sediment 1+ Urine Bacteria Occasional (0-1) U Opiates 300ng/mL cut Positive H Ur Oxycodone Screen Negative Urine Methadone Screen Negative Acetaminophen Ur Barbiturates Screen Negative U Tricyclic Antidepress Negative Ur Phencyclidine Scrn Negative Ur Amphetamines Screen Positive H U Methamphetamines Scrn Positive H Ur MDMA Scrn (Ecstasy) Negative U Benzodiazepines Scrn Negative Urine Cocaine Screen Negative U Marijuana (THC) Screen Negative Ethyl Alcohol Chlamy pneumoniae PCR Not detected Adenovirus (PCR) Not detected B. pertussis DNA (PCR) Not detected B.parapertussis DNA PCR Not detected Coronavirus OC43 (PCR) Not detected Coronavirus HKU1 (PCR) Not detected Coronavirus 229E (PCR) Not detected SARS-CoV-2 (PCR) Not detected Coronavirus NL63 (PCR) Not detected Human Metapneumovir PCR Not detected Influenza Type A (PCR) Not detected Influenza Type B (PCR) Not detected M. pneumoniae (PCR) Not detected Parainfluenza 1 (PCR) Not detected Parainfluenza 2 (PCR) Not detected Parainfluenza 3 (PCR) Not detected Parainfluenza 4 (PCR) Not detected RSV (PCR) Not detected Entero/Rhino (PCR) Detected H 03/18/22 03/18/22 03/18/22 19:20 19:20 19:20 WBC 21.3 H RBC 4.26 Hgb 11.6 L Hct 37.1 MCV 87.1 MCH 27.3 MCHC 31.3 RDW 16.2 H Plt Count 310 Neut % (Auto) 89.2 H Lymph % (Auto) 4.5 L [place] % (Auto) 5.8 Eos % (Auto) 0.1 L Baso % (Auto) 0.4 Neut # (Auto) 44461 H Lymph # (Auto) 1000 L [place] # (Auto) 1200 H Eos # (Auto) 0 Baso # (Auto) 100 PT 13.6 H INR 1.2 APTT 31 Sodium 138 Potassium 4.3 Chloride 103 Carbon Dioxide 24 BUN 30 H Creatinine 1.62 H Estimated GFR 35 L BUN/Creatinine Ratio 18.5 Glucose 114 H Lactate Calcium 9.0 Total Bilirubin 0.9 AST 24 ALT 19 Alkaline Phosphatase 133 H Ammonia Total Creatine Kinase 88 CK-MB (CK-2) TNP CK-MB (CK-2) Rel Index TNP Troponin I 0.032 Total Protein 9.7 H Albumin 4.1 Globulin 5.6 H Albumin/Globulin Ratio 0.7 L Procalcitonin 1.08 H Urine Color Urine Appearance Urine pH Ur Specific [place] Urine Protein Urine Glucose (UA) Urine Ketones Urine Occult Blood Urine Nitrate Urine Bilirubin Urine Urobilinogen Ur Leukocyte Esterase Urine RBC Urine WBC Ur Squamous Epith Cells Amorphous Sediment Urine Bacteria U Opiates 300ng/mL cut Ur Oxycodone Screen Urine Methadone Screen Acetaminophen < 10 Ur Barbiturates Screen U Tricyclic Antidepress Ur Phencyclidine Scrn Ur Amphetamines Screen U Methamphetamines Scrn Ur MDMA Scrn (Ecstasy) U Benzodiazepines Scrn Urine Cocaine Screen U Marijuana (THC) Screen Ethyl Alcohol < 10 Chlamy pneumoniae PCR Adenovirus (PCR) B. pertussis DNA (PCR) B.parapertussis DNA PCR Coronavirus OC43 (PCR) Coronavirus HKU1 (PCR) Coronavirus 229E (PCR) SARS-CoV-2 (PCR) Coronavirus NL63 (PCR) Human Metapneumovir PCR Influenza Type A (PCR) Influenza Type B (PCR) M. pneumoniae (PCR) Parainfluenza 1 (PCR) Parainfluenza 2 (PCR) Parainfluenza 3 (PCR) Parainfluenza 4 (PCR) RSV (PCR) Entero/Rhino (PCR) 03/18/22 03/18/22 19:20 20:00 WBC RBC Hgb Hct MCV MCH MCHC RDW Plt Count Neut % (Auto) Lymph % (Auto) [place] % (Auto) Eos % (Auto) Baso % (Auto) Neut # (Auto) Lymph # (Auto) [place] # (Auto) Eos # (Auto) Baso # (Auto) PT INR APTT Sodium Potassium Chloride Carbon Dioxide BUN Creatinine Estimated GFR BUN/Creatinine Ratio Glucose Lactate 1.5 Calcium Total Bilirubin AST ALT Alkaline Phosphatase Ammonia < 9 L Total Creatine Kinase CK-MB (CK-2) CK-MB (CK-2) Rel Index Troponin I Total Protein Albumin Globulin Albumin/Globulin Ratio Procalcitonin Urine Color Urine Appearance Urine pH Ur Specific [place] Urine Protein Urine Glucose (UA) Urine Ketones Urine Occult Blood Urine Nitrate Urine Bilirubin Urine Urobilinogen Ur Leukocyte Esterase Urine RBC Urine WBC Ur Squamous Epith Cells Amorphous Sediment Urine Bacteria U Opiates 300ng/mL cut Ur Oxycodone Screen Urine Methadone Screen Acetaminophen Ur Barbiturates Screen U Tricyclic Antidepress Ur Phencyclidine Scrn Ur Amphetamines Screen U Methamphetamines Scrn Ur MDMA Scrn (Ecstasy) U Benzodiazepines Scrn Urine Cocaine Screen U Marijuana (THC) Screen Ethyl Alcohol Chlamy pneumoniae PCR Adenovirus (PCR) B. pertussis DNA (PCR) B.parapertussis DNA PCR Coronavirus OC43 (PCR) Coronavirus HKU1 (PCR) Coronavirus 229E (PCR) SARS-CoV-2 (PCR) Coronavirus NL63 (PCR) Human Metapneumovir PCR Influenza Type A (PCR) Influenza Type B (PCR) M. pneumoniae (PCR) Parainfluenza 1 (PCR) Parainfluenza 2 (PCR) Parainfluenza 3 (PCR) Parainfluenza 4 (PCR) RSV (PCR) Entero/Rhino (PCR) Assessment & Plan Assessment & Plan narrative: Faustino Valdez is admitted for further management and treatment of bilateral cellulitis of her lower extremities and probable toxic metabolic encephalopathy in the setting of methamphetamine and opioid dependence. Bilateral cellulitis of her lower extremities She was administered IV zosyn and vancomycin in the ED. Will continue vancomycin until blood cultures are resulted Toxic metabolic encephalopathy in the setting of methamphetamine and opioid dependence. Monitor for withdrawal signs Ativan prn Currently very lethargic telemetry Echo ordered Hypothyroidism, chronic TSH w/am labs She is continued on home dose of levothyroxine 75 mcg daily VTE Prophylaxis: Wells risk score 1.5 [X]Enoxaparin 40 mg subQ once daily Patient is admitted to the inpatient service due to the severity of disease, risks of further disease progression and this stay is expected to exceed 2 midnights. FEN: IV fluids: saline lock, diet: NPO until more alert, labs: CBC, C/BMP, liver enzymes, Mag, PT/INR Consultants None care and involvement in the patient?s care is appreciated. Dispo: Unknown at this time Code status: Full code presumed until patient is able to inform. [X] I have utilized all available immediate resources to obtain, update, or review of the patient's current medications VTE Deep Vein Thrombosis/Pulmonary Embolism Present on Admission: No MIPS - Admit I confirm the patient?s Advance Care Plan is present, Code status is documented, Surrogate decision maker is in patient?s record: Yes MIPS - DC The patient has current or prior documentation of left ventricular ejection fraction (LVEF) less than 40%, or moderate or severely depressed left ventricular systolic function.: No COVID-19 COVID-19 status: Negative Result date/Date tested (Pos, Neg/Pending): 03/18/22 Scores GCS [place] coma scale eye opening: To sound [place] coma scale verbal response: Confused [place] coma scale motor response: Localising [place] coma scale total score: 12 Wells' Criteria for PE Clinical signs and symptoms of DVT: No PE is #1 Dx or equally likely: No Heart rate > 100: Yes Immobilization at least 3 days or surg in previous 4 weeks: No History of PE or DVT: No Hemoptysis: No Malignancy w/Treatment within 6 months or palliative: No Wells' PE Score total: 1.5
[2022-03-19 05:25] VITALS: BP 143/65; PULSE 85; RESP 20; TEMP 37.4; O2SAT 95
[2022-03-19 09:00] VITALS: BP 142/60; PULSE 86; RESP 21; TEMP 36.4; O2SAT 97
[2022-03-19 09:17] LABS: Add Manual Diff / Slide Review NO; Basophils Absolute Auto 100 /uL (0-100); Basophils Percent Auto 0.5 % (0-2); Eosinophils Absolute Auto 0 /uL (0-450); Hematocrit 32.2 % (36-46); Hemoglobin 10.2 g/dL (12.0-16.0); Lymphocytes Absolute Auto 2000 /uL (1100-4500); Lymphocytes Percent Auto 9.2 % (25-40); Mean Corpuscular HGB Conc 31.7 % (30-36); Mean Corpuscular Hemoglobin 27.5 PG (26-34); Mean Corpuscular Volume 86.8 fL (80-100); Monocytes Absolute Auto 900 /uL (0-900); Monocytes Percent Auto 4.4 % (3-14); Neutrophils Absolute Auto 18400 /uL (1500-7000); Neutrophils Percent Auto 85.9 % (50-75); Platelet Count 254 X10^3/uL (150-400); Red Blood Cell Count 3.71 X10^6/uL (4.0-5.2); Red Cell Distribution Width 16.3 % (11.6-14.8); White Blood Cell Count 21.4 X10^3/uL (4.5-11.0)
[2022-03-19] MEDS: HYDROCODONE/ACET 5/325 TABLET 1 TAB PO (09:36)
[2022-03-19] MEDS: CLINDAMYCIN 900 MG/50 ML PIGGYBACK 50 MG IV (09:37)
[2022-03-19] MEDS: ENOXAPARIN 40 MG/0.4 ML SYRINGE SUBCUT (09:37)
[2022-03-19 09:48] LABS: Alanine Aminotransferase 16 IU/L (<35); Albumin 3.3 g/dL (3.5-5.0); Albumin Globulin Ratio 0.7 (1.0-2.8); Alkaline Phosphatase 94 U/L (38-126); Aspartate Aminotransferase 27 IU/L (14-36); BUN Creatinine Ratio 17.7 (6-22); Bilirubin Total 0.7 mg/dL (0.2-1.3); Blood Urea Nitrogen 26 mg/dL (7-17); Calcium 8.3 mg/dL (8.4-10.2); Carbon Dioxide 22 mmol/L (22-32); Chloride 107 mmol/L (98-107); Estimated Glomerular Filt Rate 40 mL/min (>60); Globulin 4.7 g/dL (1.7-4.1); Glucose 106 mg/dL (80-110); HEMOLYSIS 26 (0-50); Magnesium 1.8 mg/dL (1.6-2.3); Potassium 3.9 mmol/L (3.4-5.1); Sodium 138 mmol/L (137-145)
--- NOTE | 2022-03-19 10:28 | PC.NURSE ---
Addendum entered by Anisha Buenrostro R.N. 03/19/22 11:41: Lab phoned, and patient is has + blood cultures growing out streptococcus. Dr. Kraft aware, and will talk to Dr. Arrington. Patient may have to come back. Addendum entered by Anisha Buenrostro R.N. 03/19/22 10:37: Patient was given vicodin this morning, and her will be the one to drive patient home. Original Note: Patient is leaving AMA. wrote some orders for antibiotics to be sent to [facility]. outlined patients cellulitis to her r.upper leg and patient agrees to come back to hospital if cellulitis gets worse.
[2022-03-19 10:33] LABS: Thyroid Stimulating Hormone 0.612 uIU/mL (0.47-4.68)
[2022-03-19 11:33] LABS: Acinetobacter baumannii Not Detected (Not Detect); Candida albicans Not Detected (Not Detect); Candida glabrata Not Detected (Not Detect); Candida krusei Not Detected (Not Detect); Candida parapsilosis Not Detected (Not Detect); Candida tropicalis Not Detected (Not Detect); E. coli Not Detected (Not Detect); Enterobacter cloacae complex Not Detected (Not Detect); Enterobacteriaceae species Not Detected (Not Detect); Enterococcus species Not Detected (Not Detect); Haemophilus influenzae Not Detected (Not Detect); Listeria monocytogenes Not Detected (Not Detect); Neisseria meningitidis Not Detected (Not Detect); Proteus species Not Detected (Not Detect); Pseudomonas aeruginosa Not Detected (Not Detect); Serratia marcescens Not Detected (Not Detect); Staphylococcus species Not Detected (Not Detect); Streptococcus agalactiae (Gr B Not Detected (Not Detect); Streptococcus pneumonia Not Detected (Not Detect); Streptococcus pyogenes (Gr A) Not Detected (Not Detect); Streptococcus species Detected (Not Detect)
--- NOTE | 2022-03-19 11:52 | CM.DPNOTE ---
DCP Note: Per RN and MD, pt has left AMA. Unable to do assess due to pt having left from hospital. Minda Escobar, RN/DCP
--- NOTE | 2022-03-19 13:48 | P.DS_ITS ---
History of Present Illness History of Present Illness Chief complaint: Altered mental status Narrative: Per history and physical earlier this morning: Faustino Valdez is 62-year-old woman with a history of hypertension, hypothyroidism, chronic lower extremity wounds, history of kidney stones, and polysubstance abuse who lives in a housing situation with significant hoarding issues with altered mental status per the paramedics who transported her to the Ed after her significant other called 911.? Medics found her lying over her knees with her head between her knees saying that her back hurt and unable to respond in any other meaningful way.? She has a history of both methamphetamine and opioid use disorder.? Records from prior hospitalizations are reviewed for medical history and indicate hypertension, hypothyroidism chronic lower extremity wounds, history of kidney stones.??I am unable to obtain a history as she is very lethargic and keeps falling asleep while speaking and has very garbled speech. Chest xray done in the ED today reported findings concerning for atelectasis and/or concurrent infection.? T-max was 101.2, blood pressure 137/66 heart rate 96 respiratory rate 22, oxygen saturation of 97% on 2 L she weighs 85.5 kg with a BMI of 33.3.? She does have elevated white count at 21.3 with a left shift of 19,000 creatinine is 1.62 with an EGFR of 35 glucose 114 alk-phos 133 and her procalcitonin was 1.08.? UA did not indicate a need for culture, urine toxicology was positive for opiates, amphetamines and methamphetamines, COVID-19 PCR was negative, entero/ rhino virus was detected on PCR. Discharge Providers Provider Date of admission: 03/18/22 21:56 Discharge Date: 03/19/22 Primary care physician: Alberto Gaytan MD Consults: 03/19/22 00:11 Consult to Dietitian, Adult Routine Comment: Reason For Exam: MNA score = 11 Consult to Credit Counselor Routine Comment: Discharge provider: Vidhi Arrington MD Summary Hospital Course Discharge Diagnosis: Bilateral lower extremity cellulitis Toxic metabolic encephalopathy in the setting of methamphetamine and opioid dependence Chronic hypothyroidism Hypertension RIZWAN in the setting of CKD 3 Polysubstance dependence/abuse Enterovirus/rhinovirus Strep bacteremia in at least 3/4 blood cultures Proteinuria/hematuria Leukocytosis Chronic normocytic anemia Hospital Course: 62-year-old female with hypertension, hypothyroidism, chronic lower extremity wounds, prior kidney stones, and active polysubstance abuse who was admitted early this morning secondary to acute toxic encephalopathy and bilateral lower extremity cellulitis. Patient was brought to the hospital via EMS for altered mental status. She was noted to be febrile to 101.2?. She was mildly tachycardic. She was notably confused. Patient was admitted and placed on broad-spectrum IV antibiotics, including cefepime, clindamycin, and vancomycin. Patient was noted to have significant leukocytosis with white blood cell count of 21.4. Blood cultures were performed in the emergency department. Patient defervesced overnight and her mentation cleared. She was alert and oriented x3. She advised nursing that she intended to discharge against medical advice. I presented to the room to discuss the situation further with her. She is quite adamant that she is going to discharge. I explained that she has extensive cellulitis and swelling to her right leg, which increases risk of poor healing and development of systemic symptoms such as sepsis. Advised that she could as a consequence of sepsis. She expressed shock about that possibility but still was adamant about discharging home. She did agree to cherry picker operator antibiotics which I will send to [facility] in [place]. She also allowed me to use a skin pen to alec the present outlines of the cellulitis to her right leg. Encouraged her to keep her leg elevated as much as possible, take all antibiotics, and to return to the emergency department should she develop increasing erythema, fevers/chills, or inability to hold down food or fluids. Patient is aware she has high risk for morbidity and mortality. Unfortunately, shortly after she discharged, blood cultures did return with a report of 4/4 positive for strep bacteria. The charge nurse attempted to contact her via all numbers that were listed without success. I subsequently called the patient's listed cell phone which is non service. I did leave a message on home phone to contact us as soon as possible. Should she return a call, she will be encouraged to present back to the emergency department for direct admission and ongoing IV antibiotics. Although she did elect to leave Against Medical Advice, I did send prescriptions for oral Levaquin and clindamycin to the local pharmacy. Status at Discharge Cognitive/behavioral status at discharge: at baseline, oriented Functional status at discharge: independent ambulation Overall status at discharge: patient is not back to baseline Time Spent with Patient Time spent: Less than 30 minutes Exam Vital Signs (past 8 hours): - 03/19/22 09:00 Temperature 97.6 F Pulse Rate 86 Respiratory Rate 21 Blood Pressure 142/60 H Pulse Oximetry 97 Oxygen Flow Rate 1 Oxygen Delivery Method Nasal Cannula Oxygen Flow Rate 1 Narrative Exam Narrative: GEN: Disheveled-appearing middle-aged female, Alert and oriented x 3, NAD HEENT:NC, Face symmetric CHEST: Respiratory excursions symmetric, coarse with scattered expiratory wheezes CV: RRR, no M/R/G ABD: Soft, NT/ND, BT present in all 4 quadrants, no organomegaly or masses EXTR: warm, well perfused, no C/C, bilateral lower extremities with diffuse venous stasis changes, weeping edema noted to the right pretibial region, erythema and warmth extends proximally to the medial thigh, posteriorly approximately 7 cm above the popliteal fossa, and anteriorly to the mid thigh SKIN: warm and dry, no rash NEURO: Alert and oriented x 3, nonfocal Objective Labs Result Diagrams: 03/19/22 08:45 03/19/22 08:45 Labs: Laboratory Results - last 24 hr 03/18/22 03/18/22 03/18/22 19:05 19:05 19:05 WBC RBC Hgb Hct MCV MCH MCHC RDW Plt Count Neut % (Auto) Lymph % (Auto) [place] % (Auto) Eos % (Auto) Baso % (Auto) Neut # (Auto) Lymph # (Auto) [place] # (Auto) Eos # (Auto) Baso # (Auto) PT INR APTT Sodium Potassium Chloride Carbon Dioxide BUN Creatinine Estimated GFR BUN/Creatinine Ratio Glucose Lactate Calcium Magnesium Total Bilirubin AST ALT Alkaline Phosphatase Ammonia Total Creatine Kinase CK-MB (CK-2) CK-MB (CK-2) Rel Index Troponin I Total Protein Albumin Globulin Albumin/Globulin Ratio Procalcitonin TSH Urine Color Yellow Urine Appearance Clear Urine pH 5.5 Ur Specific [place] 1.015 Urine Protein 2+ H Urine Glucose (UA) Negative Urine Ketones Negative Urine Occult Blood 2+ H Urine Nitrate Negative Urine Bilirubin Negative Urine Urobilinogen 0.2 Ur Leukocyte Esterase Negative Urine RBC 1-5/hpf Urine WBC 0-1/hpf Ur Squamous Epith Cells 0-1 /hpf Amorphous Sediment 1+ Urine Bacteria Occasional (0-1) U Opiates 300ng/mL cut Positive H Ur Oxycodone Screen Negative Urine Methadone Screen Negative Acetaminophen Ur Barbiturates Screen Negative U Tricyclic Antidepress Negative Ur Phencyclidine Scrn Negative Ur Amphetamines Screen Positive H U Methamphetamines Scrn Positive H Ur MDMA Scrn (Ecstasy) Negative U Benzodiazepines Scrn Negative Urine Cocaine Screen Negative U Marijuana (THC) Screen Negative Ethyl Alcohol A. baumannii (PCR) Chlamy pneumoniae PCR Not detected Adenovirus (PCR) Not detected B. pertussis DNA (PCR) Not detected B.parapertussis DNA PCR Not detected Jeannie albicans (PCR) C. glabrata (PCR) C. krusei (PCR) C. parapsilosis (PCR) C. tropicalis (PCR) Coronavirus OC43 (PCR) Not detected Coronavirus HKU1 (PCR) Not detected Coronavirus 229E (PCR) Not detected SARS-CoV-2 (PCR) Not detected Coronavirus NL63 (PCR) Not detected Enterobacteriac sp PCR E. cloacae complex PCR Enterococcus sp PCR E. coli (PCR) H. influenzae (PCR) Human Metapneumovir PCR Not detected Influenza Type A (PCR) Not detected Influenza Type B (PCR) Not detected Klebsiella oxytoca PCR Klebsiella pneumoniae List. monocytogenes PCR M. pneumoniae (PCR) Not detected N. meningitidis (PCR) Parainfluenza 1 (PCR) Not detected Parainfluenza 2 (PCR) Not detected Parainfluenza 3 (PCR) Not detected Parainfluenza 4 (PCR) Not detected Proteus species (PCR) RSV (PCR) Not detected Entero/Rhino (PCR) Detected H Serratia marcescens PCR Staphylococcus sp PCR Staph aureus (PCR) mecA-Methicil Res Gene Streptococcus sp PCR Group A Strep (PCR) Strep agalactiae (PCR) Strep pneumoniae (PCR) P. aeruginosa (PCR) Alexis/B-Vanco Res Genes KPC-Carbap Res Gene PCR 03/18/22 03/18/22 03/18/22 19:20 19:20 19:20 WBC 21.3 H RBC 4.26 Hgb 11.6 L Hct 37.1 MCV 87.1 MCH 27.3 MCHC 31.3 RDW 16.2 H Plt Count 310 Neut % (Auto) 89.2 H Lymph % (Auto) 4.5 L [place] % (Auto) 5.8 Eos % (Auto) 0.1 L Baso % (Auto) 0.4 Neut # (Auto) 81432 H Lymph # (Auto) 1000 L [place] # (Auto) 1200 H Eos # (Auto) 0 Baso # (Auto) 100 PT 13.6 H INR 1.2 APTT 31 Sodium 138 Potassium 4.3 Chloride 103 Carbon Dioxide 24 BUN 30 H Creatinine 1.62 H Estimated GFR 35 L BUN/Creatinine Ratio 18.5 Glucose 114 H Lactate Calcium 9.0 Magnesium Total Bilirubin 0.9 AST 24 ALT 19 Alkaline Phosphatase 133 H Ammonia Total Creatine Kinase 88 CK-MB (CK-2) TNP CK-MB (CK-2) Rel Index TNP Troponin I 0.032 Total Protein 9.7 H Albumin 4.1 Globulin 5.6 H Albumin/Globulin Ratio 0.7 L Procalcitonin 1.08 H TSH Urine Color Urine Appearance Urine pH Ur Specific [place] Urine Protein Urine Glucose (UA) Urine Ketones Urine Occult Blood Urine Nitrate Urine Bilirubin Urine Urobilinogen Ur Leukocyte Esterase Urine RBC Urine WBC Ur Squamous Epith Cells Amorphous Sediment Urine Bacteria U Opiates 300ng/mL cut Ur Oxycodone Screen Urine Methadone Screen Acetaminophen < 10 Ur Barbiturates Screen U Tricyclic Antidepress Ur Phencyclidine Scrn Ur Amphetamines Screen U Methamphetamines Scrn Ur MDMA Scrn (Ecstasy) U Benzodiazepines Scrn Urine Cocaine Screen U Marijuana (THC) Screen Ethyl Alcohol < 10 A. baumannii (PCR) Chlamy pneumoniae PCR Adenovirus (PCR) B. pertussis DNA (PCR) B.parapertussis DNA PCR Jeannie albicans (PCR) C. glabrata (PCR) C. krusei (PCR) C. parapsilosis (PCR) C. tropicalis (PCR) Coronavirus OC43 (PCR) Coronavirus HKU1 (PCR) Coronavirus 229E (PCR) SARS-CoV-2 (PCR) Coronavirus NL63 (PCR) Enterobacteriac sp PCR E. cloacae complex PCR Enterococcus sp PCR E. coli (PCR) H. influenzae (PCR) Human Metapneumovir PCR Influenza Type A (PCR) Influenza Type B (PCR) Klebsiella oxytoca PCR Klebsiella pneumoniae List. monocytogenes PCR M. pneumoniae (PCR) N. meningitidis (PCR) Parainfluenza 1 (PCR) Parainfluenza 2 (PCR) Parainfluenza 3 (PCR) Parainfluenza 4 (PCR) Proteus species (PCR) RSV (PCR) Entero/Rhino (PCR) Serratia marcescens PCR Staphylococcus sp PCR Staph aureus (PCR) mecA-Methicil Res Gene Streptococcus sp PCR Group A Strep (PCR) Strep agalactiae (PCR) Strep pneumoniae (PCR) P. aeruginosa (PCR) Alexis/B-Vanco Res Genes KPC-Carbap Res Gene PCR 03/18/22 03/18/22 03/18/22 19:20 19:22 20:00 WBC RBC Hgb Hct MCV MCH MCHC RDW Plt Count Neut % (Auto) Lymph % (Auto) [place] % (Auto) Eos % (Auto) Baso % (Auto) Neut # (Auto) Lymph # (Auto) [place] # (Auto) Eos # (Auto) Baso # (Auto) PT INR APTT Sodium Potassium Chloride Carbon Dioxide BUN Creatinine Estimated GFR BUN/Creatinine Ratio Glucose Lactate 1.5 Calcium Magnesium Total Bilirubin AST ALT Alkaline Phosphatase Ammonia < 9 L Total Creatine Kinase CK-MB (CK-2) CK-MB (CK-2) Rel Index Troponin I Total Protein Albumin Globulin Albumin/Globulin Ratio Procalcitonin TSH Urine Color Urine Appearance Urine pH Ur Specific [place] Urine Protein Urine Glucose (UA) Urine Ketones Urine Occult Blood Urine Nitrate Urine Bilirubin Urine Urobilinogen Ur Leukocyte Esterase Urine RBC Urine WBC Ur Squamous Epith Cells Amorphous Sediment Urine Bacteria U Opiates 300ng/mL cut Ur Oxycodone Screen Urine Methadone Screen Acetaminophen Ur Barbiturates Screen U Tricyclic Antidepress Ur Phencyclidine Scrn Ur Amphetamines Screen U Methamphetamines Scrn Ur MDMA Scrn (Ecstasy) U Benzodiazepines Scrn Urine Cocaine Screen U Marijuana (THC) Screen Ethyl Alcohol A. baumannii (PCR) Not detected Chlamy pneumoniae PCR Adenovirus (PCR) B. pertussis DNA (PCR) B.parapertussis DNA PCR Jeannie albicans (PCR) Not detected C. glabrata (PCR) Not detected C. krusei (PCR) Not detected C. parapsilosis (PCR) Not detected C. tropicalis (PCR) Not detected Coronavirus OC43 (PCR) Coronavirus HKU1 (PCR) Coronavirus 229E (PCR) SARS-CoV-2 (PCR) Coronavirus NL63 (PCR) Enterobacteriac sp PCR Not detected E. cloacae complex PCR Not detected Enterococcus sp PCR Not detected E. coli (PCR) Not detected H. influenzae (PCR) Not detected Human Metapneumovir PCR Influenza Type A (PCR) Influenza Type B (PCR) Klebsiella oxytoca PCR Not detected Klebsiella pneumoniae Not detected List. monocytogenes PCR Not detected M. pneumoniae (PCR) N. meningitidis (PCR) Not detected Parainfluenza 1 (PCR) Parainfluenza 2 (PCR) Parainfluenza 3 (PCR) Parainfluenza 4 (PCR) Proteus species (PCR) Not detected RSV (PCR) Entero/Rhino (PCR) Serratia marcescens PCR Not detected Staphylococcus sp PCR Not detected Staph aureus (PCR) Not detected mecA-Methicil Res Gene Not Reportable Streptococcus sp PCR Detected H Group A Strep (PCR) Not detected Strep agalactiae (PCR) Not detected Strep pneumoniae (PCR) Not detected P. aeruginosa (PCR) Not detected Alexis/B-Vanco Res Genes Not Reportable KPC-Carbap Res Gene PCR Not Reportable 03/19/22 03/19/22 03/19/22 08:45 08:45 08:45 WBC 21.4 H RBC 3.71 L Hgb 10.2 L Hct 32.2 L MCV 86.8 MCH 27.5 MCHC 31.7 RDW 16.3 H Plt Count 254 Neut % (Auto) 85.9 H Lymph % (Auto) 9.2 L [place] % (Auto) 4.4 Eos % (Auto) 0.0 L Baso % (Auto) 0.5 Neut # (Auto) 23583 H Lymph # (Auto) 2000 [place] # (Auto) 900 Eos # (Auto) 0 Baso # (Auto) 100 PT INR APTT Sodium 138 Potassium 3.9 Chloride 107 Carbon Dioxide 22 BUN 26 H Creatinine 1.47 H Estimated GFR 40 L BUN/Creatinine Ratio 17.7 Glucose 106 Lactate Calcium 8.3 L Magnesium 1.8 Total Bilirubin 0.7 AST 27 ALT 16 Alkaline Phosphatase 94 Ammonia Total Creatine Kinase CK-MB (CK-2) CK-MB (CK-2) Rel Index Troponin I Total Protein 8.0 Albumin 3.3 L Globulin 4.7 H Albumin/Globulin Ratio 0.7 L Procalcitonin TSH 0.612 Urine Color Urine Appearance Urine pH Ur Specific [place] Urine Protein Urine Glucose (UA) Urine Ketones Urine Occult Blood Urine Nitrate Urine Bilirubin Urine Urobilinogen Ur Leukocyte Esterase Urine RBC Urine WBC Ur Squamous Epith Cells Amorphous Sediment Urine Bacteria U Opiates 300ng/mL cut Ur Oxycodone Screen Urine Methadone Screen Acetaminophen Ur Barbiturates Screen U Tricyclic Antidepress Ur Phencyclidine Scrn Ur Amphetamines Screen U Methamphetamines Scrn Ur MDMA Scrn (Ecstasy) U Benzodiazepines Scrn Urine Cocaine Screen U Marijuana (THC) Screen Ethyl Alcohol A. baumannii (PCR) Chlamy pneumoniae PCR Adenovirus (PCR) B. pertussis DNA (PCR) B.parapertussis DNA PCR Jeannie albicans (PCR) C. glabrata (PCR) C. krusei (PCR) C. parapsilosis (PCR) C. tropicalis (PCR) Coronavirus OC43 (PCR) Coronavirus HKU1 (PCR) Coronavirus 229E (PCR) SARS-CoV-2 (PCR) Coronavirus NL63 (PCR) Enterobacteriac sp PCR E. cloacae complex PCR Enterococcus sp PCR E. coli (PCR) H. influenzae (PCR) Human Metapneumovir PCR Influenza Type A (PCR) Influenza Type B (PCR) Klebsiella oxytoca PCR Klebsiella pneumoniae List. monocytogenes PCR M. pneumoniae (PCR) N. meningitidis (PCR) Parainfluenza 1 (PCR) Parainfluenza 2 (PCR) Parainfluenza 3 (PCR) Parainfluenza 4 (PCR) Proteus species (PCR) RSV (PCR) Entero/Rhino (PCR) Serratia marcescens PCR Staphylococcus sp PCR Staph aureus (PCR) mecA-Methicil Res Gene Streptococcus sp PCR Group A Strep (PCR) Strep agalactiae (PCR) Strep pneumoniae (PCR) P. aeruginosa (PCR) Alexis/B-Vanco Res Genes KPC-Carbap Res Gene PCR [facility] Medical History History of renal failure Hypertension Hypothyroid Kidney stones Renal failure (ARF), acute on chronic Social History household members: significant other and friend(s) Smoking Status: Current every day smoker alcohol intake: never substance use type: does not use Discharge Plan Discharge Plan Patient Disposition: Left Against Medical Advice Provider Discharge Comment: Please elevate your leg as much as possible. Return to ED for worsening redness/pain to legs, fevers/chills, or inability to hold down food/fluids Discharge orders & Medications Prescriptions: New clindamycin HCl 300 mg capsule 300 mg PO Q8H Qty: 21 0RF clindamycin HCl 150 mg capsule 150 mg PO TID Qty: 21 0RF levofloxacin 750 mg tablet 750 mg PO DAILY Qty: 7 0RF Continued levothyroxine 75 mcg tablet 75 mcg PO DAILY Qty: 30 0RF silver sulfadiazine [SSD] 1 % cream 1 applic TOPICAL BID Label Comments: APPLY TO LOWER EXTREMITY EDEMA/EXCORIATIONS TWICE A DAY acetaminophen [Tylenol] 325 mg tablet 325 mg PO TID PRN (Reason: pain) Label Comments: take 1 tablet by mouth three times a day if needed ondansetron HCl 4 mg tablet 4 mg PO TID PRN (Reason: Nausea) Label Comments: take 1 tablet by mouth three times a day if needed Bacid 1 billion cell- 250 mg Tablet 1 ea PO TIDWM Qty: 30 0RF Discontinued clindamycin HCl 300 mg capsule 300 mg PO QID Qty: 36 0RF levofloxacin 500 mg tablet 500 mg PO DAILY Qty: 9 0RF cephalexin 500 mg capsule 500 mg PO QID Qty: 20 0RF Follow up/Referrals: Alberto Gaytan MD [Primary Care Provider] - Discharge Data Primary Care Provider: Alberto Gaytan
--- NOTE | 2022-03-19 14:12 | PC.NURSE ---
Patient was already discharged by nurse Anisha HARLEY. Patient was being escorted out of room via wheelchair by aid at this nurses arrival. No discharge time was entered for patient. This nurse entered in time and date. No care was provided to patient by this nurse, myself, Minesh HARLEY.
== END 2022-03-19 10:50 | disposition left against medical advice (07) | DRG 602 ==
LOC: ED 21:51 → AC 21:57
PROVIDERS: Admitting Provider Nurse Practitioner Family; Emergency Provider Emergency Medicine; PCP Family Medicine; Referring Provider Emergency Medicine; Visit Provider Nurse Practitioner Family
DX: L03.116 Cellulitis of left lower limb (principal); G92.8 Other toxic encephalopathy; F11.20 Opioid dependence, uncomplicated; F15.20 Other stimulant dependence, uncomplicated; N17.9 Acute kidney failure, unspecified; L03.115 Cellulitis of right lower limb; F17.210 Nicotine dependence, cigarettes, uncomplicated; E03.9 Hypothyroidism, unspecified; B95.1 Streptococcus, group B, as the cause of diseases classified elsewhere; I12.9 Hypertensive chronic kidney disease with stage 1 through stage 4 chronic kidney disease, or unspecified chronic kidney disease; R31.9 Hematuria, unspecified; B97.10 Unspecified enterovirus as the cause of diseases classified elsewhere; N18.30 Chronic kidney disease, stage 3 unspecified; Z20.822 Contact with and (suspected) exposure to COVID-19; Z53.29 Procedure and treatment not carried out because of patient's decision for other reasons
CPT/HCPCS: 36415; 71045; 80053; 80305; 80320; 80329; 81001; 82140; 82550; 83605; 83735; 84145; 84443; 84484; 85025; 85610; 85730; 87040; 87086; 87150; 87186; 87633; 93005; 96365; 96367; 96368; 99285; G0480; J1650; J2543

== ENCOUNTER 2023-07-16 19:02 | Inpatient (IN) | payer OTHER, MEDICAID, SELFPAY ==
[2021-08-16 18:07] VITALS: PULSE 69; RESP 19; O2SAT 96
[2023-07-16] VITALS (15 sets, daily range): BP systolic 117–197; BP diastolic 63–98; PULSE 84–106; RESP 18–31; TEMP 38–39.4; O2SAT 83–100; BMI 31.8
--- NOTE | 2023-07-16 19:45 | DI.RAD.S_ITS ---
PROCEDURE: XR CHEST 1V INDICATIONS: dyspnea TECHNIQUE: One view of the chest was acquired. COMPARISON: [facility], CR, XR CHEST 1V, 03/18/2022, 19:33. FINDINGS: Surgical changes and devices: None. Lungs and pleura: Diffuse interstitial prominence. Visualization of the right upper lung zone obscured by patient's head and jaw. No definite focal airspace disease identified. Mild perihilar airway thickening. Lung volumes are decreased. Streaky bibasilar opacities favored to represent atelectasis more pronounced on the left. No substantial pleural effusion. No definite pneumothorax. Mediastinum: Mediastinal contours appear normal. Heart size is normal. Bones and chest wall: No suspicious bony lesions. Overlying soft tissues appear unremarkable. IMPRESSION: Limited evaluation of the chest secondary to patient positioning and head/are obscuring the right lung apex. Lung volumes are decreased. Diffuse interstitial prominence and streaky bibasilar opacities favored to represent atelectasis. No dense consolidation identified. Consider repeat chest radiograph when patient is able to cooperate. Dictated by: Scott Bah M.D. on 07/16/2023 at 20:30 Approved by: Scott Bah M.D. on 07/16/2023 at 20:31
--- NOTE | 2023-07-16 19:50 | ED_ITS ---
HPI - Sepsis General Chief Complaint: Urogenital-Female Mode of arrival: Ambulatory Source: patient Evaluation Sepsis Screen: Possible Sepsis Risk Sepsis Infection Criteria Present: Suspected New Infection Narrative: 63-year-old female with history of hypertension, hypothyroidism, bilateral chronic lower extremity edema, polysubstance abuse presents by private vehicle from home for ?kidney pain?. History limited as patient was an extremely poor historian and very vague with her details. She was found to be tachycardic, febrile, saturating 91% on room air on arrival and she was taken quickly to ER bed for evaluation. Wheezing auscultated on pulmonary exam. Review of Systems Review of Systems Narrative: See HPI Patient History Medical History History of renal failure Renal failure (ARF), acute on chronic Hypothyroid Hypertension Kidney stones Social History household members: significant other and friend(s) Smoking Status: Current every day smoker alcohol intake: never substance use type: does not use Smoking Status: Current every day smoker alcohol intake frequency: 0-2 drinks per day Substance Use Type: amphetamines, opiates and methamphetamine Exam Initial Vital Signs Initial Vital Signs: Vital Signs Temperature 103 F H 07/16/23 19:24 Pulse Rate 105 H 07/16/23 19:24 Respiratory Rate 20 07/16/23 19:24 Blood Pressure 170/98 H 07/16/23 19:24 Pulse Oximetry 91 07/16/23 19:24 Oxygen Delivery Method Room Air 07/16/23 19:24 Const: Awake, alert, debilitated, appears chronically unwell, older than stated age, hygiene poor Cardiac: Tachycardia, regular rhythm RESP: Tachypnea, poor air movement, diffuse expiratory wheezes GI: Soft, nontender, nondistended MSK: Bilateral lower extremity edema oozing fluid Skin: Warm, Dry, extensive chronic skin changes lower extremities to knees Neuro: AO x3, CN II-XII grossly intact, moves all extremities Course Orders Ordered: ED Orders 07/16/23 19:45 Chest [XR chest 1V] Stat EKG-12 Lead Stat 07/16/23 19:52 BNP [NT-proBNP (BNP-Adult 18+)] Stat CBC Auto Diff [Complete Blood Count AUTO DIFF] Stat CMP [Comprehensive Metabolic Panel] Stat Lactate (Lactic Acid) Stat MAG [Magnesium] Stat PT [Prothrombin Time INR] Stat Procalcitonin Stat Respiratory Panel (Film Array) Stat Troponin & CK Cardiac Panel Stat 07/16/23 20:33 UA Complete [Urinalysis and Microscopic] Stat 07/16/23 20:35 Blood Culture Stat 07/16/23 21:14 CT abdomen pelvis w con Stat Acetaminophen (Acetaminophen 325 Mg Tablet) 650 mg PO Q6H PRN PRN Reason: Fever/Mild Pain (1-3) Hydrocodone Bitart/Acetaminophen (Hydrocodone/Acet 5/325 Tablet) 1 tab PO Q4H PRN PRN Reason: Pain, Moderate (4-6) Calcium Carbonate (Calcium Carbonate 500 Mg Tab) 1,000 mg PO Q4HR PRN PRN Reason: Dyspepsia Heparin Sodium (Porcine) (Heparin 5,000 Unit/Ml Vial) 5,000 unit SUBCUT BID ESTEPHANIA Ceftriaxone Sodium 1,000 mg/ (Sodium Chloride) 100 mls @ 200 mls/hr IV Q24H ESTEPHANIA Azithromycin 500 mg/ Dextrose 250 mls @ 250 mls/hr IV Q24H ESTEPHANIA Levothyroxine Sodium (Levothyroxine 75 Mcg Tablet) 75 mcg PO DAILY ESTEPHANIA Naloxone HCl (Naloxone 0.4 Mg/Ml Vial) 0.2 mg IV Q2MIN PRN PRN Reason: Opiate Reversal Sennosides (Sennosides 8.6 Mg Tablet) 17.2 mg PO BEDTIME PRN PRN Reason: Constipation Discontinued Medications Acetaminophen (Acetaminophen 325 Mg Tablet) 975 mg PO NOW ONE Stop: 07/16/23 22:53 Last Admin: 07/16/23 23:09 Dose: 975 mg Documented By: ALIA Albuterol/Ipratropium (Albuterol/Ipratropium 3 Ml Ampul) 9 ml INH NOW ONE Stop: 07/16/23 19:45 Last Admin: 07/16/23 19:55 Dose: 9 ml Documented By: JOY Ceftriaxone Sodium 2,000 mg/ (Sodium Chloride) 100 mls @ 200 mls/hr IV NOW ONE Stop: 07/16/23 19:45 Last Infusion: 07/16/23 21:19 Dose: Infused Documented By: Admin: 07/16/23 20:41 Dose: 200 mls/hr Documented By: ALIA Azithromycin 500 mg/ Dextrose 250 mls @ 250 mls/hr IV NOW ONE Stop: 07/16/23 19:45 Last Infusion: 07/16/23 22:33 Dose: Infused Documented By: Admin: 07/16/23 21:21 Dose: 250 mls/hr Documented By: ALIA Methylprednisolone (Methylprednisolone 125 Mg/2 Ml Vial) 125 mg IV NOW ONE Stop: 07/16/23 19:45 Last Admin: 07/16/23 20:29 Dose: 125 mg Documented By: ALIA Vital Signs Vital signs: Vital Signs - 8 hr 07/16/23 20:30 07/16/23 20:30 07/16/23 20:40 Temperature 102.7 F H Pulse Rate 106 H 99 H Respiratory Rate 27 H 28 H Blood Pressure 197/91 H Pulse Oximetry 83 L 95 Oxygen Delivery Method Room Air Nasal Cannula Oxygen Flow Rate 2 07/16/23 21:00 07/16/23 21:01 07/16/23 21:01 Temperature 102.9 F H Pulse Rate 96 H 95 H Respiratory Rate 22 18 Blood Pressure 157/74 H Pulse Oximetry 94 94 Oxygen Delivery Method Nasal Cannula Oxygen Flow Rate 2 07/16/23 21:30 07/16/23 21:30 07/16/23 22:00 Temperature Pulse Rate 104 H 96 H Respiratory Rate 24 22 Blood Pressure 183/82 H Pulse Oximetry 94 Oxygen Delivery Method Oxygen Flow Rate 07/16/23 22:07 07/16/23 22:07 07/16/23 22:30 Temperature 101.7 F H 101.3 F H Pulse Rate 95 H 92 H Respiratory Rate 26 H 19 Blood Pressure 136/72 Pulse Oximetry 94 92 Oxygen Delivery Method Nasal Cannula Nasal Cannula Oxygen Flow Rate 3 3 07/16/23 22:30 07/16/23 23:00 07/16/23 23:00 Temperature 100.9 F H 100.6 F H Pulse Rate 91 H Respiratory Rate 31 H 18 Blood Pressure 124/63 126/80 Pulse Oximetry 95 94 Oxygen Delivery Method Nasal Cannula Oxygen Flow Rate 3 Sepsis Evaluation (ED) Triage Screening Sepsis Screen: Possible Sepsis Risk Level 1 - Infection Sepsis Infection Criteria Present: Suspected New Infection Level 2 - SIRS Sepsis SIRS Criteria Present: Temperature > 101.0 or < 96.8 F, WBC < 4k or > 12k or Bands > 10% and Pulse > 90 bpm Level 3 - Organ Dysfunction Sepsis Organ Dysfunction Criteria Present: Acute Respiratory Failure Response It is my opinion that his patient have a likely infectious etiology for meeting sepsis criteria: Does Fluid calculation based on 30 mL/kg within 1hr of criteria: IBW used due to BMI>30 Antibiotics initiated within 1 hr of Sepis dx: Yes Tissue Perfusion Reassessed within 6 hrs of infusion start time: Yes Date of Tissue Perfusion Reassessment completed: 07/16/23 Time Tissue Perfusion Reassessment completed: 19:30 MDM - Sepsis Differential Diagnosis Current stage of sepsis: sepsis Lab Data 07/16/23 19:52 07/16/23 19:52 Labs: Lab Results 07/16/23 07/16/23 Range/Units 19:52 20:33 WBC 30.8 H* (4.5-11.0) X10^3/uL RBC 4.09 (4.0-5.2) X10^6/uL Hgb 11.2 L (12.0-16.0) g/dL Hct 35.4 L (36-46) % MCV 86.5 (80-100) fL MCH 27.5 (26-34) PG MCHC 31.7 (30-36) % RDW 15.8 H (11.6-14.8) % Plt Count 370 (150-400) X10^3/uL Neut % (Auto) Not Reportable Lymph % (Auto) Not Reportable [place] % (Auto) Not Reportable Eos % (Auto) Not Reportable Baso % (Auto) Not Reportable Lymph # (Auto) Not Reportable [place] # (Auto) Not Reportable Baso # (Auto) Not Reportable Total Counted 100 Seg Neutrophils % 89.0 H (38-70) % Lymphocytes % (Manual) 9.0 L (25-45) % Monocytes % (Manual) 1.0 L (2-11) % Eosinophils % (Manual) 1.0 L (2-4) % Neutrophils # (Manual) 08462 H (7217-1160) /uL RBC Morphology Normal morphology PT 14.1 H (9.4-12.5) SECONDS INR 1.2 (0.9-1.3) Sodium 136 L (137-145) mmol/L Potassium 4.6 (3.4-5.1) mmol/L Chloride 106 (98-107) mmol/L Carbon Dioxide 23 (22-32) mmol/L BUN 21 H (7-17) mg/dL Creatinine 1.60 H (0.52-1.04) mg/dL Estimated GFR 36 L (>60) mL/min BUN/Creatinine Ratio 13.1 (6-22) Glucose 128 H (80-110) mg/dL Lactate 1.8 (0.7-2.1) mmol/L Calcium 9.0 (8.4-10.2) mg/dL Magnesium 1.9 (1.6-2.3) mg/dL Total Bilirubin 0.6 (0.2-1.3) mg/dL AST 27 (14-36) IU/L ALT 13 (<35) IU/L Alkaline Phosphatase 106 (38-126) U/L Total Creatine Kinase 290 H (30-135) U/L Troponin I 0.017 (0.01-0.034) ng/mL NT-Pro-B Natriuret Pep 880 H (<125) pg/mL Total Protein 9.7 H (6.3-8.2) g/dL Albumin 4.1 (3.5-5.0) g/dL Globulin 5.6 H (1.7-4.1) g/dL Albumin/Globulin Ratio 0.7 L (1.0-2.8) Procalcitonin 0.38 (<0.5) ng/mL Urine Color Yellow Urine Appearance Clear Urine pH 5.5 (4.5-8.0) Ur Specific [place] 1.020 (1.000-1.035) Urine Protein 1+ H (Negative) Urine Glucose (UA) Negative (Negative) g/dL Urine Ketones Negative (NEGATIVE) Urine Occult Blood 1+ H (Negative) Urine Nitrate Negative (Negative) Urine Bilirubin Negative (NEGATIVE) Urine Urobilinogen 0.2 (0.2) E.U./dL Ur Leukocyte Esterase Negative (NEGATIVE) Urine RBC 0-1/hpf (0-5/HPF) Urine WBC 0-1/hpf (0-5/HPF) Ur Squamous Epith Cells None seen (0-5/HPF) Urine Bacteria None seen (None) Ur Culture Indicated? Cult not indicated Vol Urine Centrifuged 10ml (spun) Chlamy pneumoniae PCR Not detected (Not Detect) Adenovirus (PCR) Not detected (Not Detect) B.parapertussis DNA PCR Not detected (Not Detecte) Coronavirus OC43 (PCR) Not detected (Not Detect) Coronavirus HKU1 (PCR) Not detected (Not Detect) Coronavirus 229E (PCR) Not detected (Not Detect) SARS-CoV-2 (PCR) Not detected (Not Detecte) Coronavirus NL63 (PCR) Not detected (Not Detect) Human Metapneumovir PCR Not detected (Not Detect) Influenza Type A (PCR) Not detected (Not Detect) Influenza Type B (PCR) Not detected (Not Detect) M. pneumoniae (PCR) Not detected (Not Detect) Parainfluenza 1 (PCR) Not detected (Not Detect) Parainfluenza 2 (PCR) Not detected (Not Detect) Parainfluenza 3 (PCR) Not detected (Not Detect) Parainfluenza 4 (PCR) Not detected (Not Detect) RSV (PCR) Not detected (Not Detect) Entero/Rhino (PCR) Not detected (Not Detect) Urine Dip Bedside Urine Glucose Negative Bedside Urine Bilirubin - Negative Bedside Urine Ketone - Negative Urine Specific [place] 1.020 Bedside Urine Occult Blood ++ Bedside Urine pH 6.0 Bedside Urine Protein + 30 Bedside Urine Urobilinogen - Negative Bedside Urine Nitrite - Negative Bedside Urine Leukocytes - Negative Esterase Imaging Data Chest x-ray: Radiologist's Impression: PROCEDURE: XR CHEST 1V INDICATIONS: dyspnea TECHNIQUE: One view of the chest was acquired. COMPARISON: [facility], XR CHEST 1V, 03/18/2022, 19:33. FINDINGS: Surgical changes and devices: None. Lungs and pleura: Diffuse interstitial prominence. Visualization of the right upper lung zone obscured by patient's head and jaw. No definite focal airspace disease identified. Mild perihilar airway thickening. Lung volumes are decreased. Streaky bibasilar opacities favored to represent atelectasis more pronounced on the left. No substantial pleural effusion. No definite pneumothorax. Mediastinum: Mediastinal contours appear normal. Heart size is normal. Bones and chest wall: No suspicious bony lesions. Overlying soft tissues appear unremarkable. IMPRESSION: Limited evaluation of the chest secondary to patient positioning and head/are obscuring the right lung apex. Lung volumes are decreased. Diffuse interstitial prominence and streaky bibasilar opacities favored to represent atelectasis. No dense consolidation identified. Consider repeat chest radiograph when patient is able to cooperate. Dictated by: Scott Bah M.D. on 07/16/2023 at 20:30 Approved by: Scott Bah M.D. on 07/16/2023 at 20:31 CT scan - abdomen/pelvis: Radiologist's Impression: PROCEDURE: CT ABDOMEN PELVIS W CON INDICATIONS: Kidney pain, severe sepsis TECHNIQUE: After the administration of intravenous contrast, axial sections acquired from the lung bases to the pubic symphysis. Coronal and sagittal reformats were performed. For radiation dose reduction, the following was used: automated exposure control, adjustment of mA and/or kV according to patient size. COMPARISON: [facility], CT, CT CHEST ABD PEL WO CON, 08/16/2021, 14:19. FINDINGS: Image quality: Diagnostic. Lower Chest: Moderate bibasilar atelectasis. ABDOMEN: Liver: No solid mass. Ill-defined areas of enhancement involving the periphery of the posterior right hepatic lobe near the liver dome. No focal mass lesion. Findings may represent transient hepatic attenuation difference. Gallbladder: Moderate gallbladder distention likely related to fasting state. No radiopaque gallstones or wall thickening. Biliary ducts: No biliary dilation. Pancreas: No ductal dilation. Spleen: Size is within normal limits. Adrenal Glands: No adrenal nodules. Kidneys and Ureters: No hydronephrosis. No solid mass. No complex renal cystic lesion which requires follow up. Mild left renal atrophy. Multiple bilateral renal cysts as before. Bilateral ureters are normal in course and caliber. Stomach and Bowel: Normal colonic caliber, without significant wall thickening. Peritoneum: No abnormal intraperitoneal fluid. No free air. Ventral Wall: There is a fat-containing umbilical hernia without acute inflammation. Abdominal Nodes: No retroperitoneal or mesenteric adenopathy by size criteria. Vessels: Scattered atherosclerotic calcifications of the abdominal aorta and iliac vessels without aneurysmal dilatation. The inferior vena cava appears patent. PELVIS: Pelvic Organs: Uterus is not visualized and presumably surgically absent. Bladder: Urinary bladder is decompressed by a Carter catheter. Pelvic Nodes: No enlarged lymph nodes. Miscellaneous: No inguinal hernias are seen. Bones: No acute vertebral body compression fractures. Multilevel spondylitic changes throughout the imaged spine. No suspicious osseous lesions. IMPRESSION: 1. Moderate gallbladder distention without evidence for radiodense gallstones or acute inflammatory changes. Findings may related to fasting state. Recommend clinical correlation. 2. No acute abnormalities identified in the abdomen or pelvis to explain patient's reported history of sepsis. 3. Heterogeneous ill-defined areas of enhancement involving the periphery of the posterior right hepatic lobe near the liver dome. Findings may represent transient hepatic attenuation difference as no focal mass lesion identified. Consider outpatient CT or MRI using liver mass protocol for further evaluation. 4. Other chronic findings as above. Dictated by: Scott Bah M.D. on 07/16/2023 at 22:43 Approved by: Scott Bah M.D. on 07/16/2023 at 22:52 [facility] Narrative Medical decision making narrative: Acute on chronically unwell patient found to be febrile, tachycardic, with wheezing and low O2 sats on arrival. Suspect some component of COPD exacerbation. Patient denies formal diagnosis of COPD but does smoke cigarettes. Rocephin and azithromycin ordered for coverage, which will cover both respiratory pathogens and urinary pathogens. Laboratory work significant for WBC count 30.8, hemoglobin 11.2, platelets 370, sodium 136, potassium 4.6, creatinine 1.60 (approximately baseline), CK 290, troponin 0.017, BNP 880. Chest x-ray limited due to patient positioning, but no obvious consolidation. UA shows no sign of infection. CT without acute abnormality to explain patient's kidney pain. Lung exam improved after nebulizers and steroids, however she was requiring 3 L nasal cannula to maintain saturations greater than 92%. Blood cultures pending. Patient to be admitted for further treatment of her condition. Critical Care Time Critical Care Time Critical Care Time: Yes Total Critical Care Time: 36 Attestation: Acute hypoxemic respiratory failure requiring numerous nebulizers, severe sepsis Discharge Plan Departure Patient Disposition: Admitted As Inpatient Clinical Impression: Acute hypoxemic respiratory failure, Sepsis, COPD exacerbation Admit Date/Time: 07/16/23 23:24 Admit Provider: Daljit Westfall
[2023-07-16] MEDS: ALBUTEROL/IPRATROPIUM 3 ML AMPUL 9 ML INH (19:55)
[2023-07-16 20:11] LABS: Hematocrit 35.4 % (36-46); Hemoglobin 11.2 g/dL (12.0-16.0); Mean Corpuscular HGB Conc 31.7 % (30-36); Mean Corpuscular Hemoglobin 27.5 PG (26-34); Mean Corpuscular Volume 86.5 fL (80-100); Platelet Count 370 X10^3/uL (150-400); Red Blood Cell Count 4.09 X10^6/uL (4.0-5.2); Red Cell Distribution Width 15.8 % (11.6-14.8)
[2023-07-16 20:13] LABS: Add Manual Diff / Slide Review YES; White Blood Cell Count 30.8 X10^3/uL (4.5-11.0)
[2023-07-16 20:18] LABS: INR 1.2 (0.9-1.3); Prothrombin Time 14.1 SECONDS (9.4-12.5)
[2023-07-16 20:27] LABS: Alanine Aminotransferase 13 IU/L (<35); Albumin 4.1 g/dL (3.5-5.0); Albumin Globulin Ratio 0.7 (1.0-2.8); Alkaline Phosphatase 106 U/L (38-126); Aspartate Aminotransferase 27 IU/L (14-36); BUN Creatinine Ratio 13.1 (6-22); Bilirubin Total 0.6 mg/dL (0.2-1.3); Blood Urea Nitrogen 21 mg/dL (7-17); Carbon Dioxide 23 mmol/L (22-32); Chloride 106 mmol/L (98-107); Creatine Kinase 290 U/L (30-135); Estimated Glomerular Filt Rate 36 mL/min (>60); Globulin 5.6 g/dL (1.7-4.1); Glucose 128 mg/dL (80-110); HEMOLYSIS < 15 (0-50); Magnesium 1.9 mg/dL (1.6-2.3); Neutrophils Absolute Manual 27412 /uL (3000-5900); Potassium 4.6 mmol/L (3.4-5.1); RBC Morphology Normal Morphology; Sodium 136 mmol/L (137-145); Total Cells Counted 100; Total Protein 9.7 g/dL (6.3-8.2)
[2023-07-16 20:28] LABS: Lactate (Lactic Acid) 1.8 mmol/L (0.7-2.1)
[2023-07-16] MEDS: methylPREDNISolone 125 MG/2 ML VIAL IV (20:29)
[2023-07-16 20:37] LABS: NT-proBNP (BNP-Adult 18+) 880 pg/mL (<125)
[2023-07-16 20:38] LABS: Appearance Urine UA CLEAR; Bilirubin Urine UA NEGATIVE (NEGATIVE); Color Urine UA YELLOW; Glucose Urine UA NEGATIVE (Negative); Ketones Urine UA NEGATIVE (NEGATIVE); Leukocyte Esterase Urine UA NEGATIVE (NEGATIVE); Nitrite Urine UA NEGATIVE (Negative); Occult Blood Urine UA 1+ (Negative); Protein Urine UA 1+ (Negative); Urobilinogen Urine UA 0.2 E.U./dL (0.2)
[2023-07-16 20:40] LABS: Troponin I 0.017 ng/mL (0.01-0.034)
[2023-07-16] MEDS: cefTRIAXone 2,000 MG in SODIUM CHLORIDE 0.9% 100 ML 200 MG IV (20:41)
[2023-07-16 20:44] LABS: pH Urine UA 5.5 (4.5-8.0)
[2023-07-16 20:44] LABS: Procalcitonin 0.38 ng/mL (<0.5)
[2023-07-16 20:46] LABS: Bacteria Urine None Seen; Culture Indicated Urine Cult Not Indicated; RBC Urine 0-1/HPF (0-5/HPF); Squamous Epithelial Cell Urine None Seen (0-5/HPF); Urine Volume 10mL (spun); WBC Urine 0-1/HPF (0-5/HPF)
[2023-07-16 20:54] LABS: Adenovirus Not Detected (Not Detect); B. parapertussis Not Detected (Not Detecte); Bordetella pertussis Not Detected (Not Detect); Chlamydophila pneumoniae Not Detected (Not Detect); Coronavirus 229E Not Detected (Not Detect); Coronavirus HKU1 Not Detected (Not Detect); Coronavirus NL 63 Not Detected (Not Detect); Coronavirus OC43 Not Detected (Not Detect); Human Metapneumovirus Not Detected (Not Detect); Human Rhinovirus/Enterovirus Not Detected (Not Detect); Influenza A Not Detected (Not Detect); Influenza B Not Detected (Not Detect); Mycoplasma pneumoniae Not Detected (Not Detect); Parainfluenza Virus 1 Not Detected (Not Detect); Parainfluenza Virus 2 Not Detected (Not Detect); Parainfluenza Virus 3 Not Detected (Not Detect); Parainfluenza Virus 4 Not Detected (Not Detect); Respiratory Syncytial Virus Not Detected (Not Detect); SARS- CoV-2 Not Detected (Not Detecte)
--- NOTE | 2023-07-16 21:14 | DI.CT.S_ITS ---
PROCEDURE: CT ABDOMEN PELVIS W CON INDICATIONS: Kidney pain, severe sepsis TECHNIQUE: After the administration of intravenous contrast, axial sections acquired from the lung bases to the pubic symphysis. Coronal and sagittal reformats were performed. For radiation dose reduction, the following was used: automated exposure control, adjustment of mA and/or kV according to patient size. COMPARISON: [facility], CT, CT CHEST ABD PEL WO CON, 08/16/2021, 14:19. FINDINGS: Image quality: Diagnostic. Lower Chest: Moderate bibasilar atelectasis. ABDOMEN: Liver: No solid mass. Ill-defined areas of enhancement involving the periphery of the posterior right hepatic lobe near the liver dome. No focal mass lesion. Findings may represent transient hepatic attenuation difference. Gallbladder: Moderate gallbladder distention likely related to fasting state. No radiopaque gallstones or wall thickening. Biliary ducts: No biliary dilation. Pancreas: No ductal dilation. Spleen: Size is within normal limits. Adrenal Glands: No adrenal nodules. Kidneys and Ureters: No hydronephrosis. No solid mass. No complex renal cystic lesion which requires follow up. Mild left renal atrophy. Multiple bilateral renal cysts as before. Bilateral ureters are normal in course and caliber. Stomach and Bowel: Normal colonic caliber, without significant wall thickening. Peritoneum: No abnormal intraperitoneal fluid. No free air. Ventral Wall: There is a fat-containing umbilical hernia without acute inflammation. Abdominal Nodes: No retroperitoneal or mesenteric adenopathy by size criteria. Vessels: Scattered atherosclerotic calcifications of the abdominal aorta and iliac vessels without aneurysmal dilatation. The inferior vena cava appears patent. PELVIS: Pelvic Organs: Uterus is not visualized and presumably surgically absent. Bladder: Urinary bladder is decompressed by a Carter catheter. Pelvic Nodes: No enlarged lymph nodes. Miscellaneous: No inguinal hernias are seen. Bones: No acute vertebral body compression fractures. Multilevel spondylitic changes throughout the imaged spine. No suspicious osseous lesions. IMPRESSION: 1. Moderate gallbladder distention without evidence for radiodense gallstones or acute inflammatory changes. Findings may related to fasting state. Recommend clinical correlation. 2. No acute abnormalities identified in the abdomen or pelvis to explain patient's reported history of sepsis. 3. Heterogeneous ill-defined areas of enhancement involving the periphery of the posterior right hepatic lobe near the liver dome. Findings may represent transient hepatic attenuation difference as no focal mass lesion identified. Consider outpatient CT or MRI using liver mass protocol for further evaluation. 4. Other chronic findings as above. Dictated by: Scott Bah M.D. on 07/16/2023 at 22:43 Approved by: Scott Bah M.D. on 07/16/2023 at 22:52
[2023-07-16] MEDS: AZITHROMYCIN 500 MG in DEXTROSE 5% IN WATER 250 ML 250 MG IV (21:21)
[2023-07-16] MEDS: ACETAMINOPHEN 325 MG TABLET 975 MG PO (23:09)
--- NOTE | 2023-07-16 23:46 | P.HP_ITS ---
History of Present Illness History of Present Illness Date Patient Seen: 07/17/23 Time Patient Seen: 01:00 Chief complaint: kidney pain T-3 Narrative: 63-year-old female with history of hypertension, hypothyroidism, bilateral chronic lower extremity edema, polysubstance abuse presents by private vehicle from home for flank pain. On presentation febrile, hypoxemic, started on abx and oxygen for pneumonia and acute hypoxemic respiratory failure. Unable to provide history, somnolent at the time of admission. [facility] Medical History History of renal failure Renal failure (ARF), acute on chronic Hypothyroid Hypertension Kidney stones Social History household members: significant other and friend(s) Smoking Status: Current every day smoker alcohol intake: never substance use type: does not use Meds Home Medications and Allergies Home Medications Medication Instructions Recorded Confirmed Type levothyroxine 75 mcg tablet 75 mcg PO DAILY #30 tabs 04/29/18 07/17/23 Rx acetaminophen 325 mg tablet 325 mg PO TID PRN pain 01/01/19 07/17/23 History (Tylenol) ondansetron HCl 4 mg tablet 4 mg PO TID PRN Nausea 01/01/19 07/17/23 History silver sulfadiazine 1 % topical 1 applic topical BID 01/01/19 07/17/23 History cream (SSD) L.acidophilus-L.bulgar-B.bifid-S.thermoph 1 ea PO TIDWM #30 tabs 01/24/19 Rx 1 billion cell-250 mg tablet (Bacid) clindamycin HCl 150 mg capsule 150 mg PO TID #21 caps 03/19/22 Rx clindamycin HCl 300 mg capsule 300 mg PO Q8H #21 caps 03/19/22 Rx levofloxacin 750 mg tablet 750 mg PO DAILY #7 tabs 03/19/22 Rx Allergies Allergy/AdvReac Type Severity Reaction Status Date / Time No Known Drug Allergies Allergy Verified 07/16/23 19:29 Review of Systems Review of Systems Narrative: Unobtainable - too drowsy Exam Vital Signs (past 8 hours): - 07/16/23 19:24 07/16/23 19:47 07/16/23 19:48 Temperature 103 F H Pulse Rate 105 H 103 H Respiratory Rate 20 28 H Blood Pressure 170/98 H 157/79 H Pulse Oximetry 91 89 L Oxygen Delivery Method Room Air Oxygen Flow Rate 07/16/23 19:48 07/16/23 19:55 07/16/23 20:00 Temperature Pulse Rate 104 H 104 H 95 H Respiratory Rate 29 H 24 24 Blood Pressure Pulse Oximetry 92 90 L 100 Oxygen Delivery Method Room Air Oxygen Flow Rate 07/16/23 20:30 07/16/23 20:30 07/16/23 20:40 Temperature 102.7 F H Pulse Rate 106 H 99 H Respiratory Rate 27 H 28 H Blood Pressure 197/91 H Pulse Oximetry 83 L 95 Oxygen Delivery Method Room Air Nasal Cannula Oxygen Flow Rate 2 07/16/23 21:00 07/16/23 21:01 07/16/23 21:01 Temperature 102.9 F H Pulse Rate 96 H 95 H Respiratory Rate 22 18 Blood Pressure 157/74 H Pulse Oximetry 94 94 Oxygen Delivery Method Nasal Cannula Oxygen Flow Rate 2 07/16/23 21:30 07/16/23 21:30 07/16/23 22:00 Temperature Pulse Rate 104 H 96 H Respiratory Rate 24 22 Blood Pressure 183/82 H Pulse Oximetry 94 Oxygen Delivery Method Oxygen Flow Rate 07/16/23 22:07 07/16/23 22:07 07/16/23 22:30 Temperature 101.7 F H 101.3 F H Pulse Rate 95 H 92 H Respiratory Rate 26 H 19 Blood Pressure 136/72 Pulse Oximetry 94 92 Oxygen Delivery Method Nasal Cannula Nasal Cannula Oxygen Flow Rate 3 3 07/16/23 22:30 07/16/23 23:00 07/16/23 23:00 Temperature 100.9 F H 100.6 F H Pulse Rate 91 H Respiratory Rate 31 H 18 Blood Pressure 124/63 126/80 Pulse Oximetry 95 94 Oxygen Delivery Method Nasal Cannula Oxygen Flow Rate 3 Oxygen Delivery Method Nasal Cannula Oxygen Flow Rate 3 Const Other: Laying in bed, somnolent Resp Other: b/l wheezes and rhonchi Cardio Other: RRR GI Other: abdomen not distended Neuro Other: w/o obvious focal deficits Extrem Other: b/l leg edema, dry skin Psych Other: encephalopathic Objective Labs 07/17/23 04:28 07/17/23 04:28 Labs: Laboratory Results - last 24 hr 07/16/23 07/16/23 19:52 20:33 WBC 30.8 H* RBC 4.09 Hgb 11.2 L Hct 35.4 L MCV 86.5 MCH 27.5 MCHC 31.7 RDW 15.8 H Plt Count 370 Neut % (Auto) Not Reportable Lymph % (Auto) Not Reportable [place] % (Auto) Not Reportable Eos % (Auto) Not Reportable Baso % (Auto) Not Reportable Lymph # (Auto) Not Reportable [place] # (Auto) Not Reportable Baso # (Auto) Not Reportable Total Counted 100 Seg Neutrophils % 89.0 H Lymphocytes % (Manual) 9.0 L Monocytes % (Manual) 1.0 L Eosinophils % (Manual) 1.0 L Neutrophils # (Manual) 29395 H RBC Morphology Normal morphology PT 14.1 H INR 1.2 Sodium 136 L Potassium 4.6 Chloride 106 Carbon Dioxide 23 BUN 21 H Creatinine 1.60 H Estimated GFR 36 L BUN/Creatinine Ratio 13.1 Glucose 128 H Lactate 1.8 Calcium 9.0 Magnesium 1.9 Total Bilirubin 0.6 AST 27 ALT 13 Alkaline Phosphatase 106 Total Creatine Kinase 290 H Troponin I 0.017 NT-Pro-B Natriuret Pep 880 H Total Protein 9.7 H Albumin 4.1 Globulin 5.6 H Albumin/Globulin Ratio 0.7 L Procalcitonin 0.38 Urine Color Yellow Urine Appearance Clear Urine pH 5.5 Ur Specific [place] 1.020 Urine Protein 1+ H Urine Glucose (UA) Negative Urine Ketones Negative Urine Occult Blood 1+ H Urine Nitrate Negative Urine Bilirubin Negative Urine Urobilinogen 0.2 Ur Leukocyte Esterase Negative Urine RBC 0-1/hpf Urine WBC 0-1/hpf Ur Squamous Epith Cells None seen Urine Bacteria None seen Ur Culture Indicated? Cult not indicated Vol Urine Centrifuged 10ml (spun) Chlamy pneumoniae PCR Not detected Adenovirus (PCR) Not detected B.parapertussis DNA PCR Not detected Coronavirus OC43 (PCR) Not detected Coronavirus HKU1 (PCR) Not detected Coronavirus 229E (PCR) Not detected SARS-CoV-2 (PCR) Not detected Coronavirus NL63 (PCR) Not detected Human Metapneumovir PCR Not detected Influenza Type A (PCR) Not detected Influenza Type B (PCR) Not detected M. pneumoniae (PCR) Not detected Parainfluenza 1 (PCR) Not detected Parainfluenza 2 (PCR) Not detected Parainfluenza 3 (PCR) Not detected Parainfluenza 4 (PCR) Not detected RSV (PCR) Not detected Entero/Rhino (PCR) Not detected Assessment & Plan Assessment and plan (1) Pneumonia: Qualifiers: Laterality: right Lung location: lower lobe of lung Pneumonia type: d ue to unspecified organism Qualified Code(s): J18.1 - Lobar pneumonia, unspecified organism Status: Acute (2) Acute hypoxemic respiratory failure: Status: Acute (3) Renal failure (ARF), acute on chronic: Qualifiers: Acute renal failure type: unspecified Chronic kidney disease stage: u nspecified stage Qualified Code(s): N17.9 - Acute kidney failure, unspecified; N18.9 - Chronic kidney disease, unspecified Status: Inactive (4) Hypertension: Status: Acute (5) Bilateral lower extremity edema: Status: Acute Assessment & Plan narrative: Pneumonia - Rocephin, Zithromax Acute Hypoxemic Respiratory Failure - oxygen, 3 L RIZWAN / CKD - monitored BMP Hypothyroidism - levothyroxine Polysubstance Abuse - methamphetamine, opiates, smoking DVT prophylaxis - heparin
[2023-07-17] VITALS (8 sets, daily range): BP systolic 104–161; BP diastolic 47–85; PULSE 68–92; RESP 19–28; TEMP 36–37.8; O2SAT 94–96; BMI 31.8
[2023-07-17 01:12] LABS: Fractionated Inspired Oxygen 32; HCO3 ABG 24 mmol/L (23-27); Oxygen Saturation ABG 92 % (95-100); PCO2 ABG 46.2 mmHg (35-45); PO2 ABG 62 mmHg (80-100); TCO2 ABG 26 mmol/L (23-27); pH ABG 7.33 (7.35-7.45)
[2023-07-17 01:13] LABS: Allen Test for ABG Passed? Yes, Passed; Blood Gas Collection Site Right Radial
[2023-07-17 01:25] LABS: Ur Creatinine Normal (Normal); Ur Specific Gravity Normal (Normal); Urine pH Normal (Normal)
[2023-07-17 01:26] LABS: UR Morphine/Opiate cutoff 300 Positive (Negative); Urine Amphetamines Positive (Negative); Urine Cocaine Positive (Negative); Urine Methamphetamines Positive (Negative); Urine Phencyclidine Negative (Negative); Urine Tetrahydrocannabinol Negative (Negative)
[2023-07-17 01:27] LABS: Urine Barbiturates Negative (Negative); Urine Benzodiazepines Negative (Negative); Urine MDMA Negative (Negative)
[2023-07-17 01:28] LABS: Urine Oxycodone Negative (Negative); Urine Tricyclic Antidepressant Negative (Negative)
[2023-07-17 01:29] LABS: Urine Methadone Negative (Negative)
--- NOTE | 2023-07-17 01:29 | PC.NURSE ---
Bilateral lower extremities with weeping
[2023-07-17 05:12] LABS: Hematocrit 32.6 % (36-46); Hemoglobin 10.3 g/dL (12.0-16.0); Mean Corpuscular HGB Conc 31.5 % (30-36); Mean Corpuscular Hemoglobin 27.1 PG (26-34); Platelet Count 321 X10^3/uL (150-400); Red Blood Cell Count 3.79 X10^6/uL (4.0-5.2); Red Cell Distribution Width 15.5 % (11.6-14.8)
[2023-07-17 05:21] LABS: Add Manual Diff / Slide Review YES
[2023-07-17 05:22] LABS: BUN Creatinine Ratio 13.2 (6-22); Blood Urea Nitrogen 20 mg/dL (7-17); Calcium 8.5 mg/dL (8.4-10.2); Carbon Dioxide 22 mmol/L (22-32); Chloride 108 mmol/L (98-107); Estimated Glomerular Filt Rate 38 mL/min (>60); Glucose 215 mg/dL (80-110); HEMOLYSIS < 15 (0-50); Potassium 4.3 mmol/L (3.4-5.1); Sodium 137 mmol/L (137-145); White Blood Cell Count 30.1 X10^3/uL (4.5-11.0)
[2023-07-17 05:30] LABS: NT-proBNP (BNP-Adult 18+) 2230 pg/mL (<125)
[2023-07-17 05:41] LABS: Neutrophils Absolute Manual 28294 /uL (3000-5900); Platelet Estimate Adequate on smear; RBC Morphology Normal Morphology; Total Cells Counted 100
--- NOTE | 2023-07-17 07:17 | PM.PN.1 ---
Subjective Subjective Interval history: She notes acute kidney pain for 3 days. The pain was bilateral and posterior. The pain was not particularly worsened by anything such as position changes or deep breathing. She felt that she was likely passing a kidney stone. Her initial white count was over 30,000. She feels much better today and is now afebrile. She is able to eat without difficulty and denies abdomen or flank pain. She would like to go home as soon as possible. She is willing to stay another day for IV antibiotics. Admitted for pneumonia and severe sepsis. Improved overnight. From night doctor: 63-year-old female with history of hypertension, hypothyroidism, bilateral chronic lower extremity edema, polysubstance abuse presents by private vehicle from home for flank pain. On presentation febrile, hypoxemic, started on abx and oxygen for pneumonia and acute hypoxemic respiratory failure. Unable to provide history, somnolent at the time of admission. Exam Vital Signs (past 8 hours): - 07/16/23 23:30 07/16/23 23:30 07/17/23 00:00 Temperature 100.4 F H 100.0 F H Pulse Rate 84 92 H Respiratory Rate 21 28 H Blood Pressure 117/66 Pulse Oximetry 94 96 Oxygen Delivery Method Nasal Cannula Oxygen Flow Rate 3 07/17/23 00:00 07/17/23 00:30 07/17/23 00:30 Temperature 98.6 F Pulse Rate 75 Respiratory Rate 20 Blood Pressure 161/85 H 138/71 Pulse Oximetry 94 Oxygen Delivery Method Nasal Cannula Oxygen Flow Rate 3 07/17/23 03:00 07/17/23 04:00 Temperature 97.2 F L Pulse Rate 68 Respiratory Rate 19 Blood Pressure 104/47 L Pulse Oximetry 94 94 Oxygen Delivery Method Nasal Cannula Oxygen Flow Rate 2 3 Oxygen Delivery Method Nasal Cannula Oxygen Flow Rate 3 Narrative Exam Narrative: NAD, alert and oriented. Fluent speech. Lungs are clear, normal rate and effort. Heart is regular, no murmur gallop or rub. Abdomen is soft, non distended. Extremities are free of edema. Objective Imaging CT scan - abdomen: Radiologist's impression: 1. Moderate gallbladder distention without evidence for radiodense gallstones or acute inflammatory changes. Findings may related to fasting state. Recommend clinical correlation. 2. No acute abnormalities identified in the abdomen or pelvis to explain patient's reported history of sepsis. 3. Heterogeneous ill-defined areas of enhancement involving the periphery of the posterior right hepatic lobe near the liver dome. Findings may represent transient hepatic attenuation difference as no focal mass lesion identified. Consider outpatient CT or MRI using liver mass protocol for further evaluation. 4. Other chronic findings as above. Chest x-ray: Radiologist's impression: Limited evaluation of the chest secondary to patient positioning and head/are obscuring the right lung apex. Lung volumes are decreased. Diffuse interstitial prominence and streaky bibasilar opacities favored to represent atelectasis. No dense consolidation identified. Consider repeat chest radiograph when patient is able to cooperate. Labs 07/17/23 04:28 07/17/23 04:28 Labs: Laboratory Results - last 24 hr 07/16/23 07/16/23 07/17/23 19:52 20:33 00:50 WBC 30.8 H* RBC 4.09 Hgb 11.2 L Hct 35.4 L MCV 86.5 MCH 27.5 MCHC 31.7 RDW 15.8 H Plt Count 370 Neut % (Auto) Not Reportable Lymph % (Auto) Not Reportable [place] % (Auto) Not Reportable Eos % (Auto) Not Reportable Baso % (Auto) Not Reportable Lymph # (Auto) Not Reportable [place] # (Auto) Not Reportable Baso # (Auto) Not Reportable Total Counted 100 Seg Neutrophils % 89.0 H Band Neutrophils % Lymphocytes % (Manual) 9.0 L Monocytes % (Manual) 1.0 L Eosinophils % (Manual) 1.0 L Neutrophils # (Manual) 34474 H Platelet Estimate RBC Morphology Normal morphology PT 14.1 H INR 1.2 ABG Sample Site ABG pH ABG pCO2 ABG pO2 ABG HCO3 ABG Total CO2 ABG O2 Saturation ABG Base Excess FiO2 Sodium 136 L Potassium 4.6 Chloride 106 Carbon Dioxide 23 BUN 21 H Creatinine 1.60 H Estimated GFR 36 L BUN/Creatinine Ratio 13.1 Glucose 128 H Lactate 1.8 Calcium 9.0 Magnesium 1.9 Total Bilirubin 0.6 AST 27 ALT 13 Alkaline Phosphatase 106 Total Creatine Kinase 290 H Troponin I 0.017 NT-Pro-B Natriuret Pep 880 H Total Protein 9.7 H Albumin 4.1 Globulin 5.6 H Albumin/Globulin Ratio 0.7 L Procalcitonin 0.38 Urine Color Yellow Urine Appearance Clear Urine pH 5.5 Normal Ur Specific [place] 1.020 Urine Protein 1+ H Urine Glucose (UA) Negative Urine Ketones Negative Urine Occult Blood 1+ H Urine Nitrate Negative Urine Bilirubin Negative Urine Urobilinogen 0.2 Ur Leukocyte Esterase Negative Urine RBC 0-1/hpf Urine WBC 0-1/hpf Ur Squamous Epith Cells None seen Urine Bacteria None seen Ur Culture Indicated? Cult not indicated Vol Urine Centrifuged 10ml (spun) U Opiates 300ng/mL cut Positive H Ur Oxycodone Screen Negative Urine Methadone Screen Negative Ur Barbiturates Screen Negative U Tricyclic Antidepress Negative Ur Phencyclidine Scrn Negative Ur Amphetamines Screen Positive H U Methamphetamines Scrn Positive H Ur MDMA Scrn (Ecstasy) Negative U Benzodiazepines Scrn Negative Urine Cocaine Screen Positive H U Marijuana (THC) Screen Negative Urine Specific [place] Normal Ur Creatinine Normal Chlamy pneumoniae PCR Not detected Adenovirus (PCR) Not detected B.parapertussis DNA PCR Not detected Coronavirus OC43 (PCR) Not detected Coronavirus HKU1 (PCR) Not detected Coronavirus 229E (PCR) Not detected SARS-CoV-2 (PCR) Not detected Coronavirus NL63 (PCR) Not detected Human Metapneumovir PCR Not detected Influenza Type A (PCR) Not detected Influenza Type B (PCR) Not detected M. pneumoniae (PCR) Not detected Parainfluenza 1 (PCR) Not detected Parainfluenza 2 (PCR) Not detected Parainfluenza 3 (PCR) Not detected Parainfluenza 4 (PCR) Not detected RSV (PCR) Not detected Entero/Rhino (PCR) Not detected 07/17/23 07/17/23 04:28 Unknown WBC 30.1 H* RBC 3.79 L Hgb 10.3 L Hct 32.6 L MCV 86.0 MCH 27.1 MCHC 31.5 RDW 15.5 H Plt Count 321 Neut % (Auto) Not Reportable Lymph % (Auto) Not Reportable [place] % (Auto) Not Reportable Eos % (Auto) Not Reportable Baso % (Auto) Not Reportable Lymph # (Auto) Not Reportable [place] # (Auto) Not Reportable Baso # (Auto) Not Reportable Total Counted 100 Seg Neutrophils % 83.0 H Band Neutrophils % 11.0 H Lymphocytes % (Manual) 2.0 L Monocytes % (Manual) 4.0 Eosinophils % (Manual) Neutrophils # (Manual) 64048 H Platelet Estimate Adequate on smear RBC Morphology Normal morphology PT INR ABG Sample Site Right radial ABG pH 7.33 L ABG pCO2 46.2 H ABG pO2 62 L ABG HCO3 24 ABG Total CO2 26 ABG O2 Saturation 92 L ABG Base Excess -2.0 FiO2 32 Sodium 137 Potassium 4.3 Chloride 108 H Carbon Dioxide 22 BUN 20 H Creatinine 1.52 H Estimated GFR 38 L BUN/Creatinine Ratio 13.2 Glucose 215 H Lactate Calcium 8.5 Magnesium Total Bilirubin AST ALT Alkaline Phosphatase Total Creatine Kinase Troponin I NT-Pro-B Natriuret Pep 2230 H Total Protein Albumin Globulin Albumin/Globulin Ratio Procalcitonin Urine Color Urine Appearance Urine pH Ur Specific [place] Urine Protein Urine Glucose (UA) Urine Ketones Urine Occult Blood Urine Nitrate Urine Bilirubin Urine Urobilinogen Ur Leukocyte Esterase Urine RBC Urine WBC Ur Squamous Epith Cells Urine Bacteria Ur Culture Indicated? Vol Urine Centrifuged U Opiates 300ng/mL cut Ur Oxycodone Screen Urine Methadone Screen Ur Barbiturates Screen U Tricyclic Antidepress Ur Phencyclidine Scrn Ur Amphetamines Screen U Methamphetamines Scrn Ur MDMA Scrn (Ecstasy) U Benzodiazepines Scrn Urine Cocaine Screen U Marijuana (THC) Screen Urine Specific [place] Ur Creatinine Chlamy pneumoniae PCR Adenovirus (PCR) B.parapertussis DNA PCR Coronavirus OC43 (PCR) Coronavirus HKU1 (PCR) Coronavirus 229E (PCR) SARS-CoV-2 (PCR) Coronavirus NL63 (PCR) Human Metapneumovir PCR Influenza Type A (PCR) Influenza Type B (PCR) M. pneumoniae (PCR) Parainfluenza 1 (PCR) Parainfluenza 2 (PCR) Parainfluenza 3 (PCR) Parainfluenza 4 (PCR) RSV (PCR) Entero/Rhino (PCR) [facility] Medical History History of renal failure Renal failure (ARF), acute on chronic Hypothyroid Hypertension Kidney stones Social History household members: significant other and friend(s) Smoking Status: Current every day smoker alcohol intake: never substance use type: does not use Assessment & Plan Assessment & Plan narrative: 1. Community-acquired pneumonia, present on admission and active. 2. Severe sepsis, present on admission and active. 3. Acute hypoxic respiratory failure, present on admission and active. 4. Acute kidney injury on chronic kidney disease, present on admission and active. 5. Hypertension, present on admission and stable. 6. Bilateral leg edema, present on admission and active. 7. Polysubstance abuse, present on admission and active. 8. Hypothyroidism, present on admission and stable. Plan: -continue antibiotics and monitor clinical status. -follow up blood and sputum cultures. -monitor CBC -decrease oxygen as able. -monitor blood pressure. -consider diuresis after clinically improved. -monitor for signs of withdrawal. Ativan as needed. -evaluate TSH. Estimated date of discharge is July 17 if clinically improved. She was admitted to inpatient status with a 2 midnight expectation. Time Spent With Patient Time with patient: 30 to 49 minutes with 50% spent counseling/coordinating care
[2023-07-17] MEDS: LEVOTHYROXINE 75 MCG TABLET PO (11:15)
[2023-07-17] MEDS: HEPARIN 5,000 UNIT/ML VIAL 5000 UNIT SUBCUT ×2 (11:15→20:22)
[2023-07-17 12:04] LABS: TSH w/ Reflex to FT4 1.36 uIU/mL (0.47-4.68)
--- NOTE | 2023-07-17 16:00 | CM.DANOTE ---
DCP Brief Assessment Note Pt is a 63yo female, resident of [place], presented with kidney pain and admitted inpatient due to pneumonia and severe sepsis. Pt's primary care provider is Alberto Gaytan and insurance is [employer]vantage and Medicaid. Reviewed chart and team rounds for pt's medical status and initial discharge needs. PHYS THERAPIST attempted two times (11:29am and 12:49pm) to meet with pt at bedside, pt was asleep and somnolent when attempted to begin assessment. PHYS THERAPIST collaborated with greenhouse staff regarding pt's plan of care - pt has extensive medical history of chronic illnesses, coupled with polysubstance use with insight. Per hospitalist, pt eager to discharge home when medically cleared. No discharge needs anticipated at this time. Plan: Anticipating discharge home 4.24 after more IV antibiotics. CM team will plan to follow clinical course closely for assessment of need and coordination of discharge plan. ROXANNA Davenport Discharge Planning/Care Management CM Discharge Assessment Start: 07/17/23 15:50 Freq: Status: Active Protocol: Document 07/17/23 15:50 MW (Rec: 07/17/23 16:00 MW [id number]) Discharge Planning Assessment Assigned Lab Support Tech FAINA Ornelas DPOA/Assigned Designee Name Juan Waldron, Significant Other Contact Information [phone] Advance Directives? No Advance Directives on File No History Provided By Patient Prior Living Arrangements House Household Members significant other,friend(s) Patient/Family Preference [facility] Comment Patient has been historically wanting to be independent and has declined resources and care in the past. Discharge Plan [facility] Whiteboard Updated in Patient Room with No name and ext. # of Lab Support Tech Comment Attempted two times to meet with pt, pt was asleep both attempts. Please Provide Date Initial DC 07/17/23 Assessment Was Performed Next Review Type Continued Stay Review
[2023-07-17] MEDS: SILVER SULFADIAZINE 1% CREAM 25 GM 1 APPLIC TOP (17:41)
[2023-07-17] MEDS: cefTRIAXone 1,000 MG in SODIUM CHLORIDE 0.9% 100 ML 200 MG IV (20:22)
[2023-07-17] MEDS: HYDROCODONE/ACET 5/325 TABLET 1 TAB PO (20:25)
[2023-07-17] MEDS: AZITHROMYCIN 500 MG in DEXTROSE 5% IN WATER 250 ML 250 MG IV (22:13)
[2023-07-18 04:00] VITALS: BP 143/59; PULSE 67; RESP 17; TEMP 36.3; O2SAT 98
[2023-07-18 08:00] VITALS: BP 149/77; PULSE 61; RESP 16; TEMP 36.6; O2SAT 96
[2023-07-18] MEDS: ALBUTEROL 2.5 MG/3 ML NEB (ADULT) INH (08:22)
[2023-07-18 08:25] VITALS: O2SAT 90
[2023-07-18] MEDS: SILVER SULFADIAZINE 1% CREAM 25 GM 1 APPLIC TOP (08:47)
[2023-07-18] MEDS: LEVOTHYROXINE 75 MCG TABLET PO (08:47)
[2023-07-18] MEDS: HEPARIN 5,000 UNIT/ML VIAL 5000 UNIT SUBCUT (08:47)
[2023-07-18 10:08] LABS: Add Manual Diff / Slide Review NO; Basophils Absolute Auto 0 /uL (0-100); Basophils Percent Auto 0.1 % (0-2); Eosinophils Absolute Auto 0 /uL (0-450); Hematocrit 32.9 % (36-46); Hemoglobin 10.4 g/dL (12.0-16.0); Lymphocytes Absolute Auto 2300 /uL (1100-4500); Mean Corpuscular HGB Conc 31.6 % (30-36); Mean Corpuscular Hemoglobin 27.1 PG (26-34); Mean Corpuscular Volume 85.6 fL (80-100); Monocytes Absolute Auto 700 /uL (0-900); Monocytes Percent Auto 3.2 % (3-14); Neutrophils Absolute Auto 18200 /uL (1500-7000); Neutrophils Percent Auto 85.7 % (50-75); Platelet Count 333 X10^3/uL (150-400); Red Blood Cell Count 3.84 X10^6/uL (4.0-5.2); Red Cell Distribution Width 15.6 % (11.6-14.8); White Blood Cell Count 21.3 X10^3/uL (4.5-11.0)
--- NOTE | 2023-07-18 10:11 | CM.DPNOTE ---
DCP Note SENIOR RESEARCH CONSULTANT reviewed EMR. Per hospitalist in morning rounds, anticipate dc later today if WBC is WNL. Pt is eager to dc. SENIOR RESEARCH CONSULTANT met with pt briefly in room. Pt is eager to dc home- working on arranging ride now. SENIOR RESEARCH CONSULTANT gave copy of IMM- pt waived right to 4 hour notice. Pt denied other needs from this SENIOR RESEARCH CONSULTANT- reporting she was already established with a clinic in [place] that helps her with resources at home. Plan: anticipate dc home today, transport with friend. Denies CM needs. CM team will continue to follow as needed. Seema Quiroga, FAINA
[2023-07-18 10:20] LABS: BUN Creatinine Ratio 20.5 (6-22); Blood Urea Nitrogen 33 mg/dL (7-17); Calcium 8.7 mg/dL (8.4-10.2); Carbon Dioxide 26 mmol/L (22-32); Chloride 106 mmol/L (98-107); Estimated Glomerular Filt Rate 35 mL/min (>60); Glucose 246 mg/dL (80-110); HEMOLYSIS < 15 (0-50); Potassium 4.3 mmol/L (3.4-5.1); Sodium 135 mmol/L (137-145)
--- NOTE | 2023-07-18 10:37 | CM.DPNOTE ---
Per DCP Seema, IMM given to patient and patient waived right in case she discharges within 4 hours of receiving but does not have any concerns and cannot document in PCS the discharge IMM. Given 07/18/23 at 0945. FAINA Benito
--- NOTE | 2023-07-18 10:52 | P.DS_ITS ---
History of Present Illness History of Present Illness Chief complaint: kidney pain T-3 Narrative: From H&P: 63-year-old female with history of hypertension, hypothyroidism, bilateral chronic lower extremity edema, polysubstance abuse presents by private vehicle from home for flank pain. On presentation febrile, hypoxemic, started on abx and oxygen for pneumonia and acute hypoxemic respiratory failure. Unable to provide history, somnolent at the time of admission. Additional: She notes acute kidney pain for 3 days. The pain was bilateral and posterior. The pain was not particularly worsened by anything such as position changes or deep breathing. She felt that she was likely passing a kidney stone. Her initial white count was over 30,000. She feels much better today and is now afebrile. She is able to eat without difficulty and denies abdomen or flank pain. She would like to go home as soon as possible. She is willing to stay another day for IV antibiotics. Admitted for pneumonia and severe sepsis. Improved overnight. Discharge Providers Provider Date of admission: 07/16/23 23:24 Discharge Date: 07/18/23 Primary care physician: Alberto Gaytan MD Consults: None. Discharge provider: Chivo Bonilla MD Summary Hospital Course Discharge Diagnosis: 1. Community-acquired pneumonia, present on admission and improved. 2. Severe sepsis, present on admission and resolved. 3. Acute hypoxic respiratory failure, present on admission and resolved. 4. Acute kidney injury on chronic kidney disease, present on admission and improved. 5. Hypertension, present on admission and stable. Not on BP medications. 6. Bilateral leg edema, present on admission and active. 7. Polysubstance abuse, present on admission and active. 8. Hypothyroidism, present on admission and stable. Had stopped thyroid replacement. Hospital Course: She was admitted with presumed pneumonia as well as severe leukocytosis and hypoxic respiratory failure. She was treated with broad-spectrum antibiotics and albuterol nebulizers and had good improvement of [place] symptoms[place] [address] from 30,000. Clinically she felt back to baseline. She was have some chronic edema related ulcers on her legs which were treated with topical medication. She is able to ambulate without difficulty and will continue to take oral antibiotics for 5 additional days at the time of discharge and Re establish contact with her local clinic for primary care follow up as well as reinstitution of wound care for her leg ulcers. Status at Discharge Cognitive/behavioral status at discharge: oriented Functional status at discharge: independent ambulation Overall status at discharge: patient is back to baseline Time Spent with Patient Time spent: Greater than 30 minutes Time spent discussing smoking cessation with patient: 3 to 10 minutes Exam Vital Signs (past 8 hours): - 07/18/23 04:00 07/18/23 08:00 07/18/23 08:25 Temperature 97.3 F L 97.9 F Pulse Rate 67 61 Respiratory Rate 17 16 Blood Pressure 143/59 H 149/77 H Pulse Oximetry 98 96 90 L Oxygen Delivery Method Room Air Oxygen Flow Rate 0 0 Oxygen Delivery Method Room Air Oxygen Flow Rate 0 Narrative Exam Narrative: NAD, alert and oriented. Fluent speech. Lungs are clear, normal rate and effort. Heart is regular, no murmur gallop or rub. Abdomen is soft, non distended. Extremities are with 1+ edema. Objective Imaging CT scan - abdomen: Radiologist's impression: 1. Moderate gallbladder distention without evidence for radiodense gallstones or acute inflammatory changes. Findings may related to fasting state. Recommend clinical correlation. 2. No acute abnormalities identified in the abdomen or pelvis to explain patient's reported history of sepsis. 3. Heterogeneous ill-defined areas of enhancement involving the periphery of the posterior right hepatic lobe near the liver dome. Findings may represent transient hepatic attenuation difference as no focal mass lesion identified. Consider outpatient CT or MRI using liver mass protocol for further evaluation. 4. Other chronic findings as above. Chest x-ray: Radiologist's impression: Limited evaluation of the chest secondary to patient positioning and head/are obscuring the right lung apex. Lung volumes are decreased. Diffuse interstitial prominence and streaky bibasilar opacities favored to represent atelectasis. No dense consolidation identified. Consider repeat chest radiograph when patient is able to cooperate. Labs 07/18/23 09:41 07/18/23 09:41 Labs: Laboratory Results - last 24 hr 07/17/23 07/18/23 04:28 09:41 WBC 21.3 H RBC 3.84 L Hgb 10.4 L Hct 32.9 L MCV 85.6 MCH 27.1 MCHC 31.6 RDW 15.6 H Plt Count 333 Neut % (Auto) 85.7 H Lymph % (Auto) 11.0 L [place] % (Auto) 3.2 Eos % (Auto) 0.0 L Baso % (Auto) 0.1 Neut # (Auto) 69515 H Lymph # (Auto) 2300 [place] # (Auto) 700 Eos # (Auto) 0 Baso # (Auto) 0 Sodium 135 L Potassium 4.3 Chloride 106 Carbon Dioxide 26 BUN 33 H Creatinine 1.61 H Estimated GFR 35 L BUN/Creatinine Ratio 20.5 Glucose 246 H Calcium 8.7 TSH 1.36 PFSH Medical History History of renal failure Renal failure (ARF), acute on chronic Hypothyroid Hypertension Kidney stones Social History household members: significant other and friend(s) Smoking Status: Current every day smoker alcohol intake: never substance use type: does not use Discharge Assessment & Plan Assessment and Plan Assessment: 1. Community-acquired pneumonia, present on admission and improved. 2. Severe sepsis, present on admission and resolved. 3. Acute hypoxic respiratory failure, present on admission and resolved. 4. Acute kidney injury on chronic kidney disease, present on admission and improved. 5. Hypertension, present on admission and stable. Not on BP medications. 6. Bilateral leg edema, present on admission and active. 7. Polysubstance abuse, present on admission and active. 8. Hypothyroidism, present on admission and stable. Had stopped thyroid replacement. Plan of Treatment: She was off oxygen and stable for discharge home. She will receive an additional 3 days of azithromycin 500 p.o. daily, and 5 days of cefdinir 300 mg b.i.d.. She was also given albuterol HFA and a refill is made on her levothyroxine. She agrees to follow up at [facility] for a PCP follow up as well as resumption of wound care for her edema related skin lesions. Discharge Plan Discharge Plan Patient Disposition: Home Discharge orders & Medications Prescriptions: New silver sulfadiazine [Silvadene] 1 % Cream 1 applic topical BID Qty: 60 0RF levothyroxine [Synthroid] 75 mcg Tablet 75 mcg PO DAILY Qty: 30 3RF albuterol sulfate 90 mcg/actuation HFA aerosol inhaler 2 puff inhalation Q6H PRN (Reason: shortness of breath or wheezing) Qty: 6.7 2RF cefdinir 300 mg capsule 300 mg PO BID Qty: 20 0RF azithromycin 500 mg tablet 500 mg PO DAILY 3 Days Qty: 3 0RF Medication counseling provided by Pharmacist: No Follow up/Referrals: Alberto Gaytan MD [Primary Care Provider] - Discharge Health Status Multidrug resistant organism: No MDRO Diet/Activity/Treatments Diet: Regular Activity: As tolerated. Skin/Wound/Dressing Care Report to your healthcare provider any signs of infection, such as:: chills, fever Visit Report/Discharge Packet Instructions: DI for Pneumonia -- Adult Stand Alone Forms: Patient Portal/API Discharge Data Primary Care Provider: Alberto Gaytan
--- NOTE | 2023-07-18 11:03 | PC.NURSE ---
Carter catheter removed. Encouraged Pt to drink plenty of fluids and will monitor output.
--- NOTE | 2023-07-18 12:11 | PC.NURSE ---
Pt is dressed and ready for discharge home with Spouse. IV has been removed. Went over d/c instructions with Pt and Spouse-discussed d/c meds, time of last dose, reviewed stroke education, reminded Pt to take her full course of abx as ordered, encouraged Pt to be consistent about taking her meds and with her wound care. Reminded Pt to drink fluids to prevent constipation or dehydration. Pt denied further questions and was taken out via w/c by [employer] to POV with Spouse and all belongings.
== END 2023-07-18 12:31 | disposition home or self-care (01) | DRG 871 ==
LOC: ED 21:12 → AC 23:25
PROVIDERS: Hospitalist; Admitting Provider Internal Medicine; Emergency Provider Emergency Medicine; PCP Family Medicine; Referring Provider Emergency Medicine; Visit Provider Internal Medicine
DX: A41.9 Sepsis, unspecified organism (principal); J18.9 Pneumonia, unspecified organism; J96.01 Acute respiratory failure with hypoxia; L97.929 Non-pressure chronic ulcer of unspecified part of left lower leg with unspecified severity; L97.919 Non-pressure chronic ulcer of unspecified part of right lower leg with unspecified severity; E03.9 Hypothyroidism, unspecified; F11.10 Opioid abuse, uncomplicated; F15.10 Other stimulant abuse, uncomplicated; I12.9 Hypertensive chronic kidney disease with stage 1 through stage 4 chronic kidney disease, or unspecified chronic kidney disease; N18.9 Chronic kidney disease, unspecified; R60.0 Localized edema; F17.210 Nicotine dependence, cigarettes, uncomplicated; R65.20 Severe sepsis without septic shock
CPT/HCPCS: 36415; 36600; 71045; 74177; 80048; 80053; 80305; 81001; 81003; 82550; 82805; 83605; 83735; 83880; 84145; 84443; 84484; 85007; 85025; 85610; 87040; 87633; 93005; 94640; 94760; 96365; 96367; 96375; 99285; 99291; J0696; J1644; J2919; J7613; Q9967